=== PATIENT | female | born 1945 | race Caucasian/White ===

== ENCOUNTER 2019-04-12 14:54 | Emergency (ER) | payer OTHER, SELFPAY ==
[2019-04-12 15:00] VITALS: BP 183/121; PULSE 78; RESP 18; TEMP 36.4; O2SAT 97; BMI 41.9
--- NOTE | 2019-04-12 15:31 | ED_ITS ---
Entered by Malina Sam, acting as scribe for Zee Bond MD HPI - Wound/Laceration General: Chief Complaint: Wound/Laceration Stated Complaint: wound check Time Seen by Provider: 04/12/19 15:31 Source: patient Mode of arrival: ambulatory Limitations: no limitations History of Present Illness: HPI narrative: 73 yo Female presents to ED with complaint of wound recheck. Pt was sent to the ED from the wound care clinic. Pt states that she is diabetic and they stopped doing her lymphadema wraps. Pt states that home health was doing the wraps but they were told that medicare wasn't going to pay for the lymphadema wraps anymore so they stopped doing them. Pt states that she has been on Keflex since . Onset (ago): week(s) Extremity Location: Bilateral: lower leg Associated symptoms: Denies chills, fever(s), nausea or vomiting Review of Systems Const: Denies: fever or chills Eyes: Denies: change in vision ENMT: Denies: throat pain or mouth pain Card: Denies: chest pain Resp: Denies: shortness of breath GI: Denies: abdominal pain, nausea, vomiting or diarrhea : Denies: difficulty urinating Musc: Denies: back pain or joint pain Skin/Breast: Reports: redness, skin tenderness, skin swelling and sores; Denies: rash Neuro: Denies: headache or behavioral changes Psych: Denies: depression Endo: Denies: excessive urination Timothy/Lymph: Denies: easy bruising All/Imm: Denies: hives PFSH ED PFSH: Statuses (acute, chronic, etc) shown below reflect problem list status as previously entered and may not be historically accurate Medical History (Updated 04/12/19 @ 17:33 by Zee Bond MD) Cellulitis (Acute) Diabetes (Acute) HTN (hypertension) (Acute) Osteomyelitis (Acute) Peripheral neuropathy (Acute) Renal failure (Acute) Thyroid disease (Acute) UTI (urinary tract infection) (Acute) Social History Smoking and tobacco status: former smoker Physical Exam Const: COMMON NORMALS: no apparent distress, oriented x3 and healthy appearing HENMT: COMMON NORMALS: normocephalic and external nose normal HEAD & SCALP: normocephalic NOSE: external nose normal Eye: COMMON NORMALS: PERRL PUPIL: Yes PERRL Neck/C-Spine: COMMON NORMALS: full ROM and no lymphadenopathy Chest: COMMONS NORMALS: inspection of chest normal Resp: COMMON NORMALS: normal respiratory effort, no use of accessory muscles and clear to auscultation bilaterally AUSCULTATION: clear to auscultation bilaterally Cardio: COMMON NORMALS: regular rate and regular rhythm RATE: regular rate RHYTHM: regular rhythm GI: COMMON NORMALS: normal to inspection, nondistended, normoactive bowel sounds, soft to palpation, non-tender and no masses PALPATION: Yes soft Back/Pelvis: THORACIC SPINE/UPPER BACK: Yes normal to inspection Extremity: COMMON NORMALS: full ROM and normal capillary refill NARRATIVE EXTREMITY EXAM: Bilateral lymphedema moderate to severe. Erythema to both legs. She does have a ulcer to the right heel with no signs of abscess. Neuro: COMMON NORMALS: oriented x3 Psych: COMMON NORMALS: mental status grossly normal and cooperative Skin: COMMON NORMALS: no rashes or lesions noted GENERAL SKIN EXAM: no rashes or lesions noted Course Vital Signs: Vital signs: Vital Signs Temperature 97.8 F 04/12/19 15:41 Pulse Rate 90 04/12/19 19:20 Respiratory Rate 16 04/12/19 19:20 Blood Pressure 148/100 04/12/19 19:20 Pulse Oximetry 96 04/12/19 19:20 MDM - Wound/Laceration MDM Narrative: Medical decision making narrative: Patient presents here with lymphedema bilateral legs with cellulitis. Patient's white count here is normal and ultrasound shows no DVT. X-ray shows no signs of osteomyelitis. I spoke to patient's wound care practitioner and will start on clindamycin. Patient is to follow-up in 2 to 4 days and return to the ER if worsening. Patient understands and agrees to plan. Patient is getting home health reset up at her house. Lab Data: Labs: Lab Results 04/12/19 04/12/19 Range/Units 16:05 16:05 WBC 5.3 (4.0-10.0) 10^3/ uL RBC 3.71 L (4.1-5.3) 10^6/u L Hgb 10.8 L (11.5-15.3) g/dL Hct 35.9 L (37.0-47.0) % MCV 96.8 (81-99) fL MCH 29.1 (28.0-34.0) pg MCHC 30.1 (30.0-36.0) g/dL RDW 12.6 (12.1-15.1) % Plt Count 249 (130-400) 10^3/c mm MPV 10.8 H (7.4-10.4) fL Neut % (Auto) 71.5 % Lymph % (Auto) 17.8 % [place] % (Auto) 8.1 % Eos % (Auto) 1.3 % Baso % (Auto) 0.2 % Neut # (Auto) 3.8 (1.8-7.7) 10^3/u L Lymph # (Auto) 0.9 (0.8-4.8) 10^3/u L [place] # (Auto) 0.4 (0.2-0.9) 10^3/u L Eos # (Auto) 0.1 (0.0-0.8) 10^3/u L Baso # (Auto) 0.0 (0.0-0.1) 10^3/u L Nucleated RBC % (a uto) 0 % Nucleated RBCs # 0.0 /100WBC Sodium 142 (136-145) mmol/L Potassium 4.2 (3.5-5.1) mmol/L Chloride 103 (98-107) mmol/L Carbon Dioxide 29 (22-29) mmol/L Anion Gap 14.2 (5-19) BUN 16 (8-23) mg/dL Creatinine 0.9 (0.5-0.9) mg/dL Glucose 206 H (74-106) mg/dL Calcium 9.2 (8.8-10.2) mg/Dl Total Bilirubin 0.3 (0.15-1.2) mg/dL AST 10 (0-32) U/L ALT 11 (0-33) U/L Alkaline Phosphata se 91 (35-105) IU/L Total Protein 7.2 (6.6-8.7) g/dL Albumin 2.9 L (3.5-5.2) g/dL Globulin 4.3 (1.3-4.6) g/dL Imaging Data^: XR Foot: Radiologist's impression: [facility] [address] [place] [address] XRay Report Signed Patient: Rachid Hagen #: [id number] : 7Acct#:[id number] Age/Sex: 73 / FADM Date: 04/12/19 Loc: ERRoom/Bed: Attending Dr: Ordering Provider/Ordering MD: Zee Bond MD Date of Service: 04/12/19 Procedure(s): XR foot LT min 3V* [id number] Accession Number(s): [id number] Report Number: [id number] PROCEDURE INFORMATION: Exam: XR Left Foot Complete Exam date and time: 04/12/2019 4:49 PM Age: 73 years old Clinical indication: Pain; Foot; Left TECHNIQUE: Imaging protocol: XR Left foot. Views: 3 or more views. COMPARISON: US SoftTissue/Extrem Lmt [id number] 07/23/2017 11:36 AM FINDINGS: Bones/joints: There is amputation of the great toe at the level of the distal shaft of the 1st metatarsal. Moderate osteoarthritis is seen. Otherwise negative for acute bony abnormality Soft tissues: Mild edema is seen in the dorsal aspect of the foot. Diffuse soft tissue edema is seen anterior to the 1st metatarsal XR/XR foot LT min 3V* [id number] IMPRESSION: No acute findings. Amputation of the great toe Soft tissue edema distal to the 1st metatarsal and dorsal foot Dictated By:Primitivo Belle Signed By:Geeta Belle Date/Time:04/12/191726 DD/ 25 Discharge Plan Discharge Patient Disposition: Home, Self-Care Clinical Impression: Lymphedema Cellulitis Qualifiers: Site of cellulitis: extremity Site of cellulitis of extremity: lower extremity Laterality: unspecified laterality Qualified Code(s): L03.119 - Cellulitis of unspecified part of limb Condition: Stable Prescriptions: New clindamycin HCl 300 mg capsule 300 mg PO Q8H 10 Days Qty: 30 RF: 0 Discharge Orders: Discharge Order (Routine); Ordered 04/12/19 Ordered By: Zee Bond Referrals: Srikanth Mars Jr, MD [Primary Care Provider] - WOUND CARE CLINIC, [Staff Physician] - 4-7 days Discharge Diet: Advance as tolerated Discharge Activity: Resume usual activity Patient Instructions: Cellulitis (ED) Discharge Date/Time: 04/12/19 19:25 Coding Level of Care Code ED Polysomnography Tech for Chg Fwd Exam Problem Focused The documentation recorded by the Flaco ray Carmen, accurately reflects the service I personally performed and the decisions made by me, Zee Bond MD Apr 12, 2019 14:54
[2019-04-12 15:41] VITALS: BP 147/77; PULSE 78; RESP 20; TEMP 36.6; O2SAT 97
--- NOTE | 2019-04-12 15:43 | USCV_ITS ---
Rachid Hagen Age: 73 Gender: F : 1945 Exam Date: 04/12/2019 16:09 Ordering Phys: Zee Bond MD Technologist: Julissa Dutta [place] [facility] [place] NON HEALING WOUNDS BILATERAL LEGS. LOWER LEGS SEEPING WITH BLISTERS HISTORY: Non healing wounds bilateral legs PROCEDURES: The venous duplex Doppler examination of both lower extremities was performed in the standard fashion. The following venous structures were evaluated: common femoral vein, profunda vein, proximal portion of the greater saphenous vein, superficial femoral vein, and the popliteal vein. In addition, the posterior tibial and peroneal trunk were evaluated. Serial compression, augmentation maneuvers, and spectral Doppler flow evaluation were performed. FINDINGS: No DVT seen in any vessel examined CONCLUSIONS No evidence of DVT in the above-mentioned identifiable veins. Dr Ivory Edwards MD [facility] (Electronically Signed) Final Date: 13 April 2019 07:48 S
[2019-04-12 16:00] VITALS: BP 146/64; PULSE 78; RESP 16; O2SAT 97
--- NOTE | 2019-04-12 16:23 | XRR_ITS ---
PROCEDURE INFORMATION: Exam: XR Left Foot Complete Exam date and time: 04/12/2019 4:49 PM Age: 73 years old Clinical indication: Pain; Foot; Left TECHNIQUE: Imaging protocol: XR Left foot. Views: 3 or more views. COMPARISON: US SoftTissue/Extrem Lmt [id number] 07/23/2017 11:36 AM FINDINGS: Bones/joints: There is amputation of the great toe at the level of the distal shaft of the 1st metatarsal. Moderate osteoarthritis is seen. Otherwise negative for acute bony abnormality Soft tissues: Mild edema is seen in the dorsal aspect of the foot. Diffuse soft tissue edema is seen anterior to the 1st metatarsal XR/XR foot LT min 3V* [id number] IMPRESSION: No acute findings. Amputation of the great toe Soft tissue edema distal to the 1st metatarsal and dorsal foot
[2019-04-12 16:24] LABS: Basophils % 0.2 %; Eosinophils # 0.1 10^3/uL (0.0-0.8); Eosinophils % 1.3 %; Hematocrit 35.9 % (37.0-47.0); Hemoglobin 10.8 g/dL (11.5-15.3); Lymphocytes # 0.9 10^3/uL (0.8-4.8); Lymphocytes % 17.8 %; Mean Corpuscular HGB Conc 30.1 g/dL (30.0-36.0); Mean Corpuscular Hemoglobin 29.1 pg (28.0-34.0); Mean Corpuscular Volume 96.8 fL (81-99); Mean Platelet Volume 10.8 fL (7.4-10.4); Monocytes # 0.4 10^3/uL (0.2-0.9); Monocytes % 8.1 %; Neutrophils # 3.8 10^3/uL (1.8-7.7); Neutrophils % 71.5 %; Nucleated Red Blood Cells % 0 %; Platelet Count 249 10^3/cmm (130-400); Red Blood Count 3.71 10^6/uL (4.1-5.3); Red Cell Distribution Width 12.6 % (12.1-15.1); White Blood Count 5.3 10^3/uL (4.0-10.0)
[2019-04-12 16:38] LABS: Alanine Aminotransferase 11 U/L (0-33); Albumin Level 2.9 g/dL (3.5-5.2); Alkaline Phosphatase 91 IU/L (35-105); Anion Gap 14.2 (5-19); Aspartate Amino Transferase 10 U/L (0-32); Blood Urea Nitrogen 16 mg/dL (8-23); Calcium 9.2 mg/Dl (8.8-10.2); Carbon Dioxide 29 mmol/L (22-29); Chloride 103 mmol/L (98-107); Globulin 4.3 g/dL (1.3-4.6); Glucose 206 mg/dL (74-106); Potassium 4.2 mmol/L (3.5-5.1); Sodium 142 mmol/L (136-145); Total Bilirubin 0.3 mg/dL (0.15-1.2); Total Protein 7.2 g/dL (6.6-8.7)
[2019-04-12 17:00] VITALS: BP 151/70; PULSE 76; RESP 14; O2SAT 97
[2019-04-12] MEDS: vancomycin 1,000 MG in sodium chloride 0.9% 250 ML 250 MG IV (17:52)
[2019-04-12] MEDS: FUROsemide 10 mg/mL SDV 4mL 40 MG IVP (17:52)
[2019-04-12 18:00] VITALS: BP 171/101; PULSE 79; RESP 16; O2SAT 95
--- NOTE | 2019-04-12 19:06 | PC.NURSE ---
REPORT RECEIVED FROM LEO WELCH AND CARE TRANSFERRED TO LEO WILKINS
[2019-04-12 19:20] VITALS: BP 148/100; PULSE 90; RESP 16; O2SAT 96
--- NOTE | 2019-04-13 10:48 | DCPLANNER ---
digital marketing program manager had message to schedule a follow up appointment for patient with Wound Care. digital marketing program manager called the Wound Care Clinic, spoke with Najma, a follow up appointment is scheduled for Friday, April 19, 2019 at 10:45 with Yolanda. Clinic will call patient with appointment information.
--- NOTE | 2019-04-22 10:24 | DCPLANNER ---
Patient did attend appointment scheduled for 04.19.19 with Wound Care.
== END 2019-04-12 19:25 | disposition home or self-care (01) ==
PROVIDERS: Emergency Provider Emergency Medicine; Family Provider Family Medicine; PCP Family Medicine
DX: L03.119 Cellulitis of unspecified part of limb (principal); I89.0 Lymphedema, not elsewhere classified
CPT/HCPCS: 36415; 73630; 80053; 85025; 87040; 93970; 96365; 96374; 99281; J1940; J3370; J7050

== ENCOUNTER 2019-04-23 14:45 | Outpatient (RCR) | payer OTHER, SELFPAY | END 2019-04-23 23:59 | disposition home or self-care (01) | LOC: WOUND 14:45 | PROVIDERS: Family Provider Family Medicine; PCP Family Medicine; Visit Provider Surgery | DX: E11.621 Type 2 diabetes mellitus with foot ulcer (principal); L97.411 Non-pressure chronic ulcer of right heel and midfoot limited to breakdown of skin; L97.822 Non-pressure chronic ulcer of other part of left lower leg with fat layer exposed; L97.812 Non-pressure chronic ulcer of other part of right lower leg with fat layer exposed; L03.116 Cellulitis of left lower limb; E11.622 Type 2 diabetes mellitus with other skin ulcer | CPT/HCPCS: 11042; 11045; 99205; 99214; 99215; L3260 ==

== ENCOUNTER 2019-05-17 10:30 | Outpatient (RCR) | payer OTHER, SELFPAY | END 2019-05-22 23:59 | disposition home or self-care (01) | LOC: WOUND 10:30 | PROVIDERS: Family Provider Family Medicine; PCP Family Medicine; Visit Provider Nurse Practitioner Family | DX: E11.621 Type 2 diabetes mellitus with foot ulcer (principal); L97.412 Non-pressure chronic ulcer of right heel and midfoot with fat layer exposed; E11.622 Type 2 diabetes mellitus with other skin ulcer; L97.822 Non-pressure chronic ulcer of other part of left lower leg with fat layer exposed; L97.812 Non-pressure chronic ulcer of other part of right lower leg with fat layer exposed | CPT/HCPCS: 11042; 11045; 99214; 99215; A6545 ==

== ENCOUNTER 2019-06-07 13:20 | Outpatient (RCR) | payer OTHER, SELFPAY | END 2019-06-22 23:59 | disposition home or self-care (01) | LOC: WOUND 13:20 | PROVIDERS: Family Provider Family Medicine; PCP Family Medicine; Visit Provider Nurse Practitioner Family | DX: E11.621 Type 2 diabetes mellitus with foot ulcer (principal); L97.412 Non-pressure chronic ulcer of right heel and midfoot with fat layer exposed; E11.622 Type 2 diabetes mellitus with other skin ulcer; L97.822 Non-pressure chronic ulcer of other part of left lower leg with fat layer exposed; L97.812 Non-pressure chronic ulcer of other part of right lower leg with fat layer exposed | CPT/HCPCS: 11042; 99214; 99215 ==

== ENCOUNTER 2019-08-07 14:45 | Inpatient (IN) | payer MEDICARE, MEDICAID, SELFPAY ==
[2019-08-07 14:52] VITALS: BP 152/67; PULSE 74; RESP 17; TEMP 36.7; O2SAT 96; BMI 41.9
--- NOTE | 2019-08-07 15:28 | XRR_ITS ---
PROCEDURE INFORMATION: Exam: XR Chest, 1 View Exam date and time: 08/07/2019 4:37 PM Age: 73 years old Clinical indication: Shortness of breath; Additional info: Dyspnea/cough TECHNIQUE: Imaging protocol: XR of the chest Views: 1 view. COMPARISON: [place] Chest 1 [place] [id number] 09/21/2017 11:59 AM FINDINGS: Lungs: Findings suggest the presence of moderate grade interstitial edema of congestive heart failure. Pleural space: Potential for small volume subpulmonic effusions. Heart/Mediastinum: Cardiomegaly with arterial sclerosis. Bones/joints: Age-appropriate degenerative disease. Other findings: Limited diagnostic quality. Patient's body habitus limits detail assessment. Suboptimal positioning. XR/XR chest 1V portable [id number] IMPRESSION: Findings most consistent with moderate grade interstitial edema.
--- NOTE | 2019-08-07 15:50 | ED_ITS ---
HPI - General Adult General: Chief complaint: General Medical Stated complaint: HYPERGLYCEMIC; WEAKNESS Time Seen by Provider: 08/07/19 14:54 History of Present Illness: HPI narrative: 73-year-old female who states she has been essentially bedridden for the last 3 days she is not been able to care for herself is been 3 days since she had a bowel movement she had a bowel movements afternoon and soiled herself. She is complaining of bilateral leg pain unable to move her legs or support her own weight she had been going to the wound clinic which she is not been there for a while now she denies any fever sweats or chills she is not had any hematochezia melena hematemesis or coffee- ground emesis she not been vomiting but she has been fairly nauseous. She denies any chest pain denies any orthopnea or difficulty breathing. Onset (ago): day(s) (4) Location: left, right and lower extremity Severity: mild Quality: burning and aching Pain Consistency: constant Relieving factors: none Exacerbating factors: none Associated symptoms: Reports decreased appetite, malaise, nausea and short of breath; Deny chest pain, cough, diaphoresis, dyspnea, fevers/chills, rash, palpitations, vomiting or weakness Treatments prior to arrival: none Review of Systems Const: Reports: malaise; Denies: diaphoresis ENMT: Denies: throat pain, ear or mastoid pain, nasal discharge or nasal congestion Card: Denies: chest pain or palpitations Resp: Denies: dyspnea GI: Reports: nausea; Denies: vomiting : Denies: flank pain, difficulty voiding, dysuria, urinary frequency or urinary urgency Skin/Breast: Denies: rash or pruritus PFSH ED PFSH: Medical History COPD (chronic obstructive pulmonary disease) Diabetes Diabetic peripheral neuropathy Dyslipidemia GERD (gastroesophageal reflux disease) History of ESBL E. 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 Son has been trying to assume her care. Physical Exam Const: COMMON NORMALS: no acute distress GENERAL APPEARANCE: cooperative and comfortable ORIENTATION/CONSCIOUSNESS: Yes awake, Yes oriented to person, Yes oriented to place and Yes oriented to time HENMT: COMMON NORMALS: normocephalic, atraumatic, hearing grossly normal bilaterally, external ears normal, EAC's normal, TM's normal bilaterally, Normal nasal mucous membranes and turbinates present, moist oral mucous membranes and oropharynx normal HEAD & SCALP: normocephalic and atraumatic NOSE: Normal nasal mucous membranes and turbinates present EXTERNAL EAR: Yes external ears normal EXTERNAL AUDITORY CANAL: EAC's normal TYMPANIC MEMBRANE: TM's normal bilaterally Eye: COMMON NORMALS: Equal, round and reactive pupils present, EOMs intact bilaterally, conjunctivae normal and no scleral icterus CONJUNCTIVA: Yes conjunctivae normal PUPIL: Yes Equal, round and reactive pupils present Neck/C-Spine: COMMON NORMALS: full ROM, no lymphadenopathy, supple and no JVD Lymph: LYMPHATIC: no lymphadenopathy noted and no lymphedema noted Resp: COMMON NORMALS: normal respiratory effort, No retractions, No use of accessory muscles and clear to auscultation bilaterally AUSCULTATION: clear to auscultation bilaterally Cardio: COMMON NORMALS: no JVD, regular rate, regular rhythm and No murmurs present (Cardio) RATE: regular rate RHYTHM: regular rhythm GI: COMMON NORMALS: Soft to palpation and No hepatosplenomegaly present AUSCULTATION: Yes normoactive bowel sounds PALPATION: Yes Soft to palpation, No Tenderness to palpation present (GI), No Guarding due to palpation present (GI) and Yes No hepatosplenomegaly present Extremity: NARRATIVE EXTREMITY EXAM: Extensive open wounds with mucousy eschars at the base the lateral aspect the left leg is nearly circumferential with full-thickness wounds exposed subcutaneous tissue no exposed bone there is no active drainage. Is also present on the right heel on the right posterior lower leg distally. They are very foul-smelling. Neuro: SENSORIUM/ORIENTATION: Yes oriented to person, Yes oriented to place and Yes oriented to time Skin: COMMON NORMALS: no rashes or lesions noted GENERAL SKIN EXAM: no rashes or lesions noted Course Vital Signs: Vital signs: Vital Signs Temperature 98.5 F 08/10/19 16:54 Pulse Rate 71 08/10/19 16:54 Respiratory Rate 18 08/10/19 16:54 Blood Pressure 147/69 08/10/19 16:54 Pulse Oximetry 90 08/10/19 16:54 MDM - General Adult MDM Narrative: Medical decision making narrative: Patient will be admitted for generalized weakness COPD inability to manage her own cares acute kidney injury and worsening diabetic foot ulcers due to pressure. He will likely need surgical consultation with debridement. Lab Data: Labs: Lab Results 08/07/19 08/07/19 08/07/19 Range/Units 15:39 15:39 15:39 WBC 6.8 (4.0-10.0) 10^3/ uL RBC 3.94 L (4.1-5.3) 10^6/u L Hgb 12.0 (11.5-15.3) g/dL Hct 40.2 (37.0-47.0) % MCV 102.0 H (81-99) fL MCH 30.5 (28.0-34.0) pg MCHC 29.9 L (30.0-36.0) g/dL RDW 13.6 (12.1-15.1) % Plt Count 222 (130-400) 10^3/c mm MPV 11.2 H (7.4-10.4) fL Neut % (Auto) 80.8 % Lymph % (Auto) 8.0 % [place] % (Auto) 8.0 % Eos % (Auto) 0.0 % Baso % (Auto) 0.4 % Neut # (Auto) 5.5 (1.8-7.7) 10^3/u L Lymph # (Auto) 0.5 L (0.8-4.8) 10^3/u L [place] # (Auto) 0.5 (0.2-0.9) 10^3/u L Eos # (Auto) 0.0 (0.0-0.8) 10^3/u L Baso # (Auto) 0.0 (0.0-0.1) 10^3/u L Nucleated RBC % (a uto) 0 % Nucleated RBCs # 0.0 /100WBC Specimen Type Sample Site ABG pH (7.35-7.45) ABG pCO2 (35-45) mmHg ABG pO2 (80.0-100.0) mmH g ABG HCO3 (22-26) mmol/L ABG O2 Saturation ABG Base Excess (-2.0-2.0) mmol/ L Rafa Test A-a O2 Gradient (5-10) mmHg Hematocrit (37-47) % Hgb O2 Saturation (95-100) % Carboxyhemoglobin (0.4-20.1) %THgb Methemoglobin (0.4-1.5) % Total Hemoglobin (12-16) g/dL Ionized Calcium (1.1-1.4) mmol/L O2 Delivery Device Etcher Enameling ID Sodium 135 L (136-145) mmol/L Potassium 3.9 (3.5-5.1) mmol/L Chloride 92 L (98-107) mmol/L Carbon Dioxide 31 H (22-29) mmol/L Anion Gap 15.9 (5-19) BUN 15 (8-23) mg/dL Creatinine 1.1 H (0.5-0.9) mg/dL Glucose 488 H (65-115) mg/dL Calculated Osmolal ity 298 H (285-295) mOsm/k g Lactate 3.4 H (0.5-2.2) mmol/L Calcium 8.2 L (8.5-10.5) mg/dL Total Bilirubin 0.5 (0.15-1.2) mg/dL AST 18 (0-32) U/L ALT 9 (0-33) U/L Alkaline Phosphata se 76 (35-105) IU/L Creatine Kinase 759 H* (26-192) U/L Troponin T Baselin e (0-10) ng/mL Total Protein 6.5 L (6.6-8.7) g/dL Albumin 3.2 L (3.5-5.2) g/dL Globulin 3.3 (1.3-4.6) g/dL Lipase 11 L (13-60) U/L 08/07/19 08/07/19 Range/Units 15:39 15:49 WBC (4.0-10.0) 10^3/ uL RBC (4.1-5.3) 10^6/u L Hgb (11.5-15.3) g/dL Hct (37.0-47.0) % MCV (81-99) fL MCH (28.0-34.0) pg MCHC (30.0-36.0) g/dL RDW (12.1-15.1) % Plt Count (130-400) 10^3/c mm MPV (7.4-10.4) fL Neut % (Auto) % Lymph % (Auto) % [place] % (Auto) % Eos % (Auto) % Baso % (Auto) % Neut # (Auto) (1.8-7.7) 10^3/u L Lymph # (Auto) (0.8-4.8) 10^3/u L [place] # (Auto) (0.2-0.9) 10^3/u L Eos # (Auto) (0.0-0.8) 10^3/u L Baso # (Auto) (0.0-0.1) 10^3/u L Nucleated RBC % (a uto) % Nucleated RBCs # /100WBC Specimen Type Arterial Sample Site Radial, left ABG pH 7.43 (7.35-7.45) ABG pCO2 48.0 H (35-45) mmHg ABG pO2 67.3 L (80.0-100.0) mmH g ABG HCO3 32.0 H (22-26) mmol/L ABG O2 Saturation 94.0 ABG Base Excess 6.6 H (-2.0-2.0) mmol/ L Rafa Test Pos A-a O2 Gradient 22.2 H (5-10) mmHg Hematocrit 37.8 (37-47) % Hgb O2 Saturation 91.7 L (95-100) % Carboxyhemoglobin 1.8 (0.4-20.1) %THgb Methemoglobin 0.7 (0.4-1.5) % Total Hemoglobin 12.3 (12-16) g/dL Ionized Calcium 1.1 (1.1-1.4) mmol/L O2 Delivery Device Nc Etcher Enameling ID jmn Sodium 137.0 (136-145) mmol/L Potassium 3.8 (3.5-5.1) mmol/L Chloride (98-107) mmol/L Carbon Dioxide (22-29) mmol/L Anion Gap (5-19) BUN (8-23) mg/dL Creatinine (0.5-0.9) mg/dL Glucose 478.0 H (65-115) mg/dL Calculated Osmolal ity (285-295) mOsm/k g Lactate (0.5-2.2) mmol/L Calcium (8.5-10.5) mg/dL Total Bilirubin (0.15-1.2) mg/dL AST (0-32) U/L ALT (0-33) U/L Alkaline Phosphata se (35-105) IU/L Creatine Kinase (26-192) U/L Troponin T Baselin e 61 H (0-10) ng/mL Total Protein (6.6-8.7) g/dL Albumin (3.5-5.2) g/dL Globulin (1.3-4.6) g/dL Lipase (13-60) U/L Discharge Plan Discharge Admit Provider: Nell Denis Clinical Impression: 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, Diabetic peripheral neuropathy, Rhabdomyolysis, COPD (chronic obstructive pulmonary disease) Condition: Stable Discharge Orders: Discharge Order (Routine); Ordered 08/10/19 Ordered By: Flaquita Wilkins Discharge Diet: Diabetic Discharge Activity: Increase activity as tolerated Interventions: ED Discharge Assessment Last Done: 08/07/19 20:07 ED Charges Last Done: 08/07/19 20:07 Discharge Date/Time: 08/07/19 20:39 Coding Level of Care Code ED Hyperion Administrator for Chg Fwd Exam Comprehensive
[2019-08-07 15:59] LABS: Basophils % 0.4 %; Hematocrit 40.2 % (37.0-47.0); Lymphocytes # 0.5 10^3/uL (0.8-4.8); Mean Corpuscular HGB Conc 29.9 g/dL (30.0-36.0); Mean Corpuscular Hemoglobin 30.5 pg (28.0-34.0); Mean Platelet Volume 11.2 fL (7.4-10.4); Monocytes # 0.5 10^3/uL (0.2-0.9); Neutrophils # 5.5 10^3/uL (1.8-7.7); Neutrophils % 80.8 %; Nucleated Red Blood Cells % 0 %; Platelet Count 222 10^3/cmm (130-400); Red Blood Count 3.94 10^6/uL (4.1-5.3); Red Cell Distribution Width 13.6 % (12.1-15.1); White Blood Count 6.8 10^3/uL (4.0-10.0)
[2019-08-07 16:00] LABS: ABG PH Result 7.43 (7.35-7.45); Alveolar-Arterial Oxygen Gradi 22.2 mmHg (5-10); Arterial Blood Gas Hematocrit 37.8 % (37-47); Base Excess ABG 6.6 mmol/L (-2.0-2.0); Blood Gas Allen Test Pos; Blood Gas Sample Site Radial, left; Blood Gas Sample Type Arterial; Carboxyhemoglobin 1.8 %THgb (0.4-20.1); HGB O2 Sat 91.7 % (95-100); Ionized Calcium Level - ABG 1.1 mmol/L (1.1-1.4); Methemoglobin 0.7 % (0.4-1.5); Oxygen Device NC; PO2 ABG 67.3 mmHg (80.0-100.0); Potassium Level - ABG 3.8 mmol/L (3.5-5.0); Total Hemoglobin 12.3 g/dL (12-16)
[2019-08-07 16:16] LABS: Alanine Aminotransferase 9 U/L (0-33); Albumin Level 3.2 g/dL (3.5-5.2); Alkaline Phosphatase 76 IU/L (35-105); Anion Gap 15.9 (5-19); Aspartate Amino Transferase 18 U/L (0-32); Blood Urea Nitrogen 15 mg/dL (8-23); Calcium 8.2 mg/dL (8.5-10.5); Carbon Dioxide 31 mmol/L (22-29); Chloride 92 mmol/L (98-107); Creatinine Clr Calc Pharmacy 64.5261; Globulin 3.3 g/dL (1.3-4.6); Glucose 488 mg/dL (65-115); Lipase 11 U/L (13-60); Osmolality Calculated 298 mOsm/kg (285-295); Potassium 3.9 mmol/L (3.5-5.1); Sodium 135 mmol/L (136-145); Total Bilirubin 0.5 mg/dL (0.15-1.2); Total Protein 6.5 g/dL (6.6-8.7)
[2019-08-07 16:17] LABS: Lactate (Lactic Acid level) 3.4 mmol/L (0.5-2.2)
[2019-08-07 16:18] LABS: Troponin(5th) Baseline 61 ng/mL (0-10)
[2019-08-07 16:35] LABS: Creatine Phosphokinase 759 U/L (26-192)
--- NOTE | 2019-08-07 16:35 | PC.NURSE ---
CK 314
--- NOTE | 2019-08-07 16:41 | XRR_ITS ---
PROCEDURE INFORMATION: Exam: XR Right Ankle Exam date and time: 08/07/2019 5:19 PM Age: 73 years old Clinical indication: Pain; Lower leg; Right; Additional info: Open wound TECHNIQUE: Imaging protocol: XR Right ankle. Views: 3 or more views. COMPARISON: No relevant prior studies available. FINDINGS: Bones/joints: No radiographic evidence of active or acute osseous abnormality. Osteopenia. No radiographically visible osteolytic destructive process. Ankle mortise intact. Previous amputation right hallux. Soft tissues: No visible soft tissue emphysema. Vasculature: Arterial sclerosis of diabetes mellitus. Phleboliths. XR/XR ankle RT min 3V* [id number] IMPRESSION: Nonacute.
--- NOTE | 2019-08-07 16:41 | XRR_ITS ---
PROCEDURE INFORMATION: Exam: XR Left Ankle Exam date and time: 08/07/2019 4:43 PM Age: 73 years old Clinical indication: Other: Open wounds; Prior surgery; Surgery date: 6+ months; Surgery type: Lower leg; Additional info: Open wound TECHNIQUE: Imaging protocol: XR Left ankle. Views: 3 or more views. COMPARISON: No relevant prior studies available. FINDINGS: Bones/joints: Old distal left tibia and fibula diaphysis fractures with coarse union. Intramedullary alexx tibia. No visible acute osseous abnormality. Osteopenia. No radiographically visible osteolytic destructive process. Soft tissues: Myositis ossificans. No visible subcutaneous emphysema. Vasculature: Arterial sclerosis of diabetes mellitus. Phleboliths. XR/XR ankle LT min 3V* [id number] IMPRESSION: 1. No grossly visible acute osseous abnormality. 2. Old distal left tibia and fibula fractures.
--- NOTE | 2019-08-07 16:42 | XRR_ITS ---
PROCEDURE INFORMATION: Exam: XR Right Foot Complete Exam date and time: 08/07/2019 5:21 PM Age: 73 years old Clinical indication: Pain; Foot; Right; Additional info: Open wound TECHNIQUE: Imaging protocol: XR Right foot. Views: 3 or more views. COMPARISON: No relevant prior studies available. FINDINGS: Bones/joints: Previous amputation right hallux. Osteopenia/osteoporosis. Mild primary osteoarthritis. Hammertoe deformities. Soft tissues: No visible subcutaneous emphysema. Vasculature: Arterial sclerosis of diabetes mellitus. Other findings: No radiographically visible osteolytic destructive process. XR/XR foot RT min 3V* [id number] IMPRESSION: Nonacute.
--- NOTE | 2019-08-07 16:42 | XRR_ITS ---
PROCEDURE INFORMATION: Exam: XR Left Foot Complete Exam date and time: 08/07/2019 5:21 PM Age: 73 years old Clinical indication: Other: Open wounds; Prior surgery; Surgery date: 6+ months; Surgery type: Lower leg; Additional info: Open wound TECHNIQUE: Imaging protocol: XR Left foot. Views: 3 or more views. COMPARISON: No relevant prior studies available. FINDINGS: Bones/joints: Osteopenia/osteoporosis. Hammertoe deformities. Mild primary osteoarthritis. Hallux valgus. No radiographically visible osteolytic destructive process. Soft tissues: No visible subcutaneous emphysema. Vasculature: Arterial sclerosis of diabetes mellitus. XR/XR foot LT min 3V* [id number] IMPRESSION: No radiographically visible acute osseous abnormality.
--- NOTE | 2019-08-07 17:28 | ECG_ITS ---
Measurements Intervals [place] Rate: 66 P: 98 MO: 163 QRS: -27 QRSD: 112 T: 89 QT: 387 QTc: 406 SINUS RHYTHM POSSIBLE ANTERIOR MYOCARDIAL INFARCTION , OF INDETERMINATE AGE Compared to ECG 09/30/2016 08:25:04 Myocardial infarct finding now present Sinus arrhythmia no longer present Electronically Signed On 08-08-2019 9:48:36 CDT by Manuela Hughes M.D. [email or web address]
--- NOTE | 2019-08-07 17:34 | PC.PHAR ---
VANCOMYCIN LOADING DOSE Loading dose: 1500mg Peak post infusion: 23.1 mcg/mL Time to reach 20 mcg/mL: 2.5 hours Time to reach 15 mcg/mL: 7.4 hours 12.0 (mg/kg) MAINTANENCE DOSE 1000 MG Q 12 H TO START @ 0600 / WITH TROUGH TO BE DRAWN @ 1700 /17 PATIENT AT RISK OF ACUTE KIDNEY INJURY DUE TO POSSIBLE RHABDOMYOLYSIS Pharmacokinetic dosing service Objective: Patient: Floor: Age: 73 yo Serum creatinine: 1.1 mg/dL Height: 68.1 Inches Weight (kg): 125 Assessment: IBW (kg): 64.13 Dosing wt(kg): 88.5 Estimated Creatinine clearance (ml/min): 64.6 CRCL method: Cockcroft and Gault using adjusted body weight Drug selected: Vancomycin Loading dose (mg): Vd (liters): 61.9 (factor used: 0.7 L/kg) Wes (hr-1): 0.058 Half life (hrs): 11.95 CLvanco= 3.590 L/hr Recommended dose: 1000 mg Interval: 12 hrs Infusion time (hrs): 1 Predicted peak (mcg/mL): 31.3 Predicted trough (mcg/mL): 16.54 Adjusted body weight was selected for vancomycin dosing. Renal function is stable [ ] /unstable [ ] Recommendations: Give Vancomycin 1000 mg q 12 hrs with an expected Cpeak of 31.3 mcg/ml and an expected Ctrough of 16.54 mcg/ml Thank you for the consult, will continue to follow.
[2019-08-07] MEDS: sodium chloride 0.9% 1,000 ML 999 ML IV (17:37)
[2019-08-07 17:54] LABS: Troponin 5 2HR 52.79 ng/mL (0-10)
[2019-08-07 18:12] LABS: Troponin 5 2HR Delta -8.21 ABS# (0-10)
--- NOTE | 2019-08-07 19:34 | PM.HP ---
Providers/Chief Complaint Admitting Physician: Nell Denis MD Primary Care Provider: Srikanth Mars Jr, MD Chief Complaint: HYPERGLYCEMIC; WEAKNESS History of Present Illness Rachid Hagen is a 73 year old female who presents to the emergency room with inability to get up and worsening sores on her legs. She lives at home with her and her son. She had been going to wound care but last appointment was in mid May. Her family has been doing wound care since then. Her son has been transitioning to doing more of her activities of daily living as her is not really as capable. Several days ago, patient had a large bowel movement and soiled herself. The son really could not handle this. She had been in the same place for several days. She describes being very weak because her blood sugars were high. She was unable to get the sensors for her glucometer device due to cost. She says her sugars have been running high greater than 500 for several days. She denies chest pain. She has had some sweats and chills. No vomiting but she has had some nausea. Not much of an appetite. No recent cough or known sick exposures. She has had increasing pain in her legs. After much discussion at home, she was brought in for further evaluation. She is starting to come around to the idea that she probably needs more assistance than can be provided at home to care for her wounds. Patient was found to have extensive wounds some with some necrosis of both lower extremities. She is being admitted for further evaluation and initiation of appropriate treatment as indicated. Review of Systems Const: Reports: chills; Denies: fever(s) Eyes: Denies: change in vision ENMT: Reports: dry mouth; Denies: nasal congestion Card: Reports: edema; Denies: chest pain or palpitations Resp: Reports: dyspnea and non-productive cough; Denies: productive cough GI: Reports: diarrhea and constipation; Denies: abdominal pain, nausea or vomiting : Reports: urinary frequency and dribbling Musc: Reports: extremity pain Skin/Breast: Reports: rash, pruritus, erythema, skin pain, sores and non-healing lesions Neuro: Reports: numbness in extremities and weakness in extremities; Denies: headache(s) or dizziness Psych: Denies: anxiety or depression Timothy/Lymph: Reports: easy bleeding; Denies: easy bruising Medications/Allergies Home Medications Medication Instructions Recorded Confirmed Last Taken Type albuterol sulfate 2.5 mg INHALATION TID PRN 08/07/19 08/07/19 Unknown History alendronate 70 mg PO Q7D 08/07/19 08/07/19 Unknown History atorvastatin 20 mg PO DAILY 08/07/19 08/07/19 08/07/19 History carvedilol 3.125 mg PO BID 08/07/19 08/07/19 08/07/19 History esomeprazole magnesium 20 mg PO DAILY 08/07/19 08/07/19 08/07/19 History furosemide 40 mg PO DAILY 08/07/19 08/07/19 08/07/19 History gentamicin See Rx Instructions .ROUTE .COMPLEX 08/07/19 08/07/19 Unknown History glipizide 10 mg PO BID 08/07/19 08/07/19 08/07/19 History insulin aspart U-100 [Novolog See Rx Instructions .ROUTE .COMPLEX 08/07/19 08/07/19 Unknown History Flexpen U-100 Insulin] levothyroxine 25 mcg PO DAILY 08/07/19 08/07/19 Unknown History nystatin [Nystop] 1 applic TOPICAL TID 08/07/19 08/07/19 Unknown History oxybutynin chloride 5 mg PO BID 08/07/19 08/07/19 08/07/19 History oxycodone-acetaminophen 1 tab PO Q8H PRN 08/07/19 08/07/19 08/07/19 History potassium chloride 20 meq PO BID 08/07/19 08/07/19 08/07/19 History pregabalin 150 mg PO TID 08/07/19 08/07/19 08/07/19 History sitagliptin [Januvia] 100 mg PO DAILY 08/07/19 08/07/19 Unknown History tramadol 50 mg PO TID PRN 08/07/19 08/07/19 08/07/19 History trazodone 150 mg PO BEDTIME 08/07/19 08/07/19 Unknown History Allergies Allergy/AdvReac Type Severity Reaction Status Date / Time No Known Allergies Allergy Verified 04/12/19 15:00 PFSH Acute PFSH: Medical History COPD (chronic obstructive pulmonary disease) Diabetes Diabetic peripheral neuropathy Dyslipidemia GERD (gastroesophageal reflux disease) History of ESBL E. 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 Son has been trying to assume her care. Vitals/I&O/Wt Last Vital Signs Temp 98.1 F 08/07/19 14:52 Pulse 74 08/07/19 14:52 Resp 17 08/07/19 14:52 BP 152/67 08/07/19 14:52 Pulse Ox 96 08/07/19 14:52 Weight last 48 hrs Weight 125.191 kg Physical Exam Const: COMMON NORMALS: patient oriented x3 and alert GENERAL APPEARANCE: cooperative and ill appearing NUTRITIONAL APPEARANCE: obese morbidly obese HENMT: COMMON NORMALS: normocephalic MOUTH: other (Dry mouth) Eye: COMMON NORMALS: EOMs intact bilaterally Neck/C-Spine: OTHER: Large but supple Resp: COMMON NORMALS: clear to auscultation bilaterally EFFORT & INSPECTION: Yes tachypneic and Yes pursed lip breathing Cardio: RATE: regular rate RHYTHM: regular rhythm GI: COMMON NORMALS: Soft to palpation and non-tender INSPECTION: Yes central obesity AUSCULTATION: Yes normoactive bowel sounds : BLADDER/KIDNEY EXAM: Yes catheter in place Catheter type (Female): urethral Extremity: GENERAL: Yes edema Neuro: COMMON NORMALS: moves all extremities SPEECH: speech normal Skin: NARRATIVE SKIN EXAM: Patient with extensive stasis changes to the lower extremities bilaterally. She has multiple wounds to both lower extremities. There is necrosis of both heels. The left leg has extensive breakdown posteriorly as well as some on the anterior surface. Loss of superficial layers of skin is noted in all of the wounds. Heels with eschar formation. Right leg also with posterior wounds. Both legs are swollen with some serous drainage. Very malodorous. Urinary Catheter Management^: Lockhart: Cath Placed During This Visit: yes Urethral Indwelling: Yes Reason for Continuing Indwelling Catheter: Assist healing open wound Urinary Catheter Date of Insertion: 08/07/19 Data : 08/07/19 15:39 08/07/19 15:39 Other Labs: Laboratory Tests 08/07/19 08/07/19 08/07/19 15:39 15:39 15:39 ABG pH ABG pCO2 ABG pO2 Lactate 3.4 H Creatine Kinase 759 H* Troponin T Baseline 61 H Troponin T 120 Minute Delta Troponin T 08/07/19 08/07/19 15:49 17:35 ABG pH 7.43 ABG pCO2 48.0 H ABG pO2 67.3 L Lactate Creatine Kinase Troponin T Baseline Troponin T 120 Minute 52.79 H Delta Troponin T -8.21 L Micro: Microbiology 08/07/19 15:43 Blood Culture - Preliminary Blood SPECIMEN COLLECTED 08/07/19 15:39 Blood Culture - Preliminary Blood SPECIMEN COLLECTED 03/2019 Venous Duplex Lower Extremities: Radiologist's impression: FINDINGS: No DVT seen in any vessel examined A&P Assessment and plan (1) Weakness: Status: Acute (2) 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: Status: Acute (3) Rhabdomyolysis: Status: Acute Qualifiers: Rhabdomyolysis type: non-traumatic Qualified Code(s): M62.82 - Rhabdomyolysis (4) Diabetes: Status: Chronic Qualifiers: Diabetes mellitus complication status: with hyperglycemia Diabetes mellitus intermission coordinator insulin use: with [facility] use Diabetes mellitus type: type 2 Qualified Code(s): E11.65 - Type 2 diabetes mellitus with hyperglycemia; Z79.4 - snf (current) use of insulin (5) Peripheral vascular disease: Status: Chronic (6) Morbid obesity: BMI 42 Status: Chronic (7) Lymphedema: Status: Chronic (8) COPD (chronic obstructive pulmonary disease): Status: Chronic Qualifiers: COPD type: unspecified COPD Qualified Code(s): J44.9 - Chronic obstructive pulmonary disease, unspecified (9) Hypothyroidism: Status: Chronic Qualifiers: Hypothyroidism type: unspecified Qualified Code(s): E03.9 - Hypothyroidism, unspecified Additional A&P Information Inpatient admission Surgical consultation, I discussed with Dr. De La Fuente Arterial ultrasounds of both lower extremities Broad-spectrum antibiotics currently with Vanco and Zosyn Insulin therapy IV fluids Lasix is currently held Strict I's and O's and weights Continue Lockhart catheter to maximize wound healing as well as monitoring of urine output Repeat laboratory studies in the morning including CK and lactate Allow diet this evening but n.p.o. after midnight for possible debridement Add lactobacillus 1 dose of Diflucan along with some nystatin powder Anticipating drop in H&H with hydration Continue home carvedilol, levothyroxine Statin therapy held secondary to elevation in CK level GI prophylaxis with Protonix Scheduled laxatives No pharmacological DVT prophylaxis secondary to extensive oozing from multiple wounds along with need for debridement No mechanical DVT prophylaxis secondary to extensive and serious wounds on both lower extremities Remains nevertheless at high risk for VTE, will institute pharmacological when able I suspect she will need senior care placement Supportive care otherwise Plans discussed with patient and she was given an opportunity to ask questions Full code Attestations Medical Necessity Statement*: Stay will be greater than 2 midnights for management of extensive wounds to both legs along wiht other issues noted above Coding Level of Care Code Acute Tableau Administrator for [facility] Fwd Exam Comprehensive Diagnoses Weakness R53.1 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 L97.912; L97.922 Rhabdomyolysis M62.82 Rhabdomyolysis type: non-traumatic Diabetes E11.65; Z79.4 Diabetes mellitus complication status: with hyperglycemia Diabetes mellitus intermission coordinator insulin use: with [facility] use Diabetes mellitus type: type 2 Peripheral vascular disease I73.9 Morbid obesity E66.01 Lymphedema I89.0 COPD (chronic obstructive pulmonary disease) J44.9 COPD type: unspecified COPD Hypothyroidism E03.9 Hypothyroidism type: unspecified
--- NOTE | 2019-08-07 20:04 | PC.NURSE ---
Patient findings After further assessment of patient, 2 large baseball sized diabetic ulcers with slothing and yellow drainage, on both legs. Small diabetic ulcers found through ngoc area, buttox, and legs. Also large amount of yeast in in ngoc and breast area. Patient also covered in feces, front and back side. States son lives with her and taking care of her.
[2019-08-07 20:07] VITALS: PULSE 98; RESP 18; O2SAT 96
[2019-08-07 20:22] VITALS: BP 157/81; PULSE 69; RESP 16; O2SAT 97
[2019-08-07 20:25] LABS: Add Urine Microscopic? YES; Bilirubin Urine Neg (NEGATIVE); Blood Urine 2+ (Negative); Glucose Urine UA 4+ (Normal); Ketones Urine Negative (Negative); Leukocyte Esterase Urine 2+ (Negative); Nitrate Urine Positive (Negative); Protein Urine Neg (Negative); Urine Appearance Cloudy (CLEAR); Urine Color Yellow (Yellow); Urobilinogen Urine Norm (Negative); pH Urine 5 (5-7)
[2019-08-07 20:58] LABS: RBC Urine TOO NUMEROUS TO CNT /hpf (0-2)
[2019-08-07 20:59] LABS: Bacteria Urine 3+; WBC Urine >100 /hpf (0-5)
[2019-08-07 21:00] LABS: Add Urine Culture? Yes; Amorphous Sediment Urine 1+; Mucus Urine TRACE
--- NOTE | 2019-08-07 21:28 | ECG_ITS ---
Measurements Intervals [place] Rate: 65 P: 78 NC: 171 QRS: -30 QRSD: 118 T: 75 QT: 419 QTc: 438 SINUS RHYTHM POSSIBLE ANTERIOR MYOCARDIAL INFARCTION , OF INDETERMINATE AGE Compared to ECG 09/30/2016 08:25:04 Myocardial infarct finding now present Sinus arrhythmia no longer present Electronically Signed On 08-08-2019 9:49:53 CDT by Manuela Hughes M.D. [email or web address]
[2019-08-07 21:51] LABS: Glucose Point of Care 370 mg/dL (70-110)
[2019-08-07] MEDS: nystatin powder 15 gm Btl 1 APPLIC TOPICAL (22:09)
[2019-08-07 22:15] LABS: Troponin 5 6HR 53.97 ng/mL (0-10)
[2019-08-07 22:26] LABS: Troponin 5 6HR Delta -7.03 ng/L (0-12)
[2019-08-07] MEDS: trazodone 150 mg Tablet 100 MG PO (22:30)
[2019-08-07] MEDS: piperacillin-tazobactam 3.375 GM in sodium chloride 0.9% (plus) 50 ML IV (23:44)
[2019-08-08] VITALS (7 sets, daily range): BP systolic 111–135; BP diastolic 58–84; PULSE 55–66; RESP 16–18; TEMP 36.4–36.8; O2SAT 96–99; BMI 41.7
[2019-08-08] MEDS: sodium chloride 0.9% 1,000 ML 100 ML IV ×2 (05:53→14:49)
[2019-08-08 05:59] LABS: Basophils % 0.4 %; Eosinophils # 0.1 10^3/uL (0.0-0.8); Eosinophils % 1.2 %; Lymphocytes # 0.9 10^3/uL (0.8-4.8); Lymphocytes % 16.9 %; Mean Corpuscular HGB Conc 29.7 g/dL (30.0-36.0); Mean Corpuscular Hemoglobin 30.6 pg (28.0-34.0); Mean Corpuscular Volume 103.1 fL (81-99); Mean Platelet Volume 10.9 fL (7.4-10.4); Monocytes # 0.6 10^3/uL (0.2-0.9); Monocytes % 12.5 %; Neutrophils # 3.5 10^3/uL (1.8-7.7); Neutrophils % 67.8 %; Nucleated Red Blood Cells % 0 %; Platelet Count 191 10^3/cmm (130-400); Red Blood Count 3.59 10^6/uL (4.1-5.3); Red Cell Distribution Width 13.8 % (12.1-15.1); White Blood Count 5.1 10^3/uL (4.0-10.0)
[2019-08-08 06:23] LABS: C Reactive Protein 83.5 mg/L (0.0-4.9); Magnesium 1.7 mg/dL (1.7-2.3); Phosphorus 3.1 mg/dL (2.5-4.5)
[2019-08-08 06:24] LABS: Lactate (Lactic Acid level) 1.5 mmol/L (0.5-2.2)
[2019-08-08 06:42] LABS: Alanine Aminotransferase 7 U/L (0-33); Albumin Level 2.5 g/dL (3.5-5.2); Alkaline Phosphatase 63 IU/L (35-105); Anion Gap 11.6 (5-19); Aspartate Amino Transferase 14 U/L (0-32); Blood Urea Nitrogen 12 mg/dL (8-23); Calcium 7.6 mg/dL (8.5-10.5); Carbon Dioxide 32 mmol/L (22-29); Chloride 96 mmol/L (98-107); Globulin 2.9 g/dL (1.3-4.6); Glucose 256 mg/dL (65-115); Osmolality Calculated 287 mOsm/kg (285-295); Potassium 3.6 mmol/L (3.5-5.1); Sodium 136 mmol/L (136-145); Total Bilirubin 0.4 mg/dL (0.15-1.2); Total Protein 5.4 g/dL (6.6-8.7)
[2019-08-08 06:59] LABS: Erythrocyte Sedimentation Rate 61 mm/hr (0-15)
[2019-08-08 07:06] LABS: Creatine Phosphokinase 493 U/L (26-192)
[2019-08-08 07:12] LABS: Glucose Point of Care 229 mg/dL (70-110)
[2019-08-08] MEDS: piperacillin-tazobactam 3.375 GM in sodium chloride 0.9% (plus) 50 ML IV ×3 (07:33→22:42)
[2019-08-08 11:29] LABS: Glucose Point of Care 183 mg/dL (70-110)
--- NOTE | 2019-08-08 12:49 | PM.CONSULT ---
Providers/Reason For Consult Consulting Physican/Specialty*: Dr. Denis Reason for Consult*: Right heel ulcer Attending Physician: Nell Denis MD Primary Care Provider: Srikanth Mars Jr, MD History of Present Illness History of Present Illness Rachid Hagen is a 73 year old female who presented to the ER yesterday with pain redness and swelling in bilateral lower extremities with right worse than the left. Patient has been seen at the wound care by nurse practitioner though due to COVID-19 she has not had in person visit in over a month. Wounds are being cared for by her son. She states that her right heel is painful but denies any pain otherwise. Review of Systems General: Reports: 10 or more systems reviewed and unremarkable except in HPI and below Meds/Allergies Home Medications and Allergies Home Medications Medication Instructions Recorded Confirmed Last Taken Type albuterol sulfate 2.5 mg INHALATION TID PRN 08/07/19 08/07/19 Unknown History alendronate 70 mg PO Q7D 08/07/19 08/07/19 Unknown History atorvastatin 20 mg PO DAILY 08/07/19 08/07/19 08/07/19 History carvedilol 3.125 mg PO BID 08/07/19 08/07/19 08/07/19 History esomeprazole magnesium 20 mg PO DAILY 08/07/19 08/07/19 08/07/19 History furosemide 40 mg PO DAILY 08/07/19 08/07/19 08/07/19 History gentamicin See Rx Instructions .ROUTE .COMPLEX 08/07/19 08/07/19 Unknown History glipizide 10 mg PO BID 08/07/19 08/07/19 08/07/19 History insulin aspart U-100 [Novolog See Rx Instructions .ROUTE .COMPLEX 08/07/19 08/07/19 Unknown History Flexpen U-100 Insulin] levothyroxine 25 mcg PO DAILY 08/07/19 08/07/19 Unknown History nystatin [Nystop] 1 applic TOPICAL TID 08/07/19 08/07/19 Unknown History oxybutynin chloride 5 mg PO BID 08/07/19 08/07/19 08/07/19 History oxycodone-acetaminophen 1 tab PO Q8H PRN 08/07/19 08/07/19 08/07/19 History potassium chloride 20 meq PO BID 08/07/19 08/07/19 08/07/19 History pregabalin 150 mg PO TID 08/07/19 08/07/19 08/07/19 History sitagliptin [Januvia] 100 mg PO DAILY 08/07/19 08/07/19 Unknown History tramadol 50 mg PO TID PRN 08/07/19 08/07/19 08/07/19 History trazodone 150 mg PO BEDTIME 08/07/19 08/07/19 Unknown History Allergies Allergy/AdvReac Type Severity Reaction Status Date / Time No Known Allergies Allergy Verified 04/12/19 15:00 Current Medications Current Medications Generic Name Dose Route Start Last Admin Trade Name Freq PRN Reason Stop Dose Admin Carvedilol 3.125 mg 08/08/19 09:00 08/08/19 11:59 Coreg PO Not Given BID JOHANA Fluconazole 200 mg 08/08/19 09:00 08/08/19 11:59 Diflucan Tab PO Not Given DAILY JOHANA Sodium Chloride 1,000 mls @ 100 mls/hr 08/07/19 20:12 08/08/19 05:53 Sodium Chloride 0.9% IV 100 mls/hr .Q10H JOHANA Administration Insulin Aspart 0 unit 08/07/19 21:00 08/07/19 22:34 Novolog SUBCUT 7 unit BEDTIME JOHANA Administration Protocol Insulin Aspart 0 unit 08/08/19 08:00 08/08/19 12:01 Novolog SUBCUT Not Given TIDWM [facility] Protocol Insulin Detemir 10 unit 08/07/19 21:00 08/07/19 22:35 Levemir SUBCUT 10 unit BEDTIME JOHANA Administration Lactobacillus Acidophilus 1 tab 08/08/19 09:00 08/08/19 11:59 Floranex PO Not Given BID JOHANA Levothyroxine Sodium 25 mcg 08/08/19 09:00 08/08/19 11:59 Synthroid PO Not Given DAILY JOHANA Nystatin 1 applic 08/07/19 21:00 08/08/19 12:00 Nystatin Powder TOPICAL Not Given TID [facility] Pantoprazole Sodium 40 mg 08/08/19 09:00 08/08/19 12:00 Protonix PO Not Given DAILY [facility] Senna/Docusate Sodium 1 tab 08/08/19 09:00 08/08/19 12:00 Senna-S PO Not Given BID JOHANA PFSH Acute PFSH: Medical History COPD (chronic obstructive pulmonary disease) Diabetes Diabetic peripheral neuropathy Dyslipidemia GERD (gastroesophageal reflux disease) History of ESBL E. 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 Son has been trying to assume her care. Vitals/I&O/Wt Last Vital Signs Temp 97.5 F L 08/08/19 11:20 Pulse 55 L 08/08/19 11:20 Resp 18 08/08/19 11:20 BP 127/78 08/08/19 11:20 Pulse Ox 96 08/08/19 11:20 08/07/19 08/08/19 08/08/19 22:59 06:59 14:59 Intake Total 1000 / 1050 50 / 1050 Output Total 550 / 550 Balance 1000 / 500 -500 / 500 Weight last 48 hrs Weight 274 lb 8 oz Weight 276 lb Physical Exam Narrative: EXAM NARRATIVE: HEENT: Normocephalic Eye: Sclera /conjunctiva normal Respiratory and chest: Bilateral clear breath sounds on auscultation Cardiovascular: Normal S1 and S2 heart sounds Abdomen: Soft to palpation, well-healed midline laparotomy scar with large pannus and incarcerated umbilical hernia Neurological: Oriented to place person and time Skin: Intact, left leg: Large stage III ulcers, good granulation tissue, minimal surrounding cellulitis and necrotic tissue noted. Right leg: Large stage III ulcers with good granulation tissue, minimal erythema improved compared to yesterday. Right heel ulcer: Necrotic tissue, tender to palpation Urinary Catheter Management^: Lockhart: Cath Placed During This Visit: yes Urethral Indwelling: Yes Reason for Continuing Indwelling Catheter: Other Urinary Catheter Date of Insertion: 08/07/19 Data Micro: Micro: Microbiology 08/07/19 15:43 Blood Culture - Pr eliminary Blood SPECIMEN ALYSE MANUEL 08/07/19 15:39 Blood Culture - Pr eliminary Blood SPECIMEN [facility] MANUEL A&P Assessment and plan (1) 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: 73-year-old female with multiple comorbidities who now has right heel ulcer with necrotic tissue which requires excisional debridement. This could have been done at the bedside but it is tender and therefore we will schedule for her to have it done under MAC the operating room tomorrow. The rest of the wound can be managed with Hydrofera Blue dressings. Status: Acute Coding Level of Care Code Acute Customer Care Voice Consultant for [facility] Diagnoses 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 L97.912; L97.922
--- NOTE | 2019-08-08 13:46 | PM.PN ---
Subjective Subjective: Interval history: Patient not hurting as much today. CK level was down. Still with pain in her right foot. No new complaints. Vitals/I&O/Wt Last Vital Signs Temp 97.5 F L 08/08/19 11:20 Pulse 55 L 08/08/19 11:20 Resp 18 08/08/19 11:20 BP 127/78 08/08/19 11:20 Pulse Ox 96 08/08/19 11:20 08/07/19 08/08/19 08/08/19 22:59 06:59 14:59 Intake Total 1000 / 1000 50 / 1050 Output Total 550 / 550 Balance 1000 / 1000 -500 / 500 Weight last 48 hrs Weight 124.511 kg Weight 125.191 kg Physical Exam Const: COMMON NORMALS: patient oriented x3 and alert GENERAL APPEARANCE: cooperative HENMT: COMMON NORMALS: moist oral mucous membranes Eye: COMMON NORMALS: EOMs intact bilaterally Neck/C-Spine: OTHER: Large but supple Resp: COMMON NORMALS: clear to auscultation bilaterally AUSCULTATION: clear to auscultation bilaterally Cardio: COMMON NORMALS: regular rate and regular rhythm RATE: regular rate RHYTHM: regular rhythm GI: COMMON NORMALS: non-tender INSPECTION: Yes central obesity AUSCULTATION: Yes normoactive bowel sounds : BLADDER/KIDNEY EXAM: Yes catheter in place Catheter type (Female): urethral Extremity: GENERAL: Yes edema Neuro: COMMON NORMALS: patient oriented x3 and moves all extremities SENSORIUM/ORIENTATION: Yes alert SPEECH: speech normal Skin: NARRATIVE SKIN EXAM: Wounds have been cleaned up since yesterday a little bit. Still with left heel still with an eschar formation and area of purulence under the skin layer but it does not look like it has extended beyond what it was yesterday. Patient does have erythema and some excoriation in the groin but again it has been cleaned up and is not as red as I thought it was. Urinary Catheter Management^: Lockhart: Cath Placed During This Visit: yes Urethral Indwelling: Yes Reason for Continuing Indwelling Catheter: Other Urinary Catheter Date of Insertion: 08/07/19 Data : 08/08/19 05:50 08/08/19 05:50 Micro: Microbiology 08/07/19 15:43 Blood Culture - Preliminary Blood SPECIMEN COLLECTED 08/07/19 15:39 Blood Culture - Preliminary Blood SPECIMEN COLLECTED A&P Assessment and plan (1) Weakness: Likely multifactorial exacerbated by rhabdomyolysis and wounds combined with chronic issues Status: Acute (2) 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: Wounds are chronic although I am not completely sure of the severity chronically. Right heel is worse. Status: Acute (3) Rhabdomyolysis: Improved Status: Acute Qualifiers: Rhabdomyolysis type: non-traumatic Qualified Code(s): M62.82 - Rhabdomyolysis (4) Diabetes: Status: Chronic Qualifiers: Diabetes mellitus type: type 2 Diabetes mellitus intermediate frame tender insulin use: with mcfp use Diabetes mellitus complication status: with hyperglycemia Qualified Code(s): E11.65 - Type 2 diabetes mellitus with hyperglycemia; Z79.4 - retirement (current) use of insulin (5) Peripheral vascular disease: Status: Chronic (6) Morbid obesity: BMI 42 Status: Chronic (7) Lymphedema: Status: Chronic (8) COPD (chronic obstructive pulmonary disease): Not currently exacerbated Status: Chronic Qualifiers: COPD type: unspecified COPD Qualified Code(s): J44.9 - Chronic obstructive pulmonary disease, unspecified (9) Hypothyroidism: Status: Chronic Qualifiers: Hypothyroidism type: unspecified Qualified Code(s): E03.9 - Hypothyroidism, unspecified Additional A&P Information Macrocytic anemia Current sed rate [address] De La Fuente has seen Mrs. Hagen and plans to take her to surgery in the morning for debridement Continue Vanco and Zosyn Arterial extent the lower extremities have been completed, follow-up report Insulin therapy Continue IV fluids currently for rhabdomyolysis Suspect will need to resume Lasix in the next day or 2 Strict I's and O's and weights Continue Lockhart catheter to maximize wound healing as well as monitoring of urine output Received 1 dose of Diflucan, nystatin powder for groin Continue home carvedilol, levothyroxine Statin therapy held secondary to elevation in CK level GI prophylaxis with Protonix Scheduled laxatives Home alendronate and oral diabetic medications held On home oxycodone and as needed morphine, resume Lyrica On home trazodone No pharmacological DVT prophylaxis secondary to extensive oozing from multiple wounds along with need for debridement No mechanical DVT prophylaxis secondary to extensive and serious wounds on both lower extremities Remains nevertheless at high risk for VTE, will institute pharmacological when able Patient is agreeable to [place] [facility] for ongoing wound care ET and OT evaluations Supportive care otherwise Plans discussed with patient and she was given an opportunity to ask questions Full code Attestations Medical Necessity Statement*: Ongoing inpatient stay for IV antibiotics and wound debridement and other management as indicated above Coding Level of Care Code Acute [employer] Administrator for Chg Fwd Diagnoses Weakness R53.1 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 L97.912; L97.922 Rhabdomyolysis M62.82 Rhabdomyolysis type: non-traumatic Diabetes E11.65; Z79.4 Diabetes mellitus type: type 2 Diabetes mellitus mcfp insulin use: with mcfp use Diabetes mellitus complication status: with hyperglycemia Peripheral vascular disease I73.9 Morbid obesity E66.01 Lymphedema I89.0 COPD (chronic obstructive pulmonary disease) J44.9 COPD type: unspecified COPD Hypothyroidism E03.9 Hypothyroidism type: unspecified
[2019-08-08] MEDS: nystatin powder 15 gm Btl 1 APPLIC TOPICAL ×2 (14:51→20:41)
--- NOTE | 2019-08-08 15:52 | PC.NURSE ---
orders for surgery has been faxed to the house painting instructor and family has been notified.
--- NOTE | 2019-08-08 15:55 | PC.NURSE ---
Obgyn Hospitalist Physician tried to notify family regarding surgery unable to leave a message due to no voicemail set up.
--- NOTE | 2019-08-08 16:19 | PC.NURSE ---
Pt family returned call son was informed of pt surgery tomorrow morning.
[2019-08-08 16:34] LABS: Vancomycin Trough 10.4 ug/mL (10-15)
[2019-08-08 17:07] LABS: Glucose Point of Care 140 mg/dL (70-110)
[2019-08-08] MEDS: carvedilol 3.125 mg Tablet PO (17:28)
[2019-08-08] MEDS: lactobacillus 1 Tablet 1 TAB PO (17:28)
[2019-08-08] MEDS: vancomycin 1,000 MG in sodium chloride 0.9% 250 ML 250 MG IV (17:28)
[2019-08-08] MEDS: sennosides-docusate Tablet 1 TAB PO (17:28)
--- NOTE | 2019-08-08 20:04 | USR_ITS ---
PROCEDURE INFORMATION: Exam: US Duplex Lower Extremity Arteries Or Arterial Bypass Grafts Exam date and time: 08/08/2019 6:09 AM Age: 73 years old Clinical indication: Condition or disease; Other: Extensive wounds on the lower extremities TECHNIQUE: Imaging protocol: Real-time ultrasound scan of the arteries of the bilateral lower extremities with 2-D woods scale, color Doppler flow and spectral waveform analysis. Images documented and saved. COMPARISON: CR (LOW EXM, ) 08/07/2019 5:06 PM FINDINGS: Right external iliac artery: 125.8 cm/sec, triphasic. Right common femoral artery: 158.3 cm/sec, triphasic. Right superficial femoral artery: Proximal SFA 88.1 cm/sec, triphasic. Mid SFA 136.7 cm/sec, triphasic. Distal SFA 115.1 cm/sec, triphasic. Right popliteal artery: Popliteal 98.2 cm/sec, biphasic. Right calf/foot arteries: Mid-distal CORRECTION OFFICER HEAD 90.9 cm/sec, biphasic. Dorsalis pedis 89.3 cm/sec, triphasic. Left external iliac artery: 140.7 cm/sec, triphasic. Left common femoral artery: 141.4 cm/sec, biphasic. Left superficial femoral artery: Proximal SFA 233.6 cm/sec, monophasic. Mid SFA 207.9 cm/sec, monophasic. Distal SFA 102.5 cm/sec, monophasic. Left popliteal artery: 71.4 cm/sec, monophasic/biphasic. Left calf/foot arteries: Distal CORRECTION OFFICER HEAD 76.9 cm/sec, monophasic. Dorsalis pedis 19.1 cm/sec, monophasic. US/CV arterial duplex [facility] [id number] IMPRESSION: Nonspecific proximal left superficial femoral artery mild systolic velocity acceleration with monophasic waveforms distally. Correlation with ankle brachial indices recommended, when possible (the technologist reports these could not be obtained at this time due to current patient condition).
[2019-08-08] MEDS: trazodone 100 mg Tablet PO (20:40)
[2019-08-08 22:36] LABS: Glucose Point of Care 236 mg/dL (70-110)
[2019-08-09] VITALS (14 sets, daily range): BP systolic 95–157; BP diastolic 50–79; PULSE 54–74; RESP 12–21; TEMP 36.5–37.1; O2SAT 90–98
[2019-08-09] MEDS: sodium chloride 0.9% 1,000 ML 100 ML IV ×3 (01:16→20:21)
[2019-08-09] MEDS: vancomycin 1,000 MG in sodium chloride 0.9% 250 ML 250 MG IV ×2 (04:59→18:08)
--- NOTE | 2019-08-09 05:55 | PC.NURSE ---
Pt urine output only 300ml per leal - fluids at 100ml/hr and average PO intake - lung sound clear/diminished in lower lobes, no signs of fluid overload and confirmed lung sounds with CHASITY Begum. Phys notified and 250ml NS bolus ordered.
[2019-08-09] MEDS: sodium chloride 0.9% 250 ML IV (06:00)
[2019-08-09 06:48] LABS: Glucose Point of Care 183 mg/dL (70-110)
--- NOTE | 2019-08-09 08:15 | PC.OT ---
OT note: Pt off floor, from chart review has plans for surgery today. Will hold at this time.
--- NOTE | 2019-08-09 08:36 | P.ANESASSM_ITS ---
Pre-Anesthetic Assessment Pre-Anesthetic Assessment: Height/Weight: Height 1.73 m Weight 156.263 kg Temp Pulse Resp BP Pulse Ox 98.1 F 64 16 129/50 94 08/09/19 08:29 08/09/19 08:29 08/09/19 08:29 08/09/19 08:29 08/09/19 08:29 Preop Diagnosis: Right heel ulcer Proposed Procedure: Operation Date: 08/09/19 15:05 Proposed Procedures p Debridement of right heel ulcer(Right) - Luis Armando De La Fuente MD Was Beta Shahid taken within 24 hours: Yes Last Intake: 22:00 Social: Social History: Tobacco (quit) Exam: Pre-Anes Outpt Exam: alert (drowsy), oriented x 3, clear to auscultation bilaterally and regular rate & rhythm Airway: Submandibular: WNL Cervical ROM: WNL MP: 2 Additional comments: upper dentures History/ROS: No significant history except as noted Pulmonary: Pulmonary: COPD, MCDONALD and SOB CV/HEM: CV/HEM: Anemia, Arrythmia, CHF, HTN and MT (old MT on EKG) : : Chronic renal Insufficiency Hepatic: Hepatic: None reported GI: GI: GERD Metabolic: Metabolic: DM, Hyperlipidemia and Morbid obesity Musc/skel: Musc/skel: OA/DJD and Weakness (bedridden for the last few days) Neuropsych: Neuropsych: Neuropathy Anesthetic Plan: ASA status: 4 Anesthesia: Anesthesia Evaluation and MAC Risk of > 500 ml blood loss (7ml/kg in children): No Meds/Allergies Current Medications: Current Medications Generic Name Dose Route Start Last Admin Trade Name Freq PRN Reason Stop Dose Admin Carvedilol 3.125 mg 08/08/19 09:00 08/08/19 17:28 Coreg PO 3.125 mg BID JOHANA Administration Fluconazole 200 mg 08/08/19 09:00 08/08/19 11:59 Diflucan Tab PO Not Given DAILY JOHANA Sodium Chloride 1,000 mls @ 100 m ls/hr 08/07/19 20:12 08/09/19 01:16 Sodium Chloride 0.9% IV 100 mls/hr .Q10H JOHANA Administration Vancomycin HCl 1,0 00 mg/ 250 mls @ 250 mls /hr 08/08/19 17:00 08/09/19 04:59 Sodium Chloride IV 250 mls/hr Q12H JOHANA Administration Protocol As Directed Piperacillin Sod/T azobactam 50 mls @ 12.5 mls /hr 08/08/19 15:30 08/08/19 22:42 Sod 3.375 gm/ So dium Chloride IV 12.5 mls/hr Q8H JOHANA Administration Protocol Insulin Aspart 0 unit 08/07/19 21:00 08/08/19 22:42 Novolog SUBCUT 4 unit BEDTIME JOHANA Administration Protocol Insulin Aspart 0 unit 08/08/19 08:00 08/08/19 17:27 Novolog SUBCUT Not Given TIDWM JOHANA Protocol Insulin Detemir 10 unit 08/07/19 21:00 08/08/19 20:41 Levemir SUBCUT 10 unit BEDTIME JOHANA Administration Lactobacillus Acid ophilus 1 tab 08/08/19 09:00 08/08/19 17:28 Floranex PO 1 tab BID JOHANA Administration Levothyroxine Sodi um 25 mcg 08/08/19 09:00 08/08/19 11:59 Synthroid PO Not Given DAILY JOHANA Nystatin 1 applic 08/07/19 21:00 08/08/19 20:41 Nystatin Powder TOPICAL 1 gram TID JOHANA Administration Pantoprazole Sodiu m 40 mg 08/08/19 09:00 08/08/19 12:00 Protonix PO Not Given DAILY JOHANA Senna/Docusate Sod ium 1 tab 08/08/19 09:00 08/08/19 17:28 Senna-S PO 1 tab BID JOHANA Administration Trazodone HCl 100 mg 08/08/19 21:00 08/08/19 20:40 Desyrel PO 100 mg BEDTIME JOHANA Administration PFSH Anesthesia PFSH: Medical History COPD (chronic obstructive pulmonary disease) Diabetes Diabetic peripheral neuropathy Dyslipidemia GERD (gastroesophageal reflux disease) History of ESBL E. 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 Son has been trying to assume her care. Data Anesthesia CBC & Chem 7: 08/08/19 05:50 08/08/19 05:50 Other Labs: Laboratory Results - last 48 hr 08/07/19 08/07/19 08/07/19 15:39 15:39 15:39 WBC 6.8 RBC 3.94 L Hgb 12.0 Hct 40.2 MCV 102.0 H MCH 30.5 MCHC 29.9 L RDW 13.6 Plt Count 222 MPV 11.2 H Neut % (Auto) 80.8 Lymph % (Auto) 8.0 [place] % (Auto) 8.0 Eos % (Auto) 0.0 Baso % (Auto) 0.4 Neut # (Auto) 5.5 Lymph # (Auto) 0.5 L [place] # (Auto) 0.5 Eos # (Auto) 0.0 Baso # (Auto) 0.0 Nucleated RBC % (auto) 0 Nucleated RBCs # 0.0 ESR Specimen Type Sample Site ABG pH ABG pCO2 ABG pO2 ABG HCO3 ABG O2 Saturation ABG Base Excess Rafa Test A-a O2 Gradient Hematocrit Hgb O2 Saturation Carboxyhemoglobin Methemoglobin Total Hemoglobin Ionized Calcium O2 Delivery Device Delivery And Installation Subcontractor ID Sodium 135 L Potassium 3.9 Chloride 92 L Carbon Dioxide 31 H Anion Gap 15.9 BUN 15 Creatinine 1.1 H Glucose 488 H POC Glucose Calculated Osmolality 298 H Lactate 3.4 H Calcium 8.2 L Phosphorus Magnesium Total Bilirubin 0.5 AST 18 ALT 9 Alkaline Phosphatase 76 Creatine Kinase 759 H* Troponin I 6 Hour Troponin I Hi Sens Del Troponin T Baseline Troponin T 120 Minute Delta Troponin T C-Reactive Protein Total Protein 6.5 L Albumin 3.2 L Globulin 3.3 Lipase 11 L Urine Color Urine Appearance Urine pH Ur Specific [place] Urine Protein Urine Glucose (UA) Urine Ketones Urine Blood Urine Nitrate Urine Bilirubin Urine Urobilinogen Ur Leukocyte Esterase Urine RBC Urine WBC Ur Squamous Epith Cells Amorphous Sediment Urine Bacteria Urine Mucus Vancomycin Trough 08/07/19 08/07/19 08/07/19 15:39 15:49 17:35 WBC RBC Hgb Hct MCV MCH MCHC RDW Plt Count MPV Neut % (Auto) Lymph % (Auto) [place] % (Auto) Eos % (Auto) Baso % (Auto) Neut # (Auto) Lymph # (Auto) [place] # (Auto) Eos # (Auto) Baso # (Auto) Nucleated RBC % (auto) Nucleated RBCs # ESR Specimen Type Arterial Sample Site Radial, left ABG pH 7.43 ABG pCO2 48.0 H ABG pO2 67.3 L ABG HCO3 32.0 H ABG O2 Saturation 94.0 ABG Base Excess 6.6 H Rafa Test Pos A-a O2 Gradient 22.2 H Hematocrit 37.8 Hgb O2 Saturation 91.7 L Carboxyhemoglobin 1.8 Methemoglobin 0.7 Total Hemoglobin 12.3 Ionized Calcium 1.1 O2 Delivery Device Nc Delivery And Installation Subcontractor ID jmn Sodium 137.0 Potassium 3.8 Chloride Carbon Dioxide Anion Gap BUN Creatinine Glucose 478.0 H POC Glucose Calculated Osmolality Lactate Calcium Phosphorus Magnesium Total Bilirubin AST ALT Alkaline Phosphatase Creatine Kinase Troponin I 6 Hour Troponin I Hi Sens Del Troponin T Baseline 61 H Troponin T 120 Minute 52.79 H Delta Troponin T -8.21 L C-Reactive Protein Total Protein Albumin Globulin Lipase Urine Color Urine Appearance Urine pH Ur Specific [place] Urine Protein Urine Glucose (UA) Urine Ketones Urine Blood Urine Nitrate Urine Bilirubin Urine Urobilinogen Ur Leukocyte Esterase Urine RBC Urine WBC Ur Squamous Epith Cells Amorphous Sediment Urine Bacteria Urine Mucus Vancomycin Trough 08/07/19 08/07/19 08/07/19 19:58 21:41 21:41 WBC RBC Hgb Hct MCV MCH MCHC RDW Plt Count MPV Neut % (Auto) Lymph % (Auto) [place] % (Auto) Eos % (Auto) Baso % (Auto) Neut # (Auto) Lymph # (Auto) [place] # (Auto) Eos # (Auto) Baso # (Auto) Nucleated RBC % (auto) Nucleated RBCs # ESR Specimen Type Sample Site ABG pH ABG pCO2 ABG pO2 ABG HCO3 ABG O2 Saturation ABG Base Excess Rafa Test A-a O2 Gradient Hematocrit Hgb O2 Saturation Carboxyhemoglobin Methemoglobin Total Hemoglobin Ionized Calcium O2 Delivery Device Delivery And Installation Subcontractor ID Sodium Potassium Chloride Carbon Dioxide Anion Gap BUN Creatinine Glucose POC Glucose 370 Calculated Osmolality Lactate Calcium Phosphorus Magnesium Total Bilirubin AST ALT Alkaline Phosphatase Creatine Kinase Troponin I 6 Hour 53.97 H Troponin I Hi Sens Del -7.03 L Troponin T Baseline Troponin T 120 Minute Delta Troponin T C-Reactive Protein Total Protein Albumin Globulin Lipase Urine Color Yellow Urine Appearance Cloudy Urine pH 5 Ur Specific [place] 1.020 Urine Protein Neg Urine Glucose (UA) 4+ H Urine Ketones Negative Urine Blood 2+ H Urine Nitrate Positive H Urine Bilirubin Neg Urine Urobilinogen Norm Ur Leukocyte Esterase 2+ H Urine RBC Too numerous to cnt H Urine WBC >100 H Ur Squamous Epith Cells 5-10 H Amorphous Sediment 1+ Urine Bacteria 3+ H Urine Mucus Trace Vancomycin Trough 08/08/19 08/08/19 08/08/19 05:50 05:50 05:50 WBC RBC Hgb Hct MCV MCH MCHC RDW Plt Count MPV Neut % (Auto) Lymph % (Auto) [place] % (Auto) Eos % (Auto) Baso % (Auto) Neut # (Auto) Lymph # (Auto) [place] # (Auto) Eos # (Auto) Baso # (Auto) Nucleated RBC % (auto) Nucleated RBCs # ESR 61 H Specimen Type Sample Site ABG pH ABG pCO2 ABG pO2 ABG HCO3 ABG O2 Saturation ABG Base Excess Rafa Test A-a O2 Gradient Hematocrit Hgb O2 Saturation Carboxyhemoglobin Methemoglobin Total Hemoglobin Ionized Calcium O2 Delivery Device Delivery And Installation Subcontractor ID Sodium Potassium Chloride Carbon Dioxide Anion Gap BUN Creatinine Glucose POC Glucose Calculated Osmolality Lactate 1.5 Calcium Phosphorus 3.1 Magnesium 1.7 Total Bilirubin AST ALT Alkaline Phosphatase Creatine Kinase Troponin I 6 Hour Troponin I Hi Sens Del Troponin T Baseline Troponin T 120 Minute Delta Troponin T C-Reactive Protein 83.5 H Total Protein Albumin Globulin Lipase Urine Color Urine Appearance Urine pH Ur Specific [place] Urine Protein Urine Glucose (UA) Urine Ketones Urine Blood Urine Nitrate Urine Bilirubin Urine Urobilinogen Ur Leukocyte Esterase Urine RBC Urine WBC Ur Squamous Epith Cells Amorphous Sediment Urine Bacteria Urine Mucus Vancomycin Trough 08/08/19 08/08/19 08/08/19 05:50 05:50 05:50 WBC 5.1 RBC 3.59 L Hgb 11.0 L Hct 37.0 MCV 103.1 H MCH 30.6 MCHC 29.7 L RDW 13.8 Plt Count 191 MPV 10.9 H Neut % (Auto) 67.8 Lymph % (Auto) 16.9 [place] % (Auto) 12.5 Eos % (Auto) 1.2 Baso % (Auto) 0.4 Neut # (Auto) 3.5 Lymph # (Auto) 0.9 [place] # (Auto) 0.6 Eos # (Auto) 0.1 Baso # (Auto) 0.0 Nucleated RBC % (auto) 0 Nucleated RBCs # 0.0 ESR Specimen Type Sample Site ABG pH ABG pCO2 ABG pO2 ABG HCO3 ABG O2 Saturation ABG Base Excess Rafa Test A-a O2 Gradient Hematocrit Hgb O2 Saturation Carboxyhemoglobin Methemoglobin Total Hemoglobin Ionized Calcium O2 Delivery Device Delivery And Installation Subcontractor ID Sodium 136 Potassium 3.6 Chloride 96 L Carbon Dioxide 32 H Anion Gap 11.6 BUN 12 Creatinine 1.1 H Glucose 256 H POC Glucose Calculated Osmolality 287 Lactate Calcium 7.6 L Phosphorus Magnesium Total Bilirubin 0.4 AST 14 ALT 7 Alkaline Phosphatase 63 Creatine Kinase 493 H* Troponin I 6 Hour Troponin I Hi Sens Del Troponin T Baseline Troponin T 120 Minute Delta Troponin T C-Reactive Protein Total Protein 5.4 L Albumin 2.5 L Globulin 2.9 Lipase Urine Color Urine Appearance Urine pH Ur Specific [place] Urine Protein Urine Glucose (UA) Urine Ketones Urine Blood Urine Nitrate Urine Bilirubin Urine Urobilinogen Ur Leukocyte Esterase Urine RBC Urine WBC Ur Squamous Epith Cells Amorphous Sediment Urine Bacteria Urine Mucus Vancomycin Trough 08/08/19 08/08/19 08/08/19 07:09 11:17 16:08 WBC RBC Hgb Hct MCV MCH MCHC RDW Plt Count MPV Neut % (Auto) Lymph % (Auto) [place] % (Auto) Eos % (Auto) Baso % (Auto) Neut # (Auto) Lymph # (Auto) [place] # (Auto) Eos # (Auto) Baso # (Auto) Nucleated RBC % (auto) Nucleated RBCs # ESR Specimen Type Sample Site ABG pH ABG pCO2 ABG pO2 ABG HCO3 ABG O2 Saturation ABG Base Excess Rafa Test A-a O2 Gradient Hematocrit Hgb O2 Saturation Carboxyhemoglobin Methemoglobin Total Hemoglobin Ionized Calcium O2 Delivery Device Delivery And Installation Subcontractor ID Sodium Potassium Chloride Carbon Dioxide Anion Gap BUN Creatinine Glucose POC Glucose 229 183 Calculated Osmolality Lactate Calcium Phosphorus Magnesium Total Bilirubin AST ALT Alkaline Phosphatase Creatine Kinase Troponin I 6 Hour Troponin I Hi Sens Del Troponin T Baseline Troponin T 120 Minute Delta Troponin T C-Reactive Protein Total Protein Albumin Globulin Lipase Urine Color Urine Appearance Urine pH Ur Specific [place] Urine Protein Urine Glucose (UA) Urine Ketones Urine Blood Urine Nitrate Urine Bilirubin Urine Urobilinogen Ur Leukocyte Esterase Urine RBC Urine WBC Ur Squamous Epith Cells Amorphous Sediment Urine Bacteria Urine Mucus Vancomycin Trough 10.4 08/08/19 08/08/19 08/09/19 16:46 22:10 06:45 WBC RBC Hgb Hct MCV MCH MCHC RDW Plt Count MPV Neut % (Auto) Lymph % (Auto) [place] % (Auto) Eos % (Auto) Baso % (Auto) Neut # (Auto) Lymph # (Auto) [place] # (Auto) Eos # (Auto) Baso # (Auto) Nucleated RBC % (auto) Nucleated RBCs # ESR Specimen Type Sample Site ABG pH ABG pCO2 ABG pO2 ABG HCO3 ABG O2 Saturation ABG Base Excess Rafa Test A-a O2 Gradient Hematocrit Hgb O2 Saturation Carboxyhemoglobin Methemoglobin Total Hemoglobin Ionized Calcium O2 Delivery Device Delivery And Installation Subcontractor ID Sodium Potassium Chloride Carbon Dioxide Anion Gap BUN Creatinine Glucose POC Glucose 140 236 183 Calculated Osmolality Lactate Calcium Phosphorus Magnesium Total Bilirubin AST ALT Alkaline Phosphatase Creatine Kinase Troponin I 6 Hour Troponin I Hi Sens Del Troponin T Baseline Troponin T 120 Minute Delta Troponin T C-Reactive Protein Total Protein Albumin Globulin Lipase Urine Color Urine Appearance Urine pH Ur Specific [place] Urine Protein Urine Glucose (UA) Urine Ketones Urine Blood Urine Nitrate Urine Bilirubin Urine Urobilinogen Ur Leukocyte Esterase Urine RBC Urine WBC Ur Squamous Epith Cells Amorphous Sediment Urine Bacteria Urine Mucus Vancomycin Trough Micro: Microbiology 08/07/19 15:43 Blood Culture - Preliminary Blood Gram positive cocci 08/07/19 15:39 Blood Culture - Preliminary Blood NEGATIVE TO DATE Cardiac Studies: No Data to Display
[2019-08-09] MEDS: sodium chloride 0.9% 1,000 ML 30 ML IV (09:00)
[2019-08-09] MEDS: lidocaine 1% INJ 20 mL INJECTION (09:35)
--- NOTE | 2019-08-09 09:39 | PM.OP ---
Operative Report Date of procedure: August 09, 2019 Pre-op Diagnosis: Right heel ulcer, right leg wound Post-op Diagnosis: Right heel ulcer measuring 5 x 4 x 0.7 cm Right leg wound measuring 4 x 2 x 0.2 cm Procedure Done: Excisional debridement using 15 blade measuring 5 x 4 x 0.7 cm right heel Excisional debridement using 15 blade measuring 4 x 2 x 0.2 cm right leg Pathology: Necrotic skin and subcutaneous tissue Surgeon: Luis Armando De La Fuente Anesthesia: MAC Estimated blood loss (mL): 20 Condition: stable Disposition: PACU Procedure: The patient was taken to the operating room and placed under MAC. She is already on therapeutic IV antibiotics. Using 15 blade excisional debridement of necrotic skin and subcutaneous tissue was performed until there was punctate bleeding noted resulting in a wound measuring 5 x 4 x 0.7 cm. Wound was irrigated saline, hemostasis ensured with electrocautery and Surgicel was placed and covered with 4 x 4 gauze. Using 15 blade excisional debridement of right leg, wound was performed resulting in a wound measuring 4 x 2 x 0.2 cm. Hemostasis ensured with Surgicel and 4 x 4 gauze. The right foot and leg was wrapped with Kerlix .
[2019-08-09] MEDS: piperacillin-tazobactam 3.375 GM in sodium chloride 0.9% (plus) 50 ML IV ×2 (10:31→20:21)
[2019-08-09 11:55] LABS: Glucose Point of Care 184 mg/dL (70-110)
[2019-08-09] MEDS: nystatin powder 15 gm Btl 1 APPLIC TOPICAL ×2 (15:13→20:22)
[2019-08-09] MEDS: pregabalin 150 mg Capsule PO ×2 (15:13→20:22)
--- NOTE | 2019-08-09 16:54 | PM.PN ---
Subjective Subjective: Interval history: Chart reviewed, labs noted, status post excisional debridement of right heel wound earlier today by Dr. De La Fuente. Had 1650 mL urine output overnight. Noted 1 out of 4 bottles of blood culture positive for gram-positive cocci in clusters. Hemodynamically stable, afebrile. Patient seen and examined, resting quietly in bed, no complaints currently. Medications: Reviewed: Yes Medication Review Details: Active Medications Generic Name Dose Route Start Last Admin Trade Name Freq PRN Reason Stop Dose Admin Acetaminophen 650 mg 08/07/19 20:12 Tylenol PO Q6H PRN Mild/Mod Pain Or Temp >/= 101 Carvedilol 3.125 mg 08/08/19 09:00 08/08/19 17:28 Coreg PO 3.125 mg BID JOHANA Administration Dextrose 25 ml 08/07/19 20:12 D50w IVP ONCE PRN hypoglycemia prot ocol Protocol Dextrose 50 ml 08/07/19 20:12 D50w IVP PRN PRN hypoglycemia prot ocol Protocol Fluconazole 200 mg 08/08/19 09:00 08/08/19 11:59 Diflucan Tab PO Not Given DAILY JOHANA Glucagon 1 mg 08/07/19 20:12 Glucagen IM ONCE PRN Adult Acute Hypog lycemia Prot. Protocol Dextrose 500 mls @ 100 mls /hr 08/07/19 20:12 D5w IV ONCE PRN Adult Acute Hypog lycemia Prot Protocol Sodium Chloride 1,000 mls @ 100 m ls/hr 08/07/19 20:12 08/09/19 10:49 Sodium Chloride 0.9% IV Infused .Q10H JOHANA Infusion Vancomycin HCl 1,0 00 mg/ 250 mls @ 250 mls /hr 08/08/19 17:00 08/09/19 10:45 Sodium Chloride IV Infused Q12H JOHANA Infusion Protocol As Directed Piperacillin Sod/T azobactam 50 mls @ 12.5 mls /hr 08/08/19 15:30 08/09/19 15:15 Sod 3.375 gm/ So dium Chloride IV Infused Q8H JOHANA Infusion Protocol Insulin Aspart 0 unit 08/07/19 21:00 08/08/19 22:42 Novolog SUBCUT 4 unit BEDTIME JOHANA Administration Protocol Insulin Aspart 0 unit 08/08/19 08:00 08/09/19 12:30 Novolog SUBCUT 6 unit TIDWM JOHANA Administration Protocol Insulin Detemir 10 unit 08/07/19 21:00 08/08/19 20:41 Levemir SUBCUT 10 unit BEDTIME JOHANA Administration Lactobacillus Acid ophilus 1 tab 08/08/19 09:00 08/08/19 17:28 Floranex PO 1 tab BID JOHANA Administration Levothyroxine Sodi um 25 mcg 08/08/19 09:00 08/08/19 11:59 Synthroid PO Not Given DAILY JOHANA Morphine Sulfate 2 mg 08/07/19 20:12 Morphine IVP Q4H PRN SEVERE PAIN Nystatin 1 applic 08/07/19 21:00 08/09/19 15:13 Nystatin Powder TOPICAL 1 applic TID JOHANA Administration Ondansetron HCl 4 mg 08/07/19 20:12 Zofran IVP Q6H PRN NAUSEA AND VOMITI NG Oxycodone/Acetamin ophen 1 tab 08/07/19 20:12 Percocet 5-325 M g PO Q4H PRN SEVERE PAIN Pantoprazole Sodiu m 40 mg 08/08/19 09:00 08/08/19 12:00 Protonix PO Not Given DAILY JOHANA Pregabalin 150 mg 08/09/19 09:00 08/09/19 15:13 Lyrica PO 150 mg TID JOHANA Administration Senna/Docusate Sod ium 1 tab 08/08/19 09:00 08/08/19 17:28 Senna-S PO 1 tab BID JOHANA Administration Trazodone HCl 100 mg 08/08/19 21:00 08/08/19 20:40 Desyrel PO 100 mg BEDTIME JOHANA Administration No Known Allergies Allergy (Verified 04/12/19 15:00) Vitals/I&O/Wt Last Vital Signs Temp 98.1 F 08/09/19 15:43 Pulse 60 08/09/19 15:43 Resp 15 08/09/19 15:43 BP 110/67 08/09/19 15:43 Pulse Ox 95 08/09/19 15:43 08/09/19 08/09/19 08/09/19 06:59 14:59 22:59 Intake Total 1050 / 2603.333 1500 / 1500 50 / 1550 Output Total 1100 / 1100 270 / 270 Balance -50 / 8661.661 0880 / 1230 50 / 1280 Weight last 48 hrs Weight 156.263 kg Weight 124.511 kg Physical Exam Const: COMMON NORMALS: no acute distress and patient oriented x3 GENERAL APPEARANCE: cooperative and comfortable NUTRITIONAL APPEARANCE: obese morbidly obese ORIENTATION/CONSCIOUSNESS: Yes awake HENMT: COMMON NORMALS: normocephalic, atraumatic, hearing grossly normal bilaterally and moist oral mucous membranes HEAD & SCALP: normocephalic and atraumatic Eye: COMMON NORMALS: Equal, round and reactive pupils present, EOMs intact bilaterally and conjunctivae normal CONJUNCTIVA: Yes conjunctivae normal PUPIL: Yes Equal, round and reactive pupils present Neck/C-Spine: COMMON NORMALS: full ROM GENERAL: Yes normal visual inspection and Yes trachea midline OTHER: -short, thick neck Resp: COMMON NORMALS: normal respiratory effort, No retractions, No use of accessory muscles and clear to auscultation bilaterally EFFORT & INSPECTION: Yes able to speak in complete sentences, Yes symmetric chest movement and No tachypneic AUSCULTATION: clear to auscultation bilaterally Cardio: COMMON NORMALS: regular rate, regular rhythm, S1 normal heart sound present, S2 normal heart sound present and No murmurs present (Cardio) RATE: regular rate RHYTHM: regular rhythm HEART SOUNDS: S1 normal heart sound present and S2 normal heart sound present GI: COMMON NORMALS: Normal to inspection, nondistended, normoactive bowel sounds present, Soft to palpation and non-tender INSPECTION: Yes central obesity PALPATION: Yes Soft to palpation : BLADDER/KIDNEY EXAM: Yes catheter in place Catheter type (Female): urethral Extremity: COMMON NORMALS: normal to inspection, full ROM and no clubbing, cyanosis or edema; negative for no pedal edema OTHER: -RLE in bulky dressing -scattered abrasions on bilateral LEs -noted discrete area of purulence on L heel with some active drainage Neuro: COMMON NORMALS: patient oriented x3, moves all extremities, no focal motor deficits and no sensory deficits noted Psych: COMMON NORMALS: mental status grossly normal, Normal thought process present, cooperative, normal affect and speech normal SPEECH: Yes normal speech THOUGHT PROCESS: Normal thought process present Skin: COMMON NORMALS: no jaundice, no petechiae and no mottling OTHER: -LE wounds as noted above -some inguinal excoriation noted Urinary Catheter Management^: Lockhart: Cath Placed During This Visit: yes Urethral Indwelling: Yes Reason for Continuing Indwelling Catheter: Other Urinary Catheter Date of Insertion: 08/07/19 Data : 08/08/19 05:50 08/08/19 05:50 Micro: Microbiology 08/09/19 09:22 Gram Stain - Final Foot - #1 08/07/19 19:58 Urine Culture - Preliminary Urine Catheterized Gram Negative Rods 08/07/19 15:43 Blood Culture - Preliminary Blood Gram positive cocci 08/07/19 15:39 Blood Culture - Preliminary Blood NEGATIVE TO DATE A&P Assessment and plan (1) UTI (urinary tract infection): -UA strongly indicative of infection -Urine culture growing GNRs, pending ID & sensitivity -on IV Vanc/Zosyn Status: Acute Qualifiers: Hematuria presence: with hematuria Urinary tract infection type: acute cystitis Qualified Code(s): N30.01 - Acute cystitis with hematuria (2) 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: -Status post excisional debridement of right heel ulcer by Dr. De La Fuente; Gram stain growing rare gram-positive cocci in clusters, wound culture pending -Appreciate consultation by Dr. De La Fuente -Continue dual antibiotic coverage with Zosyn and vancomycin -blood cx: 03/27 bottles positive for GPC in clusters, repeat set ordered -no leukocytosis, afebrile -wound care as needed -noted elevated ESR, CRP -will need continued f/u at [facility] Status: Acute (3) Rhabdomyolysis: -CPK trending down -on IVF Status: Acute Qualifiers: Rhabdomyolysis type: non-traumatic Qualified Code(s): M62.82 - Rhabdomyolysis (4) Weakness: -likely secondary to rhabdomyolysis -fall precautions -PT/OT evaluations appreciated Status: Acute (5) HTN (hypertension): -normotensive, continue to monitor vital signs -continue oral antihypertensives Status: Acute Qualifiers: Hypertension type: essential hypertension Qualified Code(s): I10 - Essential (primary) hypertension (6) Morbid obesity: -BMI-52 kg/m2 Status: Chronic (7) Hypothyroidism: -continue levothyroxine Status: Chronic Qualifiers: Hypothyroidism type: unspecified Qualified Code(s): E03.9 - Hypothyroidism, unspecified (8) Peripheral vascular disease: -has known hx of PVD Status: Chronic (9) GERD (gastroesophageal reflux disease): -on PPI Status: Chronic Qualifiers: Esophagitis presence: esophagitis presence not specified Qualified Code(s): K21.9 - Gastro-esophageal reflux disease without esophagitis (10) COPD (chronic obstructive pulmonary disease): -no acute exacerbation currently -not oxygen dependent at baseline Status: Chronic Qualifiers: COPD type: unspecified COPD Qualified Code(s): J44.9 - Chronic obstructive pulmonary disease, unspecified Additional A&P Information -IDDM type II; Accucheks, ISS, scheduled insulin, hypoglycemia precautions, consistent carb diet as tolerated -DVT ppx held due to noted oozing from wound sites though given body habitus and decreased mobility, is at high risk for VTE -Dispo: SNF; pending authorization for [facility] -Code status: FULL code Attestations Medical Necessity Statement*: Patient requires hospitalization for continued IV antibiotic treatment for lower extremity ulcers, UTI, pending culture results as well as appropriate disposition. Time Spent in Patient Care: Greater than 35 minutes (>than 50% of time spent in counselling and/or direct pt care on unit). Coding Level of Care Code Acute Delivery Supervisor for Chg Fwd Exam Comprehensive Diagnoses UTI (urinary tract infection) N30.01 Hematuria presence: with hematuria Urinary tract infection type: acute cystitis 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 L97.912; L97.922 Rhabdomyolysis M62.82 Rhabdomyolysis type: non-traumatic Weakness R53.1 HTN (hypertension) I10 Hypertension type: essential hypertension Morbid obesity E66.01 Hypothyroidism E03.9 Hypothyroidism type: unspecified Peripheral vascular disease I73.9 GERD (gastroesophageal reflux disease) K21.9 Esophagitis presence: esophagitis presence not specified COPD (chronic obstructive pulmonary disease) J44.9 COPD type: unspecified COPD
[2019-08-09 17:15] LABS: Glucose Point of Care 130 mg/dL (70-110)
[2019-08-09] MEDS: sennosides-docusate Tablet 1 TAB PO (18:08)
[2019-08-09] MEDS: carvedilol 3.125 mg Tablet PO (18:08)
[2019-08-09] MEDS: lactobacillus 1 Tablet 1 TAB PO (18:08)
[2019-08-09] MEDS: trazodone 100 mg Tablet PO (20:22)
[2019-08-09 21:11] LABS: Glucose Point of Care 148 mg/dL (70-110)
[2019-08-10] VITALS (9 sets, daily range): BP systolic 105–147; BP diastolic 62–74; PULSE 64–73; RESP 16–18; TEMP 36.6–37.3; O2SAT 90–95
[2019-08-10] MEDS: oxyCODONE-APAP 5-325 mg Tablet 1 TAB PO (01:13)
[2019-08-10] MEDS: vancomycin 1,000 MG in sodium chloride 0.9% 250 ML 250 MG IV (04:38)
[2019-08-10] MEDS: piperacillin-tazobactam 3.375 GM in sodium chloride 0.9% (plus) 50 ML IV (06:10)
[2019-08-10 06:30] LABS: Glucose Point of Care 114 mg/dL (70-110)
[2019-08-10 06:45] LABS: Eosinophils # 0.1 10^3/uL (0.0-0.8); Eosinophils % 2.2 %; Hematocrit 40.1 % (37.0-47.0); Hemoglobin 11.6 g/dL (11.5-15.3); Lymphocytes % 24.2 %; Mean Corpuscular HGB Conc 28.9 g/dL (30.0-36.0); Mean Corpuscular Hemoglobin 30.8 pg (28.0-34.0); Mean Corpuscular Volume 106.4 fL (81-99); Mean Platelet Volume 11.7 fL (7.4-10.4); Monocytes # 0.4 10^3/uL (0.2-0.9); Monocytes % 9.9 %; Neutrophils # 2.5 10^3/uL (1.8-7.7); Neutrophils % 60.8 %; Nucleated Red Blood Cells % 0 %; Platelet Count 216 10^3/cmm (130-400); Red Blood Count 3.77 10^6/uL (4.1-5.3); White Blood Count 4.1 10^3/uL (4.0-10.0)
--- NOTE | 2019-08-10 09:02 | P.PN_ITS ---
Subjective Subjective: Interval history: VSS, afebrile, had 675 mL urine output overnight. Wound cx pending. CPK normalized, noted slight increase in Cr, will d/c IVF. Urine cx have grown ESBL Klebsiella pneumoniae so will d/c vanc/zosyn and switch to primaxin, need to place on contact isolation precautions and request PICC line placement. Patient seen and examined, seems tired though spent some time sitting up this morning per nursing staff. Continues to have notable drainage from LLE wounds. Medications: Reviewed: Yes Medication Review Details: Active Medications Generic Name Dose Route Start Last Admin Trade Name Freq PRN Reason Stop Dose Admin Acetaminophen 650 mg 08/07/19 20:12 Tylenol PO Q6H PRN Mild/Mod Pain Or Temp >/= 101 Carvedilol 3.125 mg 08/08/19 09:00 08/09/19 18:08 Coreg PO 3.125 mg BID JOHANA Administration Dextrose 25 ml 08/07/19 20:12 D50w IVP ONCE PRN hypoglycemia prot ocol Protocol Dextrose 50 ml 08/07/19 20:12 D50w IVP PRN PRN hypoglycemia prot ocol Protocol Fluconazole 200 mg 08/08/19 09:00 08/08/19 11:59 Diflucan Tab PO Not Given DAILY JOHANA Glucagon 1 mg 08/07/19 20:12 Glucagen IM ONCE PRN Adult Acute Hypog lycemia Prot. Protocol Dextrose 500 mls @ 100 mls /hr 08/07/19 20:12 D5w IV ONCE PRN Adult Acute Hypog lycemia Prot Protocol Sodium Chloride 1,000 mls @ 100 m ls/hr 08/07/19 20:12 08/09/19 20:21 Sodium Chloride 0.9% IV 100 mls/hr .Q10H JOHANA Administration Vancomycin HCl 1,0 00 mg/ 250 mls @ 250 mls /hr 08/08/19 17:00 08/10/19 04:38 Sodium Chloride IV 250 mls/hr Q12H JOHANA Administration Protocol As Directed Piperacillin Sod/T azobactam 50 mls @ 12.5 mls /hr 08/08/19 15:30 08/10/19 06:10 Sod 3.375 gm/ So dium Chloride IV 12.5 mls/hr Q8H JOHANA Administration Protocol Insulin Aspart 0 unit 08/07/19 21:00 08/10/19 01:10 Novolog SUBCUT Not Given BEDTIME [facility] Protocol Insulin Aspart 0 unit 08/08/19 08:00 08/10/19 07:35 Novolog SUBCUT Not Given TIDWM [facility] Protocol Insulin Detemir 10 unit 08/07/19 21:00 08/09/19 20:24 Levemir SUBCUT 10 unit BEDTIME JOHANA Administration Lactobacillus Acid ophilus 1 tab 08/08/19 09:00 08/09/19 18:08 Floranex PO 1 tab BID JOHANA Administration Levothyroxine Sodi um 25 mcg 08/08/19 09:00 08/08/19 11:59 Synthroid PO Not Given DAILY JOHANA Morphine Sulfate 2 mg 08/07/19 20:12 Morphine IVP Q4H PRN SEVERE PAIN Nystatin 1 applic 08/07/19 21:00 08/09/19 20:22 Nystatin Powder TOPICAL 1 applic TID JOHANA Administration Ondansetron HCl 4 mg 08/07/19 20:12 Zofran IVP Q6H PRN NAUSEA AND VOMITI NG Oxycodone/Acetamin ophen 1 tab 08/07/19 20:12 08/10/19 01:13 Percocet 5-325 M g PO 1 tab Q4H PRN Administration SEVERE PAIN Pantoprazole Sodiu m 40 mg 08/08/19 09:00 08/08/19 12:00 Protonix PO Not Given DAILY JOHANA Pregabalin 150 mg 08/09/19 09:00 08/09/19 20:22 Lyrica PO 150 mg TID JOHANA Administration Senna/Docusate Sod ium 1 tab 08/08/19 09:00 08/09/19 18:08 Senna-S PO 1 tab BID JOHANA Administration Trazodone HCl 100 mg 08/08/19 21:00 08/09/19 20:22 Desyrel PO 100 mg BEDTIME JOHANA Administration No Known Allergies Allergy (Verified 04/12/19 15:00) Vitals/I&O/Wt Last Vital Signs Temp 97.9 F 08/10/19 07:20 Pulse 64 08/10/19 07:20 Resp 17 08/10/19 08:53 BP 130/71 08/10/19 07:20 Pulse Ox 95 08/10/19 07:20 08/09/19 08/10/19 08/10/19 22:59 06:59 14:59 Intake Total 1080 / 2580 50 / 2630 Output Total 225 / 495 450 / 945 Balance 855 / 2085 -400 / 1685 Weight last 48 hrs Weight 158.712 kg Weight 156.263 kg Physical Exam Const: COMMON NORMALS: no acute distress and patient oriented x3 GENERAL APPEARANCE: cooperative and comfortable NUTRITIONAL APPEARANCE: obese morbidly obese ORIENTATION/CONSCIOUSNESS: Yes awake HENMT: COMMON NORMALS: normocephalic, atraumatic, hearing grossly normal bilaterally and moist oral mucous membranes HEAD & SCALP: normocephalic and atraumatic Eye: COMMON NORMALS: Equal, round and reactive pupils present, EOMs intact bilaterally and conjunctivae normal CONJUNCTIVA: Yes conjunctivae normal PUPIL: Yes Equal, round and reactive pupils present Neck/C-Spine: COMMON NORMALS: full ROM GENERAL: Yes normal visual inspection and Yes trachea midline OTHER: -short, thick neck Resp: COMMON NORMALS: normal respiratory effort, No retractions, No use of accessory muscles and clear to auscultation bilaterally EFFORT & INSPECTION: Yes able to speak in complete sentences, Yes symmetric chest movement and No tachypneic AUSCULTATION: clear to auscultation bilaterally Cardio: COMMON NORMALS: regular rate, regular rhythm, S1 normal heart sound present, S2 normal heart sound present and No murmurs present (Cardio) RATE: regular rate RHYTHM: regular rhythm HEART SOUNDS: S1 normal heart sound present and S2 normal heart sound present GI: COMMON NORMALS: Normal to inspection, nondistended, normoactive bowel sounds present, Soft to palpation and non-tender INSPECTION: Yes central ob esity PALPATION: Yes Soft to palpation : BLADDER/KIDNEY EXAM: Yes catheter in place Catheter type (Female): urethral Extremity: COMMON NORMALS: normal to inspection, full ROM and no clubbing, cyanosis or edema; negative for no pedal edema OTHER: -RLE in bulky dressing -scattered abrasions on bilateral LEs -noted discrete area of purulence on L heel with some active drainage Neuro: COMMON NORMALS: patient oriented x3, moves all extremities, no focal motor deficits and no sensory deficits noted Psych: COMMON NORMALS: mental status grossly normal, Normal thought process present, cooperative, normal affect and speech normal SPEECH: Yes normal speech THOUGHT PROCESS: Normal thought process present Skin: COMMON NORMALS: no jaundice, no petechiae and no mottling OTHER: -LE wounds as noted above; several open wounds on LLE with active seroanguinous drainage, no odor noted -some inguinal excoriation noted Urinary Catheter Management^: Lockhart: Cath Placed During This Visit: yes Urethral Indwelling: Yes Reason for Continuing Indwelling Catheter: Other (open and extensive wounds) Urinary Catheter Date of Insertion: 08/07/19 Data : 08/10/19 06:31 08/10/19 08:48 Micro: Microbiology 08/09/19 18:22 Blood Culture - Preliminary Blood SPECIMEN COLLECTED 08/09/19 18:00 Blood Culture - Preliminary Blood SPECIMEN COLLECTED 08/09/19 09:22 Gram Stain - Final Foot - #1 08/07/19 19:58 Urine Culture - Preliminary Urine Catheterized Gram Negative Rods A&P Assessment and plan (1) UTI (urinary tract infection): -UA strongly indicative of infection -Urine culture growing ESBL Klebsiella pneumoniae; sensitivity noted; 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 De La Fuente; POD # 1; Gram stain growing rare gram-positive cocci in clusters, wound culture pending -Appreciate consultation by Dr. De La Fuente -Continue dual antibiotic coverage with Zosyn and vancomycin; will d/c this regimen as she is now on Primaxin. -blood cx: 1/ bottles positive for GPC in clusters, repeat set ordered. Has had MRSA in the past -no leukocytosis, afebrile -wound care as needed -noted elevated ESR, CRP -will need continued f/u at [facility]; was seeing Monse Rodriguez once weekly () Status: Acute (3) Rhabdomyolysis: -CPK normalized -d/c IVF Status: Resolved Qualifiers: Rhabdomyolysis type: non-traumatic Qualified Code(s): M62.82 - Rhabdomyolysis (4) Weakness: -likely secondary to rhabdomyolysis -fall precautions -PT/OT evaluations appreciated Status: Acute (5) HTN (hypertension): -normotensive, continue to monitor vital signs -continue oral antihypertensives Status: Acute Qualifiers: Hypertension type: essential hypertension Qualified Code(s): I10 - Essential (primary) hypertension (6) Morbid obesity: -BMI-53 kg/m2 Status: Chronic (7) Hypothyroidism: -continue levothyroxine Status: Chronic Qualifiers: Hypothyroidism type: unspecified Qualified Code(s): E03.9 - Hypothyroidism, unspecified (8) Peripheral vascular disease: -has known hx of PVD Status: Chronic (9) GERD (gastroesophageal reflux disease): -on PPI Status: Chronic Qualifiers: Esophagitis presence: esophagitis presence not specified Qualified Code(s): K21.9 - Gastro-esophageal reflux disease without esophagitis (10) COPD (chronic obstructive pulmonary disease): -no acute exacerbation currently -not oxygen dependent at baseline Status: Chronic Qualifiers: COPD type: unspecified COPD Qualified Code(s): J44.9 - Chronic obstructive pulmonary disease, unspecified Additional A&P Information -IDDM type II; Accucheks, ISS, scheduled insulin, hypoglycemia precautions, consistent carb diet as tolerated -ANGELIC on CKD stage 2-3; baseline Cr < 1; likely secondary to dehydration and could also be medication induced as she has been on Vanc/Zosyn; will d/c Zosyn, Vanc -DVT ppx held due to noted oozing from wound sites though given body habitus and decreased mobility, is at high risk for VTE -Dispo: [facility] -Code status: FULL code Attestations Medical Necessity Statement*: Discharge later today if able to place PICC line and arrange IV antibiotics. Time Spent in Patient Care: 16 - 35 minutes (>than 50% of time spent in counselling and/or direct pt care on unit) . Coding Level of Care Code Acute Mathematical Technician for g Fwd Exam Comprehensive Diagnoses UTI (urinary tract infection) N30.01 Hematuria presence: with hematuria Urinary tract infection type: acute cystitis 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 L97.912; L97.922 Rhabdomyolysis M62.82 Rhabdomyolysis type: non-traumatic Weakness R53.1 HTN (hypertension) I10 Hypertension type: essential hypertension Morbid obesity E66.01 Hypothyroidism E03.9 Hypothyroidism type: unspecified Peripheral vascular disease I73.9 GERD (gastroesophageal reflux disease) K21.9 Esophagitis presence: esophagitis presence not specified COPD (chronic obstructive pulmonary disease) J44.9 COPD type: unspecified COPD
[2019-08-10] MEDS: lactobacillus 1 Tablet 1 TAB PO (09:12)
[2019-08-10] MEDS: fluconazole 100 mg Tablet 200 MG PO (09:12)
[2019-08-10] MEDS: pregabalin 150 mg Capsule PO ×2 (09:12→14:40)
[2019-08-10] MEDS: pantoprazole DR 40 mg Tablet PO (09:12)
[2019-08-10] MEDS: carvedilol 3.125 mg Tablet PO (09:12)
[2019-08-10] MEDS: levothyroxine 25 mcg Tablet PO (09:12)
[2019-08-10] MEDS: sennosides-docusate Tablet 1 TAB PO (09:12)
[2019-08-10 09:17] LABS: Anion Gap 10.6 (5-19); Blood Urea Nitrogen 8 mg/dL (8-23); Calcium 8.1 mg/dL (8.5-10.5); Carbon Dioxide 31 mmol/L (22-29); Chloride 107 mmol/L (98-107); Creatine Phosphokinase 135 U/L (26-192); Glucose 136 mg/dL (65-115); Osmolality Calculated 298 mOsm/kg (285-295); Potassium 3.6 mmol/L (3.5-5.1); Sodium 145 mmol/L (136-145)
--- NOTE | 2019-08-10 09:27 | PM.DCS ---
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 De La Fuente; POD # 1; Gram stain growing rare gram-positive cocci in clusters, wound culture pending -Appreciate consultation by Dr. De La Fuente -Continue dual antibiotic coverage with Zosyn and vancomycin; will d/c this regimen as she is now on Primaxin. -blood cx: 1/ bottles positive for GPC in clusters, repeat set ordered. Has had MRSA in the past -no leukocytosis, afebrile -wound care as needed -noted elevated ESR, CRP -will need continued f/u at [facility]; was seeing Monse Rodriguez once weekly () (3) Rhabdomyolysis: Status: Resolved Problem details: -CPK normalized -d/c IVF Qualifiers: Rhabdomyolysis type: non-traumatic Qualified Code(s): M62.82 - Rhabdomyolysis (4) Weakness: Status: Acute Problem details: -likely secondary to rhabdomyolysis -fall precautions -PT/OT evaluations appreciated (5) HTN (hypertension): Status: Acute Problem details: -normotensive, continue to monitor vital signs -continue oral antihypertensives Qualifiers: Hypertension type: essential hypertension Qualified Code(s): I10 - Essential (primary) hypertension (6) Morbid obesity: Status: Chronic Problem details: -BMI-53 kg/m2 (7) Hypothyroidism: Status: Chronic Problem details: -continue levothyroxine Qualifiers: Hypothyroidism type: unspecified Qualified Code(s): E03.9 - Hypothyroidism, unspecified (8) Peripheral vascular disease: Status: Chronic Problem details: -has known hx of PVD (9) GERD (gastroesophageal reflux disease): Status: Chronic Problem details: -on PPI Qualifiers: Esophagitis presence: esophagitis presence not specified Qualified Code(s): K21.9 - Gastro-esophageal reflux disease without esophagitis (10) COPD (chronic obstructive pulmonary disease): Status: Chronic Problem details: -no acute exacerbation currently -not oxygen dependent at baseline Qualifiers: COPD type: unspecified COPD Qualified Code(s): J44.9 - Chronic obstructive pulmonary disease, unspecified Other Information Additional DC diagnoses/information: -IDDM type II; Accucheks, ISS, scheduled insulin, hypoglycemia precautions, consistent carb diet as tolerated -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 Surgery was consulted due to noted decubitus ulcers including infected right heel ulcer which Dr. De La Fuente debrided in the OR. Gram stain has grown few gram-positive cocci in clusters, wound culture is pending. Patient was also found to have UTI with urine culture growing ESBL Klebsiella pneumoniae. From review of medical record she has a history of VRE and MRSA and she has been receiving dual antibiotic treatment with vancomycin and Zosyn during her hospital stay. This antibiotic regimen has been discontinued in favor of Imipenem based on sensitivity profile. Due to need for continued IV antibiotic therapy, she has had PICC line placed. She will need to continue to follow-up with Laura Rodriguez at the wound care clinic and will need CBC, BMP checked once weekly while on antibiotic therapy. She had a Lockhart catheter placed on admission to prevent wound contamination which will remain in place on discharge for the same reason. She has been receiving antifungal treatment both systemic and topical due to extensive intertrigo. She will need to continue to be repositioned frequently and skin kept clean and dry at all times. She was noted to have mild rhabdomyolysis which has responded to IV fluid hydration with subsequent normalization of CPK. This likely contributed to her complaints of generalized weakness. Due to overall deconditioning and extensive wound care required as well as lack of availability of appropriate care at home at this time, she will be discharged to SNF; she has been accepted at [facility]. She can continue to use supplemental oxygen as needed to maintain her oxygen saturation at or above 92% or for patient comfort. Discharge Summary: -Patient to follow-up with her primary care physician within 1 week -Patient to continue to follow-up with Laura Rodriguez at the wound care clinic once weekly () Physical Exam Const: COMMON NORMALS: no acute distress and patient oriented x3 GENERAL APPEARANCE: cooperative and comfortable NUTRITIONAL APPEARANCE: obese morbidly obese ORIENTATION/CONSCIOUSNESS: Yes awake HENMT: COMMON NORMALS: normocephalic, atraumatic, hearing grossly normal bilaterally and moist oral mucous membranes HEAD & SCALP: normocephalic and atraumatic Eye: COMMON NORMALS: Equal, round and reactive pupils present, EOMs intact bilaterally and conjunctivae normal CONJUNCTIVA: Yes conjunctivae normal PUPIL: Yes Equal, round and reactive pupils present Neck/C-Spine: COMMON NORMALS: full ROM GENERAL: Yes normal visual inspection and Yes trachea midline OTHER: -short, thick neck Resp: COMMON NORMALS: normal respiratory effort, No retractions, No use of accessory muscles and clear to auscultation bilaterally EFFORT & INSPECTION: Yes able to speak in complete sentences, Yes symmetric chest movement and No tachypneic AUSCULTATION: clear to auscultation bilaterally Cardio: COMMON NORMALS: regular rate, regular rhythm, S1 normal heart sound present, S2 normal heart sound present and No murmurs present (Cardio) RATE: regular rate RHYTHM: regular rhythm HEART SOUNDS: S1 normal heart sound present and S2 normal heart sound present GI: COMMON NORMALS: Normal to inspection, nondistended, normoactive bowel sounds present, Soft to palpation and non-tender INSPECTION: Yes central obesity PALPATION: Yes Soft to palpation : BLADDER/KIDNEY EXAM: Yes catheter in place Catheter type (Female): urethral Extremity: COMMON NORMALS: normal to inspection, full ROM and no clubbing, cyanosis or edema; negative for no pedal edema OTHER: -RLE in bulky dressing -scattered abrasions on bilateral LEs -noted discrete area of purulence on L heel with some active drainage Neuro: COMMON NORMALS: patient oriented x3, moves all extremities, no focal motor deficits and no sensory deficits noted Psych: COMMON NORMALS: mental status grossly normal, Normal thought process present, cooperative, normal affect and speech normal SPEECH: Yes normal speech THOUGHT PROCESS: Normal thought process present Skin: COMMON NORMALS: no jaundice, no petechiae and no mottling OTHER: -LE wounds as noted above; noted several open wounds on LLE with active serosanguinous drainage (not malodorous) -some inguinal excoriation noted Urinary Catheter Management^: Lockhart: Cath Placed During This Visit: yes Urethral Indwelling: Yes Reason for Continuing Indwelling Catheter: Other Urinary Catheter Date of Insertion: 08/07/19 Discharge Data Data Completed and Pending: Completed Studies During Hospitalization Category Date Time Status XR ankle LT min 3 V* [id number] Stat Exams 08/07/19 16:41 Completed XR ankle RT min 3 V* [id number] Stat Exams 08/07/19 16:41 Completed XR chest 1V alejandro ble [id number] Stat Exams 08/07/19 15:28 Completed XR foot LT min 3V * [id number] Stat Exams 08/07/19 16:42 Completed XR foot RT min 3V * [id number] Stat Exams 08/07/19 16:42 [place] [id number] Rout ine Ultrasound 08/08/19 20:04 Completed Pending at discharge Category Date Time Status Blood Culture Sta t Lab 08/07/19 15:43 Results Blood Culture Sta t Lab 08/09/19 18:22 Results Tissue Culture an d Gram Stain Stat Lab 08/09/19 09:22 Results Urine Culture Sta t Lab 08/07/19 19:58 Results Labs from last 24 hours 08/10/19 08/10/19 08/10/19 08:48 06:31 06:26 WBC 4.1 RBC 3.77 L Hgb 11.6 Hct 40.1 MCV 106.4 H MCH 30.8 MCHC 28.9 L RDW 14.0 Plt Count 216 MPV 11.7 H Neut % (Auto) 60.8 Lymph % (Auto) 24.2 [place] % (Auto) 9.9 Eos % (Auto) 2.2 Baso % (Auto) 1.0 Neut # (Auto) 2.5 Lymph # (Auto) 1.0 [place] # (Auto) 0.4 Eos # (Auto) 0.1 Baso # (Auto) 0.0 Nucleated RBC % (a uto) 0 Nucleated RBCs # 0.0 Sodium 145 Potassium 3.6 Chloride 107 Carbon Dioxide 31 H Anion Gap 10.6 BUN 8 Creatinine 1.3 H Glucose 136 H POC Glucose 114 Calculated Osmolal ity 298 H Calcium 8.1 L Creatine Kinase 135 08/09/19 08/09/19 08/09/19 21:01 16:53 11:32 WBC RBC Hgb Hct MCV MCH MCHC RDW Plt Count MPV Neut % (Auto) Lymph % (Auto) [place] % (Auto) Eos % (Auto) Baso % (Auto) Neut # (Auto) Lymph # (Auto) [place] # (Auto) Eos # (Auto) Baso # (Auto) Nucleated RBC % (a uto) Nucleated RBCs # Sodium Potassium Chloride Carbon Dioxide Anion Gap BUN Creatinine Glucose POC Glucose 148 130 184 Calculated Osmolal ity Calcium Creatine Kinase Vitals: Last Vital Signs Temp 97.9 F 08/10/19 07:20 Pulse 64 08/10/19 09:06 Resp 17 08/10/19 08:53 BP 130/71 08/10/19 07:20 Pulse Ox 92 08/10/19 09:06 Discharge Plan Discharge Patient Disposition: Xfer SNF Condition: Stable Prescriptions: New fluconazole 100 mg Tablet 200 mg PO DAILY Qty: 10 RF: 0 sennosides-docusate sodium 8.6-50 mg Tablet 1 tab PO BID 30 Days Qty: 60 RF: 0 Floranex 1 million cell Tablet 1 tab PO BID 30 Days Qty: 60 RF: 0 albuterol sulfate 2.5 mg /3 mL (0.083 %) solution for nebulization 2.5 mg INHALATION Q6H PRN (Reason: shortness of breath or wheezing) Qty: 90 RF: 0 Primaxin IV 500 mg recon soln 1 ml IVP Q6H 14 Days Qty: 56 RF: 0 Continued furosemide 40 mg tablet 40 mg PO DAILY Qty: 30 RF: 0 carvedilol 6.25 mg tablet 3.125 mg PO BID 30 Days Qty: 30 RF: 0 glipizide 10 mg tablet 10 mg PO BID 30 Days Qty: 60 RF: 0 alendronate 70 mg tablet 70 mg PO Q7D Qty: 5 RF: 0 tramadol 50 mg tablet 50 mg PO TID PRN (Reason: Pain) Qty: 30 RF: 0 levothyroxine 25 mcg tablet 25 mcg PO DAILY 30 Days Qty: 30 RF: 0 oxycodone-acetaminophen 5-325 mg tablet 1 tab PO Q8H PRN (Reason: Pain) Qty: 30 RF: 0 potassium chloride 20 mEq tablet,ER particles/crystals 20 meq PO BID 30 Days Qty: 60 RF: 0 trazodone 150 mg tablet 150 mg PO BEDTIME 30 Days Qty: 30 RF: 0 Nystop 100,000 unit/gram powder 1 applic topical TID Qty: 15 RF: 0 oxybutynin chloride 5 mg tablet 5 mg PO BID 30 Days Qty: 60 RF: 0 esomeprazole magnesium 20 mg capsule,delayed release(DR/EC) 20 mg PO DAILY 30 Days Qty: 30 RF: 0 pregabalin 150 mg capsule 150 mg PO TID 30 Days Qty: 90 RF: 0 Januvia 100 mg Tablet 100 mg PO DAILY 30 Days Qty: 30 RF: 0 Changed gentamicin 0.1 % ointment 1 applic topical TID Qty: 15 RF: 0 Discontinued atorvastatin 20 mg tablet 20 mg PO DAILY RF: 0 albuterol sulfate 2.5 mg /3 mL (0.083 %) solution for nebulization 2.5 mg inhalation TID PRN (Reason: Shortness Of Breath) RF: 0 insulin aspart U-100 [Novolog Flexpen U-100 Insulin] 100 unit/mL (3 mL) Insulin Pen See Rx Instructions .ROUTE .COMPLEX RF: 0 Discharge Orders: Discharge Order (Routine); Ordered 08/10/19 Ordered By: Flaquita Wilkins Referrals: [facility] [Outside] Srikanth Mars Jr, MD [Primary Care Provider] - 4-7 days (Post hospital discharge follow up. ) Yolanda Rodriguez [Emergency Department] - 08/12/19 12:00 pm (Patient had excisional debridement of R heel ulcer. Is on antibiotic treatment with linezolid. ) Discharge Diet: Diabetic Discharge Activity: Increase activity as tolerated Patient Instructions: Hypertension, Urinary Tract Infection in Women (DC), Debridement (DC) Activity Restrictions/Additional Instructions: -Patient needs continued fall precautions -Please keep skin folds clean and dry, apply nystatin powder to inguinal areas -Please reposition patient every 2 hrs -Please clean open wounds on bilateral lower extremities, particularly on left leg twice daily, pat dry and apply Hydrofera blue to open areas then dress with Kerlix. Dressings can be changed as needed based on drainage -Please check CBC and BMP once per week while patient is on antibiotic treatment -Patient has Lockhart catheter in place to keep wound areas clean; this can be discontinued once she has completed her antibiotic treatment Discharge Attestations Time Spent in Discharge Care*: greater than 30 min Specific Discharge Activities: Specific discharge activities: educating patient, discussing with mental health case manager/social workers/dc planners, documenting/other paperwork and evaluating patient/reviewing data Status at Discharge: Cognitive status at discharge: cognitively intact, Behavioral status at discharge: cooperative, Functional status at discharge: other assisted ambulation Overall status at discharge: patient is progressing back to baseline Quality Metrics Clinical Quality Measures During this hospital stay, did patient experience: None Coding Level of Care Code 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 [facility] Fwd Exam Comprehensive Diagnoses UTI (urinary tract infection) N30.01 Hematuria presence: with hematuria Urinary tract infection type: acute cystitis 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 L97.912; L97.922 Rhabdomyolysis M62.82 Rhabdomyolysis type: non-traumatic Weakness R53.1 HTN (hypertension) I10 Hypertension type: essential hypertension Morbid obesity E66.01 Hypothyroidism E03.9 Hypothyroidism type: unspecified Peripheral vascular disease I73.9 GERD (gastroesophageal reflux disease) K21.9 Esophagitis presence: esophagitis presence not specified COPD (chronic obstructive pulmonary disease) J44.9 COPD type: unspecified COPD
--- NOTE | 2019-08-10 11:49 | DCPLANNER ---
Pg 2 of IM reviewed with pt., no questions, copy provided.
[2019-08-10 12:06] LABS: Glucose Point of Care 142 mg/dL (70-110)
[2019-08-10] MEDS: heparin 5,000 unit/mL INJ 1 mL 5000 UNIT SUBCUT (12:13)
[2019-08-10] MEDS: nystatin powder 15 gm Btl 1 APPLIC TOPICAL ×2 (12:13→14:40)
--- NOTE | 2019-08-10 13:28 | XR_ITS ---
WS: [id number] CHEST XRAY TECHNIQUE: Portable chest. CLINICAL INFORMATION: picc line placement COMPARISON: None. FINDINGS: Left PICC line with tip in the mid SVC. No pneumothorax. Cardiomegaly. XR/XR chest 1V portable [id number] IMPRESSION: Left PICC line tip in the mid SVC. No pneumothorax.
== END 2019-08-10 16:56 | disposition skilled nursing facility (03) | DRG 623 ==
LOC: ER 17:06 → MEDSURG 18:09
PROVIDERS: Family Medicine; Surgery; Admitting Provider Hospitalist; PCP Family Medicine; Visit Provider Family Medicine
PROC: 0JBQ0ZZ Excision of Right Foot Subcutaneous Tissue and Fascia, Open Approach (ICD-10-PCS; principal; 2019-08-09 13:00)
DX: E11.621 Type 2 diabetes mellitus with foot ulcer (principal); L97.922 Non-pressure chronic ulcer of unspecified part of left lower leg with fat layer exposed; L97.912 Non-pressure chronic ulcer of unspecified part of right lower leg with fat layer exposed; Z68.43 Body mass index [BMI] 50.0-59.9, adult; M62.82 Rhabdomyolysis; N30.01 Acute cystitis with hematuria; L97.412 Non-pressure chronic ulcer of right heel and midfoot with fat layer exposed; N17.9 Acute kidney failure, unspecified; J44.9 Chronic obstructive pulmonary disease, unspecified; E11.65 Type 2 diabetes mellitus with hyperglycemia; E11.42 Type 2 diabetes mellitus with diabetic polyneuropathy; E11.51 Type 2 diabetes mellitus with diabetic peripheral angiopathy without gangrene; E11.22 Type 2 diabetes mellitus with diabetic chronic kidney disease; I12.9 Hypertensive chronic kidney disease with stage 1 through stage 4 chronic kidney disease, or unspecified chronic kidney disease; N18.2 Chronic kidney disease, stage 2 (mild); E78.5 Hyperlipidemia, unspecified; K21.9 Gastro-esophageal reflux disease without esophagitis; E03.9 Hypothyroidism, unspecified; E66.01 Morbid (severe) obesity due to excess calories; M81.0 Age-related osteoporosis without current pathological fracture; Z89.411 Acquired absence of right great toe; Z89.421 Acquired absence of other right toe(s); Z87.891 Personal history of nicotine dependence; I89.0 Lymphedema, not elsewhere classified; D64.9 Anemia, unspecified; B96.1 Klebsiella pneumoniae [K. pneumoniae] as the cause of diseases classified elsewhere; E86.0 Dehydration
CPT/HCPCS: 12345; 36415; 36416; 36569; 36600; 51702; 71045; 73610; 73630; 80048; 80051; 80053; 80202; 81001; 82550; 82810; 82962; 83605; 83690; 83735; 83986; 84100; 84484; 85025; 85651; 86140; 87040; 87070; 87077; 87086; 87176; 87186; 87205; 93005; 93925; 96372; 97110; 97161; 97166; 97530; 99284; J0743; J1644; J1815; J2001; J2270; J2543; J2704; J3370; J3490; J7030; J7050

== ENCOUNTER 2019-09-06 13:07 | Outpatient (CLI) | payer MEDICARE, MEDICAID, SELFPAY | END 2019-09-06 13:08 | disposition home or self-care (01) | LOC: WOUND 13:11 | PROVIDERS: PCP Family Medicine; Visit Provider Nurse Practitioner Family | DX: I87.2 Venous insufficiency (chronic) (peripheral) (principal); L97.812 Non-pressure chronic ulcer of other part of right lower leg with fat layer exposed; L97.822 Non-pressure chronic ulcer of other part of left lower leg with fat layer exposed; E11.621 Type 2 diabetes mellitus with foot ulcer; L97.412 Non-pressure chronic ulcer of right heel and midfoot with fat layer exposed; L97.429 Non-pressure chronic ulcer of left heel and midfoot with unspecified severity | CPT/HCPCS: 99215; G0463 ==

== ENCOUNTER 2019-09-20 15:23 | Outpatient (CLI) | payer MEDICARE, MEDICAID, SELFPAY | END 2019-09-20 15:24 | disposition home or self-care (01) | LOC: WOUND 15:24 | PROVIDERS: PCP Family Medicine; Visit Provider Nurse Practitioner Family | DX: E11.621 Type 2 diabetes mellitus with foot ulcer (principal); L97.412 Non-pressure chronic ulcer of right heel and midfoot with fat layer exposed; L97.422 Non-pressure chronic ulcer of left heel and midfoot with fat layer exposed; I87.2 Venous insufficiency (chronic) (peripheral); L97.822 Non-pressure chronic ulcer of other part of left lower leg with fat layer exposed | CPT/HCPCS: 11042; 11045 ==

== ENCOUNTER 2019-09-27 09:43 | Observation (INO) | payer MEDICARE, MEDICAID, SELFPAY ==
[2019-09-27 09:44] VITALS: BMI 41.9
[2019-09-27 09:48] VITALS: BP 144/68; PULSE 67; RESP 18; TEMP 36.9; O2SAT 91
--- NOTE | 2019-09-27 09:49 | ED_ITS ---
HPI - GI Bleed General: Chief complaint: GI Bleed Stated complaint: POSS GI BLEED Time Seen by Provider: 09/27/19 09:48 History of Present Illness: HPI Narrative: 73-year-old female brought to the emergency room with complaints of GI bleed. Her caregiver gave her home today she lives at home and has a skilled nursing professional that comes in to help her bathe. They found blood in her depends and blood in her bed clothing evidently there is a fair amount. It soaked into the depend she denies any hematemesis she denies any black tarry stools she is not previously had this before she has not had a hysterectomy she has had a little bit of dysuria with this as well. She denies fever sweats or chills denies shortness of breath or respiratory symptoms. MD complaint: gross hematochezia Onset (ago): hour(s) Severity: moderate Relieving factors: none Exacerbating factors: none Associated symptoms: Reports no associated symptoms; Denies abdominal pain, chills, fever(s), malaise, nausea, rash or vomiting Treatments Prior to Arrival: none Review of Systems Const: Denies: fever(s), chills, body aches, change in appetite, fatigue or malaise ENMT: Denies: throat pain, ear or mastoid pain, nasal discharge or nasal congestion Card: Denies: chest pain, edema, dyspnea on exertion or orthopnea Resp: Denies: dyspnea, productive cough or non-productive cough GI: Denies: abdominal pain, nausea, vomiting, hematemesis, coffee ground emesis, diarrhea, constipation, bloating, hematochezia or melena : Denies: flank pain, difficulty voiding, dysuria, urinary frequency or urinary urgency Skin/Breast: Denies: rash or pruritus [facility] ED PFSH: Medical History COPD (chronic obstructive pulmonary disease) -no acute exacerbation currently -not oxygen dependent at baseline Diabetes Diabetic peripheral neuropathy Dyslipidemia GERD (gastroesophageal reflux disease) -on PPI History of ESBL E. 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 Son has been trying to assume her care. Physical Exam Const: COMMON NORMALS: no acute distress GENERAL APPEARANCE: cooperative and comfortable ORIENTATION/CONSCIOUSNESS: Yes awake, Yes oriented to person, Yes oriented to place and Yes oriented to time HENMT: COMMON NORMALS: normocephalic, atraumatic, hearing grossly normal bilaterally, external ears normal, EAC's normal, TM's normal bilaterally and Normal nasal mucous membranes and turbinates present HEAD & SCALP: normocephalic and atraumatic NOSE: Normal nasal mucous membranes and turbinates present EXTERNAL EAR: Yes external ears normal EXTERNAL AUDITORY CANAL: EAC's normal TYMPANIC MEMBRANE: TM's normal bilaterally Eye: COMMON NORMALS: Equal, round and reactive pupils present, EOMs intact bilaterally, conjunctivae normal and no scleral icterus CONJUNCTIVA: Yes conjunctivae normal PUPIL: Yes Equal, round and reactive pupils present Neck/C-Spine: COMMON NORMALS: full ROM, no lymphadenopathy, supple and no JVD Lymph: LYMPHATIC: no lymphadenopathy noted and no lymphedema noted Resp: COMMON NORMALS: normal respiratory effort, No retractions, No use of accessory muscles and clear to auscultation bilaterally AUSCULTATION: clear to auscultation bilaterally Cardio: COMMON NORMALS: no JVD, regular rate, regular rhythm and No murmurs present (Cardio) RATE: regular rate RHYTHM: regular rhythm GI: COMMON NORMALS: Soft to palpation and No hepatosplenomegaly present AUSCULTATION: Yes normoactive bowel sounds PALPATION: Yes Soft to palpation, No Tenderness to palpation present (GI), No Guarding due to palpation present (GI) and Yes No hepatosplenomegaly present : OTHER: Semination of the rectal and developed vulvar area there is no vaginal bleeding there is no obvious clot gross bleeding from the rectum no hemorrhoids or multiple excoriated areas along the buttocks and the medial folds of the thighs partial-thickness ulcerations appear to be friction and pressure ulcers. Extremity: COMMON NORMALS: normal to inspection, capillary refill normal, no clubbing, cyanosis or edema, no calf tenderness and no pedal edema Neuro: SENSORIUM/ORIENTATION: Yes oriented to person, Yes oriented to place and Yes oriented to time Skin: COMMON NORMALS: no rashes or lesions noted GENERAL SKIN EXAM: no rashes or lesions noted Course Vital Signs: Vital signs: Vital Signs Temperature 98.5 F 09/27/19 09:48 Pulse Rate 62 09/27/19 13:05 Respiratory Rate 16 09/27/19 13:05 Blood Pressure 160/101 09/27/19 13:05 Pulse Oximetry 100 09/27/19 13:05 MDM - GI Bleed MDM Narrative: Medical decision making narrative: Hemoglobin is dropped significantly from earlier this year is down to 9 3 we will go ahead and admit for observation to monitor for signs of further signs of bleeding or further anemia that may require transfusion. Lab Data: Attestation: I reviewed the patient's lab results. Labs: Lab Results 09/27/19 09/27/19 09/27/19 Range/Units 09:55 09:55 10:35 WBC 5.4 (4.0-10.0) 10^3/ uL RBC 3.08 L (4.1-5.3) 10^6/u L Hgb 9.3 L (11.5-15.3) g/dL Hct 31.0 L (37.0-47.0) % MCV 100.6 H (81-99) fL MCH 30.2 (28.0-34.0) pg MCHC 30.0 (30.0-36.0) g/dL RDW 14.6 (12.1-15.1) % Plt Count 228 (130-400) 10^3/c mm MPV 10.8 H (7.4-10.4) fL Neut % (Auto) 63.8 % Lymph % (Auto) 24.5 % [place] % (Auto) 7.0 % Eos % (Auto) 1.8 % Baso % (Auto) 0.7 % Neut # (Auto) 3.5 (1.8-7.7) 10^3/u L Lymph # (Auto) 1.3 (0.8-4.8) 10^3/u L [place] # (Auto) 0.4 (0.2-0.9) 10^3/u L Eos # (Auto) 0.1 (0.0-0.8) 10^3/u L Baso # (Auto) 0.0 (0.0-0.1) 10^3/u L Nucleated RBC % (a uto) 0 % Nucleated RBCs # 0.0 /100WBC Sodium 140 (136-145) mmol/L Potassium 4.0 (3.5-5.1) mmol/L Chloride 103 (98-107) mmol/L Carbon Dioxide 27 (22-29) mmol/L Anion Gap 14.0 (5-19) BUN 8 (8-23) mg/dL Creatinine 0.9 (0.5-0.9) mg/dL Glucose 198 H (65-115) mg/dL Calculated Osmolal ity 291 (285-295) mOsm/k g Lactate 1.4 (0.5-2.2) mmol/L Calcium 8.6 (8.5-10.5) mg/dL Total Bilirubin 0.2 (0.15-1.2) mg/dL AST 10 (0-32) U/L ALT 6 (0-33) U/L Alkaline Phosphata se 63 (35-105) IU/L Total Protein 6.7 (6.6-8.7) g/dL Albumin 2.7 L (3.5-5.2) g/dL Globulin 4.0 (1.3-4.6) g/dL Lipase 36 (13-60) U/L Urine Color (Yellow) Urine Appearance (CLEAR) Urine pH (5-7) Ur Specific Gravit y (1.005-1.030) Urine Protein (Negative) Urine Glucose (UA) (Normal) Urine Ketones (Negative) Urine Blood (Negative) Urine Nitrate (Negative) Urine Bilirubin (NEGATIVE) Urine Urobilinogen (Negative) mg/dL Ur Leukocyte Massiel ase (Negative) Urine RBC (0-2) /hpf Urine WBC (0-5) /hpf Ur Squamous Epith Cells (0-5) Amorphous Sediment Urine Bacteria (NONE) 09/27/19 Range/Units 11:18 WBC (4.0-10.0) 10^3/ uL RBC (4.1-5.3) 10^6/u L Hgb (11.5-15.3) g/dL Hct (37.0-47.0) % MCV (81-99) fL MCH (28.0-34.0) pg MCHC (30.0-36.0) g/dL RDW (12.1-15.1) % Plt Count (130-400) 10^3/c mm MPV (7.4-10.4) fL Neut % (Auto) % Lymph % (Auto) % [place] % (Auto) % Eos % (Auto) % Baso % (Auto) % Neut # (Auto) (1.8-7.7) 10^3/u L Lymph # (Auto) (0.8-4.8) 10^3/u L [place] # (Auto) (0.2-0.9) 10^3/u L Eos # (Auto) (0.0-0.8) 10^3/u L Baso # (Auto) (0.0-0.1) 10^3/u L Nucleated RBC % (a uto) % Nucleated RBCs # /100WBC Sodium (136-145) mmol/L Potassium (3.5-5.1) mmol/L Chloride (98-107) mmol/L Carbon Dioxide (22-29) mmol/L Anion Gap (5-19) BUN (8-23) mg/dL Creatinine (0.5-0.9) mg/dL Glucose (65-115) mg/dL Calculated Osmolal ity (285-295) mOsm/k g Lactate (0.5-2.2) mmol/L Calcium (8.5-10.5) mg/dL Total Bilirubin (0.15-1.2) mg/dL AST (0-32) U/L ALT (0-33) U/L Alkaline Phosphata se (35-105) IU/L Total Protein (6.6-8.7) g/dL Albumin (3.5-5.2) g/dL Globulin (1.3-4.6) g/dL Lipase (13-60) U/L Urine Color Straw (Yellow) Urine Appearance Sl hazy (CLEAR) Urine pH 9 H (5-7) Ur Specific Gravit y 1.015 (1.005-1.030) Urine Protein Neg (Negative) Urine Glucose (UA) Norm (Normal) Urine Ketones Negative (Negative) Urine Blood Neg (Negative) Urine Nitrate Positive H (Negative) Urine Bilirubin Neg (NEGATIVE) Urine Urobilinogen Norm (Negative) mg/dL Ur Leukocyte Massiel ase 2+ H (Negative) Urine RBC None (0-2) /hpf Urine WBC 15-25 H (0-5) /hpf Ur Squamous Epith Cells 5-10 H (0-5) Amorphous Sediment Not Reportable Urine Bacteria 4+ H (NONE) Imaging Data^: CT Abd/Pel: My impression: CT/CT abdomen pelvis w con* [id number] IMPRESSION: 1. No acute abdominal or pelvic abnormality identified. 2. Descending and sigmoid diverticulosis without evidence for acute diverticulitis. 3. Large abdominal wall ventral hernia containing transverse colon but no obstruction. 4. Lockhart catheter in urinary bladder. 5. Suspect cholecystectomy. 6. Marked bladder wall thickening up to 1.6 cm May be due to cystitis or chronic outlet obstruction. Neoplasm thought less likely but not completely excluded. Dictated By:Jammie Diez DO Discharge Plan Discharge Patient Disposition: Admitted As Inpatient Clinical Impression: Acute lower gastrointestinal bleeding, Anemia Condition: Stable Prescriptions: No Action furosemide 40 mg tablet 40 mg PO DAILY Qty: 30 RF: 0 carvedilol 6.25 mg tablet 3.125 mg PO BID 30 Days Qty: 30 RF: 0 glipizide 10 mg tablet 10 mg PO BID 30 Days Qty: 60 RF: 0 alendronate 70 mg tablet 70 mg PO Q7D Qty: 5 RF: 0 tramadol 50 mg tablet 50 mg PO TID PRN (Reason: Pain) Qty: 30 RF: 0 levothyroxine 25 mcg tablet 25 mcg PO DAILY 30 Days Qty: 30 RF: 0 oxycodone-acetaminophen 5-325 mg tablet 1 tab PO Q8H PRN (Reason: Pain) Qty: 30 RF: 0 potassium chloride 20 mEq tablet,ER particles/crystals 20 meq PO BID 30 Days Qty: 60 RF: 0 trazodone 150 mg tablet 150 mg PO BEDTIME 30 Days Qty: 30 RF: 0 oxybutynin chloride 5 mg tablet 5 mg PO BID 30 Days Qty: 60 RF: 0 gentamicin 0.1 % ointment 1 applic topical TID Qty: 15 RF: 0 esomeprazole magnesium 20 mg capsule,delayed release(DR/EC) 20 mg PO DAILY 30 Days Qty: 30 RF: 0 pregabalin 150 mg capsule 150 mg PO TID 30 Days Qty: 90 RF: 0 Januvia 100 mg Tablet 100 mg PO DAILY 30 Days Qty: 30 RF: 0 albuterol sulfate 2.5 mg /3 mL (0.083 %) solution for nebulization 2.5 mg INHALATION Q6H PRN (Reason: shortness of breath or wheezing) Qty: 90 RF: 0 Referrals: Srikanth Mars Jr, MD [Primary Care Provider] - Coding Level of Care Code ED Production Finisher for Shamar Rivero
--- NOTE | 2019-09-27 10:02 | XR_ITS ---
WS: [id number] PORTABLE CHEST HISTORY: dyspnea/cough COMPARISON: 08/10/2019 Hyperinflated lungs. LEFT lung granulomas. No pneumonia. Mild haziness over both lungs is new. No ple ural effusion or pneumothorax. Cardiac size: Mildly enlarged cardiac silhouette. Mediastinum/Aorta: Mild atherosclerosis aorta. Osteopenia. XR/XR chest 1V portable [id number] IMPRESSION: 1. Mild interstitial edema. 2. Chronic emphysema and prior granulomatous disease.
--- NOTE | 2019-09-27 10:02 | CT_ITS ---
WS: [id number] CT ABDOMEN AND PELVIS WITH CONTRAST HISTORY: abd pain, possible GI bleed. TECHNIQUE: Imaging performed of the abdomen and pelvis with IV contrast. Single phase imaging of the abdomen. Coronal and sagittal reformats are submitted. All CT scans at [facility] use at least one of these dose optimization techniques: automated exposure control; mA and/or kV adjustment per patient size (includes targeted exams where dose is matched to clinical indication); or iterativ e reconstruction. IV CONTRAST: Omnipaque 300; 95 mL IV. Oral contrast: No DLP: 1816.77 mGy.cm COMPARISON: 12/25/2008 Lower thorax: Long-term stability 4 mm nodule at the LEFT lung base. Mild dependent changes at the LE FT lung base otherwise. Cardiac chamber size is slightly enlarged. No pericardial effusion. No hiatal hernia. Liver/biliary system: Normal size with no intrahepatic dilatation. Gallbladder: Gallbladder is not identified. Probably postsurgical. No history of cholecystectomy prov ided. Pancreas: Normal. Spleen: Scattered granulomata. Normal size spleen. Adrenal glands: Normal. Right kidney: Mild atrophy and cortical thinning. No mass. Left kidney: Mild atrophy and cortical thinning. No mass or obstruction. Aorta: Mild atherosclerosis. No aneurysm. Lymphadenopathy: None. Free fluid: None. GI tract: No GI tract obstruction. There is a ventral abdominal wall hernia containing colon with no obstruction. Numerous diverticula in the descending and sigmoid colon. No acute inflammation. Abdominal wall: Large abdominal wall hernia contains colon with no obstruction or pneumatosis. There is a large orifice. Pelvis: Lockhart catheter in a nondistended urinary bladder. There is diffuse wall thickening measuring up to 1.6 cm. Densely calcified mass in the RIGHT adnexa is probably calcified fibroid measuring 2.5 cm which is stable. Slightly enlarged but benign-appearing RIGHT inguinal lymph nodes. Bones: No destructive bone lesions. Prior ORIF LEFT hip and proximal femur. CT/CT abdomen pelvis w con* [id number] IMPRESSION: 1. No acute abdominal or pelvic abnormality identified. 2. Descending and sigmoid diverticulosis without evidence for acute diverticul itis. 3. Large abdominal wall ventral hernia containing transverse colon but no obst ruction. 4. Lockhart catheter in urinary bladder. 5. Suspect cholecystectomy. 6. Marked bladder wall thickening up to 1.6 cm May be due to cystitis or chron ic outlet obstruction. Neoplasm thought less likely but not completely excluded .
--- NOTE | 2019-09-27 10:02 | ECG_ITS ---
[facility] Test Date: 2019-09-27 Pat Name: Rachid Hagen Department: Room: Gender: Female Terminal Superintendent: : 1945 Requested By: Brendan Mcgovern Order Number: [id number] Jeremie MD: Ivory Edwards M.D. Measurements Intervals [place] Rate: 63 P: 87 WA: 169 QRS: -20 QRSD: 112 T: 63 QT: 371 QTc: 382 Interpretive Statements SINUS RHYTHM MODERATE INTRAVENTRICULAR CONDUCTION DELAY [110+ ms QRS DURATION] NONSPECIFIC T-WAVE ABNORMALITY Compared to ECG 08/07/2019 18:20:46 Intraventricular conduction delay now present T-wave abnormality now present Myocardial infarct finding no longer present Electronically Signed On 09-27-2019 21:41:55 CDT by Ivory Edwards M.D. [id number]
[2019-09-27 10:25] LABS: Basophils % 0.7 %; Eosinophils # 0.1 10^3/uL (0.0-0.8); Eosinophils % 1.8 %; Hemoglobin 9.3 g/dL (11.5-15.3); Lymphocytes # 1.3 10^3/uL (0.8-4.8); Lymphocytes % 24.5 %; Mean Corpuscular Hemoglobin 30.2 pg (28.0-34.0); Mean Corpuscular Volume 100.6 fL (81-99); Mean Platelet Volume 10.8 fL (7.4-10.4); Monocytes # 0.4 10^3/uL (0.2-0.9); Neutrophils # 3.5 10^3/uL (1.8-7.7); Neutrophils % 63.8 %; Nucleated Red Blood Cells % 0 %; Platelet Count 228 10^3/cmm (130-400); Red Blood Count 3.08 10^6/uL (4.1-5.3); Red Cell Distribution Width 14.6 % (12.1-15.1); White Blood Count 5.4 10^3/uL (4.0-10.0)
[2019-09-27] MEDS: ondansetron 2 mg/ML SDV 2 mL 4 MG IVP (10:49)
[2019-09-27 11:17] LABS: Lactate (Lactic Acid level) 1.4 mmol/L (0.5-2.2)
[2019-09-27 11:18] LABS: Alanine Aminotransferase 6 U/L (0-33); Albumin Level 2.7 g/dL (3.5-5.2); Alkaline Phosphatase 63 IU/L (35-105); Aspartate Amino Transferase 10 U/L (0-32); Blood Urea Nitrogen 8 mg/dL (8-23); Calcium 8.6 mg/dL (8.5-10.5); Carbon Dioxide 27 mmol/L (22-29); Chloride 103 mmol/L (98-107); Glucose 198 mg/dL (65-115); Lipase 36 U/L (13-60); Osmolality Calculated 291 mOsm/kg (285-295); Sodium 140 mmol/L (136-145); Total Bilirubin 0.2 mg/dL (0.15-1.2); Total Protein 6.7 g/dL (6.6-8.7)
[2019-09-27] MEDS: iohexol 300 mg/mL 100 mL Btl IV (12:14)
[2019-09-27 12:57] LABS: Protein Urine Neg (Negative); Specific Gravity, Urine 1.015 (1.005-1.030); Urine Appearance SL Hazy (CLEAR); Urine Color Straw (Yellow); pH Urine 9 (5-7)
[2019-09-27 12:58] LABS: Add Urine Culture? Yes; Add Urine Microscopic? YES; Bacteria Urine 4+; Bilirubin Urine Neg (NEGATIVE); Blood Urine Neg (Negative); Glucose Urine UA Norm (Normal); Ketones Urine Negative (Negative); Leukocyte Esterase Urine 2+ (Negative); Nitrate Urine Positive (Negative); Urobilinogen Urine Norm (Negative); WBC Urine 15-25 /hpf (0-5)
[2019-09-27 13:05] VITALS: BP 160/101; PULSE 62; RESP 16; O2SAT 100
--- NOTE | 2019-09-27 15:13 | PM.HP ---
Providers/Chief Complaint Primary Care Provider: Srikanth Mars Jr, MD Chief Complaint: POSS GI BLEED History of Present Illness Rachid Hagen is a 73 year old female with a past medical history of COPD, type 2 diabetes mellitus, diabetic peripheral neuropathy, dyslipidemia, GERD, recent history of ESBL E. coli UTI treated with impediment PICC line, hypertension, hypothyroidism, lymphedema, morbid obesity, osteoporosis, peripheral vascular disease, CKD stage II-III, history of ulcers decubitus and right heel, status post debridement by Dr. De La Fuente, and extensive intertrigo who presents to [facility] due to complaints of blood. Patient states that she was recently discharged from [facility], had a urinary tract infection requiring IV antibiotics, had a decubitus ulcer that is been debrided. 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 Patient states that yesterday her nurse caregiver, noticed some bleeding, staining her pads, she was unsure if it was coming from the vagina or rectum or possibly from her decubitus ulcers, but did state the decubitus ulcers looked well. Patient states that then this morning they noticed more blood soaking her pads, again the source of bleeding was unknown. When they [employer] lift turned her this morning, they noticed extensive bleeding with clots again source was unknown. Patient states that she has had a colonoscopy, one within the last 5 years, no significant findings. No personal family history of colon cancer. She did have a history of postmenopausal vaginal bleeding for which she required a hysteroscopy in 2007. No reported bloody or black stools. She is not sure if she has a history of diverticulosis. In the ER, her hemoglobin was found to be 9.3, I was told by the ER physician during Lockhart placement that there was no vaginal bleeding that was noticed., Concerns for lower GI bleed, hospitalist team was called for admission. Review of Systems Const: Denies: fever(s), chills, fatigue or malaise Eyes: Denies: change in vision or blurry vision ENMT: Denies: nasal congestion Resp: Denies: dyspnea, productive cough, non-productive cough or wheezing GI: Denies: abdominal pain, nausea, vomiting, hematemesis, diarrhea, constipation, hematochezia or melena : Denies: flank pain, dysuria or urinary frequency Musc: Denies: neck pain or back pain Skin/Breast: Denies: rash Neuro: Denies: headache(s), dizziness or vertigo Psych: Denies: anxiety or depression Endo: Denies: polyuria or polydipsia Medications/Allergies Home Medications Medication Instructions Recorded Confirmed Last Taken Type Januvia 100 mg PO DAILY 30 Days #30 tab 08/10/19 09/27/19 09/26/19 Rx albuterol sulfate 2.5 mg INHALATION Q6H PRN #90 ml 08/10/19 09/27/19 09/26/19 Rx alendronate 70 mg PO Q7D #5 tab 08/10/19 09/27/19 09/20/19 Rx carvedilol 3.125 mg PO BID 30 Days #30 tab 08/10/19 09/27/19 09/26/19 Rx esomeprazole magnesium 20 mg PO DAILY 30 Days #30 cap 08/10/19 09/27/19 09/26/19 Rx furosemide 40 mg PO DAILY #30 tab 08/10/19 09/27/19 09/26/19 Rx gentamicin 1 applic TOPICAL TID #15 gm 08/10/19 09/27/19 Unknown Rx glipizide 10 mg PO BID 30 Days #60 tab 08/10/19 09/27/19 09/26/19 Rx levothyroxine 25 mcg PO DAILY 30 Days #30 tab 08/10/19 09/27/19 09/26/19 Rx oxybutynin chloride 5 mg PO BID 30 Days #60 tab 08/10/19 09/27/19 09/26/19 Rx oxycodone-acetaminophen 1 tab PO Q8H PRN #30 tab 08/10/19 09/27/19 Unknown Rx potassium chloride 20 meq PO BID 30 Days #60 tab 08/10/19 09/27/19 09/26/19 Rx pregabalin 150 mg PO TID 30 Days #90 cap 08/10/19 09/27/19 09/26/19 Rx tramadol 50 mg PO TID PRN #30 tab 08/10/19 09/27/19 Unknown Rx trazodone 150 mg PO BEDTIME 30 Days #30 tab 08/10/19 09/27/19 09/26/19 Rx Allergies Allergy/AdvReac Type Severity Reaction Status Date / Time TAPE Allergy ADR-Itching Uncoded 09/27/19 09:54 PFSH Acute PFSH: Medical History COPD (chronic obstructive pulmonary disease) -no acute exacerbation currently -not oxygen dependent at baseline Diabetes Diabetic peripheral neuropathy Dyslipidemia GERD (gastroesophageal reflux disease) -on PPI History of ESBL E. 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 Son has been trying to assume her care. Vitals/I&O/Wt Last Vital Signs Temp 98.5 F 09/27/19 09:48 Pulse 62 09/27/19 13:05 Resp 16 09/27/19 13:05 BP 160/101 09/27/19 13:05 Pulse Ox 100 09/27/19 13:05 Weight last 48 hrs Weight 125.191 kg Data : 09/27/19 09:55 09/27/19 09:55 A&P Assessment and plan (1) Bleeding: -Source of bleeding is not clear at this time -Lower GI bleed versus vaginal bleeding -CT scan of the abdomen did show large abdominal wall ventral hernia, containing transverse colon without obstruction -Hgb down to 9.3, baseline 11-12 -Colonoscopy performed within the last 10 years was within normal limits PLAN: -Monitor hemoglobin -Monitor for vaginal rectal bleeding -Hemoccult stool, iron studies, B12, folate -We will consider a transvaginal ultrasound Status: Acute (2) UTI (urinary tract infection): -UA positive for nitrate, negative for blood, positive leukocyte esterase, positive for WBCs, positive for bacteria -Urine cultures in the past have grown Klebsiella ESBL -We will start on Primaxin -Has been complaining of generalized weakness, has a Lockhart catheter in place, might be a cardiac colonizer Status: Acute Qualifiers: Urinary tract infection type: acute cystitis Hematuria presence: with hematuria Qualified Code(s): N30.01 - Acute cystitis with hematuria (3) Anemia: Status: Acute (4) COPD (chronic obstructive pulmonary disease): Status: Acute (5) S/P excisional debridement: Status: Acute (6) 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: Status: Chronic (7) Diabetic peripheral neuropathy: Status: Chronic (8) Overactive bladder: Status: Chronic (9) Dyslipidemia: Status: Chronic (10) Bladder wall thickening: -Will need an outpatient follow-up with urology for cystoscopy Status: Acute Attestations Medical Necessity Statement*: Patient requires inpatient admission, greater than 2 minutes, for bleeding Coding Level of Care Code Acute Bindery Chief for [facility] Fwd Diagnoses Bleeding R58 UTI (urinary tract infection) N30.01 Urinary tract infection type: acute cystitis Hematuria presence: with hematuria Anemia D64.9 COPD (chronic obstructive pulmonary disease) J44.9 S/P excisional debridement Z98.890 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 L97.912; L97.922 Diabetic peripheral neuropathy E11.42 Overactive bladder N32.81 Dyslipidemia E78.5 Bladder wall thickening N32.89
[2019-09-27] MEDS: cefTRIAXone 1,000 MG in sodium chloride 0.9% (plus) 50 ML 100 MG IV (15:55)
--- NOTE | 2019-09-27 16:05 | PC.NURSE ---
1500 mL drained from urine bag
--- NOTE | 2019-09-27 17:45 | XRR_ITS ---
PROCEDURE INFORMATION: Exam: XR Chest, 1 View Exam date and time: 09/27/2019 8:18 PM Age: 73 years old Clinical indication: Device placement; Ng tube; Additional info: Po ng placement TECHNIQUE: Imaging protocol: XR of the chest Views: 1 view. COMPARISON: CR XR chest 1V portable [id number] 09/27/2019 10:17 AM FINDINGS: Tubes, catheters and devices: Electronic device projects over the left upper quadrant. Lungs: Low lung volumes. Progressive pulmonary vascular congestion or edema. Parenchymal opacities of the lower lungs greater on the left which could reflect superimposed pneumonic infiltrate. Calcified granulomata suspected left lung. Pleural space: No pneumothorax. Heart/Mediastinum: Cardiomegaly. Vasculature: Calcified thoracic aorta. Bones/joints: Osteopenia with degenerative change of the spine. Lucency at the distal left clavicle possibly technical or positional. Other findings: Developing left effusion. XR/XR chest 1V portable [id number] IMPRESSION: 1. Pulmonary venous congestion/interstitial edema persist and may be slightly accentuated. 2. Developing left effusion. 3. Developing opacities of lower lungs greater on the left which could indicate superimposed atelectasis or developing infiltrates. Correlate for symptoms of pneumonia. 4. Lucent area distal left clavicle probably technical or projectional.
[2019-09-27 18:00] VITALS: BP 148/75; PULSE 70; RESP 15; O2SAT 97
[2019-09-27 18:47] VITALS: BP 155/76; PULSE 65; RESP 18; TEMP 36.9; O2SAT 82
--- NOTE | 2019-09-27 18:48 | PC.NURSE ---
Charge Nurse was notified of low O2 stat's.
[2019-09-27 19:00] LABS: Estmated Average Glucose 217; Hemoglobin A1C 9.2 % (4.0-6.0)
[2019-09-27 19:42] VITALS: BP 168/90; PULSE 65; TEMP 36.5; O2SAT 99
[2019-09-27] MEDS: pantoprazole 40 mg SDV IVP (19:44)
[2019-09-27] MEDS: oxybutynin 5 mg Tablet PO (19:51)
[2019-09-27] MEDS: carvedilol 3.125 mg Tablet PO (19:52)
[2019-09-27] MEDS: D5-NS 0.45% + KCL 20 mEq 20 MEQ/1,000 ML BAG 100 MEQ IV (19:52)
[2019-09-27 20:14] LABS: Hematocrit 33.1 % (37.0-47.0); Hemoglobin 9.9 g/dL (11.5-15.3)
[2019-09-27 21:00] LABS: INR 1.06 (0.8-1.2)
[2019-09-27 22:16] LABS: Ferritin 92 ng/mL (15-150); Folate Level 9.2 ng/mL (4.8-37.3); Vitamin B12 388 pg/mL (232-1245)
[2019-09-27] MEDS: pregabalin 150 mg Capsule PO (22:23)
[2019-09-27] MEDS: trazodone 150 mg Tablet PO (22:23)
[2019-09-28] VITALS (8 sets, daily range): BP systolic 135–165; BP diastolic 69–104; PULSE 56–91; RESP 14–18; TEMP 36.7–36.9; O2SAT 91–100
[2019-09-28 00:48] LABS: Hematocrit 31.1 % (37.0-47.0); Hemoglobin 9.2 g/dL (11.5-15.3)
[2019-09-28 04:27] LABS: Basophils # 0.1 10^3/uL (0.0-0.1); Eosinophils # 0.1 10^3/uL (0.0-0.8); Eosinophils % 2.5 %; Hematocrit 31.5 % (37.0-47.0); Hemoglobin 9.1 g/dL (11.5-15.3); Lymphocytes # 0.9 10^3/uL (0.8-4.8); Lymphocytes % 17.6 %; Mean Corpuscular HGB Conc 28.9 g/dL (30.0-36.0); Mean Corpuscular Hemoglobin 29.3 pg (28.0-34.0); Mean Corpuscular Volume 101.3 fL (81-99); Mean Platelet Volume 10.7 fL (7.4-10.4); Monocytes # 0.5 10^3/uL (0.2-0.9); Monocytes % 8.7 %; Neutrophils # 3.5 10^3/uL (1.8-7.7); Neutrophils % 68.1 %; Nucleated Red Blood Cells % 0 %; Platelet Count 195 10^3/cmm (130-400); Red Blood Count 3.11 10^6/uL (4.1-5.3); Red Cell Distribution Width 14.3 % (12.1-15.1); White Blood Count 5.2 10^3/uL (4.0-10.0)
--- NOTE | 2019-09-28 04:38 | PC.NURSE ---
When turning pt she had some bleeding from what appeared to be coming from the vagina. The amount of blood was about 1x1 foot spread out- did not saturate the charles. The anus had no trace of blood.
[2019-09-28 05:10] LABS: Magnesium 1.6 mg/dL (1.7-2.3); Phosphorus 3.2 mg/dL (2.5-4.5)
[2019-09-28 05:14] LABS: Alanine Aminotransferase 6 U/L (0-33); Albumin Level 2.6 g/dL (3.5-5.2); Alkaline Phosphatase 61 IU/L (35-105); Anion Gap 9.8 (5-19); Aspartate Amino Transferase 10 U/L (0-32); Blood Urea Nitrogen 6 mg/dL (8-23); Calcium 8.1 mg/dL (8.5-10.5); Carbon Dioxide 29 mmol/L (22-29); Chloride 104 mmol/L (98-107); Globulin 3.6 g/dL (1.3-4.6); Glucose 203 mg/dL (65-115); Osmolality Calculated 290 mOsm/kg (285-295); Potassium 3.8 mmol/L (3.5-5.1); Sodium 139 mmol/L (136-145); Total Bilirubin 0.2 mg/dL (0.15-1.2); Total Protein 6.2 g/dL (6.6-8.7)
[2019-09-28 07:00] LABS: Hematocrit 33.7 % (37.0-47.0)
[2019-09-28] MEDS: D5-NS 0.45% + KCL 20 mEq 20 MEQ/1,000 ML BAG 100 MEQ IV ×2 (11:09→22:29)
[2019-09-28] MEDS: levothyroxine 25 mcg Tablet 50 MCG PO (11:13)
[2019-09-28] MEDS: oxybutynin 5 mg Tablet PO ×2 (11:13→16:21)
[2019-09-28] MEDS: pregabalin 150 mg Capsule PO ×3 (11:14→22:28)
[2019-09-28] MEDS: FUROsemide 40 mg Tablet PO (11:14)
[2019-09-28] MEDS: carvedilol 3.125 mg Tablet PO ×2 (11:14→16:21)
--- NOTE | 2019-09-28 12:14 | PC.CHAP ---
Pastoral Care Encounter/Spiritual Assessment Type of Contact [] Declined stereo compiler visit [] Patient/Family/Request visit [] Outpatient visit [] Follow-up visit [] Physician referral [] Code/Alert [] Routine visit [] Staff referral [] Actively dying [] Patient sleeping [] Family support [] [] Out of room [] Palliative care [] [] Receiving care in room [] Pre-surgical visit [] Trauma [] Long length of stay [] ICU visit [x] Other: Fellow Up Relational/Emotional Strength [] Patient feels connected with others/family/visitors/staff [] Distress [] Loneliness/isolation [] Abandonment Spirituality of Patient [] Person of Shirlene [] Attends Presybeterian of their Shirlene [] Believes in Prayer [] Reads Bible or Christianity materials [] There are Spiritual issues to be addressed Chicken Hanger Interventions [] Prayer [] Active listening [] Non-anxious presence [] Spiritual/emotional support [] Crisis/trauma care [] Spiritual counseling [] Bereavement support [] Provided bereavement packet [] Provided Bible/devotional materials [] Provided toy/stuffed animal, coloring book to patient or family member [] Provided Communion [] Anointing/[place] [] Salvation [] Completed spiritual assessment [] Other: Impact on Illness or Injury [] Angry [] Fearful [] Anxious [] Often cries [] Exhaustion [] Unable to work [] Unable to attend episcopal [] Unable to walk/stand [] Unable to read [] Unable to drive [] Unable to eat/drink [] Unable to sleep [] Unable to be with family [] Patient intubated [] Other: Summary Fellow Up Time spent with patient mins
[2019-09-28] MEDS: pantoprazole 40 mg SDV IVP ×2 (12:33→16:52)
[2019-09-28 13:26] LABS: Hematocrit 33.7 % (37.0-47.0); Hemoglobin 9.8 g/dL (11.5-15.3)
--- NOTE | 2019-09-28 13:35 | P.PN_ITS ---
Subjective Subjective: Interval history: Overnight patient had 2 bowel movements, none were noted to be bloody, Hemoccult still pending, nurses thought she might of had some vaginal bleeding, patient states that she is doing okay this morning has no significant complaints, no abdominal pain, no fevers, no chills, no chest pain Vitals/I&O/Wt Last Vital Signs Temp 98.1 F 09/28/19 11:24 Pulse 56 L 09/28/19 11:24 Resp 18 09/28/19 11:24 BP 139/73 09/28/19 11:24 Pulse Ox 96 09/28/19 11:24 09/27/19 09/28/19 09/28/19 22:59 06:59 14:59 Intake Total 100 / 100 910 / 1010 790 / 790 Balance 100 / 100 910 / 1010 790 / 790 Weight last 48 hrs Weight 125.191 kg Physical Exam Const: COMMON NORMALS: no acute distress and patient oriented x3 HENMT: COMMON NORMALS: normocephalic HEAD & SCALP: normocephalic Neck/C-Spine: COMMON NORMALS: no JVD Resp: COMMON NORMALS: normal respiratory effort, No retractions, No use of accessory muscles and clear to auscultation bilaterally AUSCULTATION: clear to auscultation bilaterally Cardio: COMMON NORMALS: no JVD, regular rate, regular rhythm, S1 normal heart sound present and S2 normal heart sound present RATE: regular rate RHYTHM: regular rhythm HEART SOUNDS: S1 normal heart sound present and S2 normal heart sound present GI: COMMON NORMALS: Normal to inspection, nondistended, normoactive bowel sounds present, Soft to palpation, non-tender, No hepatosplenomegaly present, no masses and no bruits PALPATION: Yes Soft to palpation and Yes No hepatosplenomegaly present Extremity: COMMON NORMALS: capillary refill normal, no clubbing, cyanosis or edema, no calf tenderness and no pedal edema Neuro: COMMON NORMALS: patient oriented x3 Psych: COMMON NORMALS: mental status grossly normal Data : 09/28/19 12:52 09/28/19 03:04 A&P Assessment and plan (1) Bleeding: -Source of bleeding is not clear at this time -Seems more like vaginal bleeding given report from nurses this morning -CT scan of the abdomen did show large abdominal wall ventral hernia, containing transverse colon without obstruction -Hgb down to 9.8, baseline 11-12 -Colonoscopy performed within the last 10 years was within normal limits PLAN: -Monitor hemoglobin -Monitor for vaginal rectal bleeding -Will obtain a transvaginal ultrasound -B12 within normal limits, folate within normal limits, iron studies within normal limits - transvaginal ultrasound Status: Acute (2) UTI (urinary tract infection): -UA positive for nitrate, negative for blood, positive leukocyte esterase, positive for WBCs, positive for bacteria -Urine cultures in the past have grown Klebsiella ESBL -We will start on Primaxin -Has been complaining of generalized weakness, has a Lockhart catheter in place, might be a ca chronic colonizer Status: Acute Qualifiers: Urinary tract infection type: acute cystitis Hematuria presence: with hematuria Qualified Code(s): N30.01 - Acute cystitis with hematuria (3) Anemia: Status: Acute (4) COPD (chronic obstructive pulmonary disease): Status: Acute (5) S/P excisional debridement: Status: Acute (6) 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: -Follow-up wound care Status: Chronic (7) Diabetic peripheral neuropathy: Status: Chronic (8) Overactive bladder: Status: Chronic (9) Dyslipidemia: Status: Chronic (10) Bladder wall thickening: -Will need an outpatient follow-up with urology for cystoscopy Status: Acute (11) Hypothyroid: -TSH 114 -Increase levothyroxine to 50, with repeat TSH in 6 weeks, with up titration likely Status: Acute Attestations Medical Necessity Statement*: Patient requires continued hospitalization due to bleeding, UTI Coding Level of Care Code Acute Printing Press Operator Apprentice for Chg Fwd Diagnoses Bleeding R58 UTI (urinary tract infection) N30.01 Urinary tract infection type: acute cystitis Hematuria presence: with hematuria Anemia D64.9 COPD (chronic obstructive pulmonary disease) J44.9 S/P excisional debridement Z98.890 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
[2019-09-28 18:45] LABS: Hematocrit 33.5 % (37.0-47.0); Hemoglobin 9.9 g/dL (11.5-15.3)
--- NOTE | 2019-09-28 20:37 | PC.NURSE ---
Per Latricia Hammond administer 250mls Jevity per peg tube and flushed 300mls at noon.
[2019-09-28 21:17] LABS: Glucose Point of Care 255 mg/dL (70-110)
[2019-09-28] MEDS: trazodone 150 mg Tablet PO (22:28)
[2019-09-29] VITALS: BP 131/68; PULSE 52; RESP 18; TEMP 36.6; O2SAT 95
[2019-09-29 00:46] LABS: Hematocrit 30.4 % (37.0-47.0); Hemoglobin 8.8 g/dL (11.5-15.3)
[2019-09-29 04:00] VITALS: BP 131/66; PULSE 51; RESP 17; TEMP 37.1; O2SAT 97
[2019-09-29 05:29] LABS: Basophils % 0.5 %; Eosinophils # 0.1 10^3/uL (0.0-0.8); Eosinophils % 2.2 %; Hematocrit 31.2 % (37.0-47.0); Hemoglobin 9.2 g/dL (11.5-15.3); Lymphocytes # 0.9 10^3/uL (0.8-4.8); Lymphocytes % 16.3 %; Mean Corpuscular HGB Conc 29.5 g/dL (30.0-36.0); Mean Corpuscular Hemoglobin 30.4 pg (28.0-34.0); Mean Platelet Volume 10.5 fL (7.4-10.4); Monocytes # 0.6 10^3/uL (0.2-0.9); Monocytes % 10.1 %; Neutrophils # 3.8 10^3/uL (1.8-7.7); Neutrophils % 69.3 %; Nucleated Red Blood Cells % 0 %; Platelet Count 187 10^3/cmm (130-400); Red Blood Count 3.03 10^6/uL (4.1-5.3); Red Cell Distribution Width 14.5 % (12.1-15.1); White Blood Count 5.5 10^3/uL (4.0-10.0)
[2019-09-29 05:54] LABS: Alanine Aminotransferase 6 U/L (0-33); Albumin Level 2.4 g/dL (3.5-5.2); Alkaline Phosphatase 58 IU/L (35-105); Anion Gap 11.7 (5-19); Aspartate Amino Transferase 8 U/L (0-32); Blood Urea Nitrogen 7 mg/dL (8-23); Calcium 8.1 mg/dL (8.5-10.5); Carbon Dioxide 30 mmol/L (22-29); Chloride 103 mmol/L (98-107); Globulin 3.7 g/dL (1.3-4.6); Glucose 233 mg/dL (65-115); Osmolality Calculated 295 mOsm/kg (285-295); Potassium 3.7 mmol/L (3.5-5.1); Sodium 141 mmol/L (136-145); Total Bilirubin 0.2 mg/dL (0.15-1.2); Total Protein 6.1 g/dL (6.6-8.7)
[2019-09-29 06:05] LABS: Magnesium 1.5 mg/dL (1.7-2.3); Phosphorus 3.4 mg/dL (2.5-4.5)
[2019-09-29 06:39] LABS: Glucose Point of Care 206 mg/dL (70-110)
[2019-09-29 06:52] LABS: Hemoglobin 9.5 g/dL (11.5-15.3)
--- NOTE | 2019-09-29 07:00 | USR_ITS ---
PROCEDURE INFORMATION: Exam: US Nonobstetric Pelvis; Complete Exam date and time: 09/28/2019 5:22 PM Age: 73 years old Clinical indication: Other: Vaginal bleeding TECHNIQUE: Imaging protocol: Transabdominal pelvic nonobstetric ultrasound. Complete exam. Real time ultrasound with image documentation. COMPARISON: CT abdomen pelvis w con* [id number] 09/27/2019 12:04 PM FINDINGS: The uterus measures 10.5 cm in length. There is no intrauterine fluid. The endometrium appears thickened and inhomogeneous, measuring up to 24 mm in thickness. The appearance is nonspecific. Possibilities would include endometrial hyperplasia and endometrial neoplasm/carcinoma. Other etiologies not excluded. Appropriate gynecological workup/follow-up recommended. There is no free pelvic fluid. Neither ovary is definitely visualized at this time, possibly obscured by bowel gas. Adnexal regions appear essentially unremarkable on the provided images. The urinary bladder was not completely evaluated/imaged at this time. US/US pelvic complete* [id number] IMPRESSION: 1. Apparent endometrial thickening, see above discussion. 2. Ovaries not visualized. 3. Other details discussed above.
[2019-09-29 07:53] VITALS: BP 154/70; PULSE 59; RESP 18; TEMP 36.4; O2SAT 94
--- NOTE | 2019-09-29 09:57 | PC.CHAP ---
Pastoral Care Encounter/Spiritual Assessment Type of Contact [] Declined director data architecture visit [] Patient/Family/Request visit [] Outpatient visit [] Follow-up visit [] Physician referral [] Code/Alert [x] Routine visit [] Staff referral [] Actively dying [] Patient sleeping [] Family support [] [] Out of room [] Palliative care [] [] Receiving care in room [] Pre-surgical visit [] Trauma [] Long length of stay [] ICU visit [x] Other: isolation Relational/Emotional Strength [] Patient feels connected with others/family/visitors/staff [] Distress [] Loneliness/isolation [] Abandonment Spirituality of Patient [] Person of Shirlene [] Attends Islam of their Shirlene [] Believes in Prayer [] Reads Bible or Sikhism materials [] There are Spiritual issues to be addressed Hose Finisher Interventions [] Prayer [] Active listening [] Non-anxious presence [] Spiritual/emotional support [] Crisis/trauma care [] Spiritual counseling [] Bereavement support [] Provided bereavement packet [] Provided Bible/devotional materials [] Provided toy/stuffed animal, coloring book to patient or family member [] Provided Communion [] Anointing/[place] [] Salvation [x] Completed spiritual assessment [] Other: Impact on Illness or Injury [] Angry [] Fearful [] Anxious [] Often cries [] Exhaustion [] Unable to work [] Unable to attend mosque [] Unable to walk/stand [] Unable to read [] Unable to drive [] Unable to eat/drink [] Unable to sleep [] Unable to be with family [] Patient intubated [] Other: Summary Time spent with patient
[2019-09-29 10:04] VITALS: PULSE 68; RESP 18; O2SAT 91
[2019-09-29] MEDS: FUROsemide 40 mg Tablet PO (10:46)
[2019-09-29] MEDS: carvedilol 3.125 mg Tablet PO (10:46)
[2019-09-29] MEDS: pregabalin 150 mg Capsule PO ×2 (10:47→12:50)
[2019-09-29] MEDS: levothyroxine 25 mcg Tablet 50 MCG PO (10:47)
[2019-09-29] MEDS: oxybutynin 5 mg Tablet PO (10:47)
[2019-09-29 10:51] LABS: Glucose Point of Care 220 mg/dL (70-110)
[2019-09-29] MEDS: pantoprazole 40 mg SDV IVP (11:15)
[2019-09-29 11:59] VITALS: BP 164/70; PULSE 63; RESP 16; TEMP 36.2; O2SAT 96
[2019-09-29 13:19] LABS: Hematocrit 32.8 % (37.0-47.0); Hemoglobin 9.7 g/dL (11.5-15.3)
[2019-09-29 14:40] VITALS: BP 164/70; PULSE 63; RESP 16; TEMP 36.2; O2SAT 96
--- NOTE | 2019-09-29 15:02 | PM.DCS ---
Discharge Providers Date of Admission: 09/27/19 13:02 Date of Discharge: September 29, 2019 Attending Provider at Admission: Wilton Khanna MD Attending Provider at Discharge: Wilton Khanna MD Primary Care Provider: Srikanth Mars Jr, MD Diagnoses at Discharge Discharge Diagnosis (1) Bleeding: Status: Acute (2) UTI (urinary tract infection): Status: Acute Problem details: -UA strongly indicative of infection -Urine culture growing ESBL Klebsiella pneumoniae; sensitivity noted; has grown VRE in previous urine cultures -on IV Vanc/Zosyn; will switch to Imipenem, place on contact isolation precautions and request PICC line placement -has Lockhart catheter in place; will maintain this in light of complicated organism and to prevent contamination of decibitus ulcers Qualifiers: Hematuria presence: with hematuria Urinary tract infection type: acute cystitis Qualified Code(s): N30.01 - Acute cystitis with hematuria (3) Anemia: Status: Acute (4) COPD (chronic obstructive pulmonary disease): Status: Acute (5) S/P excisional debridement: Status: Acute Problem details: Bilateral lower extremity wounds (6) 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 De La Fuente; POD # 1; Gram stain growing rare gram-positive cocci in clusters, wound culture pending -Appreciate consultation by Dr. De La Fuente -Continue dual antibiotic coverage with Zosyn and vancomycin; will d/c this regimen as she is now on Primaxin. -blood cx: 1/4 bottles positive for GPC in clusters, repeat set ordered. Has had MRSA in the past -no leukocytosis, afebrile -wound care as needed -noted elevated ESR, CRP -will need continued f/u at [facility]; was seeing Monse Rodriguez once weekly () (7) Diabetic peripheral neuropathy: Status: Chronic (8) Overactive bladder: Status: Chronic (9) Dyslipidemia: Status: Chronic (10) Bladder wall thickening: Status: Acute (11) Hypothyroid: Status: Acute Reason for Visit Reason for Visit: POSS GI BLEED Hospital Course Discharge Summary: Rachid Hagen is a 73 year old female with a past medical history of COPD, type 2 diabetes mellitus, diabetic peripheral neuropathy, dyslipidemia, GERD, recent history of ESBL E. coli UTI treated with impediment PICC line, hypertension, hypothyroidism, lymphedema, morbid obesity, osteoporosis, peripheral vascular disease, CKD stage II-III, history of ulcers decubitus and right heel, status post debridement by Dr. De La Fuente, and extensive intertrigo who presents to [facility] due to complaints of bleeding. Initially it was not immediately clear where patient's bleeding was coming from rectum versus vaginal, hemoglobin was 9.8, but after a couple of accounts from nurses who changed her pads and undergarments it seemed like she had more vaginal bleeding. Patient had a transvaginal ultrasound which showed endometrial thickening, measuring up to 24 mmHg. Patient did report a colonoscopy the last [address] was normal[address] CT scan of the abdomen did show a large abdominal wall ventral hernia containing transverse colon without obstruction. Thus likely patient's bleeding was vaginal, no personal or family history of endometrial cancer. Patient was discharged with a close follow-up with OB as outpatient for consideration for endometrial biopsy. During hospitalization patient was also found to have a recurrent UTI, she was recently discharged from the hospital for Klebsiella ESBL UTI for which she had a PICC line placed and received Primaxin. She was kept on broad-spectrum imipenem during this hospitalization, her preliminary culture showed Proteus, but I highly suspect that she likely has an ESBL organism also growing in her urine. I have discharged the patient on Levaquin for [address] scan did show bladder wall thickening, I suspect it is probably for home her chronic Lockhart and chronic UTIs, I will have patient follow with Dr. Corey for consideration for cystoscopy. Patient was also found to be profoundly hypothyroid during this hospitalization, TSH was 114, she uses levothyroxine 25 mcg once daily, I increased the dose to 50 mcg once daily, with a recheck of the TSH in 6 weeks and up titration of levothyroxine slowly. Physical Exam Const: COMMON NORMALS: no acute distress and patient oriented x3 HENMT: COMMON NORMALS: normocephalic HEAD & SCALP: normocephalic Neck/C-Spine: COMMON NORMALS: no JVD Resp: COMMON NORMALS: normal respiratory effort, No retractions, No use of accessory muscles and clear to auscultation bilaterally AUSCULTATION: clear to auscultation bilaterally Cardio: COMMON NORMALS: no JVD, regular rate, regular rhythm, S1 normal heart sound present and S2 normal heart sound present RATE: regular rate RHYTHM: regular rhythm HEART SOUNDS: S1 normal heart sound present and S2 normal heart sound present GI: COMMON NORMALS: Normal to inspection, nondistended, normoactive bowel sounds present, Soft to palpation, non-tender, No hepatosplenomegaly present, no masses and no bruits PALPATION: Yes Soft to palpation and Yes No hepatosplenomegaly present Extremity: COMMON NORMALS: capillary refill normal, no clubbing, cyanosis or edema, no calf tenderness and no pedal edema Neuro: COMMON NORMALS: patient oriented x3 Psych: COMMON NORMALS: mental status grossly normal Discharge Data Data Completed and Pending: Completed Studies During Hospitalization Category Date Time Status CT abdomen pelvis w con* [id number] Stat Cat Scan 09/27/19 10:02 Completed XR chest 1V alejandro ble [id number] Routine Exams 09/27/19 17:45 Completed XR chest 1V alejandro ble [id number] Stat Exams 09/27/19 10:02 Completed US pelvic complet e* [id number] Routine Ultrasound 09/29/19 07:00 Completed Pending at discharge Category Date Time Status Clostridioides Di fficile PCR Routin e Lab 09/27/19 17:13 Ordered Complete Blood Co unt w/Auto AM LABS Lab 09/30/19 04:00 Ordered Complete Blood Co unt w/Auto AM LABS Lab 10/01/19 04:00 Ordered Comprehensive Met abolic Panel AM LA BS Lab 09/30/19 04:00 Ordered Comprehensive Met abolic Panel AM JACKIE BS Lab 10/01/19 04:00 Ordered Enteric Bacterial Panel by PCR Rout ine Lab 09/27/19 17:13 Ordered Enteric Parasite Panel by PCR Elani ne Lab 09/27/19 17:13 Ordered Immunochemical Fe anuj OCB Routine Lab 09/27/19 17:13 Ordered Lactoferrin Routi ne Lab 09/27/19 17:13 Ordered Magnesium AM LABS Lab 09/30/19 04:00 Ordered Phosphorus AM LAB S Lab 09/30/19 04:00 Ordered Urine Culture Sta t Lab 09/27/19 11:18 Results Urine Culture Sta t Lab 09/28/19 19:55 Received Labs from last 24 hours 09/29/19 09/29/19 09/29/19 12:55 10:45 06:35 WBC RBC Hgb 9.7 L 9.5 L Hct 32.8 L 33.0 L MCV MCH MCHC RDW Plt Count MPV Neut % (Auto) Lymph % (Auto) [place] % (Auto) Eos % (Auto) Baso % (Auto) Neut # (Auto) Lymph # (Auto) [place] # (Auto) Eos # (Auto) Baso # (Auto) Nucleated RBC % (a uto) Nucleated RBCs # Sodium Potassium Chloride Carbon Dioxide Anion Gap BUN Creatinine Glucose POC Glucose 220 Calculated Osmolal ity Calcium Phosphorus Magnesium Total Bilirubin AST ALT Alkaline Phosphata se Total Protein Albumin Globulin 09/29/19 09/29/19 09/29/19 06:24 04:25 04:25 WBC 5.5 RBC 3.03 L Hgb 9.2 L Hct 31.2 L MCV 103.0 H MCH 30.4 MCHC 29.5 L RDW 14.5 Plt Count 187 MPV 10.5 H Neut % (Auto) 69.3 Lymph % (Auto) 16.3 [place] % (Auto) 10.1 Eos % (Auto) 2.2 Baso % (Auto) 0.5 Neut # (Auto) 3.8 Lymph # (Auto) 0.9 [place] # (Auto) 0.6 Eos # (Auto) 0.1 Baso # (Auto) 0.0 Nucleated RBC % (a uto) 0 Nucleated RBCs # 0.0 Sodium 141 Potassium 3.7 Chloride 103 Carbon Dioxide 30 H Anion Gap 11.7 BUN 7 L Creatinine 1.0 H Glucose 233 H POC Glucose 206 Calculated Osmolal ity 295 Calcium 8.1 L Phosphorus Magnesium Total Bilirubin 0.2 AST 8 ALT 6 Alkaline Phosphata se 58 Total Protein 6.1 L Albumin 2.4 L Globulin 3.7 09/29/19 09/29/19 09/28/19 04:25 00:30 21:00 WBC RBC Hgb 8.8 L Hct 30.4 L MCV MCH MCHC RDW Plt Count MPV Neut % (Auto) Lymph % (Auto) [place] % (Auto) Eos % (Auto) Baso % (Auto) Neut # (Auto) Lymph # (Auto) [place] # (Auto) Eos # (Auto) Baso # (Auto) Nucleated RBC % (a uto) Nucleated RBCs # Sodium Potassium Chloride Carbon Dioxide Anion Gap BUN Creatinine Glucose POC Glucose 255 Calculated Osmolal ity Calcium Phosphorus 3.4 Magnesium 1.5 L Total Bilirubin AST ALT Alkaline Phosphata se Total Protein Albumin Globulin 09/28/19 09/28/19 06:50 06:15 WBC RBC Hgb 10.0 L 9.9 L Hct 33.7 L 33.5 L MCV MCH MCHC RDW Plt Count MPV Neut % (Auto) Lymph % (Auto) [place] % (Auto) Eos % (Auto) Baso % (Auto) Neut # (Auto) Lymph # (Auto) [place] # (Auto) Eos # (Auto) Baso # (Auto) Nucleated RBC % (a uto) Nucleated RBCs # Sodium Potassium Chloride Carbon Dioxide Anion Gap BUN Creatinine Glucose POC Glucose Calculated Osmolal ity Calcium Phosphorus Magnesium Total Bilirubin AST ALT Alkaline Phosphata se Total Protein Albumin Globulin Vitals: Last Vital Signs Temp 97.2 F L 09/29/19 14:40 Pulse 63 09/29/19 14:40 Resp 16 09/29/19 14:40 BP 164/70 09/29/19 14:40 Pulse Ox 96 09/29/19 14:40 Discharge Plan Discharge Patient Disposition: Xfer SNF Condition: Stable Prescriptions: New Levaquin 750 mg tablet 750 mg PO DAILY 7 Days Qty: 7 RF: 0 levothyroxine 25 mcg Tablet 50 mcg PO DAILY 30 Days RF: 0 Continued furosemide 40 mg tablet 40 mg PO DAILY Qty: 30 RF: 0 carvedilol 6.25 mg tablet 3.125 mg PO BID 30 Days Qty: 30 RF: 0 glipizide 10 mg tablet 10 mg PO BID 30 Days Qty: 60 RF: 0 alendronate 70 mg tablet 70 mg PO Q7D Qty: 5 RF: 0 tramadol 50 mg tablet 50 mg PO TID PRN (Reason: Pain) Qty: 30 RF: 0 oxycodone-acetaminophen 5-325 mg tablet 1 tab PO Q8H PRN (Reason: Pain) Qty: 30 RF: 0 potassium chloride 20 mEq tablet,ER particles/crystals 20 meq PO BID 30 Days Qty: 60 RF: 0 trazodone 150 mg tablet 150 mg PO BEDTIME 30 Days Qty: 30 RF: 0 oxybutynin chloride 5 mg tablet 5 mg PO BID 30 Days Qty: 60 RF: 0 gentamicin 0.1 % ointment 1 applic topical TID Qty: 15 RF: 0 esomeprazole magnesium 20 mg capsule,delayed release(DR/EC) 20 mg PO DAILY 30 Days Qty: 30 RF: 0 pregabalin 150 mg capsule 150 mg PO TID 30 Days Qty: 90 RF: 0 Januvia 100 mg Tablet 100 mg PO DAILY 30 Days Qty: 30 RF: 0 albuterol sulfate 2.5 mg /3 mL (0.083 %) solution for nebulization 2.5 mg INHALATION Q6H PRN (Reason: shortness of breath or wheezing) Qty: 90 RF: 0 Discontinued levothyroxine 25 mcg tablet 25 mcg PO DAILY 30 Days Qty: 30 RF: 0 Discharge Orders: Discharge Order (Routine); Ordered 09/29/19 Ordered By: Wilton Khanna Other Ambulatory Orders: Complete Blood Count w/Auto (Routine) Timeframe: 3 Days Location: Determined by Patient Ordered By: Wilton Khanna Thyroid Stimulating Hormone (Routine) Timeframe: 2 Months Facility: [facility] - Location: Lab - Main Lab Ordered By: Wilton Khanna [place] [facility] [place] [Outside] Adarsh Panda MD [Physician] - 1-3 days Ja Corey MD [Physician] - 6 Weeks Srikanth Mars Jr, MD [Primary Care Provider] - [facility], [Staff Physician] - 1-3 days Discharge Diet: Cardiac Discharge Activity: Resume usual activity Activity Restrictions/Additional Instructions: -If you have vaginal bleeding please call primary care -Please monitor hemoglobin as outpatient -Please take antibiotics as prescribed for UTI -Please call for culture sensitivities for urine culture Discharge Attestations Time Spent in Discharge Care*: less than 30 min Status at Discharge: Cognitive status at discharge: cognitively intact, Behavioral status at discharge: cooperative, Quality Metrics Clinical Quality Measures During this hospital stay, did patient experience: None Coding Level of Care Code Acute Bookkeeper for g Fwd Exam Comprehensive Diagnoses Bleeding R58 UTI (urinary tract infection) N30.01 Hematuria presence: with hematuria Urinary tract infection type: acute cystitis Anemia D64.9 COPD (chronic obstructive pulmonary disease) J44.9 S/P excisional debridement Z98.890 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
--- NOTE | 2019-09-29 15:40 | PC.RESP ---
Pulmonary Rehab information sent to patient.
[2019-09-29 17:04] LABS: Glucose Point of Care 179 mg/dL (70-110)
== END 2019-09-29 17:35 | disposition home health service (06) ==
LOC: ER 14:32 → MEDSURG 15:30
PROVIDERS: Family Medicine; Admitting Provider Family Medicine; PCP Family Medicine; Visit Provider Family Medicine
DX: N93.9 Abnormal uterine and vaginal bleeding, unspecified (principal); N30.01 Acute cystitis with hematuria; D64.9 Anemia, unspecified; J44.9 Chronic obstructive pulmonary disease, unspecified; Z98.890 Other specified postprocedural states; L97.912 Non-pressure chronic ulcer of unspecified part of right lower leg with fat layer exposed; L97.922 Non-pressure chronic ulcer of unspecified part of left lower leg with fat layer exposed; E11.42 Type 2 diabetes mellitus with diabetic polyneuropathy; E11.622 Type 2 diabetes mellitus with other skin ulcer; N32.81 Overactive bladder; E78.5 Hyperlipidemia, unspecified; N32.89 Other specified disorders of bladder; I10 Essential (primary) hypertension; E03.9 Hypothyroidism, unspecified; Z79.84 Long term (current) use of oral hypoglycemic drugs; E66.01 Morbid (severe) obesity due to excess calories; Z68.41 Body mass index [BMI] 40.0-44.9, adult; M81.0 Age-related osteoporosis without current pathological fracture; Z87.891 Personal history of nicotine dependence
CPT/HCPCS: 12345; 36415; 36416; 71045; 74177; 76856; 80053; 81001; 81003; 82607; 82728; 82746; 82962; 83036; 83605; 83690; 83735; 84100; 84443; 85014; 85018; 85025; 85045; 85610; 87077; 87086; 87186; 93005; 94664; 96361; 96365; 96366; 96374; 96375; 97110; 97161; 97166; 97530; 97535; 99283; 99285; C9113; G0378; J0696; J0743; J1815; J2405; J7050; Q9967

== ENCOUNTER 2019-10-06 13:30 | Outpatient (CLI) | payer MEDICARE, MEDICAID, SELFPAY | END 2019-10-06 13:31 | disposition home or self-care (01) | LOC: WOUND 13:33 | PROVIDERS: PCP Family Medicine; Visit Provider Thoracic Surgery (Cardiothoracic Vascular Surgery) | DX: E11.621 Type 2 diabetes mellitus with foot ulcer (principal); L97.412 Non-pressure chronic ulcer of right heel and midfoot with fat layer exposed; E11.622 Type 2 diabetes mellitus with other skin ulcer; L97.822 Non-pressure chronic ulcer of other part of left lower leg with fat layer exposed; L97.422 Non-pressure chronic ulcer of left heel and midfoot with fat layer exposed; L89.152 Pressure ulcer of sacral region, stage 2; L89.312 Pressure ulcer of right buttock, stage 2 | CPT/HCPCS: 11042; 11043; 11045; 11046; L4387 ==

== ENCOUNTER 2019-10-13 14:40 | Outpatient (CLI) | payer MEDICARE, MEDICAID, SELFPAY | END 2019-10-13 14:41 | disposition home or self-care (01) | LOC: WOUND 14:41 | PROVIDERS: PCP Family Medicine; Visit Provider Emergency Medicine | DX: E11.621 Type 2 diabetes mellitus with foot ulcer (principal); L97.416 Non-pressure chronic ulcer of right heel and midfoot with bone involvement without evidence of necrosis; L97.422 Non-pressure chronic ulcer of left heel and midfoot with fat layer exposed; I87.2 Venous insufficiency (chronic) (peripheral); L97.822 Non-pressure chronic ulcer of other part of left lower leg with fat layer exposed; E11.622 Type 2 diabetes mellitus with other skin ulcer; L97.812 Non-pressure chronic ulcer of other part of right lower leg with fat layer exposed; L89.312 Pressure ulcer of right buttock, stage 2; L89.152 Pressure ulcer of sacral region, stage 2 | CPT/HCPCS: 11042; 11043; 11045; 11046 ==

== ENCOUNTER 2019-10-21 12:47 | Outpatient (CLI) | payer MEDICARE, MEDICAID, SELFPAY ==
--- NOTE | 2019-10-21 12:54 | USCV_ITS ---
Rachid Haegn Age: 73 Gender: F : 1945 Exam Date: 10/21/2019 13:04 Ordering Phys: Elba Bolton DO Technologist: Cleve Lopez Exam Location: [facility] [place] Indication: HISTORY: Patient has history of ulcers. PROCEDURES: FINDINGS: There is no evidence of bilateral deep vein thrombosis. No evidence of superficial thrombosis in the bilateral saphenous system. No evidence of reflux was noted in the bilateral deep venous system. No venous reflux noted in the bilateral greater saphenous vein. No venous reflux noted in the bilateral small saphenous vein. The distal and the below-knee greater saphenous vein segments on the left side were not visualized CONCLUSIONS No evidence of DVT in the above-mentioned identifiable veins. No segmental venous reflux were noted. The the distal and below-knee greater saphenous vein segments on the left side were not visualized. The mid small saphenous vein segments bilaterally also were not visualized Dr Ivory Edwards MD [facility] (Electronically Signed) Final Date: 22 October 2019 00:52 S
== END 2019-10-21 12:48 | disposition home or self-care (01) ==
LOC: US 12:48
PROVIDERS: PCP Family Medicine; Visit Provider Emergency Medicine
DX: M79.671 Pain in right foot (principal); L53.9 Erythematous condition, unspecified; L97.519 Non-pressure chronic ulcer of other part of right foot with unspecified severity
CPT/HCPCS: 93970

== ENCOUNTER 2019-10-22 08:23 | Outpatient (CLI) | payer MEDICARE, MEDICAID, SELFPAY ==
--- NOTE | 2019-10-22 08:29 | USCV_ITS ---
Rachid Hagen Age: 73 Gender: F : 1945 Exam Date: 10/22/2019 08:19 Ordering Phys: Elba Bolton DO Technologist: Cleve Lopez [place] [facility] [place]: FOOT ULCER RIGHT LEFT Brachial 101.00 mmHg Brachial 112.00 mmHg Pressure (mmHg) Waveform Pressure (mmHg) Waveform 145.00 Pre-Exercise Toe Pressure 133.00 1.20 Pre-Exercise Toe/Brachial Index 1.10 FINDINGS Normal toe brachial indicis bilaterally CONCLUSIONS No significant arterial obstruction, based on the above findings Dr Ivory Edwards MD [facility] (Electronically Signed) Final Date: 23 October 2019 09:28 S
--- NOTE | 2019-10-22 08:45 | XRR_ITS ---
PROCEDURE INFORMATION: Exam: XR Right Foot Complete Exam date and time: 10/22/2019 9:12 AM Age: 73 years old Clinical indication: Condition or disease; Other: Pain redness nonhealing ulcer; Prior surgery TECHNIQUE: Imaging protocol: XR Right foot. Views: 3 or more views. 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 Extensive soft tissue swelling. Rule out infection. Soft tissues: Extensive soft tissue swelling posteriorly about the calcaneus. Question cortical defect of the calcaneus posteriorly best visualized on the oblique view. Postoperative changes versus osteomyelitis. Correlate. XR/XR foot RT min 3V* [id number] IMPRESSION: 1. 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 Extensive soft tissue swelling. Rule out infection. 2. Extensive soft tissue swelling posteriorly about the calcaneus. Question cortical defect of the calcaneus posteriorly best visualized on the oblique view. Postoperative changes versus osteomyelitis. Correlate. Consider MRI if indicated.
--- NOTE | 2019-10-22 08:45 | XRR_ITS ---
PROCEDURE INFORMATION: Exam: XR Left Foot Complete Exam date and time: 10/22/2019 8:46 AM Age: 73 years old Clinical indication: Condition or disease; Other: Pain redness nonhealing ulcer TECHNIQUE: Imaging protocol: XR Left foot. Views: 3 or more views. COMPARISON: CR XR foot LT min 3V* [id number] 08/07/2019 5:01 PM FINDINGS: Bones/joints: Hindfoot -midfoot and midfoot-forefoot articulations normal. Metatarsals and phalanges without an acute process. Subtalar and tibiotalar joint normal. degenerative changes at the first metatarsal phalangeal joint. Tiny fracture fragment proximal aspect proximal phalanx 1st ray laterally. 3 mm. Soft tissues: Mild soft tissue swelling posteriorly about the calcaneus. Please correlate. XR/XR foot LT min 3V* [id number] IMPRESSION: Mild soft tissue swelling posteriorly about the calcaneus. Please correlate. See above. No discrete evidence of osteomyelitis.
== END 2019-10-22 08:24 | disposition home or self-care (01) ==
LOC: US 08:23
PROVIDERS: PCP Family Medicine; Visit Provider Emergency Medicine
DX: M79.672 Pain in left foot (principal); M79.671 Pain in right foot; L53.9 Erythematous condition, unspecified; L97.529 Non-pressure chronic ulcer of other part of left foot with unspecified severity; L97.519 Non-pressure chronic ulcer of other part of right foot with unspecified severity
CPT/HCPCS: 73630; 93923

== ENCOUNTER 2019-11-02 14:44 | Outpatient (CLI) | payer MEDICARE, MEDICAID, SELFPAY | END 2019-11-02 14:45 | disposition home or self-care (01) | LOC: WOUND 14:46 | PROVIDERS: PCP Family Medicine; Visit Provider Thoracic Surgery (Cardiothoracic Vascular Surgery) | DX: I89.0 Lymphedema, not elsewhere classified (principal); L97.419 Non-pressure chronic ulcer of right heel and midfoot with unspecified severity | CPT/HCPCS: 99212 ==

== ENCOUNTER 2019-11-10 06:22 | Day surgery (SDC) | payer MEDICARE, MEDICAID, SELFPAY ==
[2019-11-08 11:50] VITALS: BMI 41.9
--- NOTE | 2019-11-08 12:03 | ECG_ITS ---
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 Measurements Intervals [place] Rate: 68 P: NE: -1 QRS: -18 QRSD: 111 T: 64 QT: 407 QTc: 433 Interpretive Statements ATRIAL FLUTTER/TACHYCARDIA LOW QRS VOLTAGE IN PRECORDIAL LEADS [QRS DEFLECTION < 1.0 mV IN CHEST LEADS] POSSIBLE ANTERIOR MYOCARDIAL INFARCTION [30 ms Q WAVE IN V3/V4, OR R < 0.2 mV IN V4], OF INDETERMINATE AGE Compared to ECG 09/27/2019 11:31:04 Low QRS voltage now present Myocardial infarct finding now present Sinus rhythm no longer present Intraventricular conduction delay no longer present T-wave abnormality no longer present Electronically Signed On 11-08-2019 18:58:38 CDT by Celina Villegas M.D. [id number]
--- NOTE | 2019-11-08 12:35 | ANES.PREANE2 ---
Pre-Anesthetic Assessment Pre-Anesthetic Assessment: Height/Weight: Height 1.73 m Weight 125.191 kg Preop Diagnosis: Right heel ulcer, right leg wound Proposed Procedure: Operation Date: 11/10/19 11:10 Proposed Procedures p Hysteroscopy with Paracervical block 19436 05119 06402 N95.0(Not Applicable) - Adarsh Panda MD s Dilation And Curettage (D&C)(Not Applicable) - Adarsh Panda MD Was Beta Shahid taken within 24 hours: Yes Social: Social History: No alcohol and No tobacco Exam: Pre-Anes Outpt Exam: alert, oriented x 3 and clear to auscultation bilaterally Airway: Submandibular: WNL Cervical ROM: WNL MP: 2 Dentition: False Pulmonary: Pulmonary: COPD Comments: Occasional Home O2 CV/HEM: CV/HEM: Anemia : : UTI Hepatic: Hepatic: None reported GI: GI: None reported Metabolic: Metabolic: DM and Morbid obesity Musc/skel: Musc/skel: Weakness Neuropsych: Neuropsych: None reported Anesthetic Plan: ASA status: 3 Anesthesia: General Risk of > 500 ml blood loss (7ml/kg in children): No PFSH Anesthesia PFSH: Medical History COPD (chronic obstructive pulmonary disease) -no acute exacerbation currently -not oxygen dependent at baseline Diabetes Diabetic peripheral neuropathy Dyslipidemia GERD (gastroesophageal reflux disease) -on PPI History of ESBL E. 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 Son has been trying to assume her care. Data Anesthesia Cardiac Studies: No Data to Display
[2019-11-10 06:50] VITALS: BP 117/64; PULSE 73; RESP 18; TEMP 36.8; O2SAT 91
[2019-11-10 07:24] LABS: Bilirubin Urine Neg (NEGATIVE); Blood Urine 2+ (Negative); Glucose Urine UA Norm (Normal); Ketones Urine 1+ (Negative); Nitrate Urine Negative (Negative); Protein Urine Neg (Negative); Urine Appearance Cloudy (CLEAR); Urine Color Yellow (Yellow); pH Urine 8 (5-7)
[2019-11-10 07:25] LABS: Add Urine Microscopic? YES; Bacteria Urine 4+; Leukocyte Esterase Urine 2+ (Negative); RBC Urine 0-4 /hpf (0-2); Squamous Epithelial Cell Urine 0-4 (0-5); Urobilinogen Urine Norm (Negative)
[2019-11-10 07:26] LABS: Add Urine Culture? Yes
[2019-11-10 07:38] LABS: Glucose Point of Care 96 mg/dL (70-110)
[2019-11-10] MEDS: enoxaparin 40 mg/0.4 mL Syringe SUBCUT (07:38)
[2019-11-10] MEDS: sodium chloride 0.9% 1,000 ML 30 ML IV (07:39)
--- NOTE | 2019-11-10 07:41 | P.ANESUD_ITS ---
Pre-Anesthetic Update Pre-Anesthetic Assessment: Date of Surgery/Procedure: 11/10/19 Preop Mona gnosis: Postmenopausal bleeding Proposed Procedure: Operation Date: 11/10/19 08:45 Proposed Procedures p Hysteroscopy with Paracervical block 41538 31320 49221 N95.0(Not Applicable) - Adarsh Panda MD s Dilation And Curettage (D&C)(Not Applicable) - Adarsh Panda MD Any changes to Pre-Anesthetic Assessment?: No Last Intake: Intake Last Liquid Date 11/09/19 Last Liquid Time 18:00 Last Solid Date 11/09/19 Last Solid Time 18:00 Labs Last 48hrs: Laboratory Results - last 48 hr 11/10/19 11/10/19 07:17 07:31 POC Glucose 96 Urine Color Yellow Urine Appearance Cloudy Urine pH 8 H Ur Specific Gravit y 1.010 Urine Protein Neg Urine Glucose (UA) Norm Urine Ketones 1+ H Urine Blood 2+ H Urine Nitrate Negative Urine Bilirubin Neg Prot Sulfosalicyli c Acd Urine Urobilinogen Norm Ur Leukocyte Massiel ase 2+ H Urine RBC 0-4 H Urine WBC 5-10 H Ur Squamous Epith Cells 0-4 H Amorphous Sediment Not Reportable Urine Bacteria 4+ H Vitals: Temperature 98.2 F 11/10/19 06:50 Temperature Source Temporal Artery S can 11/10/19 06:50 Pulse Rate 73 11/10/19 06:50 Respiratory Rate 18 11/10/19 06:50 Blood Pressure 117/64 11/10/19 06:50 Blood Pressure Delmis n 81 11/10/19 06:50 Pulse Oximetry 91 11/10/19 06:50 Oxygen Delivery Me thod 11/10/19 07:27 Cardiac Studies: No Data to Display
[2019-11-10] MEDS: scopolamine 1.5 Patch 1 PATCH TRANSDERMA (07:43)
[2019-11-10 07:44] LABS: Basophils % 0.7 %; Eosinophils # 0.2 10^3/uL (0.0-0.8); Eosinophils % 2.8 %; Hematocrit 31.9 % (37.0-47.0); Hemoglobin 9.3 g/dL (11.5-15.3); Lymphocytes # 1.5 10^3/uL (0.8-4.8); Lymphocytes % 24.1 %; Mean Corpuscular HGB Conc 29.2 g/dL (30.0-36.0); Mean Corpuscular Hemoglobin 30.3 pg (28.0-34.0); Mean Corpuscular Volume 103.9 fL (81-99); Mean Platelet Volume 10.8 fL (7.4-10.4); Monocytes # 0.5 10^3/uL (0.2-0.9); Monocytes % 8.3 %; Neutrophils # 3.88 10^3/uL (1.8-7.7); Neutrophils % 63.3 %; Nucleated Red Blood Cells % 0 %; Platelet Count 197 10^3/cmm (130-400); Red Blood Count 3.07 10^6/uL (4.1-5.3); Red Cell Distribution Width 15.9 % (12.1-15.1); White Blood Count 6.1 10^3/uL (4.0-10.0)
[2019-11-10 08:01] LABS: Alanine Aminotransferase 8 U/L (0-33); Albumin Level 3.1 g/dL (3.5-5.2); Alkaline Phosphatase 64 IU/L (35-105); Aspartate Amino Transferase 12 U/L (0-32); Blood Urea Nitrogen 22 mg/dL (8-23); Calcium 8.7 mg/dL (8.5-10.5); Carbon Dioxide 33 mmol/L (22-29); Chloride 102 mmol/L (98-107); Glucose 94 mg/dL (65-115); Osmolality Calculated 290 mOsm/kg (285-295); Sodium 142 mmol/L (136-145); Total Bilirubin 0.2 mg/dL (0.15-1.2); Total Protein 7.1 g/dL (6.6-8.7)
--- NOTE | 2019-11-10 08:51 | W.PM.OPSUD ---
Surgery/Procedure H&P Update DATE OF PROCEDURE: November 10, 2019 DATE H&P PERFORMED: 11/08/19 H&P UPDATE INFORMATION: I have reviewed H&P completed within last 30 days, I have examined patient prior to procedure and No changes to prior documentation PREOP DIAGNOSIS: Postmenopausal bleeding PLANNED PROCEDURE: Operation Date: 11/10/19 08:45 Proposed Procedures p Hysteroscopy with Paracervical block 99218 [id number] 75190 N95.0(Not Applicable) - Adarsh Panda MD s Dilation And Curettage (D&C)(Not Applicable) - Adarsh Panda MD
--- NOTE | 2019-11-10 10:38 | PM.OP ---
Operative Report Date of procedure: November 10, 2019 Pre-op Diagnosis: Postmenopausal bleeding Post-op diagnosis: same Pathology: Endocervical. Endometrial. Surgeon: Adarsh Panda Anesthesia: MAC Estimated blood loss (mL): 10 Disposition: PACU Brief History: 73 y/o female Procedure: After informed consent, the risks included but were not limited to bleeding, infection, injury to internal organs. The patient was counseled on a possible laparotomy and on the potential need for hysterectomy. The patient expressed understanding of the risks involved, all questions were answered, and the patient consented to the procedure. The patient was taken to the operating room where general anesthesia was administered. She was placed in the dorsal lithotomy position and prepped and draped in sterile fashion. A time out procedure was performed. The patient was examined under anesthesia and found to have a normal uterus with normal adnexa. A sterile speculum was placed in the vagina, and the anterior lip of cervix was grasped with the single toothed tenaculum. The uterus was then gently sounded to 5 cm, and the cervix was dilated with cervical dilators. A 2.7-cm hysteroscope advanced gently to the uterine fundus while visualizing the monitor. Survey of the uterine cavity showed: fundus normal polypoid endometrium; left ostium, and lateral wall with polypoid endometrium; right ostium, and lateral wall with polypoid endometrium; anterior and posterior busby are with polypoid endometrium; endocervical canal is normal. The curette was advanced gently to the uterine fundus rotated to clear the uterus. The curettage was then performed until a gritty texture was noted. Hysteroscopy was reinserted. There was minimal bleeding noted and the tenaculum removed with goad hemostasis noted. Instrument count correct 3 times. The patient tolerated the procedure well. The patient was taken to the recovery area in stable conditions.
[2019-11-10 10:53] VITALS: BP 131/66; PULSE 68; RESP 18; TEMP 36.3; O2SAT 91
[2019-11-10 11:05] VITALS: BP 143/79; PULSE 66; RESP 18; TEMP 36.3; O2SAT 90
--- NOTE | 2019-11-10 11:53 | PM.PACU ---
PACU note PACU note: VSS, good pain control. Post-Anesthesia Exam: awake Disposition: discharged
== END 2019-11-10 11:45 | disposition home or self-care (01) ==
PROVIDERS: PCP Family Medicine; Visit Provider Obstetrics & Gynecology
PROC: 0UJD8ZZ Inspection of Uterus and Cervix, Via Natural or Artificial Opening Endoscopic (ICD-10-PCS; CPT 58555; principal; 2019-11-10 08:45)
PROC: (CPT 58120; 2019-11-10 08:45)
DX: N95.0 Postmenopausal bleeding (principal); N84.1 Polyp of cervix uteri; N84.0 Polyp of corpus uteri; E11.42 Type 2 diabetes mellitus with diabetic polyneuropathy; E11.51 Type 2 diabetes mellitus with diabetic peripheral angiopathy without gangrene; I10 Essential (primary) hypertension; E66.01 Morbid (severe) obesity due to excess calories; J44.9 Chronic obstructive pulmonary disease, unspecified; K21.9 Gastro-esophageal reflux disease without esophagitis; E03.9 Hypothyroidism, unspecified; M81.0 Age-related osteoporosis without current pathological fracture; Z68.43 Body mass index [BMI] 50.0-59.9, adult; Z87.891 Personal history of nicotine dependence
CPT/HCPCS: 58558; 12345; 36415; 36416; 80053; 81001; 82962; 85025; 86850; 86900; 87077; 87086; 87186; 88305; 93005; 96372; J0690; J1650; J2704; J7030

== ENCOUNTER 2019-11-28 09:05 | Inpatient (IN) | payer MEDICARE, MEDICAID, SELFPAY ==
[2019-11-28] VITALS (33 sets, daily range): BP systolic 110–153; BP diastolic 56–95; PULSE 65–99; RESP 0–24; TEMP 36.5–37.7; O2SAT 87–96
--- NOTE | 2019-11-28 09:14 | XRR_ITS ---
PROCEDURE INFORMATION: Exam: XR Chest, 1 View Exam date and time: 11/28/2019 9:17 AM Age: 73 years old Clinical indication: Cough and shortness of breath; Additional info: Dyspnea TECHNIQUE: Imaging protocol: XR of the chest Views: Frontal portable upright view of the chest. COMPARISON: CR XR chest 1V portable [id number] 09/27/2019 8:06 PM FINDINGS: Tubes, catheters and devices: EKG leads are present overlying the chest. Lungs: The pulmonary vasculature is normal. Increased right basilar pulmonary partial atelectasis. Pleural space: Stable small left pleural effusion. No pneumothorax. Mid Heart/Mediastinum: Stable mild cardiomegaly. Mediastinum: Stable. Bones/joints: Stable. Other findings: Increased left basilar consolidative densities. XR/XR chest 1V portable [id number] IMPRESSION: 1. Increased left basilar consolidative densities. Pneumonitis is difficult to exclude. Clinical correlation is recommended. 2. Stable small left pleural effusion. 3. Increased right basilar pulmonary partial atelectasis.
--- NOTE | 2019-11-28 09:16 | ECG_ITS ---
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 Measurements Intervals [place] Rate: 93 P: 40 [place]: 167 QRS: -21 QRSD: 112 T: 76 QT: 337 QTc: 420 Interpretive Statements SINUS RHYTHM BORDERLINE LEFT AXIS DEVIATION [QRS AXIS < -20] LOW QRS VOLTAGE IN PRECORDIAL LEADS [QRS DEFLECTION < 1.0 mV IN CHEST LEADS] LEFT VENTRICULAR HYPERTROPHY AND ST-T CHANGE Compared to ECG 11/08/2019 12:19:00 Left ventricular hypertrophy now present ST (T wave) deviation now present Atrial flutter no longer present Myocardial infarct finding no longer present Electronically Signed On 11-29-2019 7:54:16 CDT by Manuela Hughes M.D. [id number]
--- NOTE | 2019-11-28 09:31 | W.ED.SOB ---
HPI - SOB/Dyspnea General: Chief Complaint: Shortness of Breath/Dyspnea Stated Complaint: SOB Time Seen by Provider: 11/28/19 09:06 Source: patient and EMS Mode of arrival: EMS Limitations: altered mental status History of Present Illness: HPI Narrative: Mrs. Hagen is a 73-year-old female who comes in by EMS with report of shortness of breath. The patient is mildly lethargic and states that she does not know why she is here. She has cough and audible wheezing but denies any chest pain or shortness of breath. The patient states that someone in her family must of called EMS but she is uncertain why. Patient is deemed a poor historian. Review of Systems General: Reports: ROS unobtainable due to mental status PFSH ED PFSH: Medical History COPD (chronic obstructive pulmonary disease) -no acute exacerbation currently -not oxygen dependent at baseline Diabetes Diabetic peripheral neuropathy Dyslipidemia GERD (gastroesophageal reflux disease) -on PPI History of ESBL E. 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 History of hip surgery History of hysterectomy History of right breast biopsy History of surgery on extremity Left femur S/P excisional debridement Bilateral lower extremity wounds Family History Son Hypertension Denies family history of Diabetes Clotting disorder Hyperlipidemia Anesthesia complication Bleeding disorder Stroke Social History Smoking and tobacco status: former smoker Alcohol intake: never Physical Exam Const: COMMON NORMALS: no acute distress, no limitations, healthy appearing and well nourished GENERAL APPEARANCE: cooperative, well kempt and well developed HENMT: COMMON NORMALS: normocephalic, atraumatic, external ears normal, EAC's normal and Normal external nose present HEAD & SCALP: normal to inspection, normocephalic and atraumatic FACE & SINUS: normal facial exam and face symmetric NOSE: Normal external nose present and Normal nares present EXTERNAL EAR: Yes external ears normal EXTERNAL AUDITORY CANAL: EAC's normal MOUTH: Normal oral and palatal mucosa present, lip normal and tongue normal Eye: COMMON NORMALS: Equal, round and reactive pupils present and conjunctivae normal GENERAL EYE: appearance normal, both eyes and all related structures ALIGNMENT: Yes alignment normal PERIORBITAL: periorbital findings normal EYELID: eyelids normal CONJUNCTIVA: Yes conjunctivae normal SCLERA: sclerae normal PUPIL: Yes Equal, round and reactive pupils present Neck/C-Spine: COMMON NORMALS: full ROM, no lymphadenopathy, supple, no meningeal signs and no JVD GENERAL: Yes normal visual inspection and Yes trachea midline Chest: COMMONS NORMALS: normal inspection of the chest and normal palpation of entire chest wall Resp: COMMON NORMALS: normal respiratory effort, No retractions and No use of accessory muscles EFFORT & INSPECTION: Yes symmetric chest movement AUSCULTATION: no crackles, no rales, rhonchi, wheezes and diminished lung sounds Cardio: COMMON NORMALS: no JVD, regular rate, regular rhythm, S1 normal heart sound present and S2 normal heart sound present RATE: regular rate RHYTHM: regular rhythm HEART SOUNDS: S1 normal heart sound present, S2 normal heart sound present, no click, no gallops, no murmurs, no rubs and abnormal split S2 GI: COMMON NORMALS: Soft to palpation and No hepatosplenomegaly present PALPATION: Yes Soft to palpation, No Tenderness to palpation present (GI), No Guarding due to palpation present (GI), No Rigid due to palpation, Yes No hepatosplenomegaly present, No Hernia present, No Palpable mass present and No Pulsatile mass present OTHER: Normal rectal tone. Dark brown stool. Guaiac positive. : COMMON NORMALS: Yes no CVA tenderness BLADDER/KIDNEY EXAM: Yes no CVA tenderness EXTERNAL FEMALE EXAM: No Hernia present SPECULUM EXAM - VAGINA: Yes other (Mild vaginal bleeding present) Back/Pelvis: COMMON NORMALS: no CVA tenderness, thoracic and lumbar spine normal to inspection, no thoracic nor lumbar tenderness and thoraco-lumbar ROM normal Extremity: COMMON NORMALS: normal to inspection, full ROM, capillary refill normal, no joint enlargement, no clubbing, cyanosis or edema and no calf tenderness Neuro: COMMON NORMALS: CN's II-XII intact bilaterally, moves all extremities, no focal motor deficits and no sensory deficits noted MENINGEAL SIGNS: Yes no meningeal signs SPEECH: speech normal Psych: COMMON NORMALS: mental status grossly normal, Normal thought process present, cooperative, normal affect, speech normal and activity/motor behavior normal APPEARANCE: Yes well kempt SPEECH: Yes normal speech THOUGHT PROCESS: Normal thought process present Skin: COMMON NORMALS: no rashes or lesions noted, turgor normal, no jaundice, no petechiae and no mottling GENERAL SKIN EXAM: no rashes or lesions noted and turgor normal Course Vital Signs: Vital signs: Vital Signs Temperature 100 F H 11/28/19 09:06 Pulse Rate 81 11/28/19 12:39 Respiratory Rate 19 H 11/28/19 12:39 Blood Pressure 128/95 11/28/19 12:39 Pulse Oximetry 87 L 11/28/19 12:39 MDM - SOB/Dyspnea MDM Narrative: Medical decision making narrative: Ms. Hagen is a nice 73-year-old female who comes in with altered mental status, cough, wheezing and rhonchorous respirations. She appears to have a mild COPD exacerbation from also concerned about oversedation with opiates. Her pH is borderline and she is not declined and she is slightly improved during her time here in the ER. Her CT scan shows no evidence of severe intrapulmonary pathology that is acute. CT abdomen pelvis which was done for her vaginal bleeding does not reveal any pelvic pathology. Ms. Hagen gives further history that this is been a work-up ongoing by Dr. Panda. Please see Dr. Mayorga's last note from the office for details. Patient this time is stable but I believe she will be in to be observed to follow her clinically. The case was reviewed with Dr. Wilkins, she agrees to see the patient in the ER and agrees with obtaining a second ABG to assess the patient's status with CO2. Lab Data: Labs: Lab Results 11/28/19 11/28/19 11/28/19 Range/Units 09:34 09:53 09:53 WBC 7.6 (4.0-10.0) 10^3/ uL RBC 2.94 L (4.1-5.3) 10^6/u L Hgb 8.5 L (11.5-15.3) g/dL Hct 30.0 L (37.0-47.0) % MCV 102.0 H (81-99) fL MCH 28.9 (28.0-34.0) pg MCHC 28.3 L (30.0-36.0) g/dL RDW 15.5 H (12.1-15.1) % Plt Count 188 (130-400) 10^3/c mm MPV 11.0 H (7.4-10.4) fL Neut % (Auto) 70.2 % Lymph % (Auto) 17.4 % [place] % (Auto) 9.1 % Eos % (Auto) 2.0 % Baso % (Auto) 0.4 % Neut # (Auto) 5.30 (1.8-7.7) 10^3/u L Lymph # (Auto) 1.3 (0.8-4.8) 10^3/u L [place] # (Auto) 0.7 (0.2-0.9) 10^3/u L Eos # (Auto) 0.2 (0.0-0.8) 10^3/u L Baso # (Auto) 0.0 (0.0-0.1) 10^3/u L Nucleated RBC % (a uto) 0 % Nucleated RBCs # 0.0 /100WBC PT 14.20 (12.1-14.9) SECO NDS INR 1.06 (0.8-1.2) Specimen Type Arterial Sample Site Brachial, right ABG pH 7.41 (7.35-7.45) ABG pCO2 51.4 H (35-45) mmHg ABG pO2 77.4 L (80.0-100.0) mmH g ABG HCO3 32.2 H (22-26) mmol/L ABG Base Excess 6.6 H (-2.0-2.0) mmol/ L Rafa Test Pos Hematocrit 26.0 L (37-47) % O2 Delivery Device Nc O2 Liters/Min 6.0 % College Teacher ID Monro Sodium Potassium Chloride Carbon Dioxide Anion Gap BUN Creatinine GFR Calculation Glucose Calculated Osmolal ity Lactic Acid (0.5-2.2) mmol/L Calcium Magnesium (1.7-2.3) mg/dL Total Bilirubin AST ALT Alkaline Phosphata se Ammonia (11-51) umol/L Troponin T Baselin e (0-10) ng/L Troponin T 120 Min [place] (0-10) ng/L Delta Troponin T (0-10) ABS# NT-Pro-B Natriuret Pep (0-125) pg/mL Total Protein Albumin Globulin Lipase (13-60) U/L TSH (0.27-4.20) uIU/ mL Urine Color (Yellow) Urine Appearance (CLEAR) Urine pH (5-7) Ur Specific Gravit y (1.005-1.030) Urine Protein (Negative) Urine Glucose (UA) (Normal) Urine Ketones (Negative) Urine Blood (Negative) Urine Nitrate (Negative) Urine Bilirubin (NEGATIVE) Prot Sulfosalicyli c Acd (Negative) Urine Urobilinogen (Negative) mg/dL Ur Leukocyte Massiel ase (Negative) Urine RBC (0-2) /hpf Urine WBC (0-5) /hpf Ur Squamous Epith Cells (0-5) Amorphous Sediment Urine Bacteria (NONE) Influenza Type A A g (Negative) Influenza Type B A g (Negative) SARS-CoV-2 Ag (Rap id) (Negative) Blood Type Rho(D) Type Antibody Screen 11/28/19 11/28/19 11/28/19 Range/Units 09:53 09:53 09:53 WBC (4.0-10.0) 10^3/ uL RBC (4.1-5.3) 10^6/u L Hgb (11.5-15.3) g/dL Hct (37.0-47.0) % MCV (81-99) fL MCH (28.0-34.0) pg MCHC (30.0-36.0) g/dL RDW (12.1-15.1) % Plt Count (130-400) 10^3/c mm MPV (7.4-10.4) fL Neut % (Auto) % Lymph % (Auto) % [place] % (Auto) % Eos % (Auto) % Baso % (Auto) % Neut # (Auto) (1.8-7.7) 10^3/u L Lymph # (Auto) (0.8-4.8) 10^3/u L [place] # (Auto) (0.2-0.9) 10^3/u L Eos # (Auto) (0.0-0.8) 10^3/u L Baso # (Auto) (0.0-0.1) 10^3/u L Nucleated RBC % (a uto) % Nucleated RBCs # /100WBC PT (12.1-14.9) SECO NDS INR (0.8-1.2) Specimen Type Sample Site ABG pH (7.35-7.45) ABG pCO2 (35-45) mmHg ABG pO2 (80.0-100.0) mmH g ABG HCO3 (22-26) mmol/L ABG Base Excess (-2.0-2.0) mmol/ L Rafa Test Hematocrit (37-47) % O2 Delivery Device O2 Liters/Min % College Teacher ID Sodium Cancelled Potassium Cancelled Chloride Cancelled Carbon Dioxide Cancelled Anion Gap Cancelled BUN Cancelled Creatinine Cancelled GFR Calculation Cancelled Glucose Cancelled Calculated Osmolal ity Cancelled Lactic Acid 0.9 (0.5-2.2) mmol/L Calcium Cancelled Magnesium 1.9 (1.7-2.3) mg/dL Total Bilirubin Cancelled AST Cancelled ALT Cancelled Alkaline Phosphata se Cancelled Ammonia (11-51) umol/L Troponin T Baselin e 77 H (0-10) ng/L Troponin T 120 Min [place] (0-10) ng/L Delta Troponin T (0-10) ABS# NT-Pro-B Natriuret Pep 230 H (0-125) pg/mL Total Protein Cancelled Albumin Cancelled Globulin Cancelled Lipase 28 (13-60) U/L TSH 90.08 H (0.27-4.20) uIU/ mL Urine Color (Yellow) Urine Appearance (CLEAR) Urine pH (5-7) Ur Specific Gravit y (1.005-1.030) Urine Protein (Negative) Urine Glucose (UA) (Normal) Urine Ketones (Negative) Urine Blood (Negative) Urine Nitrate (Negative) Urine Bilirubin (NEGATIVE) Prot Sulfosalicyli c Acd (Negative) Urine Urobilinogen (Negative) mg/dL Ur Leukocyte Massiel ase (Negative) Urine RBC (0-2) /hpf Urine WBC (0-5) /hpf Ur Squamous Epith Cells (0-5) Amorphous Sediment Urine Bacteria (NONE) Influenza Type A A g (Negative) Influenza Type B A g (Negative) SARS-CoV-2 Ag (Rap id) (Negative) Blood Type Rho(D) Type Antibody Screen 11/28/19 11/28/19 11/28/19 Range/Units 09:53 09:53 09:53 WBC (4.0-10.0) 10^3/ uL RBC (4.1-5.3) 10^6/u L Hgb (11.5-15.3) g/dL Hct (37.0-47.0) % MCV (81-99) fL MCH (28.0-34.0) pg MCHC (30.0-36.0) g/dL RDW (12.1-15.1) % Plt Count (130-400) 10^3/c mm MPV (7.4-10.4) fL Neut % (Auto) % Lymph % (Auto) % [place] % (Auto) % Eos % (Auto) % Baso % (Auto) % Neut # (Auto) (1.8-7.7) 10^3/u L Lymph # (Auto) (0.8-4.8) 10^3/u L [place] # (Auto) (0.2-0.9) 10^3/u L Eos # (Auto) (0.0-0.8) 10^3/u L Baso # (Auto) (0.0-0.1) 10^3/u L Nucleated RBC % (a uto) % Nucleated RBCs # /100WBC PT (12.1-14.9) SECO NDS INR (0.8-1.2) Specimen Type Sample Site ABG pH (7.35-7.45) ABG pCO2 (35-45) mmHg ABG pO2 (80.0-100.0) mmH g ABG HCO3 (22-26) mmol/L ABG Base Excess (-2.0-2.0) mmol/ L Rafa Test Hematocrit (37-47) % O2 Delivery Device O2 Liters/Min % College Teacher ID Sodium 140 Potassium 4.4 Chloride 98 Carbon Dioxide 32 H Anion Gap 14.4 BUN 27 H Creatinine 1.3 H GFR Calculation Not Reportable Glucose 133 H Calculated Osmolal ity 289 Lactic Acid (0.5-2.2) mmol/L Calcium 8.0 L Magnesium (1.7-2.3) mg/dL Total Bilirubin 0.5 AST 12 ALT 11 Alkaline Phosphata se 90 Ammonia (11-51) umol/L Troponin T Baselin e (0-10) ng/L Troponin T 120 Min [place] (0-10) ng/L Delta Troponin T (0-10) ABS# NT-Pro-B Natriuret Pep (0-125) pg/mL Total Protein 7.6 Albumin 3.2 L Globulin 4.4 Lipase (13-60) U/L TSH (0.27-4.20) uIU/ mL Urine Color Lelo (Yellow) Urine Appearance Cloudy (CLEAR) Urine pH 9 H (5-7) Ur Specific Gravit y 1.010 (1.005-1.030) Urine Protein 1+ H (Negative) Urine Glucose (UA) Norm (Normal) Urine Ketones 1+ H (Negative) Urine Blood Neg (Negative) Urine Nitrate Negative (Negative) Urine Bilirubin Neg (NEGATIVE) Prot Sulfosalicyli c Acd Negative (Negative) Urine Urobilinogen Norm (Negative) mg/dL Ur Leukocyte Massiel ase 2+ H (Negative) Urine RBC None (0-2) /hpf Urine WBC 5-10 H (0-5) /hpf Ur Squamous Epith Cells 0-4 H (0-5) Amorphous Sediment 1+ Urine Bacteria 3+ H (NONE) Influenza Type A A g Negative (Negative) Influenza Type B A g Negative (Negative) SARS-CoV-2 Ag (Rap id) (Negative) Blood Type Rho(D) Type Antibody Screen 11/28/19 11/28/19 11/28/19 Range/Units 10:00 10:30 12:08 WBC (4.0-10.0) 10^3/ uL RBC (4.1-5.3) 10^6/u L Hgb (11.5-15.3) g/dL Hct (37.0-47.0) % MCV (81-99) fL MCH (28.0-34.0) pg MCHC (30.0-36.0) g/dL RDW (12.1-15.1) % Plt Count (130-400) 10^3/c mm MPV (7.4-10.4) fL Neut % (Auto) % Lymph % (Auto) % [place] % (Auto) % Eos % (Auto) % Baso % (Auto) % Neut # (Auto) (1.8-7.7) 10^3/u L Lymph # (Auto) (0.8-4.8) 10^3/u L [place] # (Auto) (0.2-0.9) 10^3/u L Eos # (Auto) (0.0-0.8) 10^3/u L Baso # (Auto) (0.0-0.1) 10^3/u L Nucleated RBC % (a uto) % Nucleated RBCs # /100WBC PT (12.1-14.9) SECO NDS INR (0.8-1.2) Specimen Type Sample Site ABG pH (7.35-7.45) ABG pCO2 (35-45) mmHg ABG pO2 (80.0-100.0) mmH g ABG HCO3 (22-26) mmol/L ABG Base Excess (-2.0-2.0) mmol/ L Rafa Test Hematocrit (37-47) % O2 Delivery Device O2 Liters/Min % College Teacher ID Sodium Potassium Chloride Carbon Dioxide Anion Gap BUN Creatinine GFR Calculation Glucose Calculated Osmolal ity Lactic Acid (0.5-2.2) mmol/L Calcium Magnesium (1.7-2.3) mg/dL Total Bilirubin AST ALT Alkaline Phosphata se Ammonia 19 (11-51) umol/L Troponin T Baselin e (0-10) ng/L Troponin T 120 Min [place] 77.34 H (0-10) ng/L Delta Troponin T 0.34 (0-10) ABS# NT-Pro-B Natriuret Pep (0-125) pg/mL Total Protein Albumin Globulin Lipase (13-60) U/L TSH (0.27-4.20) uIU/ mL Urine Color (Yellow) Urine Appearance (CLEAR) Urine pH (5-7) Ur Specific Gravit y (1.005-1.030) Urine Protein (Negative) Urine Glucose (UA) (Normal) Urine Ketones (Negative) Urine Blood (Negative) Urine Nitrate (Negative) Urine Bilirubin (NEGATIVE) Prot Sulfosalicyli c Acd (Negative) Urine Urobilinogen (Negative) mg/dL Ur Leukocyte Massiel ase (Negative) Urine RBC (0-2) /hpf Urine WBC (0-5) /hpf Ur Squamous Epith Cells (0-5) Amorphous Sediment Urine Bacteria (NONE) Influenza Type A A g (Negative) Influenza Type B A g (Negative) SARS-CoV-2 Ag (Rap id) Negative (Negative) Blood Type Rho(D) Type Antibody Screen 11/28/19 11/28/19 Range/Units 12:08 13:08 WBC (4.0-10.0) 10^3/ uL RBC (4.1-5.3) 10^6/u L Hgb (11.5-15.3) g/dL Hct (37.0-47.0) % MCV (81-99) fL MCH (28.0-34.0) pg MCHC (30.0-36.0) g/dL RDW (12.1-15.1) % Plt Count (130-400) 10^3/c mm MPV (7.4-10.4) fL Neut % (Auto) % Lymph % (Auto) % [place] % (Auto) % Eos % (Auto) % Baso % (Auto) % Neut # (Auto) (1.8-7.7) 10^3/u L Lymph # (Auto) (0.8-4.8) 10^3/u L [place] # (Auto) (0.2-0.9) 10^3/u L Eos # (Auto) (0.0-0.8) 10^3/u L Baso # (Auto) (0.0-0.1) 10^3/u L Nucleated RBC % (a uto) % Nucleated RBCs # /100WBC PT (12.1-14.9) SECO NDS INR (0.8-1.2) Specimen Type Arterial Sample Site Brachial, right ABG pH 7.35 (7.35-7.45) ABG pCO2 59.2 H (35-45) mmHg ABG pO2 69.6 L (80.0-100.0) mmH g ABG HCO3 32.6 H (22-26) mmol/L ABG Base Excess 6.0 H (-2.0-2.0) mmol/ L Rafa Test Pos Hematocrit 26.0 L (37-47) % O2 Delivery Device Nc O2 Liters/Min 4.0 % College Teacher ID Monro Sodium Potassium Chloride Carbon Dioxide Anion Gap BUN Creatinine GFR Calculation Glucose Calculated Osmolal ity Lactic Acid (0.5-2.2) mmol/L Calcium Magnesium (1.7-2.3) mg/dL Total Bilirubin AST ALT Alkaline Phosphata se Ammonia (11-51) umol/L Troponin T Baselin e (0-10) ng/L Troponin T 120 Min [place] (0-10) ng/L Delta Troponin T (0-10) ABS# NT-Pro-B Natriuret Pep (0-125) pg/mL Total Protein Albumin Globulin Lipase (13-60) U/L TSH (0.27-4.20) uIU/ mL Urine Color (Yellow) Urine Appearance (CLEAR) Urine pH (5-7) Ur Specific Gravit y (1.005-1.030) Urine Protein (Negative) Urine Glucose (UA) (Normal) Urine Ketones (Negative) Urine Blood (Negative) Urine Nitrate (Negative) Urine Bilirubin (NEGATIVE) Prot Sulfosalicyli c Acd (Negative) Urine Urobilinogen (Negative) mg/dL Ur Leukocyte Massiel ase (Negative) Urine RBC (0-2) /hpf Urine WBC (0-5) /hpf Ur Squamous Epith Cells (0-5) Amorphous Sediment Urine Bacteria (NONE) Influenza Type A A g (Negative) Influenza Type B A g (Negative) SARS-CoV-2 Ag (Rap id) (Negative) Blood Type A Positive Rho(D) Type Positive Antibody Screen Negative Imaging Data^: CXR: Attestation: I personally reviewed and interpreted this imaging study as follows: My impression: Poor inspiration. No obvious acute cardiopulmonary findings. CT Head: Radiologist's impression: [address] [address] [address] Scan Report Signed Patient: Rachid Hagen Unit #: [id number] : 1945 Age/Sex: 73 / F ADM Date: 11/28/19 Loc: ER Room/Bed: Attending Dr: Ordering Provider/Ordering MD: Shiela Young DO Date of Service: 11/28/19 Procedure(s): CT head wo con* [id number] Accession Number(s): [id number] Report Number: [id number] PROCEDURE INFORMATION: Exam: CT Head Without Contrast Exam date and time: 11/28/2019 10:55 AM Age: 73 years old Clinical indication: Altered mental status/memory loss; Confusion or disorientation; Additional info: altered mental status TECHNIQUE: Imaging protocol: Computed tomography of the head without contrast. Radiation optimization: All CT scans at this facility use at least one of these dose optimization techniques: automated exposure control; mA and/or kV adjustment per patient size (includes targeted exams where dose is matched to clinical indication); or iterative reconstruction. COMPARISON: No relevant prior studies available. RADIATION DOSE METRICS: Total DLP (mGy-cm): 1418.78 FINDINGS: Brain: Focal chronic encephalomalacia inferior right temporal lobe (series 602, image 25). Mild hypoattenuating foci are noted in the anterior lateral ventricular periventricular white matter bilaterally. No intracranial hemorrhage. No mass or acute cortical infarction identified. Ventricles: Prominence of the ventricular system and subarachnoid spaces is consistent with the patient's age of 73 years. Bones/joints: Unremarkable. No acute fracture. Sinuses: Dependent fluid right posterior sphenoid sinus, minimal mucosal thickening. Mastoid air cells: Visualized mastoid air cells are well aerated. Vasculature: Atherosclerotic calcifications are present involving the carotid artery siphons bilaterally. Soft tissues: Unremarkable. CT/CT head wo con* [id number] IMPRESSION: 1. Focal chronic encephalomalacia inferior right temporal lobe. 2. Age appropriate supratentorial and infratentorial atrophy. 3. Mild chronic white matter microvascular ischemic disease. 4. No acute intracranial abnormality identified. 5. Incidental paranasal sinus disease as above. Radiation Dose CTDIVOL = (mGy): DLP = 1418.78 (mGy-cm) Dictated By: Manoj More MD Signed By: Manoj More MD Signed Date/Time: 11/28/19 1206 DD/ 1205 EKG Data^: EKG 1: Attestation: I personally reviewed and interpreted this EKG as follows: EKG Interpretation Date: 11/28/19 EKG interpretation time: 09:17 Interpretation: Normal sinus rhythm at 93 beats a minute, no blocks, left axis deviation, normal intervals, LVH. EKG 2: Attestation: I personally reviewed and interpreted this EKG as follows: EKG Interpretation Date: 11/28/19 EKG interpretation time: 11:00 Interpretation: Normal sinus rhythm 82 beats minute, first-degree AV block, LVH, normal intervals, left axis deviation, similar to previous. First-degree AV block is new. Discharge Plan Discharge Patient Disposition: Admitted As Inpatient Clinical Impression: Acute alteration in mental status, Acute exacerbation of chronic obstructive pulmonary disease, Abnormal vaginal bleeding Condition: Stable Coding Level of Care Code ED Pile Driver Operator for Chg Fwd Exam Comprehensive
[2019-11-28 09:48] LABS: ABG PCO2 51.4 mmHg (35-45); ABG PH Result 7.41 (7.35-7.45); Base Excess ABG 6.6 mmol/L (-2.0-2.0); Blood Gas Allen Test Pos; Blood Gas Operator Identificat MONRO; Blood Gas Sample Site Brachial, right; Blood Gas Sample Type Arterial; HCO3 ABG 32.2 mmol/L (22-26); Oxygen Device NC; PO2 ABG 77.4 mmHg (80.0-100.0)
[2019-11-28 10:13] LABS: Basophils % 0.4 %; Eosinophils # 0.2 10^3/uL (0.0-0.8); Hemoglobin 8.5 g/dL (11.5-15.3); Lymphocytes # 1.3 10^3/uL (0.8-4.8); Lymphocytes % 17.4 %; Mean Corpuscular HGB Conc 28.3 g/dL (30.0-36.0); Mean Corpuscular Hemoglobin 28.9 pg (28.0-34.0); Monocytes # 0.7 10^3/uL (0.2-0.9); Monocytes % 9.1 %; Neutrophils % 70.2 %; Nucleated Red Blood Cells % 0 %; Platelet Count 188 10^3/cmm (130-400); Red Blood Count 2.94 10^6/uL (4.1-5.3); Red Cell Distribution Width 15.5 % (12.1-15.1); White Blood Count 7.6 10^3/uL (4.0-10.0)
[2019-11-28 10:17] LABS: Urine Appearance Cloudy (CLEAR); Urine Color Amber (Yellow)
[2019-11-28 10:18] LABS: Bacteria Urine 3+; Bilirubin Urine Neg (NEGATIVE); Blood Urine Neg (Negative); Glucose Urine UA Norm (Normal); Ketones Urine 1+ (Negative); Leukocyte Esterase Urine 2+ (Negative); Nitrate Urine Negative (Negative); Protein Urine 1+ (Negative); Squamous Epithelial Cell Urine 0-4 (0-5); Urobilinogen Urine Norm (Negative); pH Urine 9 (5-7)
[2019-11-28 10:19] LABS: Add Urine Culture? Yes; Amorphous Sediment Urine 1+; Sulfosalicylic Acid Urine Negative (Negative)
[2019-11-28 10:28] LABS: Troponin(5th) Baseline 77 ng/L (0-10)
[2019-11-28 10:31] LABS: INR 1.06 (0.8-1.2)
[2019-11-28 10:34] LABS: SARS Covid-2 Antigen Negative (Negative)
--- NOTE | 2019-11-28 10:54 | CTR_ITS ---
PROCEDURE INFORMATION: Exam: CT Head Without Contrast Exam date and time: 11/28/2019 10:55 AM Age: 73 years old Clinical indication: Altered mental status/memory loss; Confusion or disorientation; Additional info: altered mental status TECHNIQUE: Imaging protocol: Computed tomography of the head without contrast. Radiation optimization: All CT scans at this facility use at least one of these dose optimization techniques: automated exposure control; mA and/or kV adjustment per patient size (includes targeted exams where dose is matched to clinical indication); or iterative reconstruction. COMPARISON: No relevant prior studies available. RADIATION DOSE METRICS: Total DLP (mGy-cm): 1418.78 FINDINGS: Brain: Focal chronic encephalomalacia inferior right temporal lobe (series 602, image 25). Mild hypoattenuating foci are noted in the anterior lateral ventricular periventricular white matter bilaterally. No intracranial hemorrhage. No mass or acute cortical infarction identified. Ventricles: Prominence of the ventricular system and subarachnoid spaces is consistent with the patient's age of 73 years. Bones/joints: Unremarkable. No acute fracture. Sinuses: Dependent fluid right posterior sphenoid sinus, minimal mucosal thickening. Mastoid air cells: Visualized mastoid air cells are well aerated. Vasculature: Atherosclerotic calcifications are present involving the carotid artery siphons bilaterally. Soft tissues: Unremarkable. CT/CT head wo con* [id number] IMPRESSION: 1. Focal chronic encephalomalacia inferior right temporal lobe. 2. Age appropriate supratentorial and infratentorial atrophy. 3. Mild chronic white matter microvascular ischemic disease. 4. No acute intracranial abnormality identified. 5. Incidental paranasal sinus disease as above. Radiation Dose CTDIVOL = (mGy): DLP = 1418.78 (mGy-cm)
--- NOTE | 2019-11-28 10:55 | CTR_ITS ---
PROCEDURE INFORMATION: Exam: CT Angiography Chest With Contrast Exam date and time: 11/28/2019 11:28 AM Age: 73 years old Clinical indication: Other: Dyspnea; Prior surgery; Surgery date: 6+ months; Surgery type: Hystorectomy TECHNIQUE: Imaging protocol: Computed tomographic angiography of the chest with intravenous contrast. 3D rendering (Not supervised by radiologist): MIP reconstructed images were created by the technologist. Radiation optimization: All CT scans at this facility use at least one of these dose optimization techniques: automated exposure control; mA and/or kV adjustment per patient size (includes targeted exams where dose is matched to clinical indication); or iterative reconstruction. Contrast material: VISIPAQUE 320; Contrast volume: 95 ml; Contrast route: INTRAVENOUS (IV); COMPARISON: CT chest w con* [id number] 09/29/2016 2:00 PM RADIATION DOSE METRICS: Total DLP (mGy-cm): 2513.02 FINDINGS: Pulmonary arteries: The bolus is suboptimal for imaging of peripheral pulmonary emboli. Aorta: Mild aortic arch and branch atherosclerotic calcification without ectasia. Lungs: Left upper lobe and lingular calcified pulmonary granulomas. Posterior bilateral lower lobe, right middle lobe pulmonary partial atelectasis. Lingular pulmonary subsegmental atelectasis. Pleural space: No pneumothorax. No pleural effusion. Heart: Mitral annular calcification is present. Minimal pericardial effusion. Left main, LAD and RCA calcified coronary atherosclerosis. Mediastinal space: Left hilar granulomatous parveen calcifications are present. Lymph nodes: No enlarged lymph nodes. Bones/joints: Thoracic spine vertebral body marginal osteophytes are noted at multiple levels. Healed lateral right 7th rib fracture. Nonunion chronic right lateral 11th rib fracture. Diffuse osteopenia. Soft tissues: Right breast surgical clips. IMPRESSION: 1. No pulmonary embolism identified, as visualized. Please see above limitations. 2. Posterior bilateral lower lobe, right middle lobe pulmonary partial atelectasis. 3. Minimal pericardial effusion. 4. Coronary atherosclerosis. 5. Please see the abdomen/pelvis CT report of the same date for additional findings. PROCEDURE INFORMATION: Exam: CT Abdomen And Pelvis With Contrast Exam date and time: 11/28/2019 11:28 AM Age: 73 years old Clinical indication: Other: Dyspnea; Prior surgery; Surgery date: 6+ months; Surgery type: Hystorectomy TECHNIQUE: Imaging protocol: Computed tomography of the abdomen and pelvis with intravenous contrast. Radiation optimization: All CT scans at this facility use at least one of these dose optimization techniques: automated exposure control; mA and/or kV adjustment per patient size (includes targeted exams where dose is matched to clinical indication); or iterative reconstruction. Contrast material: VISIPAQUE 320; Contrast volume: 95 ml; Contrast route: INTRAVENOUS (IV); COMPARISON: CT chest w con* [id number] 09/29/2016 2:00 PM RADIATION DOSE METRICS: Total DLP (mGy-cm): 2513.02 FINDINGS: Liver: Mild intrahepatic biliary ductal dilatation. The liver measures 27.1 cm in the midclavicular plane. Gallbladder and bile ducts: The gallbladder is surgically absent. The extrahepatic bile ducts appear age-appropriate. No ductal calculus identified. Pancreas: Severe pancreatic atrophy. Spleen: The spleen demonstrates a few small granulomatous calcifications. The spleen is mildly enlarged measuring 15.5 cm transversely. Adrenals: Normal. No mass. Kidneys and ureters: Normal. No hydronephrosis. Stomach and bowel: Left upper quadrant enteric anastomosis. A 17.2 cm paraumbilical hernia containing abdominal fat and transverse colon without obstruction/strangulation/gangrene. Sigmoid colonic diverticula are present without evidence of diverticulitis. Appendix: The vermiform appendix is not identified on this examination. There is, however, no pericecal abnormality to suggest appendicitis. Intraperitoneal space: Unremarkable. No free air. No significant fluid collection. Vasculature: Calcified phleboliths are present in the lower pelvis bilaterally. Lymph nodes: No enlarged lymph nodes. Bladder: The urinary bladder is drained by a Lockhart catheter. The urinary bladder is decompressed and difficult to assess. Reproductive: Subserosal calcified right uterine corporal 2.9 cm leiomyoma. Bones/joints: Left sliding screw hip prosthesis with partially imaged interlocking intramedullary alexx. Diffuse osteopenia. Soft tissues: Unremarkable. CT/CT angio chest w abd pel w con IMPRESSION: 1. Prior cholecystectomy. 2. Mild intrahepatic biliary ductal dilatation, new. MRCP may be helpful if indicated. 3. Left upper quadrant enteric anastomosis. 4. Paraumbilical hernia. 5. Calcified uterine leiomyoma. 6. Mild hepatomegaly. 7. Diverticulosis. 8. Mild splenomegaly. 9. Please see the CT chest report of the same date for additional findings. Radiation Dose CTDIVOL = (mGy): DLP = 2513.02~2513.02 (mGy-cm)
[2019-11-28] MEDS: ipratropium-albuterol 3 mL Neb 9 ML INHALATION (11:00)
[2019-11-28 11:04] LABS: Ammonia 19 umol/L (11-51)
[2019-11-28 11:12] LABS: Lactic Sepsis W/Reflex 0.9 mmol/L (0.5-2.2)
--- NOTE | 2019-11-28 11:16 | ECG_ITS ---
[facility] Test Date: 2019-11-28 Pat Name: Rachid Hagen Department: Room: Gender: Female Him Manager: : 1945 Requested By: Shiela Garcia Order Number: [id number] Jeremie MD: Manuela Hughes M.D. Measurements Intervals [place] Rate: 82 P: 47 MA: 232 QRS: -17 QRSD: 112 T: 65 QT: 367 QTc: 431 Interpretive Statements SINUS RHYTHM WITH FIRST DEGREE AV BLOCK LOW QRS VOLTAGE IN PRECORDIAL LEADS [QRS DEFLECTION < 1.0 mV IN CHEST LEADS] MODERATE INTRAVENTRICULAR CONDUCTION DELAY [110+ ms QRS DURATION] Compared to ECG 11/28/2019 09:17:06 First degree AV block now present Intraventricular conduction delay now present Left ventricular hypertrophy no longer present ST (T wave) deviation no longer present Electronically Signed On 11-29-2019 8:24:46 CDT by Manuela Hughes M.D. [email or web address].[email or web address]/[id number]
[2019-11-28 11:19] LABS: NT Pro B Type Natriuretic Pept 230 pg/mL (0-125)
[2019-11-28 11:20] LABS: Influenza A by IFA Negative (Negative); Influenza B by IFA Negative (Negative)
[2019-11-28 11:25] LABS: Lipase 28 U/L (13-60); Magnesium 1.9 mg/dL (1.7-2.3)
[2019-11-28 11:33] LABS: Thyroid Stimulating Hormone 90.08 uIU/mL (0.27-4.20)
[2019-11-28 11:47] LABS: Anion Gap 14.4 (5-19); Blood Urea Nitrogen 27 mg/dL (8-23); Carbon Dioxide 32 mmol/L (22-29); Chloride 98 mmol/L (98-107); Potassium 4.4 mmol/L (3.5-5.1); Sodium 140 mmol/L (136-145)
[2019-11-28 11:48] LABS: Alanine Aminotransferase 11 U/L (0-33); Albumin Level 3.2 g/dL (3.5-5.2); Aspartate Amino Transferase 12 U/L (0-32); Globulin 4.4 g/dL (1.3-4.6); Glucose 133 mg/dL (65-115); Osmolality Calculated 289 mOsm/kg (285-295); Total Bilirubin 0.5 mg/dL (0.15-1.2); Total Protein 7.6 g/dL (6.6-8.7)
[2019-11-28 11:49] LABS: Alkaline Phosphatase 90 IU/L (35-105)
[2019-11-28] MEDS: iodixanol 320 mg/mL 100mL Btl IV (12:02)
[2019-11-28 12:48] LABS: Troponin 5 2HR 77.34 ng/L (0-10); Troponin 5 2HR Delta 0.34 ABS# (0-10)
[2019-11-28 13:20] LABS: ABG PCO2 59.2 mmHg (35-45); ABG PH Result 7.35 (7.35-7.45); Blood Gas Allen Test Pos; Blood Gas Operator Identificat MONRO; Blood Gas Sample Site Brachial, right; Blood Gas Sample Type Arterial; HCO3 ABG 32.6 mmol/L (22-26); Oxygen Device NC; PO2 ABG 69.6 mmHg (80.0-100.0)
--- NOTE | 2019-11-28 15:15 | P.HP_ITS ---
Providers/Chief Complaint Admitting Physician: Flaquita Wilkins MD Primary Care Provider: Srikanth Mars Jr, MD Chief Complaint: SOB History of Present Illness Rachid Hagen is a 73 year old female with PMHx noted below presents with complaints of worsening shortness of breath, altered mental status, intermittent fever and low oxygen levels. She is quite somnolent during my evaluation in the ER, arousable for brief periods of time but then promptly falls back asleep. She is intermittently hypoxic with saturation dropping into the 80s on 4 L nasal cannula. Requested transition to BiPAP. She is quite disheveled and appears to have poor hygiene. Reports that she had a hysteroscopy with a D&C on 11/09 and has continued to have some degree of vaginal bleeding since procedure. She has a chronic indwelling Lockhart catheter that was changed earlier today in the ER, noted dirty looking urine. She has known sacral decubitus ulcers as well as bilateral lower extremity ulcers located on her heels which per patient and her son require wound care primarily involving wet-to-dry dressings and lymphedema wraps. ABG here shows persistent hypoxia and hypercapnia, she has a normal wh ite count, hemoglobin of 8.5, normal electrolytes, BUN of 27, creatinine of 1.3, rapid COVID-19 test is negative, urinalysis is indicative of infection, CT head is negative for any acute findings, BNP is 230, CT chest is negative for PE but shows atelectasis, mild intrahepatic biliary duct dilatation. She has received IV steroids, nebulizer treatments. Due to high risk for decompensation, noted hypercapnia and hypoxia, need for BiPAP support she will be admitted to ICU for close monitoring. Review of Systems Const: Reports: change in appetite (decreased appetite) and fatigue; Denies: fever(s) or chills Eyes: Denies: change in vision ENMT: Reports: dry mouth Card: Denies: chest pain, swelling of feet/ankles or lightheadedness Resp: Reports: productive cough (green sputum); Denies: dyspnea GI: Denies: abdominal pain, nausea, vomiting, hematemesis or hematochezia : Reports: urinary frequency; Denies: difficulty voiding or dysuria Musc: Denies: back pain Skin/Breast: Denies: rash Neuro: Reports: weakness in extremities; Denies: numbness in extremities Psych: Denies: anxiety Medications/Allergies Home Medications Medication Instructions Recorded Confirmed Last Taken Type Januvia 100 mg PO DAILY 30 Days #30 tab 08/10/19 11/28/19 11/09/19 Rx albuterol sulfate 2.5 mg INHALATION Q6H PRN #90 ml 08/10/19 11/28/19 11/09/19 Rx alendronate 70 mg PO Q7D #5 tab 08/10/19 11/28/19 11/22/19 Rx carvedilol 3.125 mg PO BID 30 Days #30 tab 08/10/19 11/28/19 11/09/19 Rx furosemide 40 mg PO DAILY #30 tab 08/10/19 11/28/19 11/09/19 Rx glipizide 10 mg PO BID 30 Days #60 tab 08/10/19 11/28/19 11/09/19 Rx oxybutynin chloride 5 mg PO BID 30 Days #60 tab 08/10/19 11/28/19 11/09/19 Rx oxycodone-acetaminophen 1 tab PO Q8H PRN #30 tab 08/10/19 11/28/19 11/09/19 Rx potassium chloride 20 meq PO BID 30 Days #60 tab 08/10/19 11/28/19 11/10/19 Rx pregabalin 150 mg PO TID 30 Days #90 cap 08/10/19 11/28/19 11/09/19 Rx tramadol 50 mg PO TID PRN #30 tab 08/10/19 11/28/19 11/09/19 Rx trazodone 150 mg tablet 150 mg PO BEDTIME tab 11/08/19 11/28/19 11/08/19 Hi story ascorbic acid (vitamin C) 1,000 mg 1 gm PO BID #60 tab 11/09/19 11/28/19 11/10/19 Rx tablet methenamine hippurate 1 gram tablet 1 gm PO BID #60 tab 11/09/19 11/28/19 11/10/19 Rx esomeprazole magnesium [Nexium] 20 mg PO DAILY 11/10/19 11/28/19 11/10/19 History atorvastatin 20 mg PO DAILY 11/28/19 11/28/19 Unknown History levothyroxine 25 mcg PO DAILY 11/28/19 11/28/19 Unknown History Allergies Allergy/AdvReac Type Severity Reaction Status Date / Time TAPE Allergy ADR-Itching Uncoded 11/08/19 11:45 PFSH Acute PFSH: Medical History COPD (chronic obstructive pulmonary disease) Diabetes Diabetic peripheral neuropathy Dyslipidemia GERD (gastroesophageal reflux disease) -on PPI History of ESBL E. coli infection History of infection with vancomycin resistant Enterococcus (VRE) History of osteomyelitis HTN (hypertension) Hypothyroidism Lymphedema Morbid obesity Osteomyelitis Osteoporosis Overactive bladder Peripheral vascular disease -has known hx of PVD Status post hysteroscopy with D&C on 11/10/[address] Panda at [facility] Surgical History H/O thyroidectomy History of abdominal surgery Had a benign stomach tumor removed History of ankle surgery Left for fracture repair History of eye surgery Left History of foot surgery Right foot status post amputation of great and second toe History of hip surgery History of hysterectomy History of right breast biopsy History of surgery on extremity Left femur S/P excisional debridement Bilateral lower extremity wounds Family History Son Hypertension Denies family history of Diabetes Clotting disorder Hyperlipidemia Anesthesia complication Bleeding disorder Stroke Social History (Updated 11/28/19 @ 15:19 by Flaquita Wilkins MD) Smoking and tobacco status: former smoker Alcohol intake: never Lives independently: Yes Current occupational status: retired Vitals/I&O/Wt Last Vital Signs Temp 100 F H 11/28/19 09:06 Pulse 79 11/28/19 15:14 Resp 17 11/28/19 15:00 BP 138/74 11/28/19 15:00 Pulse Ox 94 11/28/19 15:14 11/28/19 11/28/19 11/28/19 06:59 14:59 22:59 Intake Total 200 / 200 Balance 200 / 200 Physical Exam Const: COMMON NORMALS: no acute distress GENERAL APPEARANCE: cooperative, comfortable, disheveled (poor hygiene) and lethargic (Awakens for brief periods of time) NUTRITIONAL APPEARANCE: obese morbidly obese ORIENTATION/CONSCIOUSNESS: Yes awake HENMT: COMMON NORMALS: normocephalic, atraumatic, hearing grossly normal bilaterally and moist oral mucous membranes HEAD & SCALP: normocephalic and atraumatic Eye: COMMON NORMALS: Equal, round and reactive pupils present, EOMs intact khurram aterally and conjunctivae normal CONJUNCTIVA: Yes conjunctivae normal PUPIL: Yes Equal, round and reactive pupils present Neck/C-Spine: COMMON NORMALS: full ROM GENERAL: Yes normal visual inspe ction and Yes trachea midline OTHER: Short, thick Resp: COMMON NORMALS: No retractions and No use of accessory muscles EFFORT & INSPECTION: Yes able to speak in complete sentences, Yes symmetric chest movement and Yes tachypneic OTHER: -Hypoxic, on 4 to 5 L nasal cannula, diminished breath sounds bilaterally though symmetrical air entry -Auscultation limited by body habitus Cardio: COMMON NORMALS: regular rate, regular rhythm, S1 normal heart sound present, S2 normal heart sound present and No murmurs present (Cardio) RATE: regular rate RHYTHM: regular rhythm HEART SOUNDS: S1 normal heart sound present and S2 normal heart sound present OTHER: -Auscultation limited by body habitus GI: COMMON NORMALS: Normal to inspection, nondistended, normoactive bowel sounds present, Soft to palpation and non-tender INSPECTION: Yes Abdominal wall edema Laterality: bilateral, Yes central obesity and Yes other (Diastasis recti) PALPATION: Yes Soft to palpation and Yes Hernia present umbilical : BLADDER/KIDNEY EXAM: Yes catheter in place Catheter type (Female): urethral SPECULUM EXAM - VAGINA: Yes vaginal bleeding Amount: scant Extremity: COMMON NORMALS: no clubbing, cyanosis or edema and no pedal edema NARRATIVE EXTREMITY EXAM: -Lymphedema wraps bilaterally (LE) Neuro: COMMON NORMALS: moves all extremities, no focal motor deficits and no sensory deficits noted SENSORIUM/ORIENTATION: Yes lethargic Psych: COMMON NORMALS: mental status grossly normal, Normal thought process present, cooperative, normal affect and speech normal SPEECH: Yes normal speech THOUGHT PROCESS: Normal thought process present Skin: COMMON NORMALS: no jaundice, no petechiae and no mottling NARRATIVE SKIN EXAM: -bilateral heels: noted large, well-circumscribed heel ulcer on R, foul-smelling drainage, good granulation tissue over most of the wound bed. L heel-smaller ulcer, no drainage -dry, flaky skin throughout -s/p great and second toe amputation (R) -noted erythema on bilateral gluteal area, stage 2 ulcer on gluteal cleft, sheer and moisture related breakdown on buttocks GENERAL SKIN EXAM: no rashes or lesions noted NAILS: dystrophic Urinary Catheter Management^: Lockhart: Cath Placed During This Visit: yes Reason for Continuing Indwelling Catheter: Acute Urinary Retention or Obstruction Urinary Catheter Date of Insertion: 11/28/19 Urinary Catheter Time of Insertion: 11:35 Data : 11/28/19 16:00 11/28/19 09:53 Micro: Microbiology 11/28/19 10:20 Blood Culture - Preliminary Blood SPECIMEN COLLECTED 11/28/19 09:53 Blood Culture - Preliminary Blood SPECIMEN COLLECTED A&P Assessment and plan (1) Respiratory failure with hypoxia and hypercapnia: -Quite somnolent during my evaluation in the ER, arousable but awake only for brief periods of time -Noted to be intermittently hypoxic even with her baseline oxygen requirement of 4 L, started on BiPAP -Noted hypercapnia and hypoxia on ABG -Close monitoring of respiratory status -Noted imaging including chest x-ray, CT chest which indicate atelectasis bilaterally -Likely secondary to acute COPD exacerbation -Received IV steroids in ER, continue this due to degree of hypoxia and diminished air entry -Duo nebs as needed, supplemental oxygen once able to wean off BiPAP Start on empiric azithromycin Status: Acute Qualifiers: Chronicity: acute on chronic Qualified Code(s): J96.21 - Acute and clinical product specialist sandra respiratory failure with hypoxia; J96.22 - Acute and chronic respiratory failure with hypercapnia (2) Acute alteration in mental status: -Likely secondary to hypercapnia and hypoxia -Fall precautions, aspiration precautions, reorient as needed Status: Acute (3) Acute exacerbation of chronic obstructive pulmonary disease: -As noted above Status: Acute (4) Abnormal vaginal bleeding: -s/p hysteroscopy with D&C on 11/10/[address] Panda, pathology shows benign findings but patient states that she has continued to have some vaginal bleeding following procedure and is noted to have some scant blood during my examination. -Noted anemia; computer systems auditor H&H closely, may need transfusion of blood products if continued drop and or symptomatic -If continued vaginal bleeding will require reassessment by gynecology Status: Chronic (5) UTI (urinary tract infection): -UA indicative of infection, positive for leukocyte esterase, pyuria, bacteria -Has history of ESBL Klebsiella -Received dose of Primaxin in ER, will continue this -f/u urine and blood cx -has known hx of recurrent UTIs -has been following up with Dr. Corey Status: Acute Qualifiers: Hematuria presence: with hematuria Urinary tract infection type: acute cystitis Qualified Code(s): N30.01 - Acute cystitis with hematuria (6) Hypothyroid: -TSH remains elevated though lower than it was previously (114->90) -Resume levothyroxine, increased dose to 50 mcg Status: Chronic Qualifiers: Hypothyroidism type: unspecified Qualified Code(s): E03.9 - Hypothyroi dism, unspecified (7) Chronic indwelling Lockhart catheter: -Changed in the ER today Status: Chronic (8) 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: -Surgery consult by Dr. Sudhakar arredondo -continue off loading, wound care -frequent repositioning, air mattress ordered due to additional sacal decubitus ulcers -daily lymphedema wraps Status: Chronic (9) Osteoporosis: -on Alendronate Status: Chronic Qualifiers: Osteoporosis type: unspecified Presence of current pathological fracture: without current pathological fracture Qualified Code(s): M81.0 - Age- related osteoporosis without current pathological fracture (10) Dyslipidemia: -resume statin Status: Chronic Additional A&P Information -Morbid obesity -GERD; resume PPI -HTN; monitor vital signs, resume antihypertensives -PVD hx -ANGELIC on CKD stage 2-3, baseline Cr <1, monitor renal function, renally dose meds, avoid nephrotoxins -NIDDM type II; A1c-9.2 (09/2019), Accucheks, hypoglycemia precautions, anticipate hyperglycemia with steroids, ISS; hold oral hypoglycemic agents -CLD for now, advance if respiratory status improves -GI ppx with PPI -DVT ppx with heparin, no SCDs due to wounds -Dispo: home with HH -Code status: FULL code, discussed at bedside -ICU admission due to high risk for decompensation Attestations Medical Necessity Statement*: Rachid Hagen's hospital stay will require greater than 2 midnights for management of acute on chronic hypoxic and hypercapnic respiratory failure, requiring BiPAP support, treatment of acute COPD exacerbation and UTI. Time Spent in Patient Care: Greater than 35 minutes (>than 50% of time spent in counselling and/or direct pt care on unit) . Coding Level of Care Code Acute Proof Operator for Chg Fwd Exam Comprehensive Diagnoses Respiratory failure with hypoxia and hypercapnia J96.21; J96.22 Chronicity: acute on chronic Acute alteration in mental status R41.82 Acute exacerbation of chronic obstructive pulmonary disease J44.1 Abnormal vaginal bleeding N93.9 UTI (urinary tract infection) N30.01 Hematuria presence: with hematuria Urinary tract infection type: acute cystitis Hypothyroid E03.9 Hypothyroidism type: unspecified Chronic indwelling Lockhart catheter Z97.8 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 L97.912; L97.922 Osteoporosis M81.0 Osteoporosis type: unspecified Presence of current pathological fracture: without current pathological fracture Dyslipidemia E78.5
--- NOTE | 2019-11-28 15:16 | ECG_ITS ---
[facility] Test Date: 2019-11-28 Pat Name: Rachid Hagen Department: Room: ICU09 Gender: Female Voice Systems Engineer: : 1945 Requested By: Shiela Garcia Order Number: [id number] Jeremie MD: Manuela Hughes M.D. Measurements Intervals [place] Rate: 78 P: 55 PA: 171 QRS: -20 QRSD: 110 T: 50 QT: 383 QTc: 439 Interpretive Statements SINUS RHYTHM WITH OCCASIONAL SUPRAVENTRICULAR PREMATURE COMPLEXES LOW QRS VOLTAGE IN PRECORDIAL LEADS Compared to ECG 11/28/2019 11:00:00 First degree AV block no longer present Intraventricular conduction delay no longer present Electronically Signed On 11-29-2019 8:21:33 CDT by Manuela Hughes M.D. [id number]
[2019-11-28 16:16] LABS: Hemoglobin 8.3 g/dL (11.5-15.3)
[2019-11-28 16:29] LABS: Troponin 5 6HR 67.49 ng/L (0-10)
--- NOTE | 2019-11-28 16:58 | PC.NURSE ---
chuck. from e.ramesh lymphedema tx. at home. dressings removed, will leave open for now for dr. guzman. lower extremities, glutel fold and posterior upper legs.
[2019-11-28] MEDS: azithromycin 500 MG in sodium chloride 0.9% 250 ML 250 MG IV (17:07)
[2019-11-28] MEDS: heparin 5,000 unit/mL INJ 1 mL 5000 UNIT SUBCUT (17:07)
[2019-11-28] MEDS: oxybutynin 5 mg Tablet PO (17:08)
[2019-11-28] MEDS: potassium chloride ER 10 mEq Tablet 20 MEQ PO (17:08)
[2019-11-28] MEDS: carvedilol 3.125 mg Tablet PO (17:08)
[2019-11-28 17:57] LABS: Glucose Point of Care 309 mg/dL (70-110)
--- NOTE | 2019-11-28 18:06 | P.CONIM_ITS ---
Providers/Reason For Consult Consulting Physican/Specialty*: Dr. Wilkins Reason for Consult*: Bilateral lower extremity wounds Attending Physician: Flaquita Wilkins MD Primary Care Provider: Srikanth Mars Jr, MD History of Present Illness History of Present Illness Rachid Hagen is a 73 year old female Review of Systems General: Reports: 10 or more systems reviewed and unremarkable except in HPI and below Meds/Allergies Home Medications and Allergies Home Medications Medication Instructions Recorded Confirmed Last Taken Type Januvia 100 mg PO DAILY 30 Days #30 tab 08/10/19 11/28/19 11/09/19 Rx albuterol sulfate 2.5 mg INHALATION Q6H PRN #90 ml 08/10/19 11/28/19 11/09/19 Rx alendronate 70 mg PO Q7D #5 tab 08/10/19 11/28/19 11/22/19 Rx carvedilol 3.125 mg PO BID 30 Days #30 tab 08/10/19 11/28/19 11/09/19 Rx furosemide 40 mg PO DAILY #30 tab 08/10/19 11/28/19 11/09/19 Rx glipizide 10 mg PO BID 30 Days #60 tab 08/10/19 11/28/19 11/09/19 Rx oxybutynin chloride 5 mg PO BID 30 Days #60 tab 08/10/19 11/28/19 11/09/19 Rx oxycodone-acetaminophen 1 tab PO Q8H PRN #30 tab 08/10/19 11/28/19 11/09/19 Rx potassium chloride 20 meq PO BID 30 Days #60 tab 08/10/19 11/28/19 11/10/19 Rx pregabalin 150 mg PO TID 30 Days #90 cap 08/10/19 11/28/19 11/09/19 Rx tramadol 50 mg PO TID PRN #30 tab 08/10/19 11/28/19 11/09/19 Rx trazodone 150 mg tablet 150 mg PO BEDTIME tab 11/08/19 11/28/19 11/08/19 History ascorbic acid (vitamin C) 1,000 mg 1 gm PO BID #60 tab 11/09/19 11/28/19 11/10/19 Rx tablet methenamine hippurate 1 gram tablet 1 gm PO BID #60 tab 0811/28/19 11/10/19 Rx esomeprazole magnesium [Nexium] 20 mg PO DAILY 11/10/19 11/28/19 11/10/19 History atorvastatin 20 mg PO DAILY 11/28/19 11/28/19 Unknown History cefdinir 300 mg PO BID 7 Days #14 cap 12/01/19 Unknown Rx fluticasone propion-salmeterol 1 inh INHALATION BID #60 each 12/01/19 Unknown Rx [Advair Diskus] levothyroxine 50 mcg PO DAILY #30 tab 12/01/19 Unknown Rx Allergies Allergy/AdvReac Type Severity Reaction Status Date / Time TAPE Allergy ADR-Itching Uncoded 11/08/19 11:45 Current Medications Current Medications Generic Name Dose Route Start Last Admin Trade Name Freq PRN Reason Stop Dose Admin Carvedilol 3.125 mg 11/28/19 18:00 11/28/19 17:08 Coreg PO 3.125 mg BID JOHANA Administration Heparin Sodium (Beef Lung) 5,000 unit 11/28/19 17:00 11/28/19 17:07 Heparin SUBCUT 5,000 unit Q12H JOHANA Administration Azithromycin 500 mg/ Sodium 250 mls @ 250 mls/hr 11/28/19 17:00 11/28/19 17:07 Chloride IV 250 mls/hr Q24H JOHANA Administration Protocol Methylprednisolone Sodium Succinate 60 mg 11/28/19 16:01 11/28/19 17:06 Solu-Medrol IVP 60 mg Q6H JOHANA Administration Oxybutynin Chloride 5 mg 11/28/19 18:00 11/28/19 17:08 Ditropan PO 5 mg BID JOHANA Administration Potassium Chloride 20 meq 11/28/19 18:00 11/28/19 17:08 Klor-Con 10 PO 20 meq BID JOHANA Administration PFSH Acute PFSH: Medical History COPD (chronic obstructive pulmonary disease) Diabetes Diabetic peripheral neuropathy Dyslipidemia GERD (gastroesophageal reflux disease) -on PPI History of ESBL E. coli infection History of infection with vancomycin resistant Enterococcus (VRE) History of osteomyelitis HTN (hypertension) Hypothyroidism Lymphedema Morbid obesity Osteomyelitis Osteoporosis Overactive bladder Peripheral vascular disease -has known hx of PVD Status post hysteroscopy with D&C on 11/10/[address] 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 History of hip surgery History of hysterectomy History of right breast biopsy History of surgery on extremity Left femur S/P excisional debridement Bilateral lower extremity wounds Family History Son Hypertension Denies family history of Diabetes Clotting disorder Hyperlipidemia Anesthesia complication Bleeding disorder Stroke Social History Smoking and tobacco status: former smoker Alcohol intake: never Lives independently: Yes Current occupational status: retired Vitals/I&O/Wt Last Vital Signs Temp 97.7 F 11/28/19 18:01 Pulse 85 11/28/19 17:45 Resp 17 11/28/19 17:45 BP 122/76 11/28/19 17:45 Pulse Ox 93 11/28/19 17:45 11/28/19 11/28/19 11/28/19 06:59 14:59 22:59 Intake Total 200 / 800 600 / 800 Output Total 175 / 175 Balance 200 / 625 425 / 625 Physical Exam Narrative: EXAM NARRATIVE: HEENT: Normocephalic Eye: Sclera /conjunctiva normal Abdomen: Soft to palpation Neurological: Oriented to place person and time Skin: Intact, bilateral lower extremity pedal edema, on the posterior aspect of the left heel: Wound is minimal necrotic tissue, right le x 9 cm wound, mi nimal necrotic tissue, no significant surrounding erythema Sacrum: Stage I decubitus ulcer measuring 4 x 5 cm Urinary Catheter Management^: Lockhart: Cath Placed During This Visit: yes Reason for Continuing Indwelling Catheter: Chronic Indwelling Urinary Catheter on Admission Urinary Catheter Date of Insertion: 11/28/19 Urinary Catheter Time of Insertion: 11:35 Data Micro: Micro: Microbiology 11/28/19 10:20 Blood Culture - Pr eliminary Blood SPECIMEN [facility] MANUEL 11/28/19 09:53 Blood Culture - Pr eliminary Blood SPECIMEN [facility] MANUEL A&P Assessment and plan (1) 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: 71-year-old female with multiple comorbidities with lymphedema and venous stasis ulcers on bilateral lower extremities as well as a decubitus ulcer on the sacrum Sacral decubitus ulcer:: Apply DuoDERM Right foot: Continue wet-to-dry once daily Left heel: Santyl cream and dry dressings Lymphedema wraps to be applied daily Patient has been getting wound care at home, continue that on discharge and follow-up with wound care as needed Status: Chronic Coding Level of Care Code Acute Fixture Relamper for Shamar Rivero Diagnoses 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 L97.912; L97.922
[2019-11-28] MEDS: oxyCODONE-APAP 5-325 mg Tablet 1 TAB PO (19:07)
[2019-11-28] MEDS: ipratropium-albuterol 3 mL Neb INHALATION (20:02)
--- NOTE | 2019-11-28 21:00 | PC.NURSE ---
Patient's bedside blood glucose is 431. Dr. Wilkins at bedside. Gave 16 units of insulin per sliding scale. No new orders at this time.
[2019-11-28 21:09] LABS: Glucose Point of Care 431 mg/dL (70-110)
[2019-11-28] MEDS: atorvastatin 40 mg Tablet 20 MG PO (21:13)
[2019-11-28] MEDS: pregabalin 150 mg Capsule PO (21:13)
[2019-11-28] MEDS: collagenase oint 30 gm 1 APPLIC TOPICAL (21:16)
[2019-11-29] VITALS (28 sets, daily range): BP systolic 106–140; BP diastolic 53–80; PULSE 58–74; RESP 2–23; TEMP 36.6–36.9; O2SAT 92–100
[2019-11-29] MEDS: ipratropium-albuterol 3 mL Neb INHALATION (03:49)
[2019-11-29 04:54] LABS: Basophils % 0.1 %; Hematocrit 31.3 % (37.0-47.0); Hemoglobin 9.2 g/dL (11.5-15.3); Lymphocytes # 0.8 10^3/uL (0.8-4.8); Lymphocytes % 11.9 %; Mean Corpuscular HGB Conc 29.4 g/dL (30.0-36.0); Mean Corpuscular Hemoglobin 29.3 pg (28.0-34.0); Mean Corpuscular Volume 99.7 fL (81-99); Mean Platelet Volume 11.4 fL (7.4-10.4); Monocytes # 0.2 10^3/uL (0.2-0.9); Monocytes % 2.7 %; Neutrophils # 5.85 10^3/uL (1.8-7.7); Neutrophils % 84.2 %; Nucleated Red Blood Cells % 0 %; Platelet Count 172 10^3/cmm (130-400); Red Blood Count 3.14 10^6/uL (4.1-5.3); Red Cell Distribution Width 14.8 % (12.1-15.1)
[2019-11-29] MEDS: heparin 5,000 unit/mL INJ 1 mL 5000 UNIT SUBCUT ×2 (05:00→18:20)
[2019-11-29 05:19] LABS: Magnesium 2.1 mg/dL (1.7-2.3)
[2019-11-29 05:20] LABS: Alanine Aminotransferase 11 U/L (0-33); Albumin Level 2.9 g/dL (3.5-5.2); Alkaline Phosphatase 110 IU/L (35-105); Anion Gap 13.8 (5-19); Aspartate Amino Transferase 13 U/L (0-32); Blood Urea Nitrogen 30 mg/dL (8-23); Calcium 8.3 mg/dL (8.5-10.5); Carbon Dioxide 30 mmol/L (22-29); Chloride 97 mmol/L (98-107); Globulin 4.4 g/dL (1.3-4.6); Glucose 318 mg/dL (65-115); Osmolality Calculated 291 mOsm/kg (285-295); Potassium 4.8 mmol/L (3.5-5.1); Sodium 136 mmol/L (136-145); Total Bilirubin 0.3 mg/dL (0.15-1.2); Total Protein 7.3 g/dL (6.6-8.7)
[2019-11-29] MEDS: potassium chloride ER 10 mEq Tablet 20 MEQ PO ×2 (08:29→18:21)
[2019-11-29] MEDS: pantoprazole DR 40 mg Tablet PO (08:29)
[2019-11-29] MEDS: FUROsemide 40 mg Tablet PO (08:29)
[2019-11-29] MEDS: carvedilol 3.125 mg Tablet PO ×2 (08:29→18:21)
[2019-11-29] MEDS: pregabalin 150 mg Capsule PO ×3 (08:29→21:53)
[2019-11-29] MEDS: levothyroxine 50 mcg Tablet PO (08:30)
[2019-11-29] MEDS: oxybutynin 5 mg Tablet PO ×2 (08:30→18:21)
[2019-11-29] MEDS: collagenase oint 30 gm 1 APPLIC TOPICAL (08:32)
--- NOTE | 2019-11-29 09:58 | USCV_ITS ---
Rachid Hagen Age: 73 Gender: F : 1945 Exam Date: 11/29/2019 11:25 Ordering Phys: eK Delarosa MD Technologist: Cleve Lopez Exam Location: [facility] [place] Indication: SOB BP: 132 / 80 HR: 69 Rhythm: Sinus Technical Quality: Fair MEASUREMENTS (Male / Female) Normal Values 2D ECHO LV Diastolic Diameter PLAX 4.9 cm 4.2 - 5.9 / 3.9 - 5.3 cm LV Systolic Diameter PLAX 3.6 cm IVS Diastolic Thickness 1.2 cm 0.6 - 1.0 / 0.6 - 0.9 cm IVS Systolic Thickness 1.3 cm LVPW Diastolic Thickness 1.1 cm 0.6 - 1.0 / 0.6 - 0.9 cm LVPW Systolic Thickness 1.5 cm LVOT Diameter 2.0 cm LV Ejection Fraction 2D Teich 50.6 % LV Ejection Fraction MOD 2C 53.0 % LV Ejection Fraction 2C AL 52.0 % LA Diameter 4.8 cm LA Width 4.5 cm LA Height 5.5 cm RA Width 4.0 cm RA Height 4.8 cm Aorta at Sinotubular Diameter 1.0 cm M-MODE LV Diastolic Diameter MM 4.8 cm 4.2 - 5.9 / 3.9 - 5.3 cm LV Systolic Diameter MM 2.9 cm LV Ejection Fraction MM Teich 70.8 % IVS Diastolic Thickness MM 1.1 cm 0.6 - 1.0 / 0.6 - 0.9 cm IVS Systolic Thickness MM 2.1 cm LVPW Diastolic Thickness MM 1.2 cm 0.6 - 1.0 / 0.6 - 0.9 cm LVPW Systolic Thickness MM 1.9 cm RV Diastolic Diameter MM 1.9 cm Aortic Annulus Diameter 2.9 cm LA Ao Ratio MM 1.6 MV E Point Septal Separation 1.0 cm DOPPLER AV Peak Velocity 106.0 cm/s LVOT Peak Velocity 81.0 cm/s AV Area Cont Eq vti 2.4 cm squared AV Area Cont Eq pk 2.4 cm squared MV Area PHT 5.0 cm squared Mitral E to A Ratio 1.2 MV E' Velocity 6.0 cm/s Mitral E to MV E' Ratio 11.8 Mitral E to LV E' Lateral Ratio 14.0 Mitral E to LV E' Septal Ratio 10.3 TR Peak Velocity 256.0 cm/s TR Peak Gradient 26.3 mmHg TV Peak E Velocity 87.0 cm/s Right Atrial Pressure 3.0 mmHg Pulmonary Artery Systolic Pressu 29.2 mmHg FINDINGS Left Ventricle Normal left ventricular size, systolic function and wall thickness, with no regional wall motion abnormalities. Left ventricular ejection fraction is estimated at 61 %. Grade II diastolic dysfunction, moderately elevated filling pressures. Right Ventricle Normal right ventricular size and systolic function. Right ventricular systolic pressure 29.2 mmHg. Right Atrium Normal right atrial size. Left Atrium Mildly increased left atrial size. Mitral Valve Mild mitral annular calcification. Mildly thickened mitral valve. No mitral valve stenosis. Trace mitral valve regurgitation. Aortic Valve Aortic valve not well visualized. No aortic valve stenosis. No aortic valve regurgitation. Tricuspid Valve Tricuspid valve not well visualized. Trace tricuspid valve regurgitation. Pulmonic Valve Structurally normal pulmonic valve. No significant pulmonary valve regurgitation. Pericardium No pericardial effusion. Aorta Normal size aortic root and proximal ascending aorta. CONCLUSIONS 1. Normal left ventricular size, systolic function and wall thickness, with no regional wall motion abnormalities. Left ventricular ejection fraction is estimated at 61 %. Grade II diastolic dysfunction, moderately elevated filling pressures. 2. Normal right ventricular size and systolic function. 3. Normal pulmonary artery pressure. 4. No pericardial effusion. Manuela Hughes MD (Electronically Signed) Final Date: 29 November 2019 12:51 S
[2019-11-29 17:31] LABS: Glucose Point of Care 327 mg/dL (70-110)
[2019-11-29 17:35] LABS: Glucose Point of Care 310 mg/dL (70-110)
[2019-11-29 17:35] LABS: Glucose Point of Care 289 mg/dL (70-110)
--- NOTE | 2019-11-29 18:01 | P.PN_ITS ---
Subjective Subjective: Interval history: no acute event overnight.Patient is hemodynamically stable and has needed BIPAP Support for most part of the day.H/H is stable , no vaginal bleeding reported.Currently tolerating feed. Our current plan is to transfer the patient to floor. Vitals/I&O/Wt Last Vital Signs Temp 98.4 F 11/29/19 15:00 Pulse 68 11/29/19 16:00 Resp 11 L 11/29/19 16:00 BP 132/80 11/29/19 16:00 Pulse Ox 94 11/29/19 16:00 11/29/19 11/29/19 11/29/19 06:59 14:59 22:59 Intake Total 800 / 800 Output Total 350 / 525 Balance -350 / 525 800 / 800 Weight last 48 hrs Weight 153.938 kg Physical Exam Const: COMMON NORMALS: patient oriented x3 HENMT: COMMON NORMALS: normocephalic, atraumatic, hearing grossly normal bilaterally and external ears normal HEAD & SCALP: normocephalic and atraumatic EXTERNAL EAR: Yes external ears normal Eye: COMMON NORMALS: no scleral icterus GENERAL EYE: appearance normal, both eyes and all related structures Chest: COMMONS NORMALS: normal inspection of the chest and normal palpation of entire chest wall CHEST: Yes Symmetrical chest wall rise Resp: COMMON NORMALS: normal respiratory effort, No retractions, No use of accessory muscles and clear to auscultation bilaterally EFFORT & INSPECTION: Yes symmetric chest movement AUSCULTATION: clear to auscultation bilaterally Cardio: COMMON NORMALS: regular rate, regular rhythm, S1 normal heart sound pr esent, S2 normal heart sound present, No gallops present (Cardio), No murmurs present (Cardio), No rub (Cardio) and Peripheral pulses 2+ throughout RATE: regular rate RHYTHM: regular rhythm HEART SOUNDS: S1 normal heart sound present and S2 normal heart sound present PERIPHERAL PULSES: Peripheral pulses 2+ throughout GI: COMMON NORMALS: Normal to inspection, nondistended, normoactive bowel sounds present, Soft to palpation, non-tender, No hepatosplenomegaly present and no masses AUSCULTATION: Yes normoactive bowel sounds PALPATION: Yes Soft to palpation and Yes No hepatosplenomegaly present RECTAL EXAM: deferred : COMMON NORMALS: Yes no CVA tenderness BLADDER/KIDNEY EXAM: Yes no CVA tenderness Back/Pelvis: COMMON NORMALS: no CVA tenderness Extremity: COMMON NORMALS: no clubbing, cyanosis or edema and no pedal edema Neuro: COMMON NORMALS: patient oriented x3 Urinary Catheter Management^: Lockhart: Cath Placed During This Visit: yes Reason for Continuing Indwelling Catheter: Chronic Indwelling Urinary Catheter on Admission Urinary Catheter Date of Insertion: 11/28/19 Urinary Catheter Time of Insertion: 11:35 Data : 11/29/19 04:33 11/29/19 04:33 Micro: Microbiology 11/28/19 10:20 Blood Culture - Preliminary Blood Gram positive cocci 11/28/19 09:53 Blood Culture - Preliminary Blood NEGATIVE TO DATE 11/28/19 09:53 Urine Culture - Preliminary Urine,Clean Catch Gram Negative Rods A&P Assessment and plan (1) Acute exacerbation of chronic obstructive pulmonary disease: -Close monitoring of respiratory status -Noted imaging including chest x-ray, CT chest which indicate atelectasis bilaterally -Likely secondary to acute COPD exacerbation -Received IV steroids in ER, continue this due to degree of hypoxia and diminished air entry -Duo nebs as needed, supplemental oxygen once able to wean off BiPAP Start on empiric azithromycin Status: Acute (2) Acute alteration in mental status: -Likely secondary to hypercapnia and hypoxia.Currently AO*3 Status: Acute (3) Hypothyroid: TSH remains elevated though lower than it was previously (114->90) -Resume levothyroxine, increased dose to 50 mcg Status: Chronic Qualifiers: Hypothyroidism type: unspecified Qualified Code(s): E03.9 - Hypothyroidism, unspecified (4) Postmenopausal bleeding: -s/p hysteroscopy with D&C on 11/10/[address] Panda, pathology shows benign findings but patient states that she has continued to have some vaginal bleeding following procedure and is noted to have some scant blood during my examination. -Noted anemia; clinical appeals auditor H&H closely, may need transfusion of blood products if continued drop and or symptomatic -If continued vaginal bleeding will require reassessment by gynecology. Status: Acute (5) Chronic indwelling Lockhart catheter: -Changed in the ER today Status: Chronic (6) Abnormal vaginal bleeding: -s/p hysteroscopy with D&C on 11/10/[address] Panda, pathology shows benign findings but patient states that she has continued to have some vaginal bleeding following procedure and is noted to have some scant blood during my examination. -Noted anemia; clinical appeals auditor H&H closely, may need transfusion of blood products if continued drop and or symptomatic -If continued vaginal bleeding will require reassessment by gynecology. Status: Chronic (7) UTI (urinary tract infection): UA indicative of infection, positive for leukocyte esterase, pyuria, ba cteria -Has history of ESBL Klebsiella -Received dose of Primaxin in ER, will continue this -f/u urine and blood cx -has known hx of recurrent UTIs -has been following up with Dr. Corey Status: Acute Qualifiers: Urinary tract infection type: acute cystitis Hematuria presence: with hematuria Qualified Code(s): N30.01 - Acute cystitis with hematuria Additional A&P Information -Morbid obesity -GERD; resume PPI -HTN; monitor vital signs, resume antihypertensives -PVD hx -ANGELIC on CKD stage 2-3, baseline Cr <1, monitor renal function, renally dose meds, avoid nephrotoxins -NIDDM type II; A1c-9.2 (09/2019), Accucheks, hypoglycemia precautions, anticipate hyperglycemia with steroids, ISS; hold oral hypoglycemic agents -CLD for now, advance if respiratory status improves -GI ppx with PPI -DVT ppx with heparin, no SCDs due to wounds Attestations Medical Necessity Statement*: copd exacerbation management Coding Level of Care Code Acute Early Childhood for Chg Fwd Diagnoses Acute exacerbation of chronic obstructive pulmonary disease J44.1 Acute alteration in mental status R41.82 Hypothyroid E03.9 Hypothyroidism type: unspecified Postmenopausal bleeding N95.0 Chronic indwelling Lockhart catheter Z97.8 Abnormal vaginal bleeding N93.9 UTI (urinary tract infection) N30.01 Urinary tract infection type: acute cystitis Hematuria presence: with hematuria
--- NOTE | 2019-11-29 18:06 | P.PN_ITS ---
Vitals/I&O/Wt Last Vital Signs Temp 98.4 F 11/29/19 15:00 Pulse 68 11/29/19 16:00 Resp 11 L 11/29/19 16:00 BP 132/80 11/29/19 16:00 Pulse Ox 94 11/29/19 16:00 11/29/19 11/29/19 11/29/19 06:59 14:59 22:59 Intake Total 800 / 800 Output Total 350 / 525 Balance -350 / 525 800 / 800 Weight last 48 hrs Weight 153.938 kg Physical Exam Urinary Catheter Management^: Lockhart: Cath Placed During This Visit: yes Reason for Continuing Indwelling Catheter: Chronic Indwelling Urinary Catheter on Admission Urinary Catheter Date of Insertion: 11/28/19 Urinary Catheter Time of Insertion: 11:35 Data : 11/29/19 04:33 11/29/19 04:33 Micro: Microbiology 11/28/19 10:20 Blood Culture - Preliminary Blood Gram positive cocci 11/28/19 09:53 Blood Culture - Preliminary Blood NEGATIVE TO DATE 11/28/19 09:53 Urine Culture - Preliminary Urine,Clean Catch Gram Negative Rods Coding Level of Care Code Acute Application Infrastructure Engineer for Shamar Rivero
[2019-11-29] MEDS: azithromycin 500 MG in sodium chloride 0.9% 250 ML 250 MG IV (18:24)
--- NOTE | 2019-11-29 19:24 | PC.NURSE ---
Shift summary: pt alert and oriented. Spent the day watching TV. NO c/o of pain. She has been on 4lpm/NC, same amount of oxygen as at home. VSS. Blood sugars have been high, > 300mg/dl, sliding scaled followed, she received greater tahn 10 units each time. Pt incontinent of BM once. Urine output 500ml. Dressing changes done this am on bilat heels as ordered. Dressing change and zinc oxide applied , done on bottom, as ordered. Transfer orders to [facility] received at end of shift. Report given to LEO Bautista.
--- NOTE | 2019-11-29 20:15 | PC.NURSE ---
Report given to LEO Mcmillan. Patient transported to room 258 via ICU bed. Patient safely transported to [facility] [place] bed. Nursing at bedside.
[2019-11-29 21:18] LABS: Glucose Point of Care 416 mg/dL (70-110)
[2019-11-29] MEDS: atorvastatin 40 mg Tablet 20 MG PO (21:52)
[2019-11-30] VITALS (9 sets, daily range): BP systolic 120–140; BP diastolic 69–79; PULSE 57–72; RESP 16–18; TEMP 34.4–36.9; O2SAT 93–96
[2019-11-30 00:41] LABS: Glucose Point of Care 353 mg/dL (70-110)
[2019-11-30] MEDS: heparin 5,000 unit/mL INJ 1 mL 5000 UNIT SUBCUT ×2 (04:33→17:02)
[2019-11-30 06:36] LABS: Glucose Point of Care 314 mg/dL (70-110)
[2019-11-30] MEDS: pregabalin 150 mg Capsule PO ×3 (08:00→21:27)
[2019-11-30] MEDS: levothyroxine 50 mcg Tablet PO (08:00)
[2019-11-30] MEDS: potassium chloride ER 10 mEq Tablet 20 MEQ PO ×2 (08:00→17:02)
[2019-11-30] MEDS: oxybutynin 5 mg Tablet PO ×2 (08:01→17:02)
[2019-11-30] MEDS: carvedilol 3.125 mg Tablet PO ×2 (08:01→17:02)
[2019-11-30] MEDS: pantoprazole DR 40 mg Tablet PO (08:01)
[2019-11-30] MEDS: FUROsemide 40 mg Tablet PO (08:01)
[2019-11-30] MEDS: collagenase oint 30 gm 1 APPLIC TOPICAL (09:24)
--- NOTE | 2019-11-30 10:03 | PC.NURSE ---
DRESSING CHANGE THIS NURSE CLEANED PATIENT'S BUTTOCK AND APPLIED NEW HYDRAFERA BLUE WITH OPSITE. THE LEFT HEEL WAS CLEANED AND A NEW OPTIOFOAM WITH SANTYL WAS APPLIED AND WRAPPED WITH KERLIX. THE RIGHT HEEL DRESSING WAS REMOVED AND NEW PACKING WAS PLACED, WET TO DRY DRESSING, WRAPPED WITH KERLIX.
--- NOTE | 2019-11-30 11:06 | P.PN_ITS ---
Subjective Subjective: Interval history: no acute event overnight.Patient is hemodynamically stable and has not needed BIPAP Support for most part of the day.H/H is stable , no vaginal bleeding reported.Currently tolerating feed.Has good urine output on 40 mg po lasix.solumedrol has been stopped.Blood culture 1 OF 2 BOTTLES positive for Coagulase negative staph likely CONTAMINANT.Urine culture GNR.She in on track to be discharged home possibly tomorrow. Vitals/I&O/Wt Last Vital Signs Temp 94 F L 11/30/19 07:43 Pulse 60 11/30/19 08:44 Resp 16 11/30/19 08:44 BP 134/75 11/30/19 07:43 Pulse Ox 94 11/30/19 08:44 11/29/19 11/30/19 11/30/19 22:59 06:59 14:59 Intake Total 650 / 1450 Output Total 500 / 500 400 / 900 Balance 150 / 950 -400 / 550 Weight last 48 hrs Weight 157.85 kg Weight 153.938 kg Physical Exam Const: COMMON NORMALS: patient oriented x3 HENMT: COMMON NORMALS: normocephalic, atraumatic, hearing grossly normal bilaterally and external ears normal HEAD & SCALP: normocephalic and atraumatic EXTERNAL EAR: Yes external ears normal Eye: COMMON NORMALS: no scleral icterus GENERAL EYE: appearance normal, both eyes and all related structures Chest: COMMONS NORMALS: normal inspection of the chest and normal palpation of entire chest wall CHEST: Yes Symmetrical chest wall rise Resp: COMMON NORMALS: normal respiratory effort, No retractions, No use of accessory muscles and clear to auscultation bilaterally EFFORT & INSPECTION: Yes symmetric chest movement AUSCULTATION: clear to auscultation bilaterally Cardio: COMMON NORMALS: regular rate, regular rhythm, S1 normal heart sound present, S2 normal heart sound present, No gallops present (Cardio), No murmurs present (Cardio), No rub (Cardio) and Peripheral pulses 2+ throughout RATE: regular rate RHYTHM: regular rhythm HEART SOUNDS: S1 normal heart sound present and S2 normal heart sound present PERIPHERAL PULSES: Peripheral pulses 2+ throughout GI: COMMON NORMALS: Normal to inspection, nondistended, normoactive bowel sounds present, Soft to palpation, non-tender, No hepatosplenomegaly present and no masses AUSCULTATION: Yes normoactive bowel sounds PALPATION: Yes Soft to palpation and Yes No hepatosplenomegaly present RECTAL EXAM: deferred : COMMON NORMALS: Yes no CVA tenderness BLADDER/KIDNEY EXAM: Yes no CVA tenderness Back/Pelvis: COMMON NORMALS: no CVA tenderness Extremity: COMMON NORMALS: no clubbing, cyanosis or edema and no pedal edema Neuro: COMMON NORMALS: patient oriented x3 Urinary Catheter Management^: Lockhart: Cath Placed During This Visit: yes Reason for Continuing Indwelling Catheter: Chronic Indwelling Urinary Catheter on Admission Urinary Catheter Date of Insertion: 11/28/19 Urinary Catheter Time of Insertion: 11:35 Data : 11/30/19 13:05 11/30/19 13:05 Micro: Microbiology 11/28/19 09:53 Urine Culture - Preliminary Urine,Clean Catch Gram Negative Rods 11/28/19 10:20 Blood Culture - Preliminary Blood Gram positive cocci 11/28/19 09:53 Blood Culture - Preliminary Blood NEGATIVE TO DATE A&P Assessment and plan (1) Acute exacerbation of chronic obstructive pulmonary disease: -Close monitoring of respiratory status -Noted imaging including chest x-ray, CT chest which indicate atelectasis bilaterally -Likely secondary to acute COPD exacerbation -Received IV steroids in ER, continue this due to degree of hypoxia and diminished air entry -Duo nebs as needed, supplemental oxygen once able to wean off BiPAP Start on empiric azithromycin Status: Acute (2) Acute alteration in mental status: -Likely secondary to hypercapnia and hypoxia.Currently AO*3 Status: Acute (3) Hypothyroid: TSH remains elevated though lower than it was previously (114->90) -Resume levothyroxine, increased dose to 50 mcg Status: Chronic Qualifiers: Hypothyroidism type: unspecified Qualified Code(s): E03.9 - Hypothyroidism, unspecified (4) Postmenopausal bleeding: -s/p hysteroscopy with D&C on 11/10/[address] Panda, pathology shows benign findings but patient states that she has continued to have some vaginal bleeding following procedure and is noted to have some scant blood during my examination. -Noted anemia; compliance auditor H&H closely, may need transfusion of blood products if continued drop and or symptomatic -If continued vaginal bleeding will require reassessment by gynecology. Status: Acute (5) Chronic indwelling Lockhart catheter: -Changed in the ER today Status: Chronic (6) Abnormal vaginal bleeding: -s/p hysteroscopy with D&C on 11/10/[address] Panda, pathology shows benign findings but patient states that she has continued to have some vaginal bleeding following procedure and is noted to have some scant blood during my examination. -Noted anemia; compliance auditor H&H closely, may need transfusion of blood products if continued drop and or symptomatic -If continued vaginal bleeding will require reassessment by gynecology. Status: Chronic (7) UTI (urinary tract infection): UA indicative of infection, positive for leukocyte esterase, pyuria, bacteria -Has history of ESBL Klebsiella -Received dose of Primaxin in ER, will continue this -f/u urine and blood cx -has known hx of recurrent UTIs -has been following up with Dr. 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, baseline Cr <1, monitor renal function, renally dose meds, avoid nephrotoxins -NIDDM type II; A1c-9.2 (09/2019), Accucheks, hypoglycemia precautions, anticipate hyperglycemia with steroids, ISS; hold oral hypoglycemic agents -CLD for now, advance if respiratory status improves -GI ppx with PPI -DVT ppx with heparin, no SCDs due to wounds Attestations Medical Necessity Statement*: She need hospital stay for CHF/COPD Exacerbation management Coding Level of Care Code Acute Housing Director for [facility] Fwd Exam Comprehensive Diagnoses Acute exacerbation of chronic obstructive pulmonary disease J44.1 Acute alteration in mental status R41.82 Hypothyroid E03.9 Hypothyroidism type: unspecified Postmenopausal bleeding N95.0 Chronic indwelling Lockhart catheter Z97.8 Abnormal vaginal bleeding N93.9 UTI (urinary tract infection) N30.01 Hematuria presence: with hematuria Urinary tract infection type: acute cystitis
[2019-11-30 11:53] LABS: Glucose Point of Care 322 mg/dL (70-110)
[2019-11-30 13:36] LABS: Basophils % 0.1 %; Hematocrit 31.1 % (37.0-47.0); Hemoglobin 9.1 g/dL (11.5-15.3); Lymphocytes # 0.7 10^3/uL (0.8-4.8); Lymphocytes % 9.2 %; Mean Corpuscular HGB Conc 29.3 g/dL (30.0-36.0); Mean Corpuscular Hemoglobin 29.1 pg (28.0-34.0); Mean Corpuscular Volume 99.4 fL (81-99); Mean Platelet Volume 11.6 fL (7.4-10.4); Monocytes # 0.2 10^3/uL (0.2-0.9); Monocytes % 3.3 %; Neutrophils % 85.6 %; Nucleated Red Blood Cells % 0 %; Platelet Count 216 10^3/cmm (130-400); Red Blood Count 3.13 10^6/uL (4.1-5.3); Red Cell Distribution Width 14.5 % (12.1-15.1); White Blood Count 7.3 10^3/uL (4.0-10.0)
[2019-11-30 13:55] LABS: Blood Urea Nitrogen 36 mg/dL (8-23); Calcium 7.5 mg/dL (8.5-10.5); Carbon Dioxide 29 mmol/L (22-29); Chloride 98 mmol/L (98-107); Glucose 345 mg/dL (65-115); Osmolality Calculated 295 mOsm/kg (285-295); Sodium 137 mmol/L (136-145)
[2019-11-30 14:06] LABS: Bilirubin Urine Neg (NEGATIVE); Blood Urine Neg (Negative); Glucose Urine UA Norm (Normal); Ketones Urine Negative (Negative); Leukocyte Esterase Urine Negative (Negative); Nitrate Urine Negative (Negative); Protein Urine Neg (Negative); Urine Appearance Clear (CLEAR); Urine Color Yellow (Yellow); Urobilinogen Urine Neg (Negative); pH Urine 6 (5-7)
[2019-11-30 14:21] LABS: Bacteria Urine 1+; Squamous Epithelial Cell Urine 0-4 (0-5); WBC Urine 0-4 /hpf (0-5)
[2019-11-30 14:22] LABS: Add Urine Culture? Yes; Amorphous Sediment Urine 1+; Hyaline Casts Urine 0-4; Mucus Urine 1+
[2019-11-30 16:43] LABS: Glucose Point of Care 306 mg/dL (70-110)
[2019-11-30] MEDS: azithromycin 500 MG in sodium chloride 0.9% 250 ML 250 MG IV (17:00)
[2019-11-30] MEDS: ipratropium-albuterol 3 mL Neb INHALATION (20:27)
[2019-11-30] MEDS: atorvastatin 40 mg Tablet 20 MG PO (21:27)
[2019-11-30 21:28] LABS: Glucose Point of Care 302 mg/dL (70-110)
[2019-12-01] VITALS (10 sets, daily range): BP systolic 100–135; BP diastolic 58–85; PULSE 48–64; RESP 16–18; TEMP 36.4–37.1; O2SAT 88–97
[2019-12-01] MEDS: heparin 5,000 unit/mL INJ 1 mL 5000 UNIT SUBCUT ×2 (04:11→17:08)
[2019-12-01 06:13] LABS: Glucose Point of Care 192 mg/dL (70-110)
--- NOTE | 2019-12-01 09:23 | PC.SOCIAL ---
IMM Update Pg. 2 of IMM Updated and reviewed with patient. Copy provided at this time.
[2019-12-01] MEDS: FUROsemide 40 mg Tablet PO (10:03)
[2019-12-01] MEDS: pregabalin 150 mg Capsule PO ×3 (10:03→23:15)
[2019-12-01] MEDS: potassium chloride ER 10 mEq Tablet 20 MEQ PO ×2 (10:04→18:04)
[2019-12-01] MEDS: carvedilol 3.125 mg Tablet PO ×2 (10:04→18:04)
[2019-12-01] MEDS: pantoprazole DR 40 mg Tablet PO (10:04)
[2019-12-01] MEDS: oxybutynin 5 mg Tablet PO ×2 (10:04→18:05)
[2019-12-01] MEDS: levothyroxine 50 mcg Tablet PO (10:04)
[2019-12-01] MEDS: collagenase oint 30 gm 1 APPLIC TOPICAL (10:06)
[2019-12-01 11:38] LABS: Glucose Point of Care 188 mg/dL (70-110)
--- NOTE | 2019-12-01 14:10 | PM.DCS ---
Discharge Providers Date of Admission: 11/28/19 15:02 Date of Discharge: December 01, 2019 Attending Provider at Admission: Flaquita Wilkins MD Attending Provider at Discharge: Mustapha Ames MD Primary Care Provider: Srikanth Mars Jr, MD Diagnoses at Discharge Discharge Diagnosis (1) Acute exacerbation of chronic obstructive pulmonary disease: Status: Acute (2) Acute alteration in mental status: Status: Acute (3) Hypothyroid: Status: Chronic Qualifiers: Hypothyroidism type: unspecified Qualified Code(s): E03.9 - Hypothyroidism, unspecified (4) Postmenopausal bleeding: Status: Acute (5) Chronic indwelling Lokchart catheter: Status: Chronic (6) Abnormal vaginal bleeding: Status: Chronic (7) UTI (urinary tract infection): Status: Acute Problem details: History of recurrent UTIs. Found to have ESBL Klebsiella July 2019. Initiated Methenamine Hippurate plus vitamin C for UTI suppression October 2019. Qualifiers: Hematuria presence: with hematuria Urinary tract infection type: acute cystitis Qualified Code(s): N30.01 - Acute cystitis with hematuria Reason for Visit Reason for Visit: SOB Hospital Course Hospital Course: Rachid presented to the hospital on November 27. At that time she was having some intermittent fevers, shortness of breath, and required BiPAP. She has an indwelling catheter and there was concern for UTI. She was placed on IV antibiotics consisting of Primaxin. She received breathing treatments for COPD exacerbation as well as some Zithromax. CT chest did not indicate pneumonia. Throughout her current hospital course she made gradual improvement. She remained afebrile while in the hospital. When I saw her on November 30 it appeared she was ready for discharge. She was on 3 L of oxygen per nasal cannula, and a home oxygen evaluation was ordered. She typically uses 2 L at home. We will continue 1 more day of Zithromax. She will be sent home on a course of cefdinir for urine culture on November 27 showing low count of Proteus mirabilis. She will resume her home health. Physical Exam Narrative: EXAM NARRATIVE: General exam no apparent distress Cardiovascular regular in rhythm Lungs clear but with diminished breath sounds bilaterally Abdomen is soft, obese. Positive bowel sounds Extremities no cyanosis clubbing or edema Urinary Catheter Management^: Lockhart: Cath Placed During This Visit: yes Reason for Continuing Indwelling Catheter: Chronic Indwelling Urinary Catheter on Admission Urinary Catheter Date of Insertion: 11/28/19 Urinary Catheter Time of Insertion: 11:35 Discharge Data Data Completed and Pending: Completed Studies During Hospitalization Category Date Time Status CT angio chest w abd pel w con Stat Cat Scan 11/28/19 10:[address] head wo con* 7 0450 Stat Cat Scan 11/28/19 10:54 Completed XR chest 1V alejandro ble [id number] Stat Exams 11/28/19 09:14 Completed CV echo complete* [id number] Routine Ultrasound 11/29/19 09:58 Completed Pending at discharge Category Date Time Status Blood Culture Sta t Lab 11/28/19 10:20 Results Urine Culture Sta t Lab 11/30/19 13:40 Results Labs from last 24 hours 12/01/19 12/01/19 11/30/19 11:19 06:04 21:04 POC Glucose 188 192 302 Urine Color Urine Appearance Urine pH Ur Specific Gravit y Urine Protein Urine Glucose (UA) Urine Ketones Urine Blood Urine Nitrate Urine Bilirubin Urine Urobilinogen Ur Leukocyte Massiel ase Urine RBC Urine WBC Ur Squamous Epith Cells Amorphous Sediment Urine Bacteria Hyaline Casts Urine Mucus 11/30/19 11/30/19 16:40 13:40 POC Glucose 306 Urine Color Yellow Urine Appearance Clear Urine pH 6 Ur Specific Gravit y 1.010 Urine Protein Neg Urine Glucose (UA) Norm Urine Ketones Negative Urine Blood Neg Urine Nitrate Negative Urine Bilirubin Neg Urine Urobilinogen Neg Ur Leukocyte Massiel ase Negative Urine RBC None Urine WBC 0-4 H Ur Squamous Epith Cells 0-4 H Amorphous Sediment 1+ Urine Bacteria 1+ H Hyaline Casts 0-4 H Urine Mucus 1+ Vitals: Last Vital Signs Temp 97.6 F 12/01/19 11:20 Pulse 58 L 12/01/19 11:20 Resp 16 12/01/19 12:00 BP 135/85 12/01/19 11:20 Pulse Ox 96 12/01/19 11:20 Discharge Plan Discharge Patient Disposition: Home Health Service Condition: Stable Prescriptions: New azithromycin [Zithromax] 500 mg tablet 500 mg PO DAILY 1 Days Qty: 1 RF: 0 levothyroxine 50 mcg Tablet 50 mcg PO DAILY Qty: 30 RF: 0 fluticasone propion-salmeterol [Advair Diskus] 250-50 mcg/dose blister with device 1 inh INHALATION BID Qty: 60 RF: 0 cefdinir 300 mg capsule 300 mg PO BID 7 Days Qty: 14 RF: 0 Continued ascorbic acid (vitamin C) 1,000 mg tablet 1 gm PO BID Qty: 60 RF: 6 methenamine hippurate 1 gram tablet 1 gm PO BID Qty: 60 RF: 6 Hold Instructions: another antibiotic given trazodone 150 mg tablet 150 mg PO BEDTIME RF: 0 esomeprazole magnesium [Nexium] 20 mg capsule,delayed release(DR/EC) 20 mg PO DAILY RF: 0 furosemide 40 mg tablet 40 mg PO DAILY Qty: 30 RF: 0 carvedilol 6.25 mg tablet 3.125 mg PO BID 30 Days Qty: 30 RF: 0 glipizide 10 mg tablet 10 mg PO BID 30 Days Qty: 60 RF: 0 alendronate 70 mg tablet 70 mg PO Q7D Qty: 5 RF: 0 tramadol 50 mg tablet 50 mg PO TID PRN (Reason: Pain) Qty: 30 RF: 0 oxycodone-acetaminophen 5-325 mg tablet 1 tab PO Q8H PRN (Reason: Pain) Qty: 30 RF: 0 potassium chloride 20 mEq tablet,ER particles/crystals 20 meq PO BID 30 Days Qty: 60 RF: 0 oxybutynin chloride 5 mg tablet 5 mg PO BID 30 Days Qty: 60 RF: 0 pregabalin 150 mg capsule 150 mg PO TID 30 Days Qty: 90 RF: 0 Januvia 100 mg Tablet 100 mg PO DAILY 30 Days Qty: 30 RF: 0 albuterol sulfate 2.5 mg /3 mL (0.083 %) solution for nebulization 2.5 mg INHALATION Q6H PRN (Reason: shortness of breath or wheezing) Qty: 90 RF: 0 atorvastatin 20 mg Tablet 20 mg PO DAILY RF: 0 Discontinued levothyroxine 25 mcg Tablet 25 mcg PO DAILY RF: 0 Discharge Orders: Discharge Order (Routine); Ordered 12/01/19 Ordered By: Mustapha Ames Referrals: [facility] [place]Outside] [facility] [place] Home Care ([facility]) [Outside] Luis Armando De La Fuente MD [Physician] - 1 week (Follow up in wound clinic) Srikanth Mars Jr, MD [Primary Care Provider] - 12/10/19 9:30 am Discharge Diet: Cardiac and Diabetic Discharge Activity: Increase activity as tolerated Activity Restrictions/Additional Instructions: Follow-up with primary care provider 3 to 5 days TSH 6 weeks CBC BMP on follow-up Wound care instructions per Dr. De La Fuente, with follow-up with wound care per their instruction. Keep appts with property claim rep and urology. Discharge Attestations Time Spent in Discharge Care*: greater than 30 min Status at Discharge: Cognitive status at discharge: cognitively intact, Behavioral status at discharge: cooperative, Quality Metrics Clinical Quality Measures During this hospital stay, did patient experience: None Coding Level of Care Code Acute Epic Manager for [facility] Fwd Diagnoses Acute exacerbation of chronic obstructive pulmonary disease J44.1 Acute alteration in mental status R41.82 Hypothyroid E03.9 Hypothyroidism type: unspecified Postmenopausal bleeding N95.0 Chronic indwelling Lockhart catheter Z97.8 Abnormal vaginal bleeding N93.9 UTI (urinary tract infection) N30.01 Hematuria presence: with hematuria Urinary tract infection type: acute cystitis
--- NOTE | 2019-12-01 15:30 | PC.NURSE ---
Yanna Stephens patient's daughter called and asked to speak to her mother's doctor who is Dr. Ames today. Sahara gave his telegraphic typewriter mechanic verbal permission to talk to her daughter and Dr. Ames was notified that daughter wanted to speak to him. Patient's daughter states that patient is already on home oxygen at home on 2 liters.
[2019-12-01 16:34] LABS: Glucose Point of Care 211 mg/dL (70-110)
[2019-12-01] MEDS: azithromycin 500 MG in sodium chloride 0.9% 250 ML 250 MG IV (17:10)
[2019-12-01] MEDS: oxyCODONE-APAP 5-325 mg Tablet 1 TAB PO (18:07)
[2019-12-01 21:47] LABS: Glucose Point of Care 241 mg/dL (70-110)
[2019-12-01] MEDS: trazodone 150 mg Tablet PO (23:16)
[2019-12-01] MEDS: atorvastatin 40 mg Tablet 20 MG PO (23:21)
[2019-12-02] VITALS: BP 111/65; PULSE 55; RESP 18; TEMP 36.6; O2SAT 94
[2019-12-02 04:00] VITALS: BP 119/65; PULSE 60; RESP 17; TEMP 37.2; O2SAT 94
[2019-12-02] MEDS: heparin 5,000 unit/mL INJ 1 mL 5000 UNIT SUBCUT (05:23)
[2019-12-02 06:33] LABS: Glucose Point of Care 135 mg/dL (70-110)
[2019-12-02 07:30] VITALS: BP 122/77; PULSE 60; RESP 16; TEMP 36.6; O2SAT 94
[2019-12-02 08:30] VITALS: PULSE 66; RESP 16; O2SAT 93
--- NOTE | 2019-12-02 08:57 | P.PN_ITS ---
Subjective Subjective: Interval history: Patient reports no problems overnight. From her understanding, and mine she was not discharged as she did not have transportation. This note should serve as an addendum to her discharge summary. Medications: Reviewed: Yes Vitals/I&O/Wt Last Vital Signs Temp 97.8 F 12/02/19 07:30 Pulse 66 12/02/19 08:30 Resp 16 12/02/19 08:30 BP 122/77 12/02/19 07:30 Pulse Ox 93 12/02/19 08:30 12/01/19 12/02/19 12/02/19 22:59 06:59 14:59 Intake Total 730 / 1330 Output Total 1900 / 1900 750 / 2650 Balance -1170 / -570 -750 / -1320 Weight last 48 hrs Weight 151.642 kg Weight 156.217 kg Physical Exam Narrative: EXAM NARRATIVE: General exam no apparent distress Cardiovascular regular in rhythm Lungs clear but with diminished breath sounds bilaterally Abdomen is soft, obese. Positive bowel sounds Extremities no cyanosis clubbing. 1+ edema unchanged from yesterday as noted. Dressings are present bilateral lower extremities. Urinary Catheter Management^: Lockhart: Cath Placed During This Visit: yes Reason for Continuing Indwelling Catheter: Chronic Indwelling Urinary Catheter on Admission Urinary Catheter Date of Insertion: 11/28/19 Urinary Catheter Time of Insertion: 11:35 Data : 11/30/19 13:05 11/30/19 13:05 Micro: Microbiology 11/30/19 13:40 Urine Culture - Preliminary Urine,Clean Catch Gram Negative Rods Gram Negative Rods#2 11/28/19 09:53 Urine Culture - Final Urine,Clean Catch Proteus mirabilis A&P Assessment and plan (1) Acute exacerbation of chronic obstructive pulmonary disease: Greatly improved. Ready for discharge today. Will finish up course of cefdinir at home. Status: Acute (2) Acute alteration in mental status: Resolved. Likely secondary to hypoxia. Status: Acute (3) Hypothyroid: Discharge on higher dose of levothyroxine secondary to TSH Status: Chronic Qualifiers: Hypothyroidism type: unspecified Qualified Code(s): E03.9 - Hypothyroidism, unspecified (4) Postmenopausal bleeding: Has follow-up with gynecology Status: Acute (5) Chronic indwelling Lockhart catheter: Change this to hospital stay Status: Chronic (6) Abnormal vaginal bleeding: See notations above Status: Chronic (7) UTI (urinary tract infection): Recent urine culture demonstrated Proteus. Discharged on cefdinir. Status: Acute Qualifiers: Urinary tract infection type: acute cystitis Hematuria presence: with hematuria Qualified Code(s): N30.01 - Acute cystitis with hematuria Additional A&P Information Sitting GERD Hypertension Type 2 diabetes Attestations Medical Necessity Statement*: Not applicable, discharged today. Coding Level of Care Code Acute Guest Services Officer for [facility] Fwd Diagnoses Acute exacerbation of chronic obstructive pulmonary disease J44.1 Acute alteration in mental status R41.82 Hypothyroid E03.9 Hypothyroidism type: unspecified Postmenopausal bleeding N95.0 Chronic indwelling Lockhart catheter Z97.8 Abnormal vaginal bleeding N93.9 UTI (urinary tract infection) N30.01 Urinary tract infection type: acute cystitis Hematuria presence: with hematuria
--- NOTE | 2019-12-02 10:45 | PC.NURSE ---
Reviewed patient's discharge with patient at this time. Patient verbalized understanding of follow up appointments and follow up medication. Patient has her belongings with including her own [place] lift pad and cell phone with roving changer and glasses and dentures. Patient is A&Ox3. Respirations even and non-labored on 2 liter oxygen. Patient Lockhart catheter is still in place and was changed on 11/28/19 in the emergency room. Dressings to her bottom and bilateral heals changed today before she left. Siddharth Sheppard and Peter sent home with patient as well. Patient transported home by [facility] and medicaid transport.
[2019-12-02 11:02] VITALS: BP 122/77; PULSE 66; RESP 16; TEMP 36.4; O2SAT 93
--- NOTE | 2019-12-02 13:09 | PC.RESP ---
Pulmonary rehab information sent to patient.
== END 2019-12-02 10:50 | disposition home health service (06) | DRG 190 ==
LOC: ER 13:18 → ICU 15:16 → MEDSURG 11-29 20:15
PROVIDERS: Emergency Medicine; Internal Medicine; Admitting Provider Family Medicine; PCP Family Medicine; Visit Provider Internal Medicine
DX: J44.1 Chronic obstructive pulmonary disease with (acute) exacerbation (principal); J96.22 Acute and chronic respiratory failure with hypercapnia; L89.613 Pressure ulcer of right heel, stage 3; J96.21 Acute and chronic respiratory failure with hypoxia; N30.01 Acute cystitis with hematuria; T83.518A Infection and inflammatory reaction due to other urinary catheter, initial encounter; L97.912 Non-pressure chronic ulcer of unspecified part of right lower leg with fat layer exposed; L97.922 Non-pressure chronic ulcer of unspecified part of left lower leg with fat layer exposed; Z68.43 Body mass index [BMI] 50.0-59.9, adult; N17.9 Acute kidney failure, unspecified; E03.9 Hypothyroidism, unspecified; M81.0 Age-related osteoporosis without current pathological fracture; E78.5 Hyperlipidemia, unspecified; L89.152 Pressure ulcer of sacral region, stage 2; L89.622 Pressure ulcer of left heel, stage 2; N95.0 Postmenopausal bleeding; Z96.0 Presence of urogenital implants; E11.42 Type 2 diabetes mellitus with diabetic polyneuropathy; K21.9 Gastro-esophageal reflux disease without esophagitis; E11.51 Type 2 diabetes mellitus with diabetic peripheral angiopathy without gangrene; E66.01 Morbid (severe) obesity due to excess calories; Z87.891 Personal history of nicotine dependence; E78.2 Mixed hyperlipidemia; N18.3 Chronic kidney disease, stage 3 (moderate); E11.22 Type 2 diabetes mellitus with diabetic chronic kidney disease; I12.9 Hypertensive chronic kidney disease with stage 1 through stage 4 chronic kidney disease, or unspecified chronic kidney disease
CPT/HCPCS: 12345; 36415; 36416; 36600; 51702; 70450; 71045; 71275; 74177; 80048; 80053; 81001; 82140; 82803; 82962; 83605; 83690; 83735; 83880; 84443; 84484; 85014; 85018; 85025; 85610; 86850; 86900; 87040; 87077; 87086; 87186; 87205; 87426; 87804; 93005; 93306; 94640; 94660; 96372; 96375; 99284; J0131; J0456; J0743; J1644; J1815; J2930; J7050; Q9967

== ENCOUNTER 2020-04-18 09:53 | Inpatient (IN) | payer MEDICARE, MEDICAID, SELFPAY ==
[2020-04-18] VITALS (21 sets, daily range): BP systolic 118–155; BP diastolic 61–81; PULSE 65–86; RESP 14–22; TEMP 37.1–37.2; O2SAT 80–98; BMI 41.9
--- NOTE | 2020-04-18 10:31 | XR_ITS ---
WS: [id number] Exam: XR chest 1V portable [id number] Date/Time of Exam: 04/18/2020 10:31 AM Reason For Exam: dyspnea/cough Comparison 11/28/2019. There is consolidating infiltrate in the left retrocardiac region. There is also mild airspace infilt rate in the right lower lung zone. Heart size is normal for technique. The lungs are fully inflated. No pleural effusions. The mediastinum and bony thorax are unremarkable. XR/XR chest 1V portable [id number] IMPRESSION: 1. Consolidating infiltrate in the left lower lobe. There is also infiltrate in the right lower lung zones. These findings suggest pneumonia.
[2020-04-18 10:33] LABS: Glucose Point of Care 148 mg/dL (70-110)
--- NOTE | 2020-04-18 10:34 | ED_ITS ---
HPI - SOB/Dyspnea General: Chief Complaint: Upper Respiratory Infection Stated Complaint: DIFF BREATHING X 4 DAYS Time Seen by Provider: 04/18/20 09:53 History of Present Illness: HPI Narrative: 74-year-old female who presents emergency room with complaint of shortness of breath and productive cough progressively worsening over the last 4 days. Some loose stools initially no vomiting. She denies chest pain. Has had increasing shortness of breath and productive cough. Denies abdominal pain. She is usually on oxygen has been increasing oxygen needs the last few days. MD elicited complaint: shortness of breath and cough Pertinent past history: COPD and congestive heart failure Onset (ago): day(s) (4) Severity: moderate Exacerbating factors: exertion and coughing Associated symptoms: Reports chest congestion and cough; Deny abdominal pain, chest pain, diaphoresis, dizziness, extremity pain, fever(s), hemoptysis, lightheadedness, myalgias, nausea, orthopnea, palpitations, paresthesias, polydipsia, polyuria, rash, sense of impending doom, syncope or vomiting Treatment prior to arrival: oxygen Review of Systems Const: Denies: fever(s) or diaphoresis ENMT: Denies: throat pain, ear or mastoid pain, nasal discharge or nasal congestion Card: Denies: chest pain, palpitations, lightheadedness, syncope or orthopnea Resp: Reports: chest congestion; Denies: hemoptysis GI: Denies: abdominal pain, nausea or vomiting : Denies: flank pain, difficulty voiding, dysuria, urinary frequency or urinary urgency Musc: Denies: extremity pain Skin/Breast: Denies: rash or pruritus Neuro: Denies: dizziness Endo: Denies: polyuria or polydipsia PFSH ED PFSH: Medical History COPD (chronic obstructive pulmonary disease) Diabetes Diabetic peripheral neuropathy Dyslipidemia GERD (gastroesophageal reflux disease) -on PPI History of ESBL E. coli infection History of infection with vancomycin resistant Enterococcus (VRE) History of osteomyelitis HTN (hypertension) Hypothyroidism Lymphedema Morbid obesity Osteomyelitis Osteoporosis Overactive bladder Peripheral vascular disease -has known hx of PVD Status post hysteroscopy with D&C on 11/10/[address] 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 History of hip surgery History of hysterectomy History of right breast biopsy History of surgery on extremity Left femur S/P excisional debridement Bilateral lower extremity wounds Family History Son Hypertension Denies family history of Diabetes Clotting disorder Hyperlipidemia Anesthesia complication Bleeding disorder Stroke Social History Smoking and tobacco status: former smoker Alcohol intake: never Lives independently: Yes Current occupational status: retired Physical Exam Const: COMMON NORMALS: no acute distress GENERAL APPEARANCE: cooperative and comfortable ORIENTATION/CONSCIOUSNESS: Yes awake, Yes oriented to person, Yes oriented to place and Yes oriented to time HENMT: COMMON NORMALS: normocephalic, atraumatic and hearing grossly normal bilaterally HEAD & SCALP: normocephalic and atraumatic Neck/C-Spine: COMMON NORMALS: no JVD Resp: EFFORT & INSPECTION: Yes abnormal respiratory pattern, Yes tachypneic, Yes respiratory distress and Yes pursed lip breathing AUSCULTATION: rhonchi and wheezes Cardio: COMMON NORMALS: no JVD, regular rate, regular rhythm and No murmurs present (Cardio) RATE: regular rate RHYTHM: regular rhythm GI: COMMON NORMALS: Soft to palpation and No hepatosplenomegaly present AUSCULTATION: Yes normoactive bowel sounds PALPATION: Yes Soft to palpation, No Tenderness to palpation present (GI), No Guarding due to palpation present (GI) and Yes No hepatosplenomegaly present Extremity: COMMON NORMALS: normal to inspection, capillary refill normal, no clubbing, cyanosis or edema, no calf tenderness and no pedal edema Neuro: SENSORIUM/ORIENTATION: Yes oriented to person, Yes oriented to place and Yes oriented to time Skin: COMMON NORMALS: no rashes or lesions noted GENERAL SKIN EXAM: no rashes or lesions noted Course Vital Signs: Vital signs: Vital Signs Temperature 98.3 F 04/19/20 04:00 Pulse Rate 67 04/19/20 09:00 Respiratory Rate 15 04/19/20 09:00 Blood Pressure 142/75 04/19/20 09:00 Pulse Oximetry 95 04/19/20 09:00 MDM - SOB/Dyspnea MDM Narrative: Medical decision making narrative: Patient respiratory distress on BiPAP is somewhat improved. We will go ahead and admit her, she is positive for Covid as well. She also has a cystitis and a decubitus ulcer on the sacrum. Discussed with Dr. Ames orders are written. Lab Data: Labs: Lab Results 04/18/20 04/18/20 04/18/20 Range/Units 10:26 10:26 10:26 WBC 9.1 (4.0-10.0) 10^3/ uL RBC 3.28 L (4.1-5.3) 10^6/u L Hgb 9.1 L (11.5-15.3) g/dL Hct 31.5 L (37.0-47.0) % MCV 96.0 (81-99) fL MCH 27.7 L (28.0-34.0) pg MCHC 28.9 L (30.0-36.0) g/dL RDW 16.2 H (12.1-15.1) % Plt Count 252 (130-400) 10^3/c mm MPV 10.1 (7.4-10.4) fL Neut % (Auto) 79.3 % Lymph % (Auto) 10.6 % Bladen % (Auto) 7.5 % Eos % (Auto) 1.0 % Baso % (Auto) 0.2 % Neut # (Auto) 7.18 (1.8-7.7) 10^3/u L Lymph # (Auto) 1.0 (0.8-4.8) 10^3/u L Bladen # (Auto) 0.7 (0.2-0.9) 10^3/u L Eos # (Auto) 0.1 (0.0-0.8) 10^3/u L Baso # (Auto) 0.0 (0.0-0.1) 10^3/u L Nucleated RBC % (a uto) 0 % Nucleated RBCs # 0.0 /100WBC Specimen Type Sample Site ABG pH (7.35-7.45) ABG pCO2 (35-45) mmHg ABG pO2 (80.0-100.0) mmH g ABG HCO3 (22-26) mmol/L ABG O2 Saturation ABG Base Excess (-2.0-2.0) mmol/ L Rafa Test A-a O2 Gradient (5-10) mmHg Hematocrit (37-47) % Hgb O2 Saturation (95-100) % Carboxyhemoglobin (0.4-20.1) %THgb Methemoglobin (0.4-1.5) % Total Hemoglobin (12-16) g/dL Ionized Calcium (1.1-1.4) mmol/L O2 Delivery Device O2 Liters/Min % FiO2 % Leather Cartridge Belt Maker ID Sodium 137 (136-145) mmol/L Potassium 4.1 (3.5-5.1) mmol/L Chloride 96 L (98-107) mmol/L Carbon Dioxide 34 H (22-29) mmol/L Anion Gap 11.1 (5-19) BUN 27 H (8-23) mg/dL Creatinine 0.9 (0.5-0.9) mg/dL GFR Calculation Not Reportable Glucose 145 H (65-115) mg/dL POC Glucose (70-110) mg/dL Calculated Osmolal ity 292 (285-295) mOsm/k g Lactic Acid 0.6 (0.5-2.2) mmol/L Calcium 8.8 (8.5-10.5) mg/dL Magnesium 1.8 (1.7-2.3) mg/dL Total Bilirubin 0.3 (0.15-1.2) mg/dL AST 9 (0-32) U/L ALT 9 (0-33) U/L Alkaline Phosphata se 92 (35-105) IU/L Creatine Kinase 31 (26-192) U/L Total Protein 7.2 (6.6-8.7) g/dL Albumin 2.9 L (3.5-5.2) g/dL Globulin 4.3 (1.3-4.6) g/dL Procalcitonin (0-0.5) ng/mL Urine Color (Yellow) Urine Appearance (CLEAR) Urine pH (5-7) Ur Specific Gravit y (1.005-1.030) Urine Protein (Negative) Urine Glucose (UA) (Normal) Urine Ketones (Negative) Urine Blood (Negative) Urine Nitrate (Negative) Urine Bilirubin (Negative) Prot Sulfosalicyli c Acd (Negative) Urine Urobilinogen (Negative) mg/dL Ur Leukocyte Massiel ase (Negative) Urine RBC (0-2) /hpf Urine WBC (0-5) /hpf Ur Squamous Epith Cells (0-5) /hpf Amorphous Sediment Urine Bacteria (NONE) /hpf SARS-CoV-2 Ag (Rap id) (Negative) 04/18/20 04/18/20 04/18/20 Range/Units 10:26 10:31 10:31 WBC (4.0-10.0) 10^3/ uL RBC (4.1-5.3) 10^6/u L Hgb (11.5-15.3) g/dL Hct (37.0-47.0) % MCV (81-99) fL MCH (28.0-34.0) pg MCHC (30.0-36.0) g/dL RDW (12.1-15.1) % Plt Count (130-400) 10^3/c mm MPV (7.4-10.4) fL Neut % (Auto) % Lymph % (Auto) % Bladen % (Auto) % Eos % (Auto) % Baso % (Auto) % Neut # (Auto) (1.8-7.7) 10^3/u L Lymph # (Auto) (0.8-4.8) 10^3/u L Bladen # (Auto) (0.2-0.9) 10^3/u L Eos # (Auto) (0.0-0.8) 10^3/u L Baso # (Auto) (0.0-0.1) 10^3/u L Nucleated RBC % (a uto) % Nucleated RBCs # /100WBC Specimen Type Sample Site ABG pH (7.35-7.45) ABG pCO2 (35-45) mmHg ABG pO2 (80.0-100.0) mmH g ABG HCO3 (22-26) mmol/L ABG O2 Saturation ABG Base Excess (-2.0-2.0) mmol/ L Rafa Test A-a O2 Gradient (5-10) mmHg Hematocrit (37-47) % Hgb O2 Saturation (95-100) % Carboxyhemoglobin (0.4-20.1) %THgb Methemoglobin (0.4-1.5) % Total Hemoglobin (12-16) g/dL Ionized Calcium (1.1-1.4) mmol/L O2 Delivery Device O2 Liters/Min % FiO2 % Leather Cartridge Belt Maker ID Sodium (136-145) mmol/L Potassium (3.5-5.1) mmol/L Chloride (98-107) mmol/L Carbon Dioxide (22-29) mmol/L Anion Gap (5-19) BUN (8-23) mg/dL Creatinine (0.5-0.9) mg/dL GFR Calculation Glucose (65-115) mg/dL POC Glucose 148 H (70-110) mg/dL Calculated Osmolal ity (285-295) mOsm/k g Lactic Acid (0.5-2.2) mmol/L Calcium (8.5-10.5) mg/dL Magnesium (1.7-2.3) mg/dL Total Bilirubin (0.15-1.2) mg/dL AST (0-32) U/L ALT (0-33) U/L Alkaline Phosphata se (35-105) IU/L Creatine Kinase (26-192) U/L Total Protein (6.6-8.7) g/dL Albumin (3.5-5.2) g/dL Globulin (1.3-4.6) g/dL Procalcitonin 0.21 (0-0.5) ng/mL Urine Color Yellow (Yellow) Urine Appearance Cloudy (CLEAR) Urine pH 8.5 H (5-7) Ur Specific Gravit y 1.010 (1.005-1.030) Urine Protein 2+ H (Negative) Urine Glucose (UA) Norm (Normal) Urine Ketones Negative (Negative) Urine Blood 3+ H (Negative) Urine Nitrate Negative (Negative) Urine Bilirubin Neg (Negative) Prot Sulfosalicyli c Acd Positive (Negative) Urine Urobilinogen Norm (Negative) mg/dL Ur Leukocyte Massiel ase 2+ H (Negative) Urine RBC 10-15 H (0-2) /hpf Urine WBC 15-25 H (0-5) /hpf Ur Squamous Epith Cells 0-4 H (0-5) /hpf Amorphous Sediment Not Reportable Urine Bacteria 4+ H (NONE) /hpf SARS-CoV-2 Ag (Rap id) (Negative) 01/26/21 01/26/21 Range/Units 10:49 11:01 WBC (4.0-10.0) 10^3/ uL RBC (4.1-5.3) 10^6/u L Hgb (11.5-15.3) g/dL Hct (37.0-47.0) % MCV (81-99) fL MCH (28.0-34.0) pg MCHC (30.0-36.0) g/dL RDW (12.1-15.1) % Plt Count (130-400) 10^3/c mm MPV (7.4-10.4) fL Neut % (Auto) % Lymph % (Auto) % Bladen % (Auto) % Eos % (Auto) % Baso % (Auto) % Neut # (Auto) (1.8-7.7) 10^3/u L Lymph # (Auto) (0.8-4.8) 10^3/u L Bladen # (Auto) (0.2-0.9) 10^3/u L Eos # (Auto) (0.0-0.8) 10^3/u L Baso # (Auto) (0.0-0.1) 10^3/u L Nucleated RBC % (a uto) % Nucleated RBCs # /100WBC Specimen Type Arterial Sample Site Radial, left ABG pH 7.30 L (7.35-7.45) ABG pCO2 74.2 H* (35-45) mmHg ABG pO2 111.0 H (80.0-100.0) mmH g ABG HCO3 36.5 H (22-26) mmol/L ABG O2 Saturation 98.6 ABG Base Excess 8.4 H (-2.0-2.0) mmol/ L Rafa Test Pos A-a O2 Gradient 7.2 (5-10) mmHg Hematocrit 28.0 L (37-47) % Hgb O2 Saturation 96.3 (95-100) % Carboxyhemoglobin 1.6 (0.4-20.1) %THgb Methemoglobin 0.7 (0.4-1.5) % Total Hemoglobin 9.1 L (12-16) g/dL Ionized Calcium 1.2 (1.1-1.4) mmol/L O2 Delivery Device Nc O2 Liters/Min 4.0 % FiO2 36.0 % Leather Cartridge Belt Maker ID Gd Sodium 139.0 (136-145) mmol/L Potassium 4.1 (3.5-5.1) mmol/L Chloride (98-107) mmol/L Carbon Dioxide (22-29) mmol/L Anion Gap (5-19) BUN (8-23) mg/dL Creatinine (0.5-0.9) mg/dL GFR Calculation Glucose 154.0 H (65-115) mg/dL POC Glucose (70-110) mg/dL Calculated Osmolal ity (285-295) mOsm/k g Lactic Acid (0.5-2.2) mmol/L Calcium (8.5-10.5) mg/dL Magnesium (1.7-2.3) mg/dL Total Bilirubin (0.15-1.2) mg/dL AST (0-32) U/L ALT (0-33) U/L Alkaline Phosphata se (35-105) IU/L Creatine Kinase (26-192) U/L Total Protein (6.6-8.7) g/dL Albumin (3.5-5.2) g/dL Globulin (1.3-4.6) g/dL Procalcitonin (0-0.5) ng/mL Urine Color (Yellow) Urine Appearance (CLEAR) Urine pH (5-7) Ur Specific Gravit y (1.005-1.030) Urine Protein (Negative) Urine Glucose (UA) (Normal) Urine Ketones (Negative) Urine Blood (Negative) Urine Nitrate (Negative) Urine Bilirubin (Negative) Prot Sulfosalicyli c Acd (Negative) Urine Urobilinogen (Negative) mg/dL Ur Leukocyte Massiel ase (Negative) Urine RBC (0-2) /hpf Urine WBC (0-5) /hpf Ur Squamous Epith Cells (0-5) /hpf Amorphous Sediment Urine Bacteria (NONE) /hpf SARS-CoV-2 Ag (Rap id) Positive H (Negative) Discharge Plan Discharge Patient Disposition: Admitted As Inpatient Admit Provider: Mustapha Ames Clinical Impression: Pneumonia due to 2019-nCoV, Cystitis, Decubitus ulcer of sacral area, COPD with acute lower respiratory infection, Acute hypercapnic respiratory failure Condition: Stable Coding Level of Care Code ED Dielectric Tester for g Fwd Exam Comprehensive
[2020-04-18] MEDS: ondansetron 2 mg/ML SDV 2 mL 4 MG IVP (10:39)
[2020-04-18 10:42] LABS: Basophils % 0.2 %; Eosinophils # 0.1 10^3/uL (0.0-0.8); Hematocrit 31.5 % (37.0-47.0); Hemoglobin 9.1 g/dL (11.5-15.3); Lymphocytes % 10.6 %; Mean Corpuscular HGB Conc 28.9 g/dL (30.0-36.0); Mean Corpuscular Hemoglobin 27.7 pg (28.0-34.0); Mean Platelet Volume 10.1 fL (7.4-10.4); Monocytes # 0.7 10^3/uL (0.2-0.9); Monocytes % 7.5 %; Neutrophils # 7.18 10^3/uL (1.8-7.7); Neutrophils % 79.3 %; Nucleated Red Blood Cells % 0 %; Platelet Count 252 10^3/cmm (130-400); Red Blood Count 3.28 10^6/uL (4.1-5.3); Red Cell Distribution Width 16.2 % (12.1-15.1); White Blood Count 9.1 10^3/uL (4.0-10.0)
[2020-04-18 10:51] LABS: Alanine Aminotransferase 9 U/L (0-33); Albumin Level 2.9 g/dL (3.5-5.2); Alkaline Phosphatase 92 IU/L (35-105); Anion Gap 11.1 (5-19); Aspartate Amino Transferase 9 U/L (0-32); Blood Urea Nitrogen 27 mg/dL (8-23); Calcium 8.8 mg/dL (8.5-10.5); Carbon Dioxide 34 mmol/L (22-29); Chloride 96 mmol/L (98-107); Creatine Phosphokinase 31 U/L (26-192); Globulin 4.3 g/dL (1.3-4.6); Glucose 145 mg/dL (65-115); Lactic Sepsis W/Reflex 0.6 mmol/L (0.5-2.2); Magnesium 1.8 mg/dL (1.7-2.3); Osmolality Calculated 292 mOsm/kg (285-295); Potassium 4.1 mmol/L (3.5-5.1); Sodium 137 mmol/L (136-145); Total Bilirubin 0.3 mg/dL (0.15-1.2); Total Protein 7.2 g/dL (6.6-8.7)
[2020-04-18 11:14] LABS: Add Urine Microscopic? YES; Bilirubin Urine Neg (Negative); Blood Urine 3+ (Negative); Glucose Urine UA Norm (Normal); Ketones Urine Negative (Negative); Leukocyte Esterase Urine 2+ (Negative); Nitrate Urine Negative (Negative); Protein Urine 2+ (Negative); Urine Appearance Cloudy (CLEAR); Urine Color Yellow (Yellow); Urobilinogen Urine Norm (Negative); pH Urine 8.5 (5-7)
[2020-04-18 11:15] LABS: Alveolar-Arterial Oxygen Gradi 7.2 mmHg (5-10); Base Excess ABG 8.4 mmol/L (-2.0-2.0); Blood Gas Allen Test Pos; Blood Gas Operator Identificat GD; Blood Gas Sample Site Radial, left; Blood Gas Sample Type Arterial; Carboxyhemoglobin 1.6 %THgb (0.4-20.1); HCO3 ABG 36.5 mmol/L (22-26); HGB O2 Sat 96.3 % (95-100); Ionized Calcium Level - ABG 1.2 mmol/L (1.1-1.4); Methemoglobin 0.7 % (0.4-1.5); Oxygen Device NC; Oxygen Saturation ABG 98.6; Potassium Level - ABG 4.1 mmol/L (3.5-5.0); Total Hemoglobin 9.1 g/dL (12-16)
[2020-04-18 11:16] LABS: ABG PCO2 74.2 mmHg (35-45)
[2020-04-18 11:18] LABS: Sulfosalicylic Acid Urine Positive (Negative)
[2020-04-18 11:23] LABS: SARS Covid-2 Antigen Positive (Negative)
[2020-04-18 11:37] LABS: Bacteria Urine 4+ /hpf; Squamous Epithelial Cell Urine 0-4 /hpf (0-5); WBC Urine 15-25 /hpf (0-5)
[2020-04-18 11:38] LABS: Add Urine Culture? Yes
[2020-04-18] MEDS: levofloxacin-dextrose 5 % 750 MG/150 ML PREMIX 100 MG IV (11:42)
[2020-04-18] MEDS: dexamethasone 4 mg/mL INJ 6 MG IVP (11:42)
[2020-04-18] MEDS: remdesivir 200 MG in sodium chloride 0.9% (100 ml) 100 ML 100 MG IV (12:55)
--- NOTE | 2020-04-18 13:48 | PM.HP ---
Providers/Chief Complaint Admitting Physician: Mustapha Ames MD Chief Complaint: DIFF BREATHING X 4 DAYS History of Present Illness Rachid Hagen is a 74 year old female who presents to the hospital with shortness of breath. It is difficult for the patient to give a history as she is currently on BiPAP. I gather she has had fever up to 103 ?F. She has been coughing up some yellowish sputum. She has had no vomiting, or diarrhea. She has not been previously diagnosed with Covid. She reports she is feeling much better on BiPAP. She is cared for by family members at home. She relates her urinary catheter was removed several weeks ago. She is chronically on 2 L of oxygen. Review of Systems General: Reports: 10 or more systems reviewed and unremarkable except in HPI and below Const: Reports: fever(s), chills and body aches Eyes: Denies: change in vision ENMT: Denies: throat pain Card: Denies: chest pain Resp: Reports: dyspnea and productive cough GI: Denies: abdominal pain, nausea or vomiting : Reports: difficulty voiding and urinary incontinence; Denies: flank pain Musc: Denies: neck pain Skin/Breast: Denies: rash Psych: Denies: anxiety Endo: Denies: polyuria Timothy/Lymph: Denies: easy bruising All/Imm: Denies: urticaria Medications/Allergies Home Medications Medication Instructions Recorded Confirmed Last Taken Type Januvia 100 mg PO DAILY 30 Days #30 tab 08/10/19 04/18/20 04/17/20 Rx albuterol sulfate 2.5 mg INHALATION Q6H PRN #90 ml 08/10/19 04/18/20 11/09/19 Rx alendronate 70 mg PO Q7D #5 tab 08/10/19 04/18/20 04/17/20 Rx carvedilol 3.125 mg PO BID 30 Days #30 tab 08/10/19 04/18/20 04/17/20 Rx furosemide 40 mg PO DAILY #30 tab 08/10/19 04/18/20 04/17/20 Rx glipizide 10 mg PO BID 30 Days #60 tab 08/10/19 04/18/20 04/17/20 Rx oxybutynin chloride 5 mg PO BID 30 Days #60 tab 08/10/19 04/18/20 04/17/20 Rx oxycodone-acetaminophen 1 tab PO Q8H PRN #30 tab 08/10/19 04/18/20 04/18/20 Rx potassium chloride 20 meq PO BID 30 Days #60 tab 08/10/19 04/18/20 04/17/20 Rx pregabalin 150 mg PO TID 30 Days #90 cap 08/10/19 04/18/20 04/17/20 Rx tramadol 50 mg PO TID PRN #30 tab 08/10/19 04/18/20 11/09/19 Rx trazodone 150 mg tablet 150 mg PO BEDTIME tab 11/08/19 04/18/20 04/17/20 History atorvastatin 20 mg PO DAILY 11/28/19 04/18/20 04/17/20 History fluticasone propion-salmeterol 1 inh INHALATION BID #60 each 12/01/19 04/18/20 04/17/20 Rx [Advair Diskus] gabapentin 300 mg PO TID 04/18/20 04/18/20 04/17/20 History insulin lispro [Humalog U-100 See Rx Instructions .ROUTE .COMPLEX 04/18/20 04/18/20 Unknown History Insulin] levothyroxine 100 mcg PO DAILY 04/18/20 04/18/20 04/17/20 History Allergies Allergy/AdvReac Type Severity Reaction Status Date / Time TAPE Allergy ADR-Itching Uncoded 04/18/20 10:04 PFSH Acute PFSH: Medical History COPD (chronic obstructive pulmonary disease) Diabetes Diabetic peripheral neuropathy Dyslipidemia GERD (gastroesophageal reflux disease) -on PPI History of ESBL E. coli infection History of infection with vancomycin resistant Enterococcus (VRE) History of osteomyelitis HTN (hypertension) Hypothyroidism Lymphedema Morbid obesity Osteomyelitis Osteoporosis Overactive bladder Peripheral vascular disease -has known hx of PVD Status post hysteroscopy with D&C on 11/10/[address] Panda at 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 History of hip surgery History of hysterectomy History of right breast biopsy History of surgery on extremity Left femur S/P excisional debridement Bilateral lower extremity wounds Family History Son Hypertension Denies family history of Diabetes Clotting disorder Hyperlipidemia Anesthesia complication Bleeding disorder Stroke Social History Smoking and tobacco status: former smoker Alcohol intake: never Lives independently: Yes Current occupational status: retired Vitals/I&O/Wt Last Vital Signs Temp 98.7 F 04/18/20 09:54 Pulse 80 04/18/20 13:00 Resp 17 04/18/20 13:00 BP 153/72 04/18/20 13:00 Pulse Ox 95 04/18/20 13:00 04/17/20 04/18/20 04/18/20 22:59 06:59 14:59 Intake Total 150 / 150 Balance 150 / 150 Weight last 48 hrs Weight 125.191 kg Physical Exam Narrative: EXAM NARRATIVE: General exam is a mildly tachypneic white female on BiPAP who is able to answer few questions HEENT: Atraumatic normocephalic. Pupils equally round. Oropharynx not examined secondary to BiPAP. Neck is supple, no lymphadenopathy or thyromegaly Cardiovascular regular rate and rhythm without murmur, no S3 or S4 Lungs coarse breath sounds bilaterally with diminished breath sounds. A few expiratory wheezes. Abdomen is soft obese nontender with positive bowel sounds. Easily reducible midline hernia present. was deferred Back: I did not examine this secondary to difficulties in exam by myself. According to nursing she has multiple stage II decubiti, without any evidence of infection and maceration from moisture on her buttocks. Extremity. Right lower extremity amputation, above the knee noted. Left with 2+ edema, cap refill less than 2 seconds. Skin some venous stasis changes left lower extremity. Otherwise no rash Neuro no obvious focal deficits Urinary Catheter Management^: Lockhart: Cath Placed During This Visit: yes Urinary Catheter Date of Insertion: 04/18/20 Urinary Catheter Time of Insertion: 10:42 Data : 04/18/20 10:26 04/18/20 10:26 Micro: Microbiology 04/18/20 11:00 Blood Culture - Preliminary Blood SPECIMEN COLLECTED 01/26/21 10:26 Blood Culture - Preliminary Blood SPECIMEN COLLECTED Other data: ABG demonstrates a pH of 7.3, PCO2 74, PO2 of 111 on 4 L. LFTs normal, lactate normal, CK 31, albumin 2.9 Urinalysis demonstrates 10-15 reds and 15-25 whites Rapid Covid testing is positive Chest x-ray by my read demonstrates left lower lobe infiltrate Previous echocardiogram done November 2019 demonstrated EF of 61%, 2/4 diastolic dysfunction A&P Assessment and plan (1) Pneumonia due to 2018-nCoV: Rapid Covid positive Symptoms started 4 days ago Dexamethasone 6 mg every 24 hours Initiate remdesivir Secondary to concern of consolidative pneumonia, superimposed bacterial infection will initiate Primaxin. This is being done secondary to coexistent UTI with history of resistant organisms. Check MRSA PCR Check inflammatory markers tomorrow Sputum culture Status: Acute (2) COPD with acute lower respiratory infection: Nebs as needed Status: Acute (3) UTI (urinary tract infection): Initiate Primaxin Blood culture Status: Acute Qualifiers: Urinary tract infection type: acute cystitis Hematuria presence: with hematuria Qualified Code(s): N30.01 - Acute cystitis with hematuria (4) Decubitus ulcer of sacral area: Keep pressure off the area, clean and dry. Lockhart. Status: Acute (5) Anemia: Monitor closely. Appears stable from previous labs. No evidence of ongoing bleeding. Past history of vaginal bleeding. Status: Acute (6) Acute hypercapnic respiratory failure: On BiPAP currently Wean off as tolerated Note that she retained CO2 so the lowest amount of oxygen possible to maintain saturations 90 to 92% Status: Acute Additional A&P Information Left lower extremity edema. Check venous duplex. Diabetes mellitus. Sliding scale insulin Hypothyroidism. Continue home medication Hypertension, continue home medications Multiple other medical problems as outlined in past medical history. Full code Lovenox for DVT prophylaxis PT eval May need nursing facility placement. Attestations Medical Necessity Statement*: Greater than 2 midnight stay for treatment of pneumonia, bacterial as well as COVID-19 and respiratory failure Time Spent in Patient Care: Greater than 35 minutes Coding Level of Care Code Acute Heavy Forging Machine Operator for g Fwd Diagnoses Pneumonia due to nCoV U07.1; J12.89 COPD with acute lower respiratory infection J44.0 UTI (urinary tract infection) N30.01 Urinary tract infection type: acute cystitis Hematuria presence: with hematuria Decubitus ulcer of sacral area L89.159 Anemia D64.9 Acute hypercapnic respiratory failure J96.02
--- NOTE | 2020-04-18 15:47 | USCV_ITS ---
Rachid Hagen Age: 74 Gender: F : 1945 Exam Date: 04/18/2020 16:14 Ordering Phys: Mustapha Ames MD Technologist: Kristin Bundy Exam Location: [facility] [place]_ Indication: LLE SWELLING +COVID HISTORY: Lower extremity swelling. PROCEDURES: Venous duplex imaging was performed in only the left lower extremity. The following venous structures were evaluated: common femoral vein, profunda vein, proximal portion of the greater saphenous vein, superficial femoral vein, and the popliteal vein. In addition, the posterior tibial veins were evaluated. In addition, the posterior tibial and peroneal trunk were evaluated. Serial compression, augmentation maneuvers, and spectral Doppler flow evaluation were performed. Grayscale and doppler images were obtained. Reflux maneuvers were performed with patient FINDINGS: No evidence of DVT seen in any vessel visualized at this time. CONCLUSIONS No evidence of left lower extremity DVT. Errol Dunaway MD (Electronically Signed) Final Date: 19 April 2020 08:31 S
[2020-04-18 15:56] LABS: Procalcitonin 0.21 ng/mL (0-0.5)
[2020-04-18] MEDS: gabapentin 300 mg Capsule PO (16:38)
[2020-04-18] MEDS: enoxaparin 40 mg/0.4 mL Syringe SUBCUT (16:38)
[2020-04-18] MEDS: pregabalin 150 mg Capsule PO (16:55)
[2020-04-18] MEDS: carvedilol 6.25 mg Tablet 3.125 MG PO (17:23)
[2020-04-18] MEDS: potassium chloride ER 20 mEq Tablet PO (17:24)
[2020-04-18 18:00] LABS: Glucose Point of Care 219 mg/dL (70-110)
[2020-04-18] MEDS: ipratropium-albuterol 3 mL Neb INHALATION (20:08)
[2020-04-19] VITALS (37 sets, daily range): BP systolic 118–164; BP diastolic 63–97; PULSE 61–80; RESP 15–24; TEMP 36.8–37.2; O2SAT 90–97
[2020-04-19] MEDS: ipratropium-albuterol 3 mL Neb INHALATION ×6 (03:09→20:48)
[2020-04-19 04:50] LABS: Hematocrit 28.4 % (37.0-47.0); Hemoglobin 8.2 g/dL (11.5-15.3); Lymphocytes # 0.6 10^3/uL (0.8-4.8); Lymphocytes % 10.4 %; Mean Corpuscular HGB Conc 28.9 g/dL (30.0-36.0); Mean Corpuscular Hemoglobin 27.6 pg (28.0-34.0); Mean Corpuscular Volume 95.6 fL (81-99); Mean Platelet Volume 10.9 fL (7.4-10.4); Monocytes # 0.3 10^3/uL (0.2-0.9); Monocytes % 4.4 %; Neutrophils # 4.72 10^3/uL (1.8-7.7); Neutrophils % 83.6 %; Nucleated Red Blood Cells % 0 %; Platelet Count 228 10^3/cmm (130-400); Red Blood Count 2.97 10^6/uL (4.1-5.3); Red Cell Distribution Width 15.8 % (12.1-15.1); White Blood Count 5.7 10^3/uL (4.0-10.0)
[2020-04-19 05:29] LABS: C Reactive Protein 147.9 mg/L (0.0-4.9)
[2020-04-19 05:30] LABS: Alanine Aminotransferase 9 U/L (0-33); Albumin Level 2.7 g/dL (3.5-5.2); Alkaline Phosphatase 83 IU/L (35-105); Anion Gap 13.1 (5-19); Aspartate Amino Transferase 9 U/L (0-32); Blood Urea Nitrogen 33 mg/dL (8-23); Calcium 8.4 mg/dL (8.5-10.5); Carbon Dioxide 33 mmol/L (22-29); Chloride 99 mmol/L (98-107); Globulin 3.8 g/dL (1.3-4.6); Glucose 174 mg/dL (65-115); Osmolality Calculated 301 mOsm/kg (285-295); Potassium 5.1 mmol/L (3.5-5.1); Sodium 140 mmol/L (136-145); Total Bilirubin 0.2 mg/dL (0.15-1.2); Total Protein 6.5 g/dL (6.6-8.7)
[2020-04-19 05:47] LABS: Ferritin 157 ng/mL (15-150)
[2020-04-19 07:56] LABS: Glucose Point of Care 231 mg/dL (70-110)
[2020-04-19 07:56] LABS: Glucose Point of Care 138 mg/dL (70-110)
--- NOTE | 2020-04-19 07:57 | P.PN_ITS ---
Subjective Subjective: Interval history: Rachid reports she is doing okay. Nurses have no particular concerns. She denies any chest discomfort, shortness of breath on BiPAP. Medications: Reviewed: Yes Vitals/I&O/Wt Last Vital Signs Temp 98.3 F 04/19/20 04:00 Pulse 64 04/19/20 07:55 Resp 16 04/19/20 07:55 BP 136/70 04/19/20 04:00 Pulse Ox 94 04/19/20 07:55 04/18/20 04/19/20 04/19/20 22:59 06:59 14:59 Intake Total 427 / 577 115 / 692 Output Total 550 / 550 150 / 700 Balance - -35 / -8 Weight last 48 hrs Weight 125.191 kg Physical Exam Narrative: EXAM NARRATIVE: General exam no distress noted on BiPAP Neck is supple, no lymphadenopathy or thyromegaly Cardiovascular regular rate and rhythm without murmur, no S3 or S4 Lungs coarse breath sounds bilaterally with diminished breath sounds. A few expiratory wheezes. Abdomen is soft obese nontender with positive bowel sounds. Extremity. Right lower extremity amputation, above the knee noted. Left with 2+ edema, cap refill less than 2 seconds. Urinary Catheter Management^: Lockhart: Cath Placed During This Visit: yes Reason for Continuing Indwelling Catheter: Accurate Measurement of Urinary Output in Critically Ill Patients Urinary Catheter Date of Insertion: 04/18/20 Urinary Catheter Time of Insertion: 10:42 Data : 04/19/20 03:00 04/19/20 03:00 Micro: Microbiology 04/18/20 10:40 Gram Stain - Final Sputum - Expectorated Sputum 04/18/20 11:00 Blood Culture - Preliminary Blood SPECIMEN COLLECTED 04/18/20 10:26 Blood Culture - Preliminary Blood SPECIMEN COLLECTED A&P Assessment and plan (1) Pneumonia due to 2019-nCoV: Rapid Covid positive Symptoms started 4 days prior to admission Continue dexamethasone 6 mg every 24 hours Continue remdesivir Secondary to concern of consolidative pneumonia, superimposed bacterial infection Primaxin was initiated this is being done secondary to coexistent UTI with history of resistant organisms. MRSA PCR pending Sputum culture pending. CRP, dimer elevated as suspected. Procalcitonin level normal Status: Acute (2) COPD with acute lower respiratory infection: Nebs as needed Status: Acute (3) UTI (urinary tract infection): Continue Primaxin Await blood culture Status: Acute Qualifiers: Hematuria presence: with hematuria Urinary tract infection type: acute cystitis Qualified Code(s): N30.01 - Acute cystitis with hematuria (4) Decubitus ulcer of sacral area: Keep pressure off the area, clean and dry. Lockhart. Status: Acute (5) Anemia: Monitor closely. Appears stable from previous labs. No evidence of ongoing bleeding. Past history of vaginal bleeding. Status: Acute (6) Acute hypercapnic respiratory failure: On BiPAP currently Wean off as tolerated Note that she retained CO2 so the lowest amount of oxygen possible to maintain saturations 90 to 92% Status: Acute Additional A&P Information Left lower extremity edema. Venous duplex taken but report pending Diabetes mellitus. Sliding scale insulin Hypothyroidism. Continue home medication Hypertension, continue home medications Multiple other medical problems as outlined in past medical history. Full code Lovenox for DVT prophylaxis PT eval May need nursing facility placement. Attestations Medical Necessity Statement*: Needs continued hospitalization for treatment of COVID-19 pneumonia with remdesivir and dexamethasone. Coding Level of Care Code Acute Meter Calibrator for [facility] Diagnoses Pneumonia due to 2019-nCoV U07.1; J12.89 COPD with acute lower respiratory infection J44.0 UTI (urinary tract infection) N30.01 Hematuria presence: with hematuria Urinary tract infection type: acute cystitis Decubitus ulcer of sacral area L89.159 Anemia D64.9 Acute hypercapnic respiratory failure J96.02
[2020-04-19] MEDS: atorvastatin 40 mg Tablet 20 MG PO (08:30)
[2020-04-19] MEDS: levothyroxine 100 mcg Tablet PO (08:30)
[2020-04-19] MEDS: gabapentin 300 mg Capsule PO ×3 (08:30→20:44)
[2020-04-19] MEDS: pantoprazole DR 40 mg Tablet PO (08:30)
[2020-04-19] MEDS: carvedilol 6.25 mg Tablet 3.125 MG PO ×2 (08:30→17:42)
[2020-04-19] MEDS: dexamethasone 4 mg/mL INJ 6 MG IVP (08:31)
[2020-04-19] MEDS: sitagliptin 100 mg Tablet PO (08:31)
[2020-04-19] MEDS: potassium chloride ER 20 mEq Tablet PO ×2 (08:31→17:41)
[2020-04-19] MEDS: FUROsemide 40 mg Tablet PO (08:31)
[2020-04-19] MEDS: pregabalin 150 mg Capsule PO ×3 (08:31→20:44)
[2020-04-19 11:28] LABS: Glucose Point of Care 156 mg/dL (70-110)
[2020-04-19] MEDS: enoxaparin 40 mg/0.4 mL Syringe SUBCUT (15:31)
--- NOTE | 2020-04-19 15:58 | PC.RESP ---
Pulmonary Rehab information sent to patient.
[2020-04-19 17:08] LABS: Glucose Point of Care 242 mg/dL (70-110)
[2020-04-19] MEDS: remdesivir 100 MG in sodium chloride 0.9% (100 ml) 100 ML IV (17:42)
[2020-04-19] MEDS: trazodone 150 mg Tablet PO (20:44)
[2020-04-19 21:42] LABS: Glucose Point of Care 268 mg/dL (70-110)
[2020-04-20] VITALS (34 sets, daily range): BP systolic 114–168; BP diastolic 66–88; PULSE 52–94; RESP 13–21; TEMP 36.9–37; O2SAT 90–96
[2020-04-20] MEDS: ipratropium-albuterol 3 mL Neb INHALATION ×6 (00:23→21:11)
[2020-04-20 04:22] LABS: Basophils % 0.2 %; Hematocrit 29.5 % (37.0-47.0); Hemoglobin 8.6 g/dL (11.5-15.3); Lymphocytes # 0.9 10^3/uL (0.8-4.8); Lymphocytes % 17.7 %; Mean Corpuscular HGB Conc 29.2 g/dL (30.0-36.0); Mean Corpuscular Hemoglobin 27.3 pg (28.0-34.0); Mean Corpuscular Volume 93.7 fL (81-99); Mean Platelet Volume 10.5 fL (7.4-10.4); Monocytes # 0.4 10^3/uL (0.2-0.9); Monocytes % 7.6 %; Neutrophils # 3.83 10^3/uL (1.8-7.7); Neutrophils % 72.8 %; Nucleated Red Blood Cells % 0 %; Platelet Count 283 10^3/cmm (130-400); Red Blood Count 3.15 10^6/uL (4.1-5.3); Red Cell Distribution Width 15.6 % (12.1-15.1); White Blood Count 5.3 10^3/uL (4.0-10.0)
[2020-04-20 05:01] LABS: Alanine Aminotransferase 7 U/L (0-33); Albumin Level 2.7 g/dL (3.5-5.2); Alkaline Phosphatase 78 IU/L (35-105); Anion Gap 12.3 (5-19); Aspartate Amino Transferase 7 U/L (0-32); Blood Urea Nitrogen 37 mg/dL (8-23); Calcium 8.7 mg/dL (8.5-10.5); Carbon Dioxide 36 mmol/L (22-29); Chloride 100 mmol/L (98-107); Globulin 4.1 g/dL (1.3-4.6); Glucose 161 mg/dL (65-115); Osmolality Calculated 308 mOsm/kg (285-295); Potassium 5.3 mmol/L (3.5-5.1); Sodium 143 mmol/L (136-145); Total Bilirubin 0.2 mg/dL (0.15-1.2); Total Protein 6.8 g/dL (6.6-8.7)
[2020-04-20 08:26] LABS: Glucose Point of Care 141 mg/dL (70-110)
[2020-04-20] MEDS: levothyroxine 100 mcg Tablet PO (10:41)
[2020-04-20] MEDS: gabapentin 300 mg Capsule PO ×3 (10:41→20:42)
[2020-04-20] MEDS: pantoprazole DR 40 mg Tablet PO (10:42)
[2020-04-20] MEDS: pregabalin 150 mg Capsule PO ×3 (10:42→20:42)
[2020-04-20] MEDS: carvedilol 6.25 mg Tablet 3.125 MG PO ×2 (10:42→17:35)
[2020-04-20] MEDS: FUROsemide 40 mg Tablet PO (10:42)
[2020-04-20] MEDS: atorvastatin 40 mg Tablet 20 MG PO (10:42)
[2020-04-20] MEDS: sitagliptin 100 mg Tablet PO (10:42)
[2020-04-20 11:56] LABS: Glucose Point of Care 227 mg/dL (70-110)
[2020-04-20 11:56] LABS: Glucose Point of Care 228 mg/dL (70-110)
--- NOTE | 2020-04-20 13:33 | P.PN_ITS ---
Subjective Subjective: Interval history: Rachid reports she is doing okay. She has BiPAP last night. No fever. Down to 3 L of oxygen today. Medications: Reviewed: Yes Vitals/I&O/Wt Last Vital Signs Temp 98.9 F 04/19/20 20:00 Pulse 61 04/20/20 11:59 Resp 18 04/20/20 11:59 BP 122/68 04/20/20 05:00 Pulse Ox 96 04/20/20 11:59 04/19/20 04/20/20 04/20/20 22:59 06:59 14:59 Intake Total 340 / 720 100 / 820 0 / 0 Output Total 800 / 1900 950 / 2850 Balance -460 / -1180 -850 / -2030 0 / 0 Physical Exam Narrative: EXAM NARRATIVE: General exam no distress noted on BiPAP Neck is supple, no lymphadenopathy or thyromegaly Cardiovascular regular rate and rhythm without murmur, no S3 or S4 Lungs diminished breath sounds at the bases. No wheezes today. Abdomen is soft obese nontender with positive bowel sounds. Extremity. Right lower extremity amputation, above the knee noted. Left with trace edema, cap refill less than 2 seconds. Urinary Catheter Management^: Lockhart: Cath Placed During This Visit: yes Reason for Continuing Indwelling Catheter: Accurate Measurement of Urinary Ou tput in Critically Ill Patients Urinary Catheter Date of Insertion: 04/18/20 Urinary Catheter Time of Insertion: 10:42 Data : 04/20/20 03:38 04/20/20 03:38 Micro: Microbiology 04/18/20 10:40 Gram Stain - Final Sputum - Expectorated Sputum Sputum Culture - Final 04/18/20 11:00 Blood Culture - Preliminary Blood NEGATIVE TO DATE 04/18/20 10:26 Blood Culture - Preliminary Blood NEGATIVE TO DATE 04/18/20 10:31 Urine Culture - Final Urine,Clean Catch A&P Assessment and plan (1) Pneumonia due to 2019-nCoV: Rapid Covid positive Symptoms started 4 days prior to admission Continue dexamethasone 6 mg every 24 hours Continue remdesivir Secondary to concern of consolidative pneumonia, superimposed bacterial infection Primaxin was initiated this is being done secondary to coexistent UTI with history of resistant organisms. MRSA PCR pending Sputum culture pending. CRP, dimer elevated as suspected. Repeat April 21 Procalcitonin level normal Status: Acute (2) COPD with acute lower respiratory infection: Nebs as needed Status: Acute (3) UTI (urinary tract infection): Currently on Primaxin. Blood culture negative to date. Urine culture demonstrated greater than 3 organisms so they did not perform identification and sensitivities Status: Acute Qualifiers: Urinary tract infection type: acute cystitis Hematuria presence: with hematuria Qualified Code(s): N30.01 - Acute cystitis with hematuria (4) Decubitus ulcer of sacral area: Keep pressure off the area, clean and dry. Lockhart. Status: Acute (5) Anemia: Monitor closely. Appears stable from previous labs. No evidence of ongo ing bleeding. Past history of vaginal bleeding. Status: Acute (6) Acute hypercapnic respiratory failure: Currently on 3 L of oxygen Note that she retained CO2 so the lowest amount of oxygen possible to maintain saturations 90 to 92% Status: Acute Additional A&P Information Left lower extremity edema. Venous duplex negative Diabetes mellitus. Sliding scale insulin Hypothyroidism. Continue home medication Hypertension, continue home medications Multiple other medical problems as outlined in past medical history. Full code Lovenox for DVT prophylaxis Currently plan is to discharge home with son Possible discharge in the next 1 to 2 days if remains stable. Attestations Medical Necessity Statement*: Needs continued hospitalization for IV antibiotics secondary to pneumonia and treatment of COVID-19 pneumonia with antiviral and steroid Coding Level of Care Code Acute Credit Risk Review Officer for [facility] Diagnoses Pneumonia due to 2019-nCoV U07.1; J12.89 COPD with acute lower respiratory infection J44.0 UTI (urinary tract infection) N30.01 Urinary tract infection type: acute cystitis Hematuria presence: with hematuria Decubitus ulcer of sacral area L89.159 Anemia D64.9 Acute hypercapnic respiratory failure J96.02
[2020-04-20] MEDS: enoxaparin 40 mg/0.4 mL Syringe SUBCUT (14:26)
[2020-04-20] MEDS: dexamethasone 4 mg/mL INJ 6 MG IVP (14:30)
[2020-04-20 17:16] LABS: Glucose Point of Care 206 mg/dL (70-110)
[2020-04-20 17:16] LABS: Glucose Point of Care 159 mg/dL (70-110)
[2020-04-20] MEDS: remdesivir 100 MG in sodium chloride 0.9% (100 ml) 100 ML IV (17:35)
[2020-04-20] MEDS: trazodone 150 mg Tablet PO (20:42)
[2020-04-20] MEDS: acetaminophen 325 mg Tablet 650 MG PO (20:42)
[2020-04-21] VITALS (32 sets, daily range): BP systolic 126–156; BP diastolic 67–82; PULSE 53–94; RESP 10–21; TEMP 36.4–37.2; O2SAT 85–100
[2020-04-21] MEDS: ipratropium-albuterol 3 mL Neb INHALATION ×6 (00:23→20:21)
[2020-04-21 05:23] LABS: Hematocrit 37.1 % (37.0-47.0); Hemoglobin 10.8 g/dL (11.5-15.3); Lymphocytes # 0.7 10^3/uL (0.8-4.8); Lymphocytes % 16.5 %; Mean Corpuscular HGB Conc 29.1 g/dL (30.0-36.0); Mean Corpuscular Hemoglobin 27.5 pg (28.0-34.0); Mean Corpuscular Volume 94.4 fL (81-99); Mean Platelet Volume 10.8 fL (7.4-10.4); Monocytes # 0.2 10^3/uL (0.2-0.9); Monocytes % 5.1 %; Neutrophils # 3.14 10^3/uL (1.8-7.7); Neutrophils % 76.5 %; Nucleated Red Blood Cells % 0 %; Platelet Count 264 10^3/cmm (130-400); Red Blood Count 3.93 10^6/uL (4.1-5.3); Red Cell Distribution Width 15.6 % (12.1-15.1); White Blood Count 4.1 10^3/uL (4.0-10.0)
[2020-04-21 05:33] LABS: D Dimer 1.43 ug/mIFEU (0-0.59)
[2020-04-21 05:46] LABS: Alanine Aminotransferase 6 U/L (0-33); Albumin Level 2.9 g/dL (3.5-5.2); Alkaline Phosphatase 76 IU/L (35-105); Anion Gap 11.9 (5-19); Aspartate Amino Transferase 9 U/L (0-32); Blood Urea Nitrogen 37 mg/dL (8-23); C Reactive Protein 50.7 mg/L (0.0-4.9); Calcium 8.7 mg/dL (8.5-10.5); Carbon Dioxide 36 mmol/L (22-29); Chloride 99 mmol/L (98-107); Globulin 3.8 g/dL (1.3-4.6); Glucose 202 mg/dL (65-115); Osmolality Calculated 308 mOsm/kg (285-295); Potassium 4.9 mmol/L (3.5-5.1); Sodium 142 mmol/L (136-145); Total Bilirubin 0.2 mg/dL (0.15-1.2); Total Protein 6.7 g/dL (6.6-8.7)
[2020-04-21 05:53] LABS: Ferritin 140 ng/mL (15-150)
[2020-04-21 07:02] LABS: Glucose Point of Care 178 mg/dL (70-110)
[2020-04-21] MEDS: pregabalin 150 mg Capsule PO ×3 (08:35→20:29)
[2020-04-21] MEDS: sitagliptin 100 mg Tablet PO (08:35)
[2020-04-21] MEDS: levothyroxine 100 mcg Tablet PO (08:36)
[2020-04-21] MEDS: gabapentin 300 mg Capsule PO ×3 (08:36→20:29)
[2020-04-21] MEDS: atorvastatin 40 mg Tablet 20 MG PO (08:36)
[2020-04-21] MEDS: carvedilol 6.25 mg Tablet 3.125 MG PO ×2 (08:36→17:16)
[2020-04-21] MEDS: FUROsemide 40 mg Tablet PO (08:36)
[2020-04-21] MEDS: pantoprazole DR 40 mg Tablet PO (08:36)
[2020-04-21] MEDS: dexamethasone 4 mg/mL INJ 6 MG IVP (08:37)
--- NOTE | 2020-04-21 13:15 | PM.PN ---
Subjective Subjective: Interval history: Rachid reported she was doing okay this morning. This afternoon she is required more oxygen, and had to go back on BiPAP for shortness of breath. Medications: Reviewed: Yes Vitals/I&O/Wt Last Vital Signs Temp 97.6 F 04/21/20 04:00 Pulse 61 04/21/20 11:31 Resp 21 H 04/21/20 11:31 BP 139/67 04/21/20 10:00 Pulse Ox 88 L 04/21/20 11:31 04/20/20 04/21/20 04/21/20 22:59 06:59 14:59 Intake Total 240 / 440 300 / 740 460 / 460 Output Total 1360 / 1360 700 / 2060 Balance -1120 / -920 -400 / -1320 460 / 460 Physical Exam Narrative: EXAM NARRATIVE: General exam no distress noted on BiPAP Neck is supple, no lymphadenopathy or thyromegaly Cardiovascular regular rate and rhythm without murmur, no S3 or S4 Lungs diminished breath sounds at the bases. No wheezes . Abdomen is soft obese nontender with positive bowel sounds. Extremity. Right lower extremity amputation, above the knee noted. Left with trace edema, cap refill less than 2 seconds. Urinary Catheter Management^: Lockhart: Cath Placed During This Visit: yes Reason for Continuing Indwelling Catheter: Accurate Measurement of Urinary Output in Critically Ill Patients Urinary Catheter Date of Insertion: 04/18/20 Urinary Catheter Time of Insertion: 10:42 Data : 04/21/20 03:49 04/21/20 03:49 Micro: Microbiology 04/18/20 10:40 Gram Stain - Final Sputum - Expectorated Sputum Sputum Culture - Final A&P Assessment and plan (1) Pneumonia due to 2019-nCoV: Rapid Covid positive Symptoms started 4 days prior to admission Continue dexamethasone 6 mg every 24 hours Continue remdesivir Secondary to concern of consolidative pneumonia, superimposed bacterial infection Primaxin was initiated this is being done secondary to coexistent UTI with history of resistant organisms. MRSA PCR was just called to me positive. Secondary to increasing oxygen need MRSA positive with pneumonia we will add vancomycin Sputum culture pending. CRP, dimer elevated as suspected. Repeat April 21 Procalcitonin level normal Status: Acute (2) COPD with acute lower respiratory infection: Nebs as needed Status: Acute (3) UTI (urinary tract infection): Currently on Primaxin. Blood culture negative to date. Urine culture demonstrated greater than 3 organisms so they did not perform identification and sensitivities Status: Acute Qualifiers: Urinary tract infection type: acute cystitis Hematuria presence: with hematuria Qualified Code(s): N30.01 - Acute cystitis with hematuria (4) Decubitus ulcer of sacral area: Keep pressure off the area, clean and dry. Lockhart. From my understanding she had a chronic indwelling Lockhart until this was accidentally removed several weeks ago. Status: Acute (5) Anemia: Monitor closely. Appears stable from previous labs. No evidence of ongoing bleeding. Past history of vaginal bleeding. Status: Acute (6) Acute hypercapnic respiratory failure: Needing increased oxygen, BiPAP Note that she retained CO2 so the lowest amount of oxygen possible to maintain saturations 90 to 92% Status: Acute Additional A&P Information Left lower extremity edema. Venous duplex negative Diabetes mellitus. Sliding scale insulin Hypothyroidism. Continue home medication Hypertension, continue home medications Multiple other medical problems as outlined in past medical history. Full code Lovenox for DVT prophylaxis Currently plan is to discharge home with son No discharge today is requiring more oxygen. Addition of vancomycin secondary to MRSA PCR positive. Attestations Medical Necessity Statement*: Needs continued hospitalization for IV antibiotics secondary to pneumonia, Covid Coding Level of Care Code Acute Compound Specialist for [facility] Diagnoses Pneumonia due to 2019-nCoV U07.1; J12.89 COPD with acute lower respiratory infection J44.0 UTI (urinary tract infection) N30.01 Urinary tract infection type: acute cystitis Hematuria presence: with hematuria Decubitus ulcer of sacral area L89.159 Anemia D64.9 Acute hypercapnic respiratory failure J96.02
--- NOTE | 2020-04-21 13:21 | XR_ITS ---
WS: [id number] Exam: XR chest 1V portable [id number] Date/Time of Exam: 04/21/2020 1:21 PM Reason For Exam: follow up pneumonia Comparison 04/18/2020. Improving left lower lobe infiltrate noted. Diffuse infiltrate in the right lung base shows little ch veronica. There are areas of plaque atelectasis in both bases. Left basal pleural effusion is noted. Hear t size remains within normal limits. The mediastinum and bony thorax are unremarkable. Monitoring sanjay ds superimpose the chest. XR/XR chest 1V portable [id number] IMPRESSION: 1. Improved left lower lobe infiltrate since previous study. Infiltrates in the right base show little change. 2. Small left pleural effusion.
[2020-04-21] MEDS: enoxaparin 40 mg/0.4 mL Syringe SUBCUT (15:48)
[2020-04-21] MEDS: FUROsemide 10 mg/mL SDV 2mL 20 MG IVP (15:48)
[2020-04-21] MEDS: vancomycin 1,500 MG/300 ML PIGGYBACK 200 MG IV (16:37)
--- NOTE | 2020-04-21 17:15 | PC.NURSE ---
Glucose 271
[2020-04-21] MEDS: remdesivir 100 MG in sodium chloride 0.9% (100 ml) 100 ML IV (17:17)
--- NOTE | 2020-04-21 18:07 | PC.SOCIAL ---
Important Medicare Message Spoke to son and hockey instructor, Mateo Nieves [phone]. Reviewed Important Medicare Message and appeal process. He verbalized understanding. Updated copy provided to patients chart.
[2020-04-21 19:41] LABS: Glucose Point of Care 307 mg/dL (70-110)
[2020-04-21] MEDS: trazodone 150 mg Tablet PO (20:29)
[2020-04-21 22:49] LABS: Glucose Point of Care 271 mg/dL (70-110)
[2020-04-21 22:49] LABS: Glucose Point of Care 196 mg/dL (70-110)
[2020-04-22] VITALS (24 sets, daily range): BP systolic 118–146; BP diastolic 67–84; PULSE 57–84; RESP 14–20; TEMP 36.2–36.8; O2SAT 89–98
[2020-04-22] MEDS: ipratropium-albuterol 3 mL Neb INHALATION ×6 (00:04→20:06)
[2020-04-22] MEDS: vancomycin 1,500 MG/300 ML PIGGYBACK 200 MG IV (02:22)
[2020-04-22 05:02] LABS: Basophils % 0.3 %; Eosinophils % 0.2 %; Hematocrit 32.8 % (37.0-47.0); Hemoglobin 9.4 g/dL (11.5-15.3); Lymphocytes # 1.3 10^3/uL (0.8-4.8); Lymphocytes % 22.5 %; Mean Corpuscular HGB Conc 28.7 g/dL (30.0-36.0); Mean Corpuscular Hemoglobin 26.9 pg (28.0-34.0); Mean Corpuscular Volume 93.7 fL (81-99); Mean Platelet Volume 10.3 fL (7.4-10.4); Monocytes # 0.5 10^3/uL (0.2-0.9); Monocytes % 9.4 %; Neutrophils # 3.78 10^3/uL (1.8-7.7); Neutrophils % 65.9 %; Nucleated Red Blood Cells % 0 %; Platelet Count 273 10^3/cmm (130-400); Red Cell Distribution Width 15.7 % (12.1-15.1); White Blood Count 5.7 10^3/uL (4.0-10.0)
[2020-04-22 05:22] LABS: Alanine Aminotransferase 7 U/L (0-33); Albumin Level 2.6 g/dL (3.5-5.2); Alkaline Phosphatase 63 IU/L (35-105); Anion Gap 13.3 (5-19); Aspartate Amino Transferase 7 U/L (0-32); Blood Urea Nitrogen 39 mg/dL (8-23); Calcium 8.7 mg/dL (8.5-10.5); Carbon Dioxide 35 mmol/L (22-29); Chloride 96 mmol/L (98-107); Globulin 3.5 g/dL (1.3-4.6); Glucose 182 mg/dL (65-115); Osmolality Calculated 304 mOsm/kg (285-295); Potassium 4.3 mmol/L (3.5-5.1); Sodium 140 mmol/L (136-145); Total Bilirubin 0.2 mg/dL (0.15-1.2); Total Protein 6.1 g/dL (6.6-8.7)
[2020-04-22] MEDS: dexamethasone 4 mg/mL INJ 6 MG IVP (09:26)
[2020-04-22] MEDS: sitagliptin 100 mg Tablet PO (09:27)
[2020-04-22] MEDS: carvedilol 6.25 mg Tablet 3.125 MG PO ×2 (09:27→18:21)
[2020-04-22] MEDS: FUROsemide 10 mg/mL SDV 4mL 40 MG IVP ×2 (09:27→18:21)
[2020-04-22] MEDS: atorvastatin 40 mg Tablet 20 MG PO (09:28)
[2020-04-22] MEDS: pregabalin 150 mg Capsule PO ×3 (09:28→20:40)
[2020-04-22] MEDS: pantoprazole DR 40 mg Tablet PO (09:28)
[2020-04-22] MEDS: levothyroxine 100 mcg Tablet PO (09:28)
[2020-04-22] MEDS: gabapentin 300 mg Capsule PO ×3 (09:29→20:40)
--- NOTE | 2020-04-22 09:34 | USCV_ITS ---
Rachid Hagen Age: 74 Gender: F : 1945 Exam Date: 04/22/2020 12:46 Ordering Phys: Wilton Khanna MD Technologist: Rosa Elena Smith [place] [facility] [place]: SOB BP: 129 / 67 HR: 65 Rhythm: Sinus Technical Quality: Suboptimal MEASUREMENTS (Male / Female) Normal Values 2D ECHO LV Diastolic Diameter PLAX 3.0 cm 4.2 - 5.9 / 3.9 - 5.3 cm LV Systolic Diameter PLAX 2.3 cm LV Chamber Size 5.4 cm IVS Diastolic Thickness 1.7 cm 0.6 - 1.0 / 0.6 - 0.9 cm IVS Systolic Thickness 2.2 cm LVPW Diastolic Thickness 1.1 cm 0.6 - 1.0 / 0.6 - 0.9 cm LVPW Systolic Thickness 1.7 cm RV Chamber Size 2.9 cm LVOT Diameter 2.0 cm LV Ejection Fraction 2D Teich 48.4 % LA Diameter 4.4 cm LA Width 3.6 cm LA Height 5.7 cm RA Width 2.7 cm RA Height 4.9 cm Aorta at Sinotubular Diameter 2.0 cm M-MODE LV Diastolic Diameter MM 4.9 cm 4.2 - 5.9 / 3.9 - 5.3 cm LV Systolic Diameter MM 3.4 cm LV Ejection Fraction MM Teich 57.5 % IVS Diastolic Thickness MM 1.4 cm 0.6 - 1.0 / 0.6 - 0.9 cm IVS Systolic Thickness MM 1.4 cm LVPW Diastolic Thickness MM 1.4 cm 0.6 - 1.0 / 0.6 - 0.9 cm LVPW Systolic Thickness MM 1.5 cm Aortic Annulus Diameter 3.1 cm LA Ao Ratio MM 1.6 MV E Point Septal Separation 0.4 cm DOPPLER AV Peak Velocity 107.0 cm/s LVOT Peak Velocity 69.0 cm/s AV Area Cont Eq vti 1.8 cm squared AV Area Cont Eq pk 1.9 cm squared MV Area PHT 2.8 cm squared Mitral E to A Ratio 1.2 MV E' Velocity 42.5 cm/s Mitral E to MV E' Ratio 10.4 Mitral E to LV E' Lateral Ratio 8.6 Mitral E to LV E' Septal Ratio 13.6 TR Peak Velocity 157.0 cm/s TR Peak Gradient 9.9 mmHg TV Peak E Velocity 45.0 cm/s Right Atrial Pressure 3.0 mmHg Pulmonary Artery Systolic Pressu 12.9 mmHg PV Peak Velocity 81.0 cm/s RV Acceleration Time 0.1 s RV Ejection Time 0.3 s RV AcT/ET 0.4 FINDINGS Left Ventricle Normal left ventricular size and systolic function with no regional wall motion abnormalities. LVEF is 55 to 60%. Grade 2 diastolic dysfunction is seen. Right Ventricle The right ventricle is normal in size and function. Right Atrium The right atrium is normal in size. Left Atrium The left atrium is mildly dilated Mitral Valve Mild mitral annular calcification is seen. No mitral stenosis is present. There is trace mitral regurgitation. Aortic Valve Aortic valve is thickened. No significant aortic stenosis is seen. There is no aortic regurgitation. Tricuspid Valve Structurally normal tricuspid valve without significant stenosis or regurgitation. Insufficient TR jet to calculate RVSP. Pulmonic Valve Structurally normal pulmonic valve without significant stenosis. There is no pulmonic regurgitation. Pericardium Normal pericardium without effusion. Aorta Normal ascending aorta dimension. CONCLUSIONS LV systolic function is normal with EF of 55 to 60% Grade 2 diastolic dysfunction is noted. Mildly dilated left atrium. Mild mitral annular calcification is seen. Trace mitral regurgitation. Aortic valve is thickened without significant stenosis. Compared to prior echocardiogram from 11/29/2019, no significant changes are seen. Qasim Farah MD (Electronically Signed) Final Date: 22 April 2020 17:29 S
[2020-04-22 11:54] LABS: Glucose Point of Care 166 mg/dL (70-110)
[2020-04-22 11:54] LABS: Glucose Point of Care 200 mg/dL (70-110)
--- NOTE | 2020-04-22 12:00 | PM.PN ---
Subjective Subjective: Interval history: This morning patient was examined, she required BiPAP during the night, currently on 12 L, high flow, she does feel short of breath, no fevers, no chills, no nausea, no vomiting, no lightheadedness, no dizziness, no chest pain, but she does feel weak Medications: Reviewed: Yes Vitals/I&O/Wt Last Vital Signs Temp 97.8 F 04/22/20 11:58 Pulse 59 L 04/22/20 11:57 Resp 16 04/22/20 11:57 BP 118/72 04/22/20 11:57 Pulse Ox 97 04/22/20 11:57 04/21/20 04/22/20 04/22/20 22:59 06:59 14:59 Intake Total 1120 / 1940 700 / 2640 Output Total 1700 / 1700 1400 / 3100 Balance -580 / 240 -700 / -460 Physical Exam Const: COMMON NORMALS: no acute distress and patient oriented x3 HENMT: COMMON NORMALS: normocephalic HEAD & SCALP: normocephalic Neck/C-Spine: COMMON NORMALS: no JVD Resp: COMMON NORMALS: normal respiratory effort, No retractions and No use of accessory muscles AUSCULTATION: crackles Cardio: COMMON NORMALS: no JVD, regular rate, regular rhythm, S1 normal heart sound present and S2 normal heart sound present RATE: regular rate RHYTHM: regular rhythm HEART SOUNDS: S1 normal heart sound present and S2 normal heart sound present GI: COMMON NORMALS: Normal to inspection, nondistended, normoactive bowel sounds present, Soft to palpation, non-tender, No hepatosplenomegaly present, no masses and no bruits PALPATION: Yes Soft to palpation and Yes No hepatosplenomegaly present Extremity: COMMON NORMALS: capillary refill normal, no clubbing, cyanosis or edema, no calf tenderness and no pedal edema Neuro: COMMON NORMALS: patient oriented x3 Psych: COMMON NORMALS: mental status grossly normal Urinary Catheter Management^: Lockhart: Cath Placed During This Visit: yes Reason for Continuing Indwelling Catheter: Accurate Measurement of Urinary Output in Critically Ill Patients Urinary Catheter Date of Insertion: 04/18/20 Urinary Catheter Time of Insertion: 10:42 Data : 04/22/20 04:15 04/22/20 04:15 A&P Assessment and plan (1) Acute respiratory failure with hypoxia: Acute hypoxic hypercapnic respiratory failure Secondary to COVID-19 pneumonia, secondary bacterial pneumonia, COPD Plan: Continue high flow, BiPAP as needed during the day, schedule during the night Continue Decadron 6 mg every 12 hours Continue remdesivir Start convalescent plasma Broad-spectrum antibiotic therapy vancomycin and Primaxin Follow blood cultures, sputum cultures, MRSA PCR positive Advair, Spiriva, albuterol Vitamin C, zinc Continue statin, Coreg Increase Lasix to 40 IV push twice daily, cardiac echocardiogram, potassium replacement Monitor respiratory status closely Patient is full code Switch to full dose Lovenox, for hypercoagulability prophylaxis with COVID-[address] angiogram of the chest Status: Acute (2) Acute hypercapnic respiratory failure: Needing increased oxygen, BiPAP Note that she retained CO2 so the lowest amount of oxygen possible to maintain saturations 90 to 92% Status: Acute (3) Pneumonia due to 2018-nCoV: Status: Acute (4) COPD with acute lower respiratory infection: Nebs as needed Status: Acute (5) UTI (urinary tract infection): Currently on Primaxin. Blood culture negative to date. Urine culture demonstrated greater than 3 organisms so they did not perform identification and sensitivities Status: Acute Qualifiers: Urinary tract infection type: acute cystitis Hematuria presence: with hematuria Qualified Code(s): N30.01 - Acute cystitis with hematuria (6) Decubitus ulcer of sacral area: Keep pressure off the area, clean and dry. Lockhart. From my understanding she had a chronic indwelling Lockhart until this was accidentally removed several weeks ago. Status: Acute (7) Anemia: Monitor closely. Appears stable from previous labs. No evidence of ongoing bleeding. Past history of vaginal bleeding. Status: Acute Additional A&P Information Left lower extremity edema. Venous duplex negative Diabetes mellitus. Sliding scale insulin Hypothyroidism. Continue home medication Hypertension, continue home medications Multiple other medical problems as outlined in past medical history. Full code Lovenox for DVT prophylaxis Currently plan is to discharge home with son Attestations Medical Necessity Statement*: Patient requires hospitalization, for acute respiratory failure with hypoxia and hypercapnia secondary to COVID-19, secondary bacterial pneumonia, COPD, critical care time spent over 45 minutes Coding Level of Care Code Acute Journalism Internship for [facility] Diagnoses Acute respiratory failure with hypoxia J96.01 Acute hypercapnic respiratory failure J96.02 Pneumonia due to 2019-nCoV U07.1; J12.89 COPD with acute lower respiratory infection J44.0 UTI (urinary tract infection) N30.01 Urinary tract infection type: acute cystitis Hematuria presence: with hematuria Decubitus ulcer of sacral area L89.159 Anemia D64.9
--- NOTE | 2020-04-22 12:08 | CTR_ITS ---
PROCEDURE INFORMATION: Exam: CT Angiography Chest With Contrast Exam date and time: 04/22/2020 2:54 PM Age: 74 years old Clinical indication: Shortness of breath; Patient HX: Covid+ SOB elev d-dimer TECHNIQUE: Imaging protocol: Computed tomographic angiography of the chest with contrast. 3D rendering (Not supervised by radiologist): MIP and/or 3D reconstructed images were created by the technologist. Radiation optimization: All CT scans at this facility use at least one of these dose optimization techniques: automated exposure control; mA and/or kV adjustment per patient size (includes targeted exams where dose is matched to clinical indication); or iterative reconstruction. Contrast material: OMNI 350; Contrast volume: 73 ml; Contrast route: INTRAVENOUS (IV); COMPARISON: CT angio chest w abd pel w con 11/28/2019 11:51 AM RADIATION DOSE METRICS: Total DLP (mGy-cm): 514.16 FINDINGS: Pulmonary arteries: There is no pulmonary embolus. Aorta: Unremarkable. No aortic aneurysm. No aortic dissection. Lungs: Nonspecific bibasilar consolidation is present, consistent with atelectasis, edema, or pneumonia. There is also mild interstitial and ground-glass opacities in the remaining lungs especially the lingula and inferior left upper lobe compatible with mild pneumonitis. Pleural spaces: Unremarkable. No pneumothorax. No pleural effusion. Heart: The heart is enlarged. There is a small pericardial fluid collection present. Mediastinal space: A small hiatal hernia is present. Lymph nodes: Unremarkable. No enlarged lymph nodes. Bones/joints: Unremarkable. No acute fracture. Soft tissues: Unremarkable. Other findings: There are calcified granulomas. CT/CT angio chest PE protcl [id number] IMPRESSION: 1. There is no pulmonary embolus. 2. Nonspecific bibasilar consolidation is present, consistent with atelectasis, edema, or pneumonia. Radiation Dose CTDIVOL = (mGy): DLP = 514.16 (mGy-cm)
[2020-04-22] MEDS: enoxaparin 30 mg/0.3 mL Syringe SUBCUT (13:19)
[2020-04-22] MEDS: enoxaparin 100 mg/mL Syringe SUBCUT (13:19)
[2020-04-22 15:10] LABS: Vancomycin Trough 24.4 ug/mL (10-15)
[2020-04-22] MEDS: iohexol 350 mg/mL 100 mL Btl IV (15:31)
[2020-04-22 16:45] LABS: Glucose Point of Care 304 mg/dL (70-110)
[2020-04-22] MEDS: remdesivir 100 MG in sodium chloride 0.9% (100 ml) 100 ML IV (18:20)
[2020-04-22] MEDS: ascorbic acid 500 mg Tablet 1000 MG PO (18:21)
[2020-04-22] MEDS: trazodone 150 mg Tablet PO (20:40)
[2020-04-23] VITALS (23 sets, daily range): BP systolic 110–161; BP diastolic 61–89; PULSE 58–75; RESP 15–20; TEMP 36.6–37.3; O2SAT 90–98
[2020-04-23] MEDS: ipratropium-albuterol 3 mL Neb INHALATION ×7 (00:06→23:55)
[2020-04-23] MEDS: enoxaparin 30 mg/0.3 mL Syringe SUBCUT ×2 (01:34→12:18)
[2020-04-23] MEDS: enoxaparin 100 mg/mL Syringe SUBCUT ×2 (01:35→12:18)
[2020-04-23 03:16] LABS: Basophils % 0.2 %; Eosinophils % 0.2 %; Hematocrit 32.5 % (37.0-47.0); Hemoglobin 9.6 g/dL (11.5-15.3); Mean Corpuscular HGB Conc 29.5 g/dL (30.0-36.0); Mean Corpuscular Hemoglobin 27.4 pg (28.0-34.0); Mean Corpuscular Volume 92.9 fL (81-99); Monocytes # 0.4 10^3/uL (0.2-0.9); Monocytes % 7.7 %; Neutrophils # 3.42 10^3/uL (1.8-7.7); Neutrophils % 69.1 %; Nucleated Red Blood Cells % 0 %; Platelet Count 265 10^3/cmm (130-400); Red Cell Distribution Width 15.9 % (12.1-15.1)
[2020-04-23 03:36] LABS: Lactate (Lactic Acid level) 1.3 mmol/L (0.5-2.2)
[2020-04-23 03:37] LABS: Alanine Aminotransferase 7 U/L (0-33); Albumin Level 2.9 g/dL (3.5-5.2); Alkaline Phosphatase 67 IU/L (35-105); Aspartate Amino Transferase 8 U/L (0-32); Blood Urea Nitrogen 40 mg/dL (8-23); C Reactive Protein 18.9 mg/L (0.0-4.9); Calcium 8.7 mg/dL (8.5-10.5); Carbon Dioxide 35 mmol/L (22-29); Globulin 3.4 g/dL (1.3-4.6); Glucose 206 mg/dL (65-115); Magnesium 1.6 mg/dL (1.7-2.3); Phosphorus 3.7 mg/dL (2.5-4.5); Total Bilirubin 0.2 mg/dL (0.15-1.2); Total Protein 6.3 g/dL (6.6-8.7)
[2020-04-23 03:46] LABS: Anion Gap 11.9 (5-19); Chloride 95 mmol/L (98-107); Osmolality Calculated 302 mOsm/kg (285-295); Potassium 3.9 mmol/L (3.5-5.1); Sodium 138 mmol/L (136-145)
[2020-04-23 03:49] LABS: NT Pro B Type Natriuretic Pept 243 pg/mL (0-125); Procalcitonin 0.16 ng/mL (0-0.5)
[2020-04-23 04:00] LABS: Creatine Phosphokinase 16 U/L (26-192)
[2020-04-23 04:29] LABS: INR 1.06 (0.8-1.2)
[2020-04-23 05:02] LABS: ABG PH Result 7.41 (7.35-7.45); Arterial Blood Gas Hematocrit 32.6 % (37-47); Base Excess ABG 12.6 mmol/L (-2.0-2.0); Blood Gas Sample Type Arterial; HCO3 ABG 39.3 mmol/L (22-26); PO2 ABG 79.7 mmHg (80.0-100.0)
[2020-04-23 05:03] LABS: Blood Gas Operator Identificat HARKR; Blood Gas Sample Site Brachial, right; Oxygen Device BIPAP
[2020-04-23 05:49] LABS: ABG PCO2 61.9 mmHg (35-45)
[2020-04-23] MEDS: vancomycin 1,500 MG/300 ML PIGGYBACK 200 MG IV (06:00)
[2020-04-23] MEDS: FUROsemide 10 mg/mL SDV 4mL 40 MG IVP ×2 (06:55→17:14)
--- NOTE | 2020-04-23 07:00 | XRR_ITS ---
PROCEDURE INFORMATION: Exam: XR Chest, 1 View Exam date and time: 04/22/2020 11:59 PM Age: 74 years old Clinical indication: Dyspnea; Additional info: SOB TECHNIQUE: Imaging protocol: XR of the chest Views: 1 view. COMPARISON: CR XR chest 1V portable [id number] 04/21/2020 1:39 PM FINDINGS: Lungs: Interval increased density in the medial left lung base possibly due to atelectasis and/or consolidation. Continued slight patchy haziness in the right lung base. Slightly calcified granuloma in the left mid lung still conceivable. No interval perihilar edema. Pleural spaces: Still no pneumothorax. Small pleural effusion still possible on the left. Conceivable interval appearance of a small right pleural effusion. Heart/Mediastinum: Interval right anterior obliquity accentuating the heart size. Mild cardiomegaly still suspected. Bones/joints: Old rib fractures still present. XR/XR chest 1V portable [id number] IMPRESSION: 1. Interval increased density in the medial left lung base possibly due to atelectasis and/or consolidation. Continued patchy density in the right lung base possibly due to atelectasis and/or airspace disease. 2. Possible interval small right pleural effusion. Mild cardiomegaly still likely.
--- NOTE | 2020-04-23 08:02 | PC.NURSE ---
blood sugar checked, 194. accu machine docked but has not transferred info yet.
[2020-04-23] MEDS: atorvastatin 40 mg Tablet 20 MG PO (08:44)
[2020-04-23] MEDS: ascorbic acid 500 mg Tablet 1000 MG PO ×2 (08:45→17:14)
[2020-04-23] MEDS: pregabalin 150 mg Capsule PO ×3 (08:45→20:53)
[2020-04-23] MEDS: dexamethasone 4 mg/mL INJ 6 MG IVP (08:45)
[2020-04-23] MEDS: sitagliptin 100 mg Tablet PO (08:45)
[2020-04-23] MEDS: gabapentin 300 mg Capsule PO ×3 (08:45→20:53)
[2020-04-23] MEDS: pantoprazole DR 40 mg Tablet PO (08:45)
[2020-04-23] MEDS: carvedilol 6.25 mg Tablet 3.125 MG PO ×2 (08:45→17:14)
[2020-04-23] MEDS: zinc gluconate 50 mg Tablet PO (08:45)
[2020-04-23] MEDS: levothyroxine 100 mcg Tablet PO (08:45)
--- NOTE | 2020-04-23 09:36 | PC.SOCIAL ---
IM Follow Up explained to Son yesterday one day early. He verbalized understanding.
[2020-04-23] MEDS: potassium chloride ER 20 mEq Tablet 60 MEQ PO (09:45)
[2020-04-23 09:51] LABS: Glucose Point of Care 326 mg/dL (70-110)
[2020-04-23 09:51] LABS: Glucose Point of Care 194 mg/dL (70-110)
--- NOTE | 2020-04-23 12:24 | PM.PN ---
Subjective Subjective: Interval history: Patient was examined this morning, she is currently doing better, she tolerated BiPAP well overnight, is down to 8 L nasal cannula, she tells me that she feels better, no fevers overnight, no chest pain Vitals/I&O/Wt Last Vital Signs Temp 99.1 F 04/23/20 04:15 Pulse 67 04/23/20 11:10 Resp 16 04/23/20 11:10 BP 161/89 04/23/20 11:07 Pulse Ox 96 04/23/20 11:10 04/22/20 04/23/20 04/23/20 22:59 06:59 14:59 Intake Total 1092.000 / 1627.000 250 / 1877.000 640 / 640 Output Total 1450 / 5900 150 / 6050 Balance -358.000 / -4273.000 100 / -4173.000 640 / 640 Physical Exam Const: COMMON NORMALS: no acute distress and patient oriented x3 HENMT: COMMON NORMALS: normocephalic HEAD & SCALP: normocephalic Neck/C-Spine: COMMON NORMALS: no JVD Resp: COMMON NORMALS: normal respiratory effort, No retractions and No use of accessory muscles AUSCULTATION: diminished lung sounds Cardio: COMMON NORMALS: no JVD, regular rate, regular rhythm, S1 normal heart sound present and S2 normal heart sound present RATE: regular rate RHYTHM: regular rhythm HEART SOUNDS: S1 normal heart sound present and S2 normal heart sound present GI: COMMON NORMALS: Normal to inspection, nondistended, normoactive bowel sounds present, Soft to palpation, non-tender, No hepatosplenomegaly present, no masses and no bruits PALPATION: Yes Soft to palpation and Yes No hepatosplenomegaly present Extremity: COMMON NORMALS: capillary refill normal, no clubbing, cyanosis or edema, no calf tenderness and no pedal edema Neuro: COMMON NORMALS: patient oriented x3 Psych: COMMON NORMALS: mental status grossly normal Urinary Catheter Management^: Lockhart: Cath Placed During This Visit: yes Reason for Continuing Indwelling Catheter: Chronic Indwelling Urinary Catheter on Admission Urinary Catheter Date of Insertion: 04/18/20 Urinary Catheter Time of Insertion: 10:42 Data : 04/23/20 03:00 04/23/20 03:00 Micro: Microbiology 04/18/20 11:00 Blood Culture - Final Blood NO GROWTH AFTER 5 DAYS 04/18/20 10:26 Blood Culture - Final Blood NO GROWTH AFTER 5 DAYS A&P Assessment and plan (1) Acute respiratory failure with hypoxia: Acute hypoxic hypercapnic respiratory failure Secondary to COVID-19 pneumonia, secondary bacterial pneumonia, COPD CT angiogram shows no pulmonary emboli, nonspecific bibasilar consolidation Plan: Continue high flow, BiPAP as needed during the day, schedule during the night Continue Decadron 6 mg every 12 hours Has finished remdesivir Day 2 of 2 convalescent plasma Broad-spectrum antibiotic therapy vancomycin and Primaxin Follow blood cultures, sputum cultures, MRSA PCR positive Advair, Spiriva, albuterol Vitamin C, zinc Continue statin, Coreg Currently Lasix 40 mg IV twice daily, potassium replacement, echo shows EF of 55 to 60%, grade 2 diastolic dysfunction, diuresed over 6 L yesterday Monitor respiratory status closely Patient is full code Switch to full dose Lovenox, for hypercoagulability prophylaxis with COVID-19 Status: Acute (2) Acute hypercapnic respiratory failure: Needing increased oxygen, BiPAP Note that she retained CO2 so the lowest amount of oxygen possible to maintain saturations 90 to 92% Status: Acute (3) Pneumonia due to 2019-nCoV: Status: Acute (4) COPD with acute lower respiratory infection: Nebs as needed Status: Acute (5) UTI (urinary tract infection): Currently on Primaxin. Blood culture negative to date. Urine culture demonstrated greater than 3 organisms so they did not perform identification and sensitivities Status: Acute Qualifiers: Urinary tract infection type: acute cystitis Hematuria presence: with hematuria Qualified Code(s): N30.01 - Acute cystitis with hematuria (6) Decubitus ulcer of sacral area: Keep pressure off the area, clean and dry. Lockhart. From my understanding she had a chronic indwelling Lockhart until this was accidentally removed several weeks ago. Status: Acute (7) Anemia: Monitor closely. Appears stable from previous labs. No evidence of ongoing bleeding. Past history of vaginal bleeding. Status: Acute Additional A&P Information Left lower extremity edema. Venous duplex negative Diabetes mellitus. Sliding scale insulin Hypothyroidism. Continue home medication Hypertension, continue home medications Multiple other medical problems as outlined in past medical history. 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
--- NOTE | 2020-04-23 13:14 | PC.NURSE ---
patient resting in bed eating lunch at this time. patient denies any needs, call light within reach.
--- NOTE | 2020-04-23 16:58 | PC.NURSE ---
patient blood sugar 379
[2020-04-23] MEDS: trazodone 150 mg Tablet PO (20:53)
[2020-04-24] VITALS (27 sets, daily range): BP systolic 94–128; BP diastolic 43–60; PULSE 60–83; RESP 15–23; TEMP 36.4–37.1; O2SAT 86–100
[2020-04-24] MEDS: enoxaparin 30 mg/0.3 mL Syringe SUBCUT (01:15)
[2020-04-24] MEDS: enoxaparin 100 mg/mL Syringe SUBCUT (01:15)
[2020-04-24] MEDS: ipratropium-albuterol 3 mL Neb INHALATION ×6 (03:33→23:14)
[2020-04-24 04:00] LABS: ABG PH Result 7.42 (7.35-7.45); Arterial Blood Gas Hematocrit 30.8 % (37-47); Base Excess ABG 13.7 mmol/L (-2.0-2.0); Blood Gas Allen Test Pos; Blood Gas Sample Site Radial, left; Blood Gas Sample Type Arterial; HCO3 ABG 40.4 mmol/L (22-26); Oxygen Device BIPAP; PO2 ABG 79.3 mmHg (80.0-100.0)
[2020-04-24 04:01] LABS: ABG PCO2 62.9 mmHg (35-45)
[2020-04-24 04:27] LABS: Basophils % 0.2 %; Eosinophils % 0.2 %; Hematocrit 22.9 % (37.0-47.0); Hemoglobin 6.7 g/dL (11.5-15.3); Lymphocytes # 1.4 10^3/uL (0.8-4.8); Lymphocytes % 22.5 %; Mean Corpuscular HGB Conc 29.3 g/dL (30.0-36.0); Mean Corpuscular Hemoglobin 27.5 pg (28.0-34.0); Mean Corpuscular Volume 93.9 fL (81-99); Mean Platelet Volume 10.6 fL (7.4-10.4); Monocytes # 0.5 10^3/uL (0.2-0.9); Monocytes % 8.3 %; Neutrophils # 4.22 10^3/uL (1.8-7.7); Neutrophils % 66.4 %; Nucleated Red Blood Cells % 0 %; Platelet Count 241 10^3/cmm (130-400); Red Blood Count 2.44 10^6/uL (4.1-5.3); Red Cell Distribution Width 15.7 % (12.1-15.1); White Blood Count 6.4 10^3/uL (4.0-10.0)
[2020-04-24 04:46] LABS: Lactate (Lactic Acid level) 1.3 mmol/L (0.5-2.2)
[2020-04-24 04:48] LABS: Vancomycin Trough 23.9 ug/mL (10-15)
[2020-04-24 04:55] LABS: INR 1.09 (0.8-1.2)
[2020-04-24 04:57] LABS: NT Pro B Type Natriuretic Pept 196 pg/mL (0-125); Procalcitonin 0.19 ng/mL (0-0.5)
[2020-04-24 05:10] LABS: Alanine Aminotransferase 7 U/L (0-33); Albumin Level 2.9 g/dL (3.5-5.2); Alkaline Phosphatase 61 IU/L (35-105); Aspartate Amino Transferase 9 U/L (0-32); Blood Urea Nitrogen 43 mg/dL (8-23); C Reactive Protein 12.8 mg/L (0.0-4.9); Calcium 8.5 mg/dL (8.5-10.5); Carbon Dioxide 34 mmol/L (22-29); Chloride 96 mmol/L (98-107); Creatine Phosphokinase 18 U/L (26-192); Globulin 3.2 g/dL (1.3-4.6); Glucose 185 mg/dL (65-115); Magnesium 1.5 mg/dL (1.7-2.3); Osmolality Calculated 308 mOsm/kg (285-295); Phosphorus 3.6 mg/dL (2.5-4.5); Sodium 141 mmol/L (136-145); Total Bilirubin 0.2 mg/dL (0.15-1.2); Total Protein 6.1 g/dL (6.6-8.7)
[2020-04-24 05:11] LABS: Anion Gap 15.1 (5-19); Potassium 4.1 mmol/L (3.5-5.1)
--- NOTE | 2020-04-24 07:00 | XR_ITS ---
WS: [id number] PORTABLE CHEST HISTORY: sob COMPARISON: 04/23/2020 Lungs are clear and well expanded. Bilateral small pleural effusions with compressive atelectasis. Pu lmonary vasculature appears normal. Cardiac size: Mildly enlarged cardiac silhouette. Mediastinum/Aorta: Mild atherosclerosis aorta. No osseous abnormality seen. XR/XR chest 1V portable [id number] IMPRESSION: Small bilateral pleural effusions with bibasilar compressive atelectasis. No pn eumonia. Better aeration at the medial RIGHT lung base as compared to 04/23/2020 .
[2020-04-24 07:24] LABS: Glucose Point of Care 252 mg/dL (70-110)
[2020-04-24 07:24] LABS: Glucose Point of Care 379 mg/dL (70-110)
[2020-04-24 07:24] LABS: Glucose Point of Care 335 mg/dL (70-110)
[2020-04-24] MEDS: vancomycin 1,500 MG/300 ML PIGGYBACK 200 MG IV (08:10)
[2020-04-24] MEDS: dexamethasone 4 mg/mL INJ 6 MG IVP (08:11)
[2020-04-24] MEDS: pregabalin 150 mg Capsule PO ×3 (08:18→21:20)
[2020-04-24] MEDS: levothyroxine 100 mcg Tablet PO (08:18)
[2020-04-24] MEDS: zinc gluconate 50 mg Tablet PO (08:21)
[2020-04-24] MEDS: ascorbic acid 500 mg Tablet 1000 MG PO ×2 (08:21→17:05)
[2020-04-24] MEDS: gabapentin 300 mg Capsule PO ×3 (08:21→21:20)
[2020-04-24] MEDS: atorvastatin 40 mg Tablet 20 MG PO (08:21)
[2020-04-24] MEDS: sitagliptin 100 mg Tablet PO (08:21)
[2020-04-24] MEDS: potassium chloride ER 20 mEq Tablet 60 MEQ PO (08:21)
[2020-04-24] MEDS: FUROsemide 10 mg/mL SDV 4mL 40 MG IVP (10:15)
[2020-04-24] MEDS: sodium chloride 0.9% (100 ml) 100 ML 125 ML ×2 (10:24→12:39)
[2020-04-24] MEDS: magnesium sulfate premix 2 GM/50 ML PIGGYBACK IV (10:27)
--- NOTE | 2020-04-24 11:27 | PM.PN ---
Subjective Subjective: Interval history: This morning patient was examined, she sitting up in bed, having breakfast, she is down to 6 L nasal cannula, did tolerate the BiPAP well overnight, she tells me that she is feeling much better, no nausea, no vomiting, no chest pain, Vitals/I&O/Wt Last Vital Signs Temp 98.4 F 04/24/20 11:05 Pulse 66 04/24/20 11:05 Resp 17 04/24/20 11:05 BP 113/56 04/24/20 11:05 Pulse Ox 90 04/24/20 11:05 04/23/20 04/24/20 04/24/20 22:59 06:59 14:59 Intake Total 890 / 1890 308 / 2198 480 / 480 Output Total 2400 / 2400 1000 / 3400 Balance -1510 / -510 -692 / -1202 480 / 480 Physical Exam Const: COMMON NORMALS: no acute distress and patient oriented x3 HENMT: COMMON NORMALS: normocephalic HEAD & SCALP: normocephalic Neck/C-Spine: COMMON NORMALS: no JVD Resp: COMMON NORMALS: normal respiratory effort, No retractions, No use of accessory muscles and clear to auscultation bilaterally AUSCULTATION: clear to auscultation bilaterally Cardio: COMMON NORMALS: no JVD, regular rate, regular rhythm, S1 normal heart sound present and S2 normal heart sound present RATE: regular rate RHYTHM: regular rhythm HEART SOUNDS: S1 normal heart sound present and S2 normal heart sound present GI: COMMON NORMALS: Normal to inspection, nondistended, normoactive bowel sounds present, Soft to palpation, non-tender, No hepatosplenomegaly present, no masses and no bruits PALPATION: Yes Soft to palpation and Yes No hepatosplenomegaly present Extremity: COMMON NORMALS: capillary refill normal, no clubbing, cyanosis or edema, no calf tenderness and no pedal edema Neuro: COMMON NORMALS: patient oriented x3 Psych: COMMON NORMALS: mental status grossly normal Urinary Catheter Management^: Lockhart: Cath Placed During This Visit: yes Reason for Continuing Indwelling Catheter: Chronic Indwelling Urinary Catheter on Admission Urinary Catheter Date of Insertion: 04/18/20 Urinary Catheter Time of Insertion: 10:42 Data : 04/24/20 04:15 04/24/20 04:15 Micro: Microbiology 04/18/20 11:00 Blood Culture - Final Blood NO GROWTH AFTER 5 DAYS 04/18/20 10:26 Blood Culture - Final Blood NO GROWTH AFTER 5 DAYS A&P Assessment and plan (1) Acute respiratory failure with hypoxia: Acute hypoxic hypercapnic respiratory failure Secondary to COVID-19 pneumonia, secondary bacterial pneumonia, COPD CT angiogram shows no pulmonary emboli, nonspecific bibasilar consolidation Plan: Continue nasal cannula, BiPAP as needed during the day, schedule during the night Continue Decadron 6 mg every 12 hours Has finished remdesivir Has finished convalescent plasma Broad-spectrum antibiotic therapy vancomycin and Primaxin Follow blood cultures, sputum cultures, MRSA PCR positive Advair, Spiriva, albuterol Vitamin C, zinc Continue statin, Coreg Currently Lasix 40 mg once daily, will daily dose based on creatinine, 0.7, potassium replacement, echo shows EF of 55 to 60%, grade 2 diastolic dysfunction, diuresed over 3400 mL yesterday, -8.5 L since admission Hypomagnesemia, replaced with IV magnesium Monitor respiratory status closely Patient is full code Lovenox for hypercoagulability prophylaxis for COVID-19 currently on hold due to anemia Plan for today, transfuse blood, monitor hemoglobin, continue Lasix, continue antibiotics, continue BiPAP, potentially could be discharged in the next 48 to 96 hours Status: Acute (2) Acute hypercapnic respiratory failure: Needing increased oxygen, BiPAP Note that she retained CO2 so the lowest amount of oxygen possible to maintain saturations 90 to 92% Status: Acute (3) Pneumonia due to 2019-nCoV: Status: Acute (4) COPD with acute lower respiratory infection: Nebs as needed Status: Acute (5) UTI (urinary tract infection): Currently on Primaxin. Blood culture negative to date. Urine culture demonstrated greater than 3 organisms so they did not perform identification and sensitivities Status: Acute Qualifiers: Urinary tract infection type: acute cystitis Hematuria presence: with hematuria Qualified Code(s): N30.01 - Acute cystitis with hematuria (6) Decubitus ulcer of sacral area: Keep pressure off the area, clean and dry. Lockhart. From my understanding she had a chronic indwelling Lockhart until this was accidentally removed several weeks ago. Status: Acute (7) Acute anemia: -Hemoglobin down to 6.7 -Likely secondary to therapeutic Lovenox, slow GI bleed, COVID-19 related, bone marrow suppression Plan: -Hold Lovenox -Monitor hemodynamics closely -Transfuse 2 units PRBC -Monitor hemoglobin after -B12, folate, iron, Hemoccult stool Status: Acute Additional A&P Information Left lower extremity edema. Venous duplex negative Diabetes mellitus. Sliding scale insulin Hypothyroidism. Continue home medication Hypertension, continue home medications Multiple other medical problems as outlined in past medical history. 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
[2020-04-24] MEDS: sucralfate 1 gm Tablet PO ×3 (11:45→21:20)
[2020-04-24] MEDS: pantoprazole DR 40 mg Tablet PO ×2 (11:45→17:06)
[2020-04-24 12:55] LABS: Folate Level 12.4 ng/mL (4.8-37.3)
[2020-04-24 12:58] LABS: Iron 41 ug/dL (37-145); Vitamin B12 601 pg/mL (232-1245)
--- NOTE | 2020-04-24 15:16 | PC.NURSE ---
2 units RBC transfused, pt tolerated well
[2020-04-24 17:21] LABS: Hematocrit 37.5 % (37.0-47.0)
[2020-04-24 17:25] LABS: Hemoglobin 11.3 g/dL (11.5-15.3)
[2020-04-24 20:14] LABS: Glucose Point of Care 362 mg/dL (70-110)
[2020-04-24] MEDS: trazodone 150 mg Tablet PO (21:20)
[2020-04-25] VITALS (21 sets, daily range): BP systolic 104–139; BP diastolic 46–69; PULSE 61–82; RESP 16–22; TEMP 36.6–36.9; O2SAT 82–96
[2020-04-25] MEDS: ipratropium-albuterol 3 mL Neb INHALATION ×6 (03:15→23:58)
[2020-04-25 04:49] LABS: Basophils % 0.2 %; Eosinophils % 0.3 %; Hematocrit 36.1 % (37.0-47.0); Lymphocytes # 1.4 10^3/uL (0.8-4.8); Lymphocytes % 22.5 %; Mean Corpuscular HGB Conc 30.5 g/dL (30.0-36.0); Mean Corpuscular Hemoglobin 27.3 pg (28.0-34.0); Mean Corpuscular Volume 89.6 fL (81-99); Mean Platelet Volume 10.4 fL (7.4-10.4); Monocytes # 0.5 10^3/uL (0.2-0.9); Monocytes % 8.6 %; Neutrophils # 4.05 10^3/uL (1.8-7.7); Neutrophils % 64.4 %; Nucleated Red Blood Cells % 0 %; Platelet Count 195 10^3/cmm (130-400); Red Blood Count 4.03 10^6/uL (4.1-5.3); Red Cell Distribution Width 16.2 % (12.1-15.1); White Blood Count 6.3 10^3/uL (4.0-10.0)
[2020-04-25 05:00] LABS: INR 1.04 (0.8-1.2)
[2020-04-25 05:06] LABS: Lactate (Lactic Acid level) 1.4 mmol/L (0.5-2.2)
[2020-04-25 05:07] LABS: Alanine Aminotransferase 7 U/L (0-33); Alkaline Phosphatase 59 IU/L (35-105); Anion Gap 11.1 (5-19); Aspartate Amino Transferase 10 U/L (0-32); Blood Urea Nitrogen 42 mg/dL (8-23); C Reactive Protein 8.6 mg/L (0.0-4.9); Calcium 8.6 mg/dL (8.5-10.5); Carbon Dioxide 35 mmol/L (22-29); Chloride 95 mmol/L (98-107); Glucose 196 mg/dL (65-115); Magnesium 1.8 mg/dL (1.7-2.3); Osmolality Calculated 300 mOsm/kg (285-295); Phosphorus 2.7 mg/dL (2.5-4.5); Potassium 4.1 mmol/L (3.5-5.1); Sodium 137 mmol/L (136-145); Total Bilirubin 0.3 mg/dL (0.15-1.2)
[2020-04-25 05:18] LABS: NT Pro B Type Natriuretic Pept 276 pg/mL (0-125); Procalcitonin 0.23 ng/mL (0-0.5)
[2020-04-25 05:28] LABS: Creatine Phosphokinase 15 U/L (26-192)
[2020-04-25 07:33] LABS: Glucose Point of Care 173 mg/dL (70-110)
[2020-04-25 07:33] LABS: Glucose Point of Care 296 mg/dL (70-110)
[2020-04-25 07:33] LABS: Glucose Point of Care 185 mg/dL (70-110)
[2020-04-25 07:33] LABS: Glucose Point of Care 309 mg/dL (70-110)
[2020-04-25] MEDS: pantoprazole DR 40 mg Tablet PO ×2 (08:03→17:07)
[2020-04-25] MEDS: potassium chloride ER 20 mEq Tablet 60 MEQ PO (08:03)
[2020-04-25] MEDS: gabapentin 300 mg Capsule PO ×3 (08:03→20:45)
[2020-04-25] MEDS: pregabalin 150 mg Capsule PO (08:03)
[2020-04-25] MEDS: ascorbic acid 500 mg Tablet 1000 MG PO (08:03)
[2020-04-25] MEDS: atorvastatin 40 mg Tablet 20 MG PO (08:03)
[2020-04-25] MEDS: sitagliptin 100 mg Tablet PO (08:03)
[2020-04-25] MEDS: levothyroxine 100 mcg Tablet PO (08:03)
[2020-04-25] MEDS: zinc gluconate 50 mg Tablet PO (08:03)
[2020-04-25] MEDS: dexamethasone 4 mg/mL INJ 6 MG IVP (08:04)
--- NOTE | 2020-04-25 08:19 | PM.PN ---
Subjective Subjective: Interval history: Patient reports feeling better this morning. Reports that she was able to get through the night without mask and she did not drop her saturations. She is currently on 6 L by nasal cannula. Reports that at home she uses 2 to 3 L mostly at night. She has decubitus sacral ulcer stage II as I was told without evidence of infection. I was unable to personally evaluate. Patient uses [employer] lift at home. 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 She lives with her son and has another son helping to her as needed. Hemoglobin stable Vitals/I&O/Wt Last Vital Signs Temp 97.8 F 04/25/20 04:16 Pulse 72 04/25/20 06:26 Resp 16 04/25/20 04:10 BP 104/46 04/25/20 04:10 Pulse Ox 96 04/25/20 04:10 04/24/20 04/25/20 04/25/20 22:59 06:59 14:59 Intake Total 1360 / 2290 100 / 2390 Output Total 1400 / 2150 700 / 2850 Balance -40 / 140 -600 / -460 Physical Exam Const: COMMON NORMALS: no acute distress and patient oriented x3 Resp: OTHER: Coarse breath sounds throughout, appears to be upper airway transmitted sounds. Cardio: COMMON NORMALS: regular rate, regular rhythm and S2 normal heart sound present RATE: regular rate RHYTHM: regular rhythm HEART SOUNDS: S2 normal heart sound present OTHER: Trace left lower extremity edema GI: COMMON NORMALS: Normal to inspection, nondistended, normoactive bowel sounds present, Soft to palpation and non-tender PALPATION: Yes Soft to palpation OTHER: Umbilical hernia. Neuro: COMMON NORMALS: patient oriented x3 and no focal motor deficits Urinary Catheter Management^: Lockhart: Cath Placed During This Visit: yes Reason for Continuing Indwelling Catheter: Chronic Indwelling Urinary Catheter on Admission Urinary Catheter Date of Insertion: 04/18/20 Urinary Catheter Time of Insertion: 10:42 Data : 04/25/20 04:15 04/25/20 04:15 A&P Assessment and plan (1) Acute respiratory failure with hypoxia: Acute hypoxic hypercapnic respiratory failure Secondary to COVID-19 pneumonia, secondary bacterial pneumonia, COPD CT angiogram shows no pulmonary emboli, nonspecific bibasilar consolidation Plan: Continue nasal cannula, BiPAP as needed during the day, schedule during the night Continue Decadron 6 mg every 12 hours Has finished remdesivir Has finished convalescent plasma Broad-spectrum antibiotic therapy vancomycin and Primaxin Follow blood cultures, sputum cultures, MRSA PCR positive Advair, Spiriva, albuterol Vitamin C, zinc Continue statin, Coreg Currently Lasix 40 mg once daily, will daily dose based on creatinine, 0.7, potassium replacement, echo shows EF of 55 to 60%, grade 2 diastolic dysfunction, diuresed over 3400 mL yesterday, -8.5 L since admission Hypomagnesemia, replaced with IV magnesium Monitor respiratory status closely Patient is full code Lovenox for hypercoagulability prophylaxis for COVID-19 currently on hold due to anemia Plan for today, transfuse blood, monitor hemoglobin, continue Lasix, continue antibiotics, continue BiPAP, potentially could be discharged in the next 48 to 96 hours Status: Acute (2) Acute hypercapnic respiratory failure: Needing increased oxygen, BiPAP Note that she retained CO2 so the lowest amount of oxygen possible to maintain saturations 90 to 92% Status: Acute (3) Pneumonia due to 2019-nCoV: Status: Acute (4) COPD with acute lower respiratory infection: Nebs as needed Status: Acute (5) UTI (urinary tract infection): Currently on Primaxin. Blood culture negative to date. Urine culture demonstrated greater than 3 organisms so they did not perform identification and sensitivities Status: Acute Qualifiers: Urinary tract infection type: acute cystitis Hematuria presence: with hematuria Qualified Code(s): N30.01 - Acute cystitis with hematuria (6) Decubitus ulcer of sacral area: Keep pressure off the area, clean and dry. Lockhart. From my understanding she had a chronic indwelling Lockhart until this was accidentally removed several weeks ago. Status: Acute (7) Acute anemia: -Hemoglobin down to 6.7 -Likely secondary to therapeutic Lovenox, slow GI bleed, COVID-19 related, bone marrow suppression Plan: -Hold Lovenox -Monitor hemodynamics closely -Transfuse 2 units PRBC -Monitor hemoglobin after -B12, folate, iron, Hemoccult stool Status: Acute Additional A&P Information Left lower extremity edema. Venous duplex negative Diabetes mellitus. Sliding scale insulin Hypothyroidism. Continue home medication Hypertension, continue home medications Multiple other medical problems as outlined in past medical history. Full code Lovenox for DVT prophylaxis Currently plan is to discharge home with son PLAN: Discontinue ascorbic acid and continue high-dose PPI. Continue vancomycin and Primaxin for now as pneumonia cannot be completely ruled out. Vancomycin was started 4 days ago. Cultures so far negative. Will request occupational therapy but I doubt that patient is rehabable. Continue with wound care. Overall patient appears to have poor long-term prognosis. Attestations Medical Necessity Statement*: Patient was respiratory requires close inpatient monitoring and treatment until deemed safe for discharge. 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
[2020-04-25] MEDS: sucralfate 1 gm Tablet PO ×4 (08:46→20:46)
[2020-04-25] MEDS: vancomycin 1,250 MG/250 ML PIGGYBACK 200 MG IV (09:00)
--- NOTE | 2020-04-25 10:55 | PC.SOCIAL ---
*IMM* Updated IMM. Nurse stated she will inform the patient of her medicare rights and the message.
[2020-04-25 11:59] LABS: Glucose Point of Care 267 mg/dL (70-110)
[2020-04-25 17:12] LABS: Glucose Point of Care 357 mg/dL (70-110)
[2020-04-25 19:36] LABS: Glucose Point of Care 354 mg/dL (70-110)
[2020-04-25] MEDS: trazodone 150 mg Tablet PO (20:46)
[2020-04-26] VITALS (34 sets, daily range): BP systolic 93–136; BP diastolic 48–87; PULSE 65–84; RESP 15–24; TEMP 36.3–36.9; O2SAT 84–94
--- NOTE | 2020-04-26 01:13 | PC.NURSE ---
Patient changed and repositioned, large liquid BM noted, Martita care provided, PT denies any complaints of pain or discomfort at this time.
[2020-04-26] MEDS: ipratropium-albuterol 3 mL Neb INHALATION ×6 (04:54→23:47)
[2020-04-26] MEDS: sucralfate 1 gm Tablet PO ×2 (06:08→11:52)
[2020-04-26 07:51] LABS: Glucose Point of Care 193 mg/dL (70-110)
[2020-04-26] MEDS: vancomycin 1,250 MG/250 ML PIGGYBACK 250 MG IV (08:04)
[2020-04-26] MEDS: levothyroxine 100 mcg Tablet PO (08:06)
[2020-04-26] MEDS: sitagliptin 100 mg Tablet PO (08:06)
[2020-04-26] MEDS: gabapentin 300 mg Capsule PO ×3 (08:07→22:31)
[2020-04-26] MEDS: zinc gluconate 50 mg Tablet PO (08:07)
[2020-04-26] MEDS: atorvastatin 40 mg Tablet 20 MG PO (08:07)
[2020-04-26] MEDS: pantoprazole DR 40 mg Tablet PO ×2 (08:07→17:32)
[2020-04-26] MEDS: potassium chloride ER 20 mEq Tablet 60 MEQ PO (08:07)
[2020-04-26] MEDS: dexamethasone 4 mg/mL INJ 6 MG IVP (08:08)
[2020-04-26 11:27] LABS: Glucose Point of Care 306 mg/dL (70-110)
--- NOTE | 2020-04-26 15:47 | PM.PN ---
Subjective Subjective: Interval history: Patient desaturated to 84 percent on 6 L by nasal cannula and she was placed on BiPAP which patient does not like. Reports that she continues to have brownish phlegm productive cough. Denies chest pain or abdominal pain. Medications: Reviewed: Yes Vitals/I&O/Wt Last Vital Signs Temp 97.4 F L 04/26/20 12:00 Pulse 71 04/26/20 12:00 Resp 18 04/26/20 12:00 BP 122/49 04/26/20 12:00 Pulse Ox 91 04/26/20 12:00 04/26/20 04/26/20 04/26/20 06:59 14:59 22:59 Intake Total 200 / 2190 1310 / 1310 Output Total 850 / 1750 Balance -650 / 440 1310 / 1310 Physical Exam Const: COMMON NORMALS: no acute distress and patient oriented x3 Resp: OTHER: Coarse breath sounds throughout, appears to be upper airway transmitted sounds. Cardio: COMMON NORMALS: regular rate, regular rhythm and S2 normal heart sound present RATE: regular rate RHYTHM: regular rhythm HEART SOUNDS: S2 normal heart sound present OTHER: Trace left lower extremity edema GI: COMMON NORMALS: Normal to inspection, nondistended, normoactive bowel sounds present, Soft to palpation and non-tender PALPATION: Yes Soft to palpation OTHER: Umbilical hernia. Neuro: COMMON NORMALS: patient oriented x3 and no focal motor deficits Urinary Catheter Management^: Lockhart: Cath Placed During This Visit: yes Reason for Continuing Indwelling Catheter: Assist Healing of Perineal & Sacral Wounds- Incontinent Patients Urinary Catheter Date of Insertion: 04/18/20 Urinary Catheter Time of Insertion: 10:42 Data : 04/25/20 04:15 04/25/20 04:15 Micro: Microbiology 04/25/20 09:53 Occult Blood (FIT) - Final Stool Routine Collection A&P Assessment and plan (1) Acute respiratory failure with hypoxia: Acute hypoxic hypercapnic respiratory failure Secondary to COVID-19 pneumonia, secondary bacterial pneumonia, COPD CT angiogram shows no pulmonary emboli, nonspecific bibasilar consolidation Plan: Continue nasal cannula, BiPAP as needed during the day, schedule during the night Continue Decadron 6 mg every 12 hours Has finished remdesivir Has finished convalescent plasma Broad-spectrum antibiotic therapy vancomycin and Primaxin Follow blood cultures, sputum cultures, MRSA PCR positive Advair, Spiriva, albuterol Vitamin C, zinc Continue statin, Coreg Currently Lasix 40 mg once daily, will daily dose based on creatinine, 0.7, potassium replacement, echo shows EF of 55 to 60%, grade 2 diastolic dysfunction, diuresed over 3400 mL yesterday, -8.5 L since admission Hypomagnesemia, replaced with IV magnesium Monitor respiratory status closely Patient is full code Lovenox for hypercoagulability prophylaxis for COVID-19 currently on hold due to anemia Plan for today, transfuse blood, monitor hemoglobin, continue Lasix, continue antibiotics, continue BiPAP, potentially could be discharged in the next 48 to 96 hours Status: Acute (2) Acute hypercapnic respiratory failure: Needing increased oxygen, BiPAP Note that she retained CO2 so the lowest amount of oxygen possible to maintain saturations 90 to 92% Status: Acute (3) Pneumonia due to 2019-nCoV: Status: Acute (4) COPD with acute lower respiratory infection: Nebs as needed Status: Acute (5) UTI (urinary tract infection): Currently on Primaxin. Blood culture negative to date. Urine culture demonstrated greater than 3 organisms so they did not perform identification and sensitivities Status: Acute Qualifiers: Urinary tract infection type: acute cystitis Hematuria presence: with hematuria Qualified Code(s): N30.01 - Acute cystitis with hematuria (6) Decubitus ulcer of sacral area: Keep pressure off the area, clean and dry. Lockhart. From my understanding she had a chronic indwelling Lockhart until this was accidentally removed several weeks ago. Status: Acute (7) Acute anemia: -Hemoglobin down to 6.7 -Likely secondary to therapeutic Lovenox, slow GI bleed, COVID-19 related, bone marrow suppression Plan: -Hold Lovenox -Monitor hemodynamics closely -Transfuse 2 units PRBC -Monitor hemoglobin after -B12, folate, iron, Hemoccult stool Status: Acute Additional A&P Information Left lower extremity edema. Venous duplex negative Diabetes mellitus. Sliding scale insulin Hypothyroidism. Continue home medication Hypertension, continue home medications Multiple other medical problems as outlined in past medical history. Full code Lovenox for DVT prophylaxis Currently plan is to discharge home with son PLAN: Patient continues to have productive cough despite antibiotic treatment. Will request repeat sputum culture and Gram stain. Will change Primaxin to azithromycin and continue vancomycin for now. Discontinue dexamethasone and sucralfate. Continue high-dose PPI for now. We will try diuresing with Lasix. Repeat labs in a.m. Continue therapy. Continue weaning of oxygen. Attestations Medical Necessity Statement*: Patient with hypoxic respiratory failure requires close inpatient monitoring and treatment till deemed safe for discharge. 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
[2020-04-26] MEDS: FUROsemide 10 mg/mL SDV 4mL 40 MG IVP (16:30)
[2020-04-26] MEDS: azithromycin 250 mg Tablet 500 MG PO (16:43)
[2020-04-26 16:58] LABS: Glucose Point of Care 372 mg/dL (70-110)
[2020-04-26 21:37] LABS: Glucose Point of Care 353 mg/dL (70-110)
[2020-04-26] MEDS: trazodone 150 mg Tablet PO (22:31)
[2020-04-27] VITALS (26 sets, daily range): BP systolic 77–131; BP diastolic 55–68; PULSE 58–77; RESP 14–24; TEMP 36.4–36.8; O2SAT 77–94
--- NOTE | 2020-04-27 02:42 | PC.NURSE ---
During bed check nurse noted the pt's leal was pulled out with balloon intact, the pt's bed was wet with urine, no blood or signs of injury noted, Pt denied any pain at this time, Dr. Mansfield notified and orders to place new leal received, New 16 Fr leal inserted without difficulty, 400ml of clear yellow urine returned, pt tolerated well, Pt had large BM, ngoc care provided, barrier cream applied, and pt repositioned with call light within reach.
[2020-04-27] MEDS: ipratropium-albuterol 3 mL Neb INHALATION ×4 (03:42→15:36)
[2020-04-27] MEDS: FUROsemide 10 mg/mL SDV 4mL 40 MG IVP (04:16)
[2020-04-27 05:00] LABS: Basophils % 0.1 %; Eosinophils % 0.3 %; Hematocrit 36.4 % (37.0-47.0); Hemoglobin 10.9 g/dL (11.5-15.3); Lymphocytes # 1.2 10^3/uL (0.8-4.8); Lymphocytes % 13.3 %; Mean Corpuscular HGB Conc 29.9 g/dL (30.0-36.0); Mean Corpuscular Hemoglobin 27.5 pg (28.0-34.0); Mean Corpuscular Volume 91.9 fL (81-99); Mean Platelet Volume 10.8 fL (7.4-10.4); Monocytes # 0.7 10^3/uL (0.2-0.9); Monocytes % 7.8 %; Neutrophils # 7.18 10^3/uL (1.8-7.7); Neutrophils % 76.9 %; Nucleated Red Blood Cells % 0 %; Platelet Count 148 10^3/cmm (130-400); Red Blood Count 3.96 10^6/uL (4.1-5.3); Red Cell Distribution Width 15.9 % (12.1-15.1); White Blood Count 9.3 10^3/uL (4.0-10.0)
[2020-04-27 05:32] LABS: Alanine Aminotransferase 6 U/L (0-33); Alkaline Phosphatase 61 IU/L (35-105); Anion Gap 10.4 (5-19); Aspartate Amino Transferase 7 U/L (0-32); Blood Urea Nitrogen 36 mg/dL (8-23); Calcium 9.1 mg/dL (8.5-10.5); Carbon Dioxide 33 mmol/L (22-29); Chloride 100 mmol/L (98-107); Globulin 3.3 g/dL (1.3-4.6); Glucose 212 mg/dL (65-115); Magnesium 1.7 mg/dL (1.7-2.3); Osmolality Calculated 303 mOsm/kg (285-295); Potassium 4.4 mmol/L (3.5-5.1); Sodium 139 mmol/L (136-145); Total Bilirubin 0.3 mg/dL (0.15-1.2); Total Protein 6.3 g/dL (6.6-8.7)
[2020-04-27 07:47] LABS: Glucose Point of Care 257 mg/dL (70-110)
[2020-04-27] MEDS: sitagliptin 100 mg Tablet PO (08:19)
[2020-04-27] MEDS: levothyroxine 100 mcg Tablet PO (08:19)
[2020-04-27] MEDS: potassium chloride ER 20 mEq Tablet 60 MEQ PO (08:19)
[2020-04-27] MEDS: pantoprazole DR 40 mg Tablet PO ×2 (08:20→17:36)
[2020-04-27] MEDS: atorvastatin 40 mg Tablet 20 MG PO (08:20)
[2020-04-27] MEDS: zinc gluconate 50 mg Tablet PO (08:20)
[2020-04-27] MEDS: gabapentin 300 mg Capsule PO ×2 (08:20→14:51)
[2020-04-27 10:26] LABS: Vancomycin Trough 18.8 ug/mL (10-15)
[2020-04-27 11:48] LABS: Glucose Point of Care 216 mg/dL (70-110)
--- NOTE | 2020-04-27 12:02 | PM.DCS ---
Discharge Providers Date of Admission: 04/18/20 11:40 Date of Discharge: April 27, 2020 Attending Provider at Admission: Mustapha Ames MD Attending Provider at Discharge: Brian Walker MD Diagnoses at Discharge Discharge Diagnosis (1) Acute respiratory failure with hypoxia: Status: Acute (2) Acute hypercapnic respiratory failure: Status: Acute (3) Pneumonia due to 2019-nCoV: Status: Acute Permanent problem details: And also highly suspected secondary bacterial pneumonia (4) COPD with acute lower respiratory infection: Status: Acute (5) UTI (urinary tract infection): Status: Acute Permanent problem details: History of recurrent UTIs. Found to have ESBL Klebsiella July 2019. Initiated Methenamine Hippurate plus vitamin C for UTI suppression October 2019. Qualifiers: Hematuria presence: with hematuria Urinary tract infection type: acute cystitis Qualified Code(s): N30.01 - Acute cystitis with hematuria (6) Decubitus ulcer of sacral area: Status: Acute Permanent problem details: Improving (7) Acute anemia: Status: Acute (8) Chemical dermatitis: Status: Acute Permanent problem details: Related to urinary incontinence. (9) Acute diastolic CHF (congestive heart failure): Status: Acute Permanent problem details: Does not appear to be present on admission (10) Constipation: Status: Acute Permanent problem details: Possibly present on admission Reason for Visit Reason for Visit: DIFF BREATHING X 4 DAYS Hospital Course Hospital Course Patient presented with dyspnea and acute hypoxic and hypercapnic respiratory failure. She was diagnosed with COVID-19 pneumonia and highly suspected secondary bacterial pneumonia. She was also diagnosed with acute diastolic CHF exacerbation which does not appear to be present on admission. She was treated with antibiotics and antivirals and gradually improved. She noted to have phlegm productive cough and yesterday was started on azithromycin. Today she feels much better and reports that her cough is gone and she denies shortness of breath or chest pain this morning. She requires 6 L of oxygen to saturate in the 90s and will be discharged on this for now. We will continue patient's home diuretic but I will increase dose to twice daily. Will request lab work next Friday to make sure electrolytes within normal limits. We will also continue azithromycin for several more days. She noted to have significant chemical dermatitis related to frequent urinary incontinence. Lockhart catheter was placed and patient will follow up with Dr. Corey. Oxybutynin at this point was discontinued as it felt to be the cause along with opioid medications of patient constipation. She had large bowel movement after she was given enema. Patient is being dismissed home with home health. I will request outpatient follow-up with cardiology. Physical Exam Narrative: EXAM NARRATIVE: Patient's lung exam much improved and she has improved overall air movement and clear lungs. Her heart is regular. Her left lower extremity is swollen 2+. Abdomen is soft and nontender with positive bowel sounds. Urinary Catheter Management^: Lockhart: Cath Placed During This Visit: yes, but has since been removed by the nurse Reason for Continuing Indwelling Catheter: Assist healing open wound Urinary Catheter Date of Insertion: 04/27/20 Urinary Catheter Time of Insertion: 01:16 Date Urinary Catheter Removed: 04/26/20 Time Urinary Catheter Discontinued: 23:42 Discharge Data Data Completed and Pending: Completed Studies During Hospitalization Category Date Time Status CT angio chest PE protcl [id number] Rout ine Cat Scan 04/22/20 12:08 Completed XR chest 1V alejandro ble [id number] Routine Exams 04/21/20 13:21 Completed XR chest 1V alejandro ble [id number] Routine Exams 04/23/20 07:00 Completed XR chest 1V alejandro ble [id number] Routine Exams 04/24/20 07:00 Completed XR chest 1V alejandro ble [id number] Stat Exams 04/18/20 10:31 Completed CV echo complete* [id number] Routine Ultrasound 04/22/20 09:34 [place] [id number] Routin e Ultrasound 04/18/20 15:47 Completed Pending at discharge Category Date Time Status Arterial Blood Ga s W/O Coox AM LABS Lab 04/25/20 04:00 Ordered Complete Blood Co unt w/Auto AM LABS Lab 04/28/20 04:00 Ordered Complete Blood Co unt w/Auto AM LABS Lab 04/29/20 04:00 Ordered Comprehensive Met abolic Panel AM LA BS Lab 04/28/20 04:00 Ordered Comprehensive Met abolic Panel AM LA BS Lab 04/29/20 04:00 Ordered Magnesium AM LABS Lab 04/28/20 04:00 Ordered Magnesium AM LABS Lab 04/29/20 04:00 Ordered Sputum Culture an d Gram Stain Abel ne Lab 04/26/20 18:43 Results Labs from last 24 hours 04/27/20 04/27/20 04/27/20 11:36 09:36 07:33 WBC RBC Hgb Hct MCV MCH MCHC RDW Plt Count MPV Neut % (Auto) Lymph % (Auto) [place] % (Auto) Eos % (Auto) Baso % (Auto) Neut # (Auto) Lymph # (Auto) [place] # (Auto) Eos # (Auto) Baso # (Auto) Nucleated RBC % (a uto) Nucleated RBCs # Sodium Potassium Chloride Carbon Dioxide Anion Gap BUN Creatinine GFR Calculation Glucose POC Glucose 216 H 257 H Calculated Osmolal ity Calcium Magnesium Total Bilirubin AST ALT Alkaline Phosphata se Total Protein Albumin Globulin Vancomycin Trough 18.8 H 04/27/20 04/27/20 04/26/20 04:00 04:00 20:59 WBC 9.3 RBC 3.96 L Hgb 10.9 L Hct 36.4 L MCV 91.9 MCH 27.5 L MCHC 29.9 L RDW 15.9 H Plt Count 148 MPV 10.8 H Neut % (Auto) 76.9 Lymph % (Auto) 13.3 [place] % (Auto) 7.8 Eos % (Auto) 0.3 Baso % (Auto) 0.1 Neut # (Auto) 7.18 Lymph # (Auto) 1.2 [place] # (Auto) 0.7 Eos # (Auto) 0.0 Baso # (Auto) 0.0 Nucleated RBC % (a uto) 0 Nucleated RBCs # 0.0 Sodium 139 Potassium 4.4 Chloride 100 Carbon Dioxide 33 H Anion Gap 10.4 BUN 36 H Creatinine 0.5 GFR Calculation Not Reportable Glucose 212 H POC Glucose 353 H Calculated Osmolal ity 303 H Calcium 9.1 Magnesium 1.7 Total Bilirubin 0.3 AST 7 ALT 6 Alkaline Phosphata se 61 Total Protein 6.3 L Albumin 3.0 L Globulin 3.3 Vancomycin Trough 04/26/20 16:33 WBC RBC Hgb Hct MCV MCH MCHC RDW Plt Count MPV Neut % (Auto) Lymph % (Auto) [place] % (Auto) Eos % (Auto) Baso % (Auto) Neut # (Auto) Lymph # (Auto) [place] # (Auto) Eos # (Auto) Baso # (Auto) Nucleated RBC % (a uto) Nucleated RBCs # Sodium Potassium Chloride Carbon Dioxide Anion Gap BUN Creatinine GFR Calculation Glucose POC Glucose 372 H Calculated Osmolal ity Calcium Magnesium Total Bilirubin AST ALT Alkaline Phosphata se Total Protein Albumin Globulin Vancomycin Trough Vitals: Last Vital Signs Temp 97.5 F L 04/27/20 08:00 Pulse 76 04/27/20 11:27 Resp 18 04/27/20 11:27 BP 127/59 04/27/20 09:00 Pulse Ox 91 04/27/20 11:27 Discharge Plan Discharge Patient Disposition: Home Health Service Condition: Stable Prescriptions: New sennosides-docusate sodium [Senna-S] 8.6-50 mg tablet 1 tab-cap PO BID Qty: 60 RF: 0 acetaminophen 325 mg Tablet 650 mg PO Q6H PRN (Reason: Mild/Mod Pain Or Temp >/= 101) Qty: 30 RF: 0 azithromycin 250 mg tablet 250 mg PO DAILY 3 Days Qty: 3 RF: 0 Continued trazodone 150 mg tablet 150 mg PO BEDTIME RF: 0 carvedilol 6.25 mg tablet 3.125 mg PO BID 30 Days Qty: 30 RF: 0 glipizide 10 mg tablet 10 mg PO BID 30 Days Qty: 60 RF: 0 oxycodone-acetaminophen 5-325 mg tablet 1 tab PO Q8H PRN (Reason: Pain) Qty: 30 RF: 0 potassium chloride 20 mEq tablet,ER particles/crystals 20 meq PO BID 30 Days Qty: 60 RF: 0 Januvia 100 mg Tablet 100 mg PO DAILY 30 Days Qty: 30 RF: 0 albuterol sulfate 2.5 mg /3 mL (0.083 %) solution for nebulization 2.5 mg INHALATION Q6H PRN (Reason: shortness of breath or wheezing) Qty: 90 RF: 0 atorvastatin 20 mg Tablet 20 mg PO DAILY RF: 0 fluticasone propion-salmeterol [Advair Diskus] 250-50 mcg/dose blister with device 1 inh INHALATION BID Qty: 60 RF: 0 levothyroxine 100 mcg Tablet 100 mcg PO DAILY RF: 0 gabapentin 300 mg Capsule 300 mg PO TID RF: 0 Humalog U-100 Insulin 100 unit/mL Solution See Rx Instructions .ROUTE .COMPLEX RF: 0 Changed furosemide 40 mg tablet 40 mg PO BID Qty: 60 RF: 0 Discontinued alendronate 70 mg tablet 70 mg PO Q7D Qty: 5 RF: 0 tramadol 50 mg tablet 50 mg PO TID PRN (Reason: Pain) Qty: 30 RF: 0 oxybutynin chloride 5 mg tablet 5 mg PO BID 30 Days Qty: 60 RF: 0 pregabalin 150 mg capsule 150 mg PO TID 30 Days Qty: 90 RF: 0 Discharge Orders: Discharge Order (Routine); Ordered 04/27/20 Ordered By: Brian Walker Other Ambulatory Orders: Comprehensive Metabolic Panel (Routine) Timeframe: 20200501 Facility: [facility] - Location: Lab - Main Lab Ordered By: Brian Walker Referrals: Ja Corey MD [Physician] - 2 weeks Manuela Hughes MD [Physician] - 1 week (Earliest possible) Discharge Diet: Advance as tolerated Discharge Activity: Increase activity as tolerated Activity Restrictions/Additional Instructions: Please call your doctor or present to emergency department if your condition worsens or you develop diarrhea, lightheadedness, fatigue or see blood in your stool or black stool. Please limit amount of fluids you are drinking if you notice worsening shortness of breath and lower extremity swelling. Patient to continue with wound care performed by home health and if not improving outpatient follow-up with wound care clinic should be considered. Please continue using 6 L of oxygen by nasal cannula titrated for saturation above 90%. Please follow-up with cardiology earliest possible. Please follow-up with your primary care physician within next 4 to 7 days. Please keep blood pressure, heart rate and blood sugar log 3 times daily to present to primary care physician next visit for medication adjustment. Discharge Attestations Time Spent in Discharge Care*: greater than 30 min Status at Discharge: Cognitive status at discharge: cognitively intact, Behavioral status at discharge: cooperative, Quality Metrics Clinical Quality Measures During this hospital stay, did patient experience: None Coding Level of Care Code Acute Clothing Supervisor for [facility] Fwd Diagnoses Acute respiratory failure with hypoxia J96.01 Acute hypercapnic respiratory failure J96.02 Pneumonia due to 2019-nCoV U07.1; J12.89 COPD with acute lower respiratory infection J44.0 UTI (urinary tract infection) N30.01 Hematuria presence: with hematuria Urinary tract infection type: acute cystitis Decubitus ulcer of sacral area L89.159 Acute anemia D64.9 Chemical dermatitis L25.3 Acute diastolic CHF (congestive heart failure) I50.31 Constipation K59.00
[2020-04-27] MEDS: vancomycin 1,000 MG in sodium chloride 0.9% 250 ML 250 MG IV (12:10)
--- NOTE | 2020-04-27 12:28 | DCPLANNER ---
Attempted to reach Son; Mateo regarding the IMM. No answer and no machine. Pt isn't being d/c'd today anyway but just wanted to review the message with him.
--- NOTE | 2020-04-27 16:02 | DCPLANNER ---
Pt is being d/c'd. Per Pt. Care Nurse; Taylor; Son is aware and expecting pt to be coming home.
[2020-04-27] MEDS: azithromycin 250 mg Tablet 500 MG PO (16:13)
[2020-04-29 12:36] LABS: Glucose Point of Care 228 mg/dL (70-110)
== END 2020-04-27 18:10 | disposition home health service (06) | DRG 177 ==
LOC: ER 12:25 → MS 2A 13:23
PROVIDERS: Family Medicine; Admitting Provider Internal Medicine; Emergency Provider Family Medicine; Visit Provider Internal Medicine
DX: U07.1 COVID-19 (principal); J12.82 Pneumonia due to coronavirus disease 2019; J15.9 Unspecified bacterial pneumonia; J96.02 Acute respiratory failure with hypercapnia; J96.01 Acute respiratory failure with hypoxia; I50.31 Acute diastolic (congestive) heart failure; J44.0 Chronic obstructive pulmonary disease with (acute) lower respiratory infection; Z68.41 Body mass index [BMI] 40.0-44.9, adult; N30.01 Acute cystitis with hematuria; Z99.81 Dependence on supplemental oxygen; E11.42 Type 2 diabetes mellitus with diabetic polyneuropathy; E11.51 Type 2 diabetes mellitus with diabetic peripheral angiopathy without gangrene; E78.5 Hyperlipidemia, unspecified; K21.9 Gastro-esophageal reflux disease without esophagitis; E66.01 Morbid (severe) obesity due to excess calories; M81.0 Age-related osteoporosis without current pathological fracture; N32.81 Overactive bladder; E89.0 Postprocedural hypothyroidism; Z89.411 Acquired absence of right great toe; Z89.421 Acquired absence of other right toe(s); Z87.891 Personal history of nicotine dependence; L89.152 Pressure ulcer of sacral region, stage 2; D64.9 Anemia, unspecified; B95.62 Methicillin resistant Staphylococcus aureus infection as the cause of diseases classified elsewhere; Z79.4 Long term (current) use of insulin; Z79.891 Long term (current) use of opiate analgesic; K59.00 Constipation, unspecified; I11.0 Hypertensive heart disease with heart failure; R32 Unspecified urinary incontinence; L30.8 Other specified dermatitis; Z87.440 Personal history of urinary (tract) infections; E83.42 Hypomagnesemia
CPT/HCPCS: 12345; 36415; 36416; 36430; 36600; 51702; 71045; 71275; 80051; 80053; 80202; 81001; 82274; 82330; 82550; 82607; 82728; 82746; 82803; 82805; 82962; 83540; 83605; 83735; 83880; 84100; 84145; 85014; 85018; 85025; 85378; 85610; 86140; 86850; 86900; 86920; 86927; 87040; 87070; 87086; 87205; 87426; 87641; 93306; 93971; 94640; 94660; 96372; 97162; 97165; 99283; J0743; J1100; J1650; J1815; J1940; J1956; J2405; J3370; J3475; J7050; P9016; P9017; Q0144; Q9967

== ENCOUNTER 2020-06-27 14:37 | Observation (INO) | payer MEDICARE, MEDICAID, SELFPAY ==
[2020-06-27] VITALS (9 sets, daily range): BP systolic 93–111; BP diastolic 53–65; PULSE 68–80; RESP 16–18; TEMP 36.5–36.8; O2SAT 97–100; BMI 41.9
--- NOTE | 2020-06-27 15:02 | ECG_ITS ---
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 Measurements Intervals [place] Rate: 70 P: 31 ID: [id number] QRS: -27 QRSD: 109 T: 64 QT: 391 QTc: 424 Interpretive Statements SINUS RHYTHM BORDERLINE LEFT AXIS DEVIATION [QRS AXIS < -20] NONSPECIFIC T-WAVE ABNORMALITY Compared to ECG 11/28/2019 15:16:07 T-wave abnormality now present Electronically Signed On 06-27-2020 16:57:55 CDT by Qasim Farah M.D. [email or web address]
--- NOTE | 2020-06-27 15:04 | CTR_ITS ---
PROCEDURE INFORMATION: Exam: CT Abdomen And Pelvis With Contrast Exam date and time: 06/27/2020 4:39 PM Age: 74 years old Clinical indication: Abdominal pain; Localized; Prior surgery; Surgery type: Hyst, tumor removed from abd; Patient HX: Lower abdomen pain x 3-4 days, nausea; Additional info: Abd pain TECHNIQUE: Imaging protocol: Computed tomography of the abdomen and pelvis with contrast. Radiation optimization: All CT scans at this facility use at least one of these dose optimization techniques: automated exposure control; mA and/or kV adjustment per patient size (includes targeted exams where dose is matched to clinical indication); or iterative reconstruction. Contrast material: VISI 320; Contrast volume: 95 ml; Contrast route: INTRAVENOUS (IV); COMPARISON: CT abdomen pelvis w con* [id number] 09/27/2019 12:04 PM RADIATION DOSE METRICS: Total DLP (mGy-cm): 2087.56 FINDINGS: Lungs: Mild volume loss and bandlike lower lobe airspace opacities. Liver: Normal. No mass. Gallbladder and bile ducts: Cholecystectomy. No dilation of biliary system. Pancreas: Fatty replacement of pancreas. No focal lesion. Spleen: Normal. No splenomegaly. Adrenal glands: Normal. No mass. Kidneys and ureters: Moderately atrophic renal parenchyma. No focal mass. No hydronephrosis. No renal stones. Stomach and bowel: Surgical anastomosis of proximal jejunum with unremarkable appearance. Negative for bowel obstruction. No features of bowel perforation. Appendix: No evidence of appendicitis. Intraperitoneal space: No loculated intraperitoneal fluid collection. Vasculature: Scattered atherosclerosis. No aneurysm. Lymph nodes: Unremarkable. No enlarged lymph nodes. Urinary bladder: Bladder is thick-walled, peers trabeculated. Mild fat stranding. Small foci of gas in the bladder lumen. Reproductive: Atrophic uterus. Calcified right lateral fundal fibroid. No adnexal mass. Bones/joints: Surgical hardware fixates proximal left femur. No acute fractures. No aggressive bone lesion. The lumbar spine demonstrates moderate discogenic and apophyseal joint degenerative changes at multiple levels. No acute compression fracture. Soft tissues: Large midline ventral abdominal wall hernia contains abdominal fat and segment of the transverse colon without evidence of obstruction or inflammatory change. Lumbar paraspinal muscles are symmetric. Other findings: No active bleeding. CT/CT abdomen pelvis w con* [id number] IMPRESSION: 1. Acute cystitis not excluded. 2. Although overall appearance of bladder relatively similar to prior imaging. 3. Recommend correlation with clinical symptoms and urinalysis. Recurrent cystitis a possibility. Radiation Dose CTDIVOL = (mGy): DLP = 2087.56 (mGy-cm)
--- NOTE | 2020-06-27 15:08 | ED_ITS ---
HPI - General Adult General: Chief complaint: General Medical Stated complaint: WEAKNESS Time Seen by Provider: 06/27/20 15:01 History of Present Illness: HPI narrative: 74-year-old female brought in by EMS. She was at home she complaining of generalized nausea and abdominal discomfort. She denies any chest pain denies any productive cough or shortness of breath she has some mild dysuria no fever denies vomiting or diarrhea he is very vague about her chest pains infraumbilical. Onset (ago): hour(s) Location: abdomen Quality: aching Pain Consistency: intermittent Relieving factors: none Exacerbating factors: none Associated symptoms: Deny chest pain, confusion, cough, diaphoresis, decreased appetite, dyspnea, fevers/chills, headache(s), malaise, nausea, rash, palpitations, seizures, short of breath, syncope, vomiting or weakness Treatments prior to arrival: none Review of Systems Const: Denies: malaise or diaphoresis ENMT: Denies: throat pain, ear or mastoid pain, nasal discharge or nasal congestion Card: Denies: chest pain, palpitations or syncope Resp: Denies: dyspnea GI: Denies: nausea or vomiting : Denies: flank pain, difficulty voiding, dysuria, urinary frequency or urinary urgency Skin/Breast: Denies: rash Neuro: Denies: headache(s) or confusion PFS ED 2 PFSH: Medical History (Updated 06/30/20 @ 17:36 by Brendan Palmer DO) COPD (chronic obstructive pulmonary disease) Diabetes Diabetic peripheral neuropathy Dyslipidemia GERD (gastroesophageal reflux disease) -on PPI History of ESBL E. coli infection History of infection with vancomycin resistant Enterococcus (VRE) History of osteomyelitis HTN (hypertension) Hypothyroidism Lymphedema Morbid obesity Osteomyelitis Osteoporosis Overactive bladder Peripheral vascular disease -has known hx of PVD Recurrent UTI (urinary tract infection) Status post hysteroscopy with D&C on 11/10/[address] 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 History of hip surgery History of hysterectomy History of right breast biopsy History of surgery on extremity Left femur S/P excisional debridement Bilateral lower extremity wounds Family History Son Hypertension Denies family history of Diabetes Clotting disorder Hyperlipidemia Anesthesia complication Bleeding disorder Stroke Social History Smoking and tobacco status: former smoker Alcohol intake: never Lives independently: Yes Current occupational status: retired Physical Exam Const: COMMON NORMALS: no acute distress GENERAL APPEARANCE: cooperative and comfortable ORIENTATION/CONSCIOUSNESS: Yes awake, Yes oriented to person, Yes oriented to place and Yes oriented to time HENMT: COMMON NORMALS: normocephalic, atraumatic and hearing grossly normal bilaterally HEAD & SCALP: normocephalic and atraumatic Neck/C-Spine: COMMON NORMALS: no JVD Resp: COMMON NORMALS: normal respiratory effort, No retractions, No use of accessory muscles and clear to auscultation bilaterally AUSCULTATION: clear to auscultation bilaterally Cardio: COMMON NORMALS: no JVD, regular rate, regular rhythm and No murmurs present (Cardio) RATE: regular rate RHYTHM: regular rhythm GI: COMMON NORMALS: Soft to palpation and No hepatosplenomegaly present AUSCULTATION: Yes normoactive bowel sounds PALPATION: Yes Soft to palpation, No Tenderness to palpation present (GI), No Guarding due to palpation present (GI) and Yes No hepatosplenomegaly present Extremity: COMMON NORMALS: normal to inspection, capillary refill normal, no clubbing, cyanosis or edema, no calf tenderness and no pedal edema Neuro: SENSORIUM/ORIENTATION: Yes oriented to person, Yes oriented to place and Yes oriented to time Skin: COMMON NORMALS: no rashes or lesions noted GENERAL SKIN EXAM: no rashes or lesions noted Course Vital Signs: Vital signs: Vital Signs Temperature 97.9 F 06/29/20 18:42 Pulse Rate 62 06/29/20 18:42 Respiratory Rate 17 06/29/20 18:42 Blood Pressure 111/62 06/29/20 18:42 Pulse Oximetry 96 06/29/20 18:42 [facility] - General Adult Lab Data: Labs: Lab Results 06/27/20 06/27/20 06/27/20 Range/Units 15:30 15:30 16:08 WBC 11.8 H (4.0-10.0) 10^3/ uL RBC 3.63 L (4.1-5.3) 10^6/u L Hgb 11.1 L (11.5-15.3) g/dL Hct 34.9 L (37.0-47.0) % MCV 96.1 (81-99) fL MCH 30.6 (28.0-34.0) pg MCHC 31.8 (30.0-36.0) g/dL RDW 15.5 H (12.1-15.1) % Plt Count 209 (130-400) 10^3/c mm MPV 12.5 H (7.4-10.4) fL Neut % (Auto) 83.8 % Lymph % (Auto) 8.4 % [place] % (Auto) 6.8 % Eos % (Auto) 0.1 % Baso % (Auto) 0.3 % Neut # (Auto) 9.84 H (1.8-7.7) 10^3/u L Lymph # (Auto) 1.0 (0.8-4.8) 10^3/u L [place] # (Auto) 0.8 (0.2-0.9) 10^3/u L Eos # (Auto) 0.0 (0.0-0.8) 10^3/u L Baso # (Auto) 0.0 (0.0-0.1) 10^3/u L Nucleated RBC % (a uto) 0 % Nucleated RBCs # 0.0 /100WBC Sodium Cancelled 134 L Potassium Cancelled 4.9 Chloride Cancelled 98 Carbon Dioxide Cancelled 26 Anion Gap Cancelled 14.9 BUN Cancelled 36 H Creatinine Cancelled 1.7 H GFR Calculation Cancelled Not Reportable Glucose Cancelled 163 H Calculated Osmolal ity Cancelled 290 Calcium Cancelled 8.2 L Magnesium Cancelled 1.7 Total Bilirubin Cancelled 0.7 AST Cancelled 28 ALT Cancelled 39 H Alkaline Phosphata se Cancelled 93 Total Protein Cancelled 6.0 L Albumin Cancelled 2.7 L Globulin Cancelled 3.3 Lipase Cancelled 12 L Urine Color (Yellow) Urine Appearance (CLEAR) Urine pH (5-7) Ur Specific Gravit y (1.005-1.030) Urine Protein (Negative) Urine Glucose (UA) (Normal) Urine Ketones (Negative) Urine Blood (Negative) Urine Nitrate (Negative) Urine Bilirubin (Negative) Urine Urobilinogen (Negative) mg/dL Ur Leukocyte Massiel ase (Negative) Urine RBC (0-2) /hpf Urine WBC (0-5) /hpf Ur Squamous Epith Cells (0-5) /hpf Amorphous Sediment Urine Bacteria (NONE) /hpf 06/27/20 Range/Units 16:26 WBC (4.0-10.0) 10^3/ uL RBC (4.1-5.3) 10^6/u L Hgb (11.5-15.3) g/dL Hct (37.0-47.0) % MCV (81-99) fL MCH (28.0-34.0) pg MCHC (30.0-36.0) g/dL RDW (12.1-15.1) % Plt Count (130-400) 10^3/c mm MPV (7.4-10.4) fL Neut % (Auto) % Lymph % (Auto) % [place] % (Auto) % Eos % (Auto) % Baso % (Auto) % Neut # (Auto) (1.8-7.7) 10^3/u L Lymph # (Auto) (0.8-4.8) 10^3/u L [place] # (Auto) (0.2-0.9) 10^3/u L Eos # (Auto) (0.0-0.8) 10^3/u L Baso # (Auto) (0.0-0.1) 10^3/u L Nucleated RBC % (a uto) % Nucleated RBCs # /100WBC Sodium Potassium Chloride Carbon Dioxide Anion Gap BUN Creatinine GFR Calculation Glucose Calculated Osmolal ity Calcium Magnesium Total Bilirubin AST ALT Alkaline Phosphata se Total Protein Albumin Globulin Lipase Urine Color Brown (Yellow) Urine Appearance Turbid (CLEAR) Urine pH 8 H (5-7) Ur Specific Gravit y 1.015 (1.005-1.030) Urine Protein 2+ H (Negative) Urine Glucose (UA) Norm (Normal) Urine Ketones 1+ H (Negative) Urine Blood 3+ H (Negative) Urine Nitrate Negative (Negative) Urine Bilirubin Neg (Negative) Urine Urobilinogen Norm (Negative) mg/dL Ur Leukocyte Massiel ase 2+ H (Negative) Urine RBC >100 H (0-2) /hpf Urine WBC Too numerous to c nt H (0-5) /hpf Ur Squamous Epith Cells None (0-5) /hpf Amorphous Sediment Not Reportable Urine Bacteria 4+ H (NONE) /hpf Discharge Plan Discharge Patient Disposition: Admitted As Inpatient Admit Provider: Wilton Khanna Clinical Impression: Encephalopathy, Diabetes, Acute diastolic CHF (congestive heart failure), Sepsis, Cystitis Condition: Stable Discharge Orders: Discharge Order (Routine); Ordered 06/29/20 Ordered By: Wilton Khanna Discharge Diet: Regular Discharge Activity: Resume usual activity Coding Level of Care Code ED Pumper Gager Apprentice for Chg Fwd Exam Comprehensive
[2020-06-27 15:44] LABS: Basophils % 0.3 %; Eosinophils % 0.1 %; Hematocrit 34.9 % (37.0-47.0); Hemoglobin 11.1 g/dL (11.5-15.3); Lymphocytes % 8.4 %; Mean Corpuscular HGB Conc 31.8 g/dL (30.0-36.0); Mean Corpuscular Hemoglobin 30.6 pg (28.0-34.0); Mean Corpuscular Volume 96.1 fL (81-99); Mean Platelet Volume 12.5 fL (7.4-10.4); Monocytes # 0.8 10^3/uL (0.2-0.9); Monocytes % 6.8 %; Neutrophils # 9.84 10^3/uL (1.8-7.7); Neutrophils % 83.8 %; Nucleated Red Blood Cells % 0 %; Platelet Count 209 10^3/cmm (130-400); Red Blood Count 3.63 10^6/uL (4.1-5.3); Red Cell Distribution Width 15.5 % (12.1-15.1); White Blood Count 11.8 10^3/uL (4.0-10.0)
[2020-06-27 16:34] LABS: Alanine Aminotransferase 39 U/L (0-33); Albumin Level 2.7 g/dL (3.5-5.2); Alkaline Phosphatase 93 IU/L (35-105); Anion Gap 14.9 (5-19); Aspartate Amino Transferase 28 U/L (0-32); Blood Urea Nitrogen 36 mg/dL (8-23); Calcium 8.2 mg/dL (8.5-10.5); Carbon Dioxide 26 mmol/L (22-29); Chloride 98 mmol/L (98-107); Globulin 3.3 g/dL (1.3-4.6); Glucose 163 mg/dL (65-115); Lipase 12 U/L (13-60); Magnesium 1.7 mg/dL (1.7-2.3); Osmolality Calculated 290 mOsm/kg (285-295); Potassium 4.9 mmol/L (3.5-5.1); Sodium 134 mmol/L (136-145); Total Bilirubin 0.7 mg/dL (0.15-1.2)
[2020-06-27] MEDS: iodixanol 320 mg/mL 100mL Btl IV (16:57)
--- NOTE | 2020-06-27 17:03 | PC.PHAR ---
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
[2020-06-27 17:12] LABS: Add Urine Microscopic? YES; Bilirubin Urine Neg (Negative); Blood Urine 3+ (Negative); Glucose Urine UA Norm (Normal); Ketones Urine 1+ (Negative); Leukocyte Esterase Urine 2+ (Negative); Nitrate Urine Negative (Negative); Protein Urine 2+ (Negative); Specific Gravity, Urine 1.015 (1.005-1.030); Urine Appearance Turbid (CLEAR); Urine Color Brown (Yellow); Urobilinogen Urine Norm (Negative); pH Urine 8 (5-7)
[2020-06-27 17:14] LABS: RBC Urine >100 /hpf (0-2)
[2020-06-27 17:15] LABS: Add Urine Culture? Yes; Bacteria Urine 4+ /hpf; WBC Urine TOO NUMEROUS TO CNT /hpf (0-5)
[2020-06-27] MEDS: cefTRIAXone 1,000 MG in sodium chloride 0.9% (plus) 50 ML 100 MG IV (17:15)
--- NOTE | 2020-06-27 18:04 | P.HP_ITS ---
Providers/Chief Complaint Primary Care Provider: Brian Walker MD Chief Complaint: WEAKNESS History of Present Illness Rachid Hagen is a 74 year old female with a history of diastolic heart failure, history of COVID-19 pneumonia, chronically on 6 L nasal cannula, COPD, insulin-dependent type 2 diabetes mellitus, diabetic peripheral neuropathy, dyslipidemia, GERD, history of ESBL E. coli UTIs, history of hypertension, hypothyroidism, lymphedema, morbid obesity, right below-knee amputation, peripheral vascular disease who presents to [facility] due to complaints of weakness and fatigue. Currently patient is alert to person, to place, not to time, she answers questions some questions appropriate, but dozes off, she does follow commands such as we can bring her toes, squeezing my fingers, but at other times she is confused. She tells me that she is here because she feels weak and fatigued, denies any fevers, does tell me that her lower abdomen hurts her, she points towards her lower pelvis, denies any back pain, no abdominal pain, no chest pain, she denies a cough, no shortness of breath, she tells me she uses oxygen at home, 6 L work-up in the emergency room showed. Beck pyuria, UA concerning for UTI, CT scan of the abdomen did not show any obstructive uropathy, no hydronephrosis, did show evidence of cystitis. In the emergency room she is afebrile, blood pressure 111/56, pulse 71, temperature 90.3, saturating 100% on 5 L, Lockhart catheter placed Review of Systems Const: Denies: fever(s) or chills ENMT: Denies: nasal congestion Card: Denies: chest pain, palpitations or edema Resp: Denies: dyspnea or non-productive cough GI: Denies: abdominal pain, nausea or vomiting : Reports: flank pain and dysuria; Denies: difficulty voiding or urinary frequency Musc: Denies: neck pain or back pain Skin/Breast: Denies: rash Neuro: Denies: headache(s) Endo: Denies: polyuria Medications/Allergies Home Medications Medication Instructions Recorded Confirmed Last Taken Type Januvia 100 mg PO DAILY 30 Days #30 tab 08/10/19 06/27/20 04/17/20 Rx glipizide 10 mg PO BID 30 Days #60 tab 05/06/27/20 04/17/20 Rx potassium chloride 20 meq PO BID 30 Days #60 tab 08/10/19 06/27/20 04/17/20 Rx atorvastatin 20 mg PO DAILY 11/28/19 06/27/20 04/17/20 History gabapentin 300 mg PO TID 04/18/20 06/27/20 04/17/20 History levothyroxine 100 mcg PO DAILY 04/18/20 06/27/20 04/17/20 History sennosides-docusate sodium 1 tab-cap PO BID #60 tab 04/27/20 06/27/20 Unknown Rx [Senna-S] alendronate 70 mg PO Q7D 06/27/20 06/27/20 Unknown History carvedilol 6.25 mg PO DAILY 06/27/20 06/27/20 Unknown History furosemide 40 mg PO DAILY 06/27/20 06/27/20 Unknown History insulin aspart U-100 [Novolog See Rx Instructions .ROUTE .COMPLEX 06/27/20 06/27/20 06/27/20 12:00 History Flexpen U-100 Insulin] 4 units insulin glargine [Lantus Solostar 10 unit SUBCUT BEDTIME 06/27/20 06/27/20 06/26/20 History U-100 Insulin] meclizine 25 mg PO Q8H PRN 06/27/20 06/27/20 Unknown History pantoprazole [Protonix] 40 mg PO DAILY 06/27/20 06/27/20 Unknown History pregabalin [Lyrica] 150 mg PO TID 06/27/20 06/27/20 Unknown History Allergies Allergy/AdvReac Type Severity Reaction Status Date / Time TAPE Allergy ADR-Itching Uncoded 05/22/20 13:07 PFSH Acute PFSH: Medical History COPD (chronic obstructive pulmonary disease) Diabetes Diabetic peripheral neuropathy Dyslipidemia GERD (gastroesophageal reflux disease) -on PPI History of ESBL E. coli infection History of infection with vancomycin resistant Enterococcus (VRE) History of osteomyelitis HTN (hypertension) Hypothyroidism Lymphedema Morbid obesity Osteomyelitis Osteoporosis Overactive bladder Peripheral vascular disease -has known hx of PVD Status post hysteroscopy with D&C on 11/10/[address] Panda at [facility] Surgical History H/O thyroidectomy History of abdominal surgery Had a benign stomach tumor removed History of ankle surgery Left for fracture repair History of eye surgery Left History of foot surgery Right foot status post amputation of great and second toe History of hip surgery History of hysterectomy History of right breast biopsy History of surgery on extremity Left femur S/P excisional debridement Bilateral lower extremity wounds Family History Son Hypertension Denies family history of Diabetes Clotting disorder Hyperlipidemia Anesthesia complication Bleeding disorder Stroke Social History Smoking and tobacco status: former smoker Alcohol intake: never Lives independently: Yes Current occupational status: retired Vitals/I&O/Wt Last Vital Signs Temp 98.3 F 06/27/20 14:49 Pulse 71 06/27/20 18:02 Resp 17 06/27/20 18:02 BP 111/56 06/27/20 17:17 Pulse Ox 100 06/27/20 18:02 Weight last 48 hrs Weight 125.191 kg Physical Exam Const: COMMON NORMALS: no acute distress EXAM LIMITATIONS: altered mental status GENERAL APPEARANCE: cooperative and comfortable ORIENTATION/CON SCIOUSNESS: Yes awake, Yes oriented to person, Yes oriented to place and Yes confused; not oriented to time HENMT: COMMON NORMALS: normocephalic HEAD & SCALP: normocephalic Eye: COMMON NORMALS: Equal, round and reactive pupils present and EOMs intact bilaterally PUPIL: Yes Equal, round and reactive pupils present Neck/C-Spine: COMMON NORMALS: full ROM, no lymphadenopathy, no JVD and Thyroid normal THYROID: Thyroid normal Lymph: LYMPHATIC: no lymphadenopathy noted Resp: COMMON NORMALS: normal respiratory effort, No retractions, No use of accessory muscles and clear to auscultation bilaterally AUSCULTATION: clear to auscultation bilaterally Cardio: COMMON NORMALS: no JVD, regular rate, regular rhythm, S1 normal heart sound present, S2 normal heart sound present, No gallops present (Cardio), No clicks present (Cardio) and No murmurs present (Cardio) RATE: regular rate RHYTHM: regular rhythm HEART SOUNDS: S1 normal heart sound present and S2 normal heart sound present GI: COMMON NORMALS: Normal to inspection, nondistended, normoactive bowel sounds present, Soft to palpation, non-tender and No hepatosplenomegaly present PALPATION: Yes Soft to palpation and Yes No hepatosplenomegaly present : OTHER: Bilateral CVA tenderness, lower flank pain Extremity: COMMON NORMALS: normal to inspection, full ROM and no pedal edema NARRATIVE EXTREMITY EXAM: Right below-knee amputation Neuro: COMMON NORMALS: patient oriented x3, moves all extremities and no focal motor deficits OTHER: Does follow neurologic testing, pupils equal round reactive to light, squeezes my fingers bilaterally, she wiggles her toes, she cannot lift the left lower extremity, she tells me she is wheelchair-bound Data : 06/27/20 15:30 06/27/20 16:08 A&P Assessment and plan (1) Altered mental status: -Secondary to UTI, has clinical signs of pyelonephritis -Septic encephalopathy -Acute kidney injury -Has a history of ESBL E. coli UTIs -CT scan of the abdomen pelvis negative for obstructive uropathy, no hydronephrosis Plan: -Admit to general medical floors -Neurochecks, aspiration precautions, seizure precautions -Gentle IV hydration at 75 cc an hour, monitor fluid overload -Primaxin for antibiotic coverage -Blood cultures, urine cultures, pro-Homer, CRP -Monitor mental status closely, monitor hemodynamics Status: Acute (2) Acute diastolic CHF (congestive heart failure): Hold Lasix for now, monitor for fluid overload Status: Acute (3) Diabetes: Low-dose lung scale, Lantus Status: Acute Qualifiers: Diabetes mellitus type: type 2 Diabetes mellitus intermission coordinator insulin use: with mcc use Diabetes mellitus complication status: with hyperglycemia Qualified Code(s): E11.65 - Type 2 diabetes mellitus with hyperglycemia; Z79.4 - extermination inspector (current) use of insulin (4) Hypothyroid: Continue levothyroxine Status: Chronic Qualifiers: Hypothyroidism type: unspecified Qualified Code(s): E03.9 - Hypothyroidism, unspecified (5) COPD (chronic obstructive pulmonary disease): Not in acute exacerbation Status: Acute (6) Anemia: We will continue to monitor Status: Acute (7) Diabetic peripheral neuropathy: Status: Chronic (8) Dyslipidemia: Status: Chronic (9) HTN (hypertension): Status: Acute Qualifiers: Hypertension type: essential hypertension Qualified Code(s): I10 - Essential (primary) hypertension (10) COPD (chronic obstructive pulmonary disease): Status: Acute Qualifiers: COPD type: unspecified COPD Qualified Code(s): J44.9 - Chronic obstructive pulmonary disease, unspecified (11) Recurrent UTI (urinary tract infection): Status: Acute (12) Acute kidney injury: Creatinine 1.7, monitor urine output, Lockhart catheter in place, on gentle IV hydration Status: Acute Attestations Medical Necessity Statement*: Patient requires hospitalization, outpatient with observation, for UTI, septic encephalopathy, acute kidney injury Coding Level of Care Code Acute Rubberizing Mechanic for [facility] Fwd Diagnoses Altered mental status R41.82 Acute diastolic CHF (congestive heart failure) I50.31 Diabetes E11.65; Z79.4 Diabetes mellitus type: type 2 Diabetes mellitus mcc insulin use: with mcc use Diabetes mellitus complication status: with hyperglycemia Hypothyroid E03.9 Hypothyroidism type: unspecified COPD (chronic obstructive pulmonary disease) J44.9 Anemia D64.9 Diabetic peripheral neuropathy E11.42 Dyslipidemia E78.5 HTN (hypertension) I10 Hypertension type: essential hypertension COPD (chronic obstructive pulmonary disease) J44.9 COPD type: unspecified COPD Recurrent UTI (urinary tract infection) N39.0 Acute kidney injury N17.9
[2020-06-27 21:44] LABS: Glucose Point of Care 118 mg/dL (70-110)
[2020-06-27 21:46] LABS: Glucose Point of Care 131 mg/dL (70-110)
[2020-06-27] MEDS: sodium chloride 0.9% 1,000 ML 75 ML IV (21:46)
[2020-06-27] MEDS: enoxaparin 40 mg/0.4 mL Syringe SUBCUT (21:47)
[2020-06-27 22:00] LABS: Lactic Sepsis W/Reflex 1.8 mmol/L (0.5-2.2)
[2020-06-27 22:41] LABS: Procalcitonin 5.77 ng/mL (0-0.5)
[2020-06-27 22:52] LABS: C Reactive Protein 280.2 mg/L (0.0-4.9)
[2020-06-27] MEDS: insulin glargine 100 units/1 mL 10 UNIT SUBCUT (22:59)
[2020-06-28] VITALS (13 sets, daily range): BP systolic 98–147; BP diastolic 60–87; PULSE 65–93; RESP 16–20; TEMP 36.7–38.7; O2SAT 75–98
[2020-06-28] MEDS: acetaminophen 325 mg Tablet 650 MG PO ×2 (05:07→08:25)
[2020-06-28 06:02] LABS: Basophils % 0.1 %; Hematocrit 33.1 % (37.0-47.0); Lymphocytes # 0.5 10^3/uL (0.8-4.8); Lymphocytes % 6.3 %; Mean Corpuscular HGB Conc 30.2 g/dL (30.0-36.0); Mean Corpuscular Hemoglobin 29.8 pg (28.0-34.0); Mean Corpuscular Volume 98.5 fL (81-99); Mean Platelet Volume 11.6 fL (7.4-10.4); Monocytes # 0.6 10^3/uL (0.2-0.9); Monocytes % 6.6 %; Neutrophils # 7.48 10^3/uL (1.8-7.7); Neutrophils % 86.5 %; Nucleated Red Blood Cells % 0 %; Platelet Count 132 10^3/cmm (130-400); Red Blood Count 3.36 10^6/uL (4.1-5.3); Red Cell Distribution Width 14.8 % (12.1-15.1); White Blood Count 8.6 10^3/uL (4.0-10.0)
[2020-06-28 06:17] LABS: Slide Review Slide Review Perform
[2020-06-28 06:24] LABS: Glucose Point of Care 165 mg/dL (70-110)
[2020-06-28 06:39] LABS: Alanine Aminotransferase 28 U/L (0-33); Albumin Level 2.5 g/dL (3.5-5.2); Alkaline Phosphatase 80 IU/L (35-105); Anion Gap 13.7 (5-19); Aspartate Amino Transferase 18 U/L (0-32); Blood Urea Nitrogen 41 mg/dL (8-23); Carbon Dioxide 26 mmol/L (22-29); Chloride 102 mmol/L (98-107); Globulin 2.9 g/dL (1.3-4.6); Glucose 157 mg/dL (65-115); Magnesium 1.7 mg/dL (1.7-2.3); Osmolality Calculated 297 mOsm/kg (285-295); Phosphorus 4.4 mg/dL (2.5-4.5); Potassium 4.7 mmol/L (3.5-5.1); Sodium 137 mmol/L (136-145); Thyroid Stimulating Hormone 27.52 uIU/mL (0.27-4.20); Total Bilirubin 0.4 mg/dL (0.15-1.2); Total Protein 5.4 g/dL (6.6-8.7)
[2020-06-28 06:51] LABS: NT Pro B Type Natriuretic Pept 1328 pg/mL (0-125)
--- NOTE | 2020-06-28 07:37 | PC.NURSE ---
AM ASSESSMENT NOTE HAND OFF REC'D PER DAYA RN - SKIN ASSESSED X2 NURSES - RECALLED MEASUREMENTS PER THIS NURSE - ALSO NOTED RIGHT MID ARM ABRASION C/D/I ET APPEARS HEALING - NOTED GROIN FOLDS TO HAVE SLIGHT REDNESS - SERAFIN POSTERIOR BUTTOCKS AND SERAFIN POSTERIOR LEGS NOTED TO HAVE AREAS OF MACERATION, DTI AND REDNESS - DETAILED IN WOUND ASSESSMENT - [place] PLACED - TURN Q2 COMPLETED - PT LEFT SIDE LYING - WILL INITIATE TURN AND MONITOR
[2020-06-28] MEDS: levothyroxine 100 mcg Tablet PO (08:25)
[2020-06-28] MEDS: carvedilol 6.25 mg Tablet PO (08:25)
[2020-06-28] MEDS: atorvastatin 40 mg Tablet 20 MG PO (08:25)
[2020-06-28] MEDS: pantoprazole DR 40 mg Tablet PO (08:26)
--- NOTE | 2020-06-28 08:26 | PC.OT ---
OT EVALUATION ATTEMPTED. PATIENT IS SLEEPING SOUNDLY AND UNABLE TO AWAKEN. NURSING REPORTS THAT GROUP CARE WORKER NURSING WAS WORKING WITH THE PATIENT UNTIL 0500. WILL ATTEMPT AGAIN AT A LATER TIME.
--- NOTE | 2020-06-28 09:26 | XR_ITS ---
WS: [id number] Portable AP upright chest, 06/28/2020 Clinical Data: sob Comparison: Portable chest, 04/24/2020 Findings: Patchy atelectasis in the left lower lobe along with small left effusion is seen. There is minimal atelectasis over the surface of the right diaphragm but this is cleared slightly. The upper l obes are clear. Heart is slightly enlarged. The aortic arch and descending aorta show calcification a nd tortuosity. There is a dextroscoliosis of the lower thoracic spine. XR/XR chest 1V portable [id number] Impression: 1. Patchy atelectasis over the left diaphragm with a probable small left effusi on. 2. Partial clearing of atelectasis in the right lung base. 3. Atherosclerosis.
--- NOTE | 2020-06-28 10:26 | PC.OT ---
OT EVALUATION ATTEMPTED AGAIN THIS A.M. PATIENT DOES NOT AWAKEN AT 2ND ATTEMPT. WILL ATTEMPT AGAIN AT A LATER TIME.
[2020-06-28 10:27] LABS: Glucose Point of Care 132 mg/dL (70-110)
--- NOTE | 2020-06-28 10:34 | PC.CHAP ---
Pastoral Care Encounter/Spiritual Assessment Type of Contact [] Declined operations inspector visit [] Patient/Family/Request visit [] Outpatient visit [] Follow-up visit [] Physician referral [] Code/Alert [x] Routine visit [] Staff referral [] Actively dying [x] Patient sleeping [] Family support [] [] Out of room [] Palliative care [] [] Receiving care in room [] Pre-surgical visit [] Trauma [] Long length of stay [] ICU visit [] Other: Relational/Emotional Strength [] Patient feels connected with others/family/visitors/staff [] Distress [] Loneliness/isolation [] Abandonment Spirituality of Patient [] Person of Shirlene [] Attends Advent of their Shirlene [] Believes in Prayer [] Reads Bible or Caodaism materials [] There are Spiritual issues to be addressed Auction Clerk Interventions [] Prayer [] Active listening [] Non-anxious presence [] Spiritual/emotional support [] Crisis/trauma care [] Spiritual counseling [] Bereavement support [] Provided bereavement packet [] Provided Bible/devotional materials [] Provided toy/stuffed animal, coloring book to patient or family member [] Provided Communion [] Anointing/[facility] [] Salvation [] Completed spiritual assessment [] Other: Impact on Illness or Injury [] Angry [] Fearful [] Anxious [] Often cries [] Exhaustion [] Unable to work [] Unable to attend mu-ism [] Unable to walk/stand [] Unable to read [] Unable to drive [] Unable to eat/drink [] Unable to sleep [] Unable to be with family [] Patient intubated [] Other: Summary Time spent with patient
[2020-06-28] MEDS: sodium chloride 0.9% 1,000 ML 75 ML IV (11:05)
--- NOTE | 2020-06-28 13:04 | PC.NURSE ---
LUNCH TRAY ASSISTED PT WITH SITTING UP LUNCH TRAY AND ENCOURAGED PT TO EAT - PT STATES SHE IS VERY SLEEPY - WILL MONITOR AND CONTINUE WITH TURN SCHEDULE
--- NOTE | 2020-06-28 14:35 | PC.OT ---
OT note: Attempted OT eval this afternoon, pt sleeping soundly. Will attempt later as able.
--- NOTE | 2020-06-28 16:45 | P.PN_ITS ---
Subjective Subjective: Interval history: Patient was examined this morning, she is alert to person, to place, not to time, she does follow commands, is quite drowsy, she tells me that she is doing fine, she has no complaints, still having episodes of confusion, overnight had febrile episodes of of up to 101.6, 3 L, normotensive Vitals/I&O/Wt Last Vital Signs Temp 98.6 F 06/28/20 15:59 Pulse 65 06/28/20 15:59 Resp 18 06/28/20 15:59 BP 147/87 06/28/20 15:59 Pulse Ox 98 06/28/20 15:59 06/28/20 06/28/20 06/28/20 06:59 14:59 22:59 Intake Total 560 / 711.25 906.25 / 906.25 Output Total 190 / 190 Balance 370 / 521.25 906.25 / 906.25 Weight last 48 hrs Weight 125.191 kg Physical Exam Const: COMMON NORMALS: no acute distress EXAM LIMITATIONS: altered mental status GENERAL APPEARANCE: cooperative ORIENTATION/CONSCIOUSNESS: Yes awake, Yes oriented to person and Yes oriented to place; not oriented to time Neck/C-Spine: COMMON NORMALS: no JVD Resp: COMMON NORMALS: normal respiratory effort, No retractions, No use of accessory muscles and clear to auscultation bilaterally AUSCULTATION: clear to auscultation bilaterally Cardio: COMMON NORMALS: no JVD, regular rate, regular rhythm, S1 normal heart sound present and S2 normal heart sound present RATE: regular rate RHYTHM: regular rhythm HEART SOUNDS: S1 normal heart sound present and S2 normal heart sound present GI: COMMON NORMALS: Normal to inspection, nondistended, normoactive bowel sounds present, Soft to palpation and non-tender PALPATION: Yes Soft to palpation Extremity: COMMON NORMALS: normal to inspection, full ROM and no pedal edema NARRATIVE EXTREMITY EXAM: Right below-knee amputation Neuro: SENSORIUM/ORIENTATION: Yes oriented to person, Yes oriented to place and No oriented to time OTHER: Nonpitting edema Urinary Catheter Management^: Lockhart: Cath Placed During This Visit: yes Reason for Continuing Indwelling Catheter: Assist healing open wound Urinary Catheter Date of Insertion: 06/28/20 Urinary Catheter Time of Insertion: 03:28 Data : 06/28/20 05:48 06/28/20 05:48 Micro: Microbiology 06/27/20 17:45 Blood Culture - Preliminary Blood SPECIMEN COLLECTED 06/27/20 17:45 Blood Culture - Preliminary Blood SPECIMEN COLLECTED A&P Assessment and plan (1) Altered mental status: -Secondary to UTI, has clinical signs of pyelonephritis -Septic encephalopathy, mentation has improved slightly -Acute kidney injury, creatinine improved to 1.6 -Has a history of ESBL E. coli UTIs -CT scan of the abdomen pelvis negative for obstructive uropathy, no hydron ephrosis Plan: -Admit to general medical floors -Neurochecks, aspiration precautions, seizure precautions -Gentle IV hydration at 75 cc an hour, monitor fluid overload, urine output charted as 190, she has a Lockhart catheter in place, will discuss with the nurse in terms of accuracy -Primaxin for antibiotic coverage -Blood cultures, urine cultures, pro-Homer 5.77, CRP 280.2, lactic acid 1 -TSH 27.52, increase levothyroxine dose to 125 mcg daily -Monitor mental status closely, monitor hemodynamics Status: Acute (2) Acute diastolic CHF (congestive heart failure): Hold Lasix for now, monitor for fluid overload Status: Acute (3) Diabetes: Low-dose lung scale, Lantus Status: Acute Qualifiers: Diabetes mellitus type: type 2 Diabetes mellitus staff readiness officer insulin use: with half-way use Diabetes mellitus complication status: with hyperglycemia Qualified Code(s): E11.65 - Type 2 diabetes mellitus with hyperglycemia; Z79.4 - longterm (current) use of insulin (4) Hypothyroid: Continue levothyroxine, dose increased to 125 Status: Chronic Qualifiers: Hypothyroidism type: unspecified Qualified Code(s): E03.9 - Hypo thyroidism, unspecified (5) COPD (chronic obstructive pulmonary disease): Not in acute exacerbation Status: Acute (6) Anemia: We will continue to monitor Status: Acute (7) Diabetic peripheral neuropathy: Status: Chronic (8) Dyslipidemia: Status: Chronic (9) HTN (hypertension): Status: Acute Qualifiers: Hypertension type: essential hypertension Qualified Code(s): I10 - Essential (primary) hypertension (10) Recurrent UTI (urinary tract infection): Status: Acute (11) Acute kidney injury: Creatinine 1.6, monitor urine output, Lockhart catheter in place, on gentle IV hydration Status: Acute Attestations Medical Necessity Statement*: Patient requires hospitalization for altered me ntal status secondary to UTI, septic encephalopathy, ANGELIC, dehydration Coding Level of Care Code Acute Small Piece Cutter for Chg Fwd Diagnoses Altered mental status R41.82 Acute diastolic CHF (congestive heart failure) I50.31 Diabetes E11.65; Z79.4 Diabetes mellitus type: type 2 Diabetes mellitus staff readiness officer insulin use: with half-way use Diabetes mellitus complication status: with hyperglycemia Hypothyroid E03.9 Hypothyroidism type: unspecified COPD (chronic obstructive pulmonary disease) J44.9 Anemia D64.9 Diabetic peripheral neuropathy E11.42 Dyslipidemia E78.5 HTN (hypertension) I10 Hypertension type: essential hypertension Recurrent UTI (urinary tract infection) N39.0 Acute kidney injury N17.9
--- NOTE | 2020-06-28 17:02 | PC.NURSE ---
Addendum entered by Jessica Balbuena RN 06/28/20 17:31: INTREDRY PLACED TO FOLDS PER THIS NURSE Original Note: AYALA PER [facility] [employer] - STUDENTS IN TO TURN PT - AYALA OUT - BULB INFLATED - REPLACED AYALA CATHETER WITH 30ML BALLOON - NOTED SMALL AMOUNT OF URINE AROUND TUBE - DR GUERRERO NOTIFIED OF ABOVE - BLADDER SCAN ORDERED
[2020-06-28 17:25] LABS: Glucose Point of Care 114 mg/dL (70-110)
[2020-06-28] MEDS: enoxaparin 40 mg/0.4 mL Syringe SUBCUT (20:29)
[2020-06-28] MEDS: insulin glargine 100 units/1 mL 10 UNIT SUBCUT (20:29)
[2020-06-28 20:45] LABS: Glucose Point of Care 155 mg/dL (70-110)
[2020-06-29] VITALS (9 sets, daily range): BP systolic 95–126; BP diastolic 51–65; PULSE 62–70; RESP 17–18; TEMP 36.3–36.8; O2SAT 94–97
[2020-06-29] MEDS: sodium chloride 0.9% 1,000 ML 75 ML IV (00:35)
[2020-06-29 05:05] LABS: Basophils % 0.5 %; Eosinophils # 0.1 10^3/uL (0.0-0.8); Eosinophils % 2.1 %; Hematocrit 30.2 % (37.0-47.0); Hemoglobin 9.2 g/dL (11.5-15.3); Lymphocytes # 0.6 10^3/uL (0.8-4.8); Lymphocytes % 9.8 %; Mean Corpuscular HGB Conc 30.5 g/dL (30.0-36.0); Mean Corpuscular Hemoglobin 30.7 pg (28.0-34.0); Mean Corpuscular Volume 100.7 fL (81-99); Mean Platelet Volume 11.8 fL (7.4-10.4); Monocytes # 0.5 10^3/uL (0.2-0.9); Monocytes % 9.3 %; Neutrophils # 4.53 10^3/uL (1.8-7.7); Neutrophils % 77.8 %; Nucleated Red Blood Cells % 0 %; Platelet Count 109 10^3/cmm (130-400); Red Cell Distribution Width 14.6 % (12.1-15.1); White Blood Count 5.8 10^3/uL (4.0-10.0)
[2020-06-29 05:17] LABS: Alanine Aminotransferase 20 U/L (0-33); Albumin Level 2.3 g/dL (3.5-5.2); Alkaline Phosphatase 74 IU/L (35-105); Anion Gap 12.8 (5-19); Aspartate Amino Transferase 11 U/L (0-32); Blood Urea Nitrogen 38 mg/dL (8-23); Calcium 7.7 mg/dL (8.5-10.5); Carbon Dioxide 26 mmol/L (22-29); Chloride 107 mmol/L (98-107); Globulin 2.8 g/dL (1.3-4.6); Glucose 103 mg/dL (65-115); Magnesium 1.7 mg/dL (1.7-2.3); Osmolality Calculated 303 mOsm/kg (285-295); Phosphorus 4.2 mg/dL (2.5-4.5); Potassium 3.8 mmol/L (3.5-5.1); Sodium 142 mmol/L (136-145); Total Bilirubin 0.3 mg/dL (0.15-1.2); Total Protein 5.1 g/dL (6.6-8.7)
[2020-06-29] MEDS: acetaminophen 325 mg Tablet 650 MG PO ×2 (05:25→10:53)
[2020-06-29 06:29] LABS: Glucose Point of Care 102 mg/dL (70-110)
--- NOTE | 2020-06-29 09:17 | PC.NUTR ---
NUTRITION WEIGHT ASSESSMENT: Ht. 68 inches. Wt. 276 pounds. BMI of 42 kg/m2 indicates Morbid Obesity.
--- NOTE | 2020-06-29 10:19 | P.DS_ITS ---
Discharge Providers Date of Admission: 06/27/20 20:47 Date of Discharge: June 29, 2020 Attending Provider at Admission: Wilton Khanna MD Attending Provider at Discharge: Wilton Khanna MD Primary Care Provider: Brian Walker MD Diagnoses at Discharge Discharge Diagnosis (1) Altered mental status: Status: Acute (2) Acute diastolic CHF (congestive heart failure): Status: Acute Permanent problem details: Does not appear to be present on admission (3) Diabetes: Status: Acute Qualifiers: Diabetes mellitus type: type 2 Diabetes mellitus manager terminal insulin use: with retirement use Diabetes mellitus complication status: with hyperglycemia Qualified Code(s): E11.65 - Type 2 diabetes mellitus with hyperglycemia; Z79.4 - group home (current) use of insulin (4) Hypothyroid: Status: Chronic Qualifiers: Hypothyroidism type: unspecified Qualified Code(s): E03.9 - Hypothyroidism, unspecified (5) COPD (chronic obstructive pulmonary disease): Status: Acute (6) Anemia: Status: Acute (7) Diabetic peripheral neuropathy: Status: Chronic (8) Dyslipidemia: Status: Chronic (9) HTN (hypertension): Status: Acute Qualifiers: Hypertension type: essential hypertension Qualified Code(s): I10 - Essential (primary) hypertension (10) Recurrent UTI (urinary tract infection): Status: Acute (11) Acute kidney injury: Status: Acute Reason for Visit Reason for Visit: WEAKNESS Hospital Course Hospital Course Rachid Hagen is a 74 year old female with a history of diastolic heart failure, history of COVID-19 pneumonia, chronically on 6 L nasal cannula, COPD, insulin-dependent type 2 diabetes mellitus, diabetic peripheral neuropathy, dyslipidemia, GERD, history of ESBL E. coli UTIs, history of hypertension, hypothyroidism, lymphedema, morbid obesity, right below-knee amputation, peripheral vascular disease who presents to [facility] due to complaints of weakness and fatigue Patient was admitted to [facility] for altered mental status secondary to UTI, with pyelonephritis and septic encephalopathy, acute kidney injury, history of ESBL E. coli UTIs. CT scan of the abdomen pelvis was negative for obstructive uropathy and hydronephrosis. Patient was admitted to general medical floors, received IV fluids, Primaxin for antibiotic coverage, all cultures so far have been unremarkable. Patient's mentation improved, remained afebrile, clinically improving. She has been discharged with 5 remaining days of Levaquin, with follow-up with primary care provider in 1 week for recheck CMP, monitor creatinine, and follow-up urine culture. Physical Exam Const: COMMON NORMALS: no acute distress and patient oriented x3 HENMT: COMMON NORMALS: normocephalic HEAD & SCALP: normocephalic Neck/C-Spine: COMMON NORMALS: no JVD Resp: COMMON NORMALS: normal respiratory effort, No retractions, No use of accessory muscles and clear to auscultation bilaterally AUSCULTATION: clear to auscultation bilaterally Cardio: COMMON NORMALS: no JVD, regular rate, regular rhythm, S1 normal heart sound present and S2 normal heart sound present RATE: regular rate RHYTHM: regular rhythm HEART SOUNDS: S1 normal heart sound present and S2 normal heart sound present GI: COMMON NORMALS: Normal to inspection, nondistended, normoactive bowel sounds present, Soft to palpation, non-tender, no masses and no bruits PALPATION: Yes Soft to palpation Extremity: COMMON NORMALS: no pedal edema Neuro: COMMON NORMALS: patient oriented x3 Psych: COMMON NORMALS: mental status grossly normal Urinary Catheter Management^: Lockhart: Cath Placed During This Visit: yes Reason for Continuing Indwelling Catheter: Assist Healing of Perineal & Sacral Wounds- Incontinent Patients Urinary Catheter Date of Insertion: 06/28/20 Urinary Catheter Time of Insertion: 16:00 Discharge Data Data Completed and Pending: Completed Studies During Hospitalization Category Date Time Status CT abdomen pelvis w con* [id number] Stat Cat Scan 06/27/20 15:04 Completed XR chest 1V alejandro ble [id number] Routine Exams 06/28/20 09:26 Completed Pending at discharge Category Date Time Status Blood Culture Sta t Lab 06/27/20 17:45 Results Complete Blood Co unt w/Auto AM LABS Lab 06/30/20 04:00 Ordered Complete Blood Co unt w/Auto AM LABS Lab 07/01/20 04:00 Ordered Comprehensive Met abolic Panel AM LA BS Lab 06/30/20 04:00 Ordered Magnesium AM LABS Lab 06/30/20 04:00 Ordered Phosphorus AM LAB S Lab 06/30/20 04:00 Ordered Urine Culture Sta t Lab 06/27/20 16:26 Received Labs from last 24 hours 04/08/21 04/08/21 04/08/21 06:25 04:35 04:35 WBC 5.8 RBC 3.00 L Hgb 9.2 L Hct 30.2 L MCV 100.7 H MCH 30.7 MCHC 30.5 RDW 14.6 Plt Count 109 L MPV 11.8 H Neut % (Auto) 77.8 Lymph % (Auto) 9.8 [place] % (Auto) 9.3 Eos % (Auto) 2.1 Baso % (Auto) 0.5 Neut # (Auto) 4.53 Lymph # (Auto) 0.6 L [place] # (Auto) 0.5 Eos # (Auto) 0.1 Baso # (Auto) 0.0 Nucleated RBC % (a uto) 0 Nucleated RBCs # 0.0 Sodium 142 Potassium 3.8 Chloride 107 Carbon Dioxide 26 Anion Gap 12.8 BUN 38 H Creatinine 1.1 H GFR Calculation Not Reportable Glucose 103 POC Glucose 102 Calculated Osmolal ity 303 H Calcium 7.7 L Phosphorus 4.2 Magnesium 1.7 Total Bilirubin 0.3 AST 11 ALT 20 Alkaline Phosphata se 74 Total Protein 5.1 L Albumin 2.3 L Globulin 2.8 06/28/20 06/28/20 06/28/20 20:35 16:56 10:24 WBC RBC Hgb Hct MCV MCH MCHC RDW Plt Count MPV Neut % (Auto) Lymph % (Auto) [place] % (Auto) Eos % (Auto) Baso % (Auto) Neut # (Auto) Lymph # (Auto) [place] # (Auto) Eos # (Auto) Baso # (Auto) Nucleated RBC % (a uto) Nucleated RBCs # Sodium Potassium Chloride Carbon Dioxide Anion Gap BUN Creatinine GFR Calculation Glucose POC Glucose 155 H 114 H 132 H Calculated Osmolal ity Calcium Phosphorus Magnesium Total Bilirubin AST ALT Alkaline Phosphata se Total Protein Albumin Globulin Vitals: Last Vital Signs Temp 98.0 F 06/29/20 08:00 Pulse 64 06/29/20 08:22 Resp 18 06/29/20 08:22 BP 96/55 06/29/20 08:00 Pulse Ox 95 06/29/20 08:22 Discharge Plan Discharge Patient Disposition: Home Condition: Stable Prescriptions: New pantoprazole 40 mg Tablet,Delayed Release (Dr/Ec) 40 mg PO DAILY 30 Days Qty: 30 RF: 0 levothyroxine 125 mcg Tablet 125 mcg PO DAILY 30 Days Qty: 30 RF: 0 levofloxacin 750 mg tablet 750 mg PO DAILY 5 Days Qty: 5 RF: 0 Continued meclizine 25 mg tablet 25 mg PO Q8H PRN (Reason: Nausea And Vomiting) RF: 0 insulin aspart U-100 [Novolog Flexpen U-100 Insulin] 100 unit/mL (3 mL) insulin pen See Rx Instructions .ROUTE .COMPLEX RF: 0 Lyrica 150 mg Capsule 150 mg PO TID RF: 0 Lantus Solostar U-100 Insulin 100 unit/mL (3 mL) insulin pen 10 unit SUBCUT BEDTIME RF: 0 furosemide 40 mg tablet 40 mg PO DAILY RF: 0 carvedilol 6.25 mg tablet 3.125 mg PO BID RF: 0 iron 150 mg PO DAILY RF: 0 Aspir-81 81 mg Tablet,Delayed Release (Dr/Ec) 81 mg PO DAILY RF: 0 glipizide 10 mg tablet 10 mg PO BID 30 Days Qty: 60 RF: 0 potassium chloride 20 mEq tablet,ER particles/crystals 20 meq PO BID 30 Days Qty: 60 RF: 0 Januvia 100 mg Tablet 100 mg PO DAILY 30 Days Qty: 30 RF: 0 atorvastatin 20 mg Tablet 20 mg PO DAILY RF: 0 gabapentin 300 mg Capsule 300 mg PO TID RF: 0 sennosides-docusate sodium [Senna-S] 8.6-50 mg tablet 1 tab-cap PO BID Qty: 60 RF: 0 Discontinued levothyroxine 100 mcg Tablet 100 mcg PO DAILY RF: 0 Discharge Orders: Discharge Order (Routine); Ordered 06/29/20 Ordered By: Wilton Khanna Discharge Diet: Regular Discharge Activity: Resume usual activity Activity Restrictions/Additional Instructions: -I have increased her levothyroxine dose to 125 mcg daily -Continue Levaquin for 5 remaining days -Please follow-up with primary care provider in 1 week for urine culture -If you have worsening fevers, chills, flank pain go to the emergency room Discharge Attestations Time Spent in Discharge Care*: greater than 30 min Status at Discharge: Cognitive status at discharge: cognitively intact , Behavioral status at discharge: cooperative , Quality Metrics Clinical Quality Measures During this hospital stay, did patient experience: None Coding Level of Care Code Acute Chg FW DC note Diagnoses Altered mental status R41.82 Acute diastolic CHF (congestive heart failure) I50.31 Diabetes E11.65; Z79.4 Diabetes mellitus type: type 2 Diabetes mellitus manager terminal insulin use: with manager terminal use Diabetes mellitus complication status: with hyperglycemia Hypothyroid E03.9 Hypothyroidism type: unspecified COPD (chronic obstructive pulmonary disease) J44.9 Anemia D64.9 Diabetic peripheral neuropathy E11.42 Dyslipidemia E78.5 HTN (hypertension) I10 Hypertension type: essential hypertension Recurrent UTI (urinary tract infection) N39.0 Acute kidney injury N17.9
[2020-06-29] MEDS: carvedilol 6.25 mg Tablet PO (10:39)
[2020-06-29] MEDS: atorvastatin 40 mg Tablet 20 MG PO (10:39)
[2020-06-29] MEDS: levothyroxine 125 mcg Tablet PO (10:39)
[2020-06-29] MEDS: pantoprazole DR 40 mg Tablet PO (10:39)
[2020-06-29 11:07] LABS: Glucose Point of Care 100 mg/dL (70-110)
--- NOTE | 2020-06-29 12:07 | PC.NURSE ---
Nurse notified of bp
[2020-06-29 13:03] LABS: Lactate (Lactic Acid level) 0.9 mmol/L (0.5-2.2)
[2020-06-29] MEDS: sodium chloride 0.9% 1,000 ML 999 ML IV (13:59)
--- NOTE | 2020-06-29 16:24 | PC.NURSE ---
PT HAS DONE FAIRLY WELL THIS MORNING. DOCTOR PUT IN DISCHARGE ORDERS FIRST THING THIS MORNING. PTS IV HAD BEEN PULLED OUT. PT HAD AN ORDER FOR IV ABX TO BE ADMINISTERED AT 08:30. THE DOCTOR WAS NOTIFIED OF THE PT'S IV AND HE SAID IT WAS OK TO LEAVE THE IV OUT AND NON-ADMINISTER THE IV ABX. THE AID WAS DOING HER ROUDING AND OBTAINED A SET OF VITALS ON THIS PT. PT'S BLOOD PRESSURE WAS 100/55. THE AID NOTIFIED ME. A MANUAL ANOTHER BLOOD PRESSURE WAS OBTAINED AND IT WAS 95/51 WITH ASYMPTOMATIC FINDINGS. THE DOCTOR WAS NOTIFIED OF THESE FINDINGS. HE ORDERED FOR AN IV TO BE PLACED AND TO GIVE ONE LITER BOLUS OF NORMAL SALINE. AN NEW IV WAS STARTED IN THE PTS RIGHT AC SPACE BY THIS NURSE. THE PT TOLERATED IT WELL. THE FLUID BOLUS WAS STARTED SHORTLY THEREAFTER. AFTER THE FLUID BOLUS ANOTHER BLOOD PRESSURE WAS OBTAINED BY THIS NURSE AND THE DOCTOR WAS NOTIFIED OF THE 118/64 FINDING. OK TO GO AHEAD AND DISCHARGE PT. AYALA AND IV WAS REMOVED BY AN RESTUARANT CREW WORKER. PT TOLERATED THAT WELL PER RESTUARANT CREW WORKER. DISCHARGE PAPERWORK WAS GONE OVER WITH THIS PT BY THIS NURSE AND PT IS NOW READY TO DISCHARGE PENDING TRANSPORTATION. WILL CONTINUE TO MONITOR.
[2020-06-29 17:58] LABS: Glucose Point of Care 142 mg/dL (70-110)
--- NOTE | 2020-06-30 17:06 | PC.RESP ---
Pulmonary Rehab information sent to patient.
== END 2020-06-29 18:43 | disposition home or self-care (01) ==
LOC: ER 15:39 → MEDSURG 06-28 07:25
PROVIDERS: Admitting Provider Family Medicine; Emergency Provider Family Medicine; PCP Internal Medicine; Visit Provider Family Medicine
DX: R41.82 Altered mental status, unspecified (principal); I11.0 Hypertensive heart disease with heart failure; I50.31 Acute diastolic (congestive) heart failure; E11.65 Type 2 diabetes mellitus with hyperglycemia; Z79.4 Long term (current) use of insulin; E03.9 Hypothyroidism, unspecified; J44.9 Chronic obstructive pulmonary disease, unspecified; D64.9 Anemia, unspecified; E11.42 Type 2 diabetes mellitus with diabetic polyneuropathy; E78.5 Hyperlipidemia, unspecified; N39.0 Urinary tract infection, site not specified; N17.9 Acute kidney failure, unspecified; Z86.16 Personal history of COVID-19; K21.9 Gastro-esophageal reflux disease without esophagitis
CPT/HCPCS: 36415; 36416; 51702; 51798; 71045; 74177; 80053; 81001; 82962; 83605; 83690; 83735; 83880; 84100; 84145; 84443; 85025; 86140; 87040; 87077; 87086; 87186; 93005; 94664; 96365; 96366; 96367; 96372; 97165; 99285; A9281; G0378; J0696; J0743; J1650; J1815 ×2; J7030; Q9967

== ENCOUNTER 2020-11-22 13:35 | Outpatient (CLI) | payer MEDICARE, MEDICAID, SELFPAY ==
--- NOTE | 2020-11-22 13:45 | XR_ITS ---
WS: [id number] AP and lateral chest, 11/22/2020 Clinical Data: CHEST CONGESTION Comparison: Portable chest, 06/28/2020 Findings: No nodules, masses or effusions are seen. There is patchy atelectasis and/or minimal pneumo paula over the surface of both diaphragms. The heart is at the upper limits of normal. The aortic arch and descending thoracic aorta show minimal calcification. There is a dextroscoliosis of the thoracic spine. XR/XR chest 2V* [id number] Impression: 1. Bilateral patchy lower lobe atelectasis and/or minimal pneumonia. 2. Atherosclerosis.
== END 2020-11-22 13:36 | disposition home or self-care (01) ==
PROVIDERS: PCP Internal Medicine; Visit Provider Nurse Practitioner Family
DX: R09.89 Other specified symptoms and signs involving the circulatory and respiratory systems (principal)
CPT/HCPCS: 71046

== ENCOUNTER 2021-01-03 20:58 | Inpatient (IN) | payer MEDICARE, MEDICAID, SELFPAY ==
[2021-01-03 21:07] VITALS: BP 192/87; PULSE 97; RESP 24; TEMP 37.2; O2SAT 82; BMI 53.1
[2021-01-03 21:20] VITALS: PULSE 87; RESP 16; O2SAT 96
--- NOTE | 2021-01-03 21:27 | W.ED.SOB ---
HPI - SOB/Dyspnea General: Chief Complaint: Shortness of Breath/Dyspnea Stated Complaint: SOB Time Seen by Provider: 01/03/21 21:27 History of Present Illness: HPI Narrative: Ms. Hagen is a 75 lady with significant past medical for hypertension, hyperlipidemia, diabetes, COPD, chronic hypoxic respiratory failure on 4 L at baseline who presents emergency department due to shortness of breath. Symptom onset was approximately 1 week ago. She was diagnosed with pneumonia due to worsening shortness of breath and started on antibiotics. Her symptoms have continued to worsen. She has cough, generalized malaise, shortness of breath which is worse on exertion. Intensity of symptoms is moderate to severe. The course has been worsening. She has tried home treatments without significant relief. No other specific changes in health, exacerbating, or alleviating factors. Review of Systems General: Reports: ROS unobtainable due to medical condition (acuity of condition, resp distress, bipap) [facility] ED PFSH: Medical History COPD (chronic obstructive pulmonary disease) Diabetes Diabetic peripheral neuropathy Dyslipidemia GERD (gastroesophageal reflux disease) -on PPI History of ESBL E. coli infection History of infection with vancomycin resistant Enterococcus (VRE) History of osteomyelitis HTN (hypertension) Hypothyroidism Lymphedema Morbid obesity Osteomyelitis Osteoporosis Overactive bladder Peripheral vascular disease -has known hx of PVD Recurrent UTI (urinary tract infection) Status post hysteroscopy with D&C on 11/10/[address] Panda at [facility] Urinary incontinence Surgical History H/O thyroidectomy History of abdominal surgery Had a benign stomach tumor removed History of ankle surgery Left for fracture repair History of eye surgery Left History of foot surgery Right foot status post amputation of great and second toe History of hip surgery History of hysterectomy History of right breast biopsy History of surgery on extremity Left femur S/P excisional debridement Bilateral lower extremity wounds Family History Son Hypertension Social History Smoking and tobacco status: former smoker Alcohol intake: never Lives independently: Yes Current occupational status: retired Physical Exam Narrative: EXAM NARRATIVE: GENERAL/CONSTITUTIONAL - ill-appearing. resp distress Eyes - PERRL, no conjunctival injection ENMT - Atraumatic external nose and ears. Moist mucous membranes NECK - supple. trachea midline CARDIOVASCULAR - regular rate and rhythm. normal cap refill RESPIRATORY - Course and deminished. BiPAP in place with improvement in retractions/distress. ABDOMEN/GI - Nontender/Nondistended. MSK - Extremities without obvious deformity or tenderness to palpation SKIN - Warm, Dry NEURO - alert and appropriately oriented. Moves all extremities equally. Course ED course: - Patient was seen and evaluated by me at bedside - Patient placed on cardiac monitors, IV access obtained - Initial evaluation notable for ill appearance, respiratory distress. RT called for BiPAP - Labs notable for no leukocytosis, metabolic panel with mild hyperkalemia. Relative hemoconcentration intravascularly. Delta troponin elevated, which may be secondary to type II NSTEMI. Mildly elevated BNP. - Imaging notable for pulmonary vascular congestion and likely pneumonia. Antibiotics given. - Upon serial reexamination after treatment the patient was improved with regards to respiratory effort - Based on patient history, evaluation, labs, and imaging as interpreted the most likely cause of the patient's condition is pneumonia with acute on chronic hypoxic and hypercapnic respiratory failure. - The results of ED evaluation were discussed with the patient including plan for admission due to requirement for level of care not available if discharged to prevent significant worsening/deterioration. -Hospitalist service contacted and agreed to admit the patient - Patient was admitted without further deterioration or significant events. Vital Signs: Vital signs: Vital Signs Temperature 99.0 F 01/05/21 18:54 Pulse Rate 77 01/05/21 22:00 Respiratory Rate 20 H 01/05/21 18:54 Blood Pressure 127/57 01/05/21 18:54 Pulse Oximetry 90 01/05/21 18:54 MDM - SOB/Dyspnea Medical Records: Attestation: I reviewed the patient's medical records. Lab Data: Attestation: I reviewed the patient's lab results. Labs: Lab Results 01/03/21 01/03/21 01/03/21 11:45 20:50 21:30 WBC 7.7 10^3/uL 10^3/ uL (4.0-10.0) RBC 3.80 10^6/uL L 10 ^6/uL (4.1-5.3) Hgb 11.2 g/dL L g/dL (11.5-15.3) Hct 39.1 % % (37.0-47.0) MCV 102.9 fl H fl (81-99) MCH 29.5 pg pg (28.0-34.0) MCHC 28.6 g/dL L g/dL (30.0-36.0) RDW 15.5 % H % (12.1-15.1) Plt Count 157 10^3/cmm 10^3 /cmm (130-400) MPV 11.6 fL H fL (7.4-10.4) Neut % (Auto) 75.8 % % Lymph % (Auto) 12.4 % % [place] % (Auto) 7.6 % % Eos % (Auto) 3.2 % % Baso % (Auto) 0.4 % % Neut # (Auto) 5.86 10^3/uL 10^3 /uL (1.8-7.7) Lymph # (Auto) 1.0 10^3/uL 10^3/ uL (0.8-4.8) [place] # (Auto) 0.6 10^3/uL 10^3/ uL (0.2-0.9) Eos # (Auto) 0.3 10^3/uL 10^3/ uL (0.0-0.8) Baso # (Auto) 0.0 10^3/uL 10^3/ uL (0.0-0.1) Nucleated RBC % (a uto) 0 % % Nucleated RBCs # 0.0 /100WBC /100W BC Specimen Type Arterial Arterial Sample Site Brachial, right Brachial, right ABG pH 7.33 L 7.27 L (7.35-7.45) (7.35-7.45) ABG pCO2 61.3 mmHg H* mmHg 70.6 mmHg H* mmHg (35-45) (35-45) ABG pO2 64.5 mmHg L mmHg 73.8 mmHg L mmHg (80.0-100.0) (80.0-100.0) ABG HCO3 32.2 mmol/L H mmo l/L 32.6 mmol/L H mmo l/L (22-26) (22-26) ABG Base Excess 5.2 mmol/L H mmol /L 3.9 mmol/L H mmol /L (-2.0-2.0) (-2.0-2.0) Rafa Test N/a N/a Hematocrit 26.5 % L % 36.4 % L % (37-47) (37-47) O2 Delivery Device Bipap Bipap FiO2 80.0 % % 80.0 % % PEEP 10.0 cmH20 cmH20 10.0 cmH20 cmH20 Systems Checkout Mechanic ID Rieri Rieri Sodium Potassium Chloride Carbon Dioxide Anion Gap BUN Creatinine GFR Calculation Glucose Calculated Osmolal ity Lactate Calcium Total Bilirubin AST ALT Alkaline Phosphata se Troponin T Baselin e Troponin T 120 Min [place] Troponin T NT-Pro-B Natriuret Pep Total Protein Albumin Globulin Procalcitonin TSH Free T4 Urine Color Urine Appearance Urine pH Ur Specific Gravit y Urine Protein Urine Glucose (UA) Urine Ketones Urine Blood Urine Nitrate Urine Bilirubin Urine Urobilinogen Ur Leukocyte Massiel ase Urine RBC Urine WBC Ur Squamous Epith Cells Amorphous Sediment Urine Bacteria 01/03/21 01/03/21 01/03/21 21:30 21:30 21:30 WBC RBC Hgb Hct MCV MCH MCHC RDW Plt Count MPV Neut % (Auto) Lymph % (Auto) [place] % (Auto) Eos % (Auto) Baso % (Auto) Neut # (Auto) Lymph # (Auto) [place] # (Auto) Eos # (Auto) Baso # (Auto) Nucleated RBC % (a uto) Nucleated RBCs # Specimen Type Sample Site ABG pH ABG pCO2 ABG pO2 ABG HCO3 ABG Base Excess Rafa Test Hematocrit O2 Delivery Device FiO2 PEEP Systems Checkout Mechanic ID Sodium 144 mmol/L mmol/L (136-145) Potassium 5.3 mmol/L H mmol /L (3.5-5.1) Chloride 106 mmol/L mmol/L (98-107) Carbon Dioxide 28 mmol/L mmol/L (22-29) Anion Gap 15.3 (5-19) BUN 38 mg/dL H mg/dL (8-23) Creatinine 1.1 mg/dL H mg/dL (0.5-0.9) GFR Calculation Not Reportable Glucose 174 mg/dL H mg/dL (65-115) Calculated Osmolal ity 311 mOsm/kg H mOs m/kg (285-295) Lactate 0.9 mmol/L mmol/L (0.5-2.2) Calcium 8.1 mg/dL L mg/dL (8.5-10.5) Total Bilirubin 0.3 mg/dL mg/dL (0.15-1.2) AST 20 U/L U/L (0-32) ALT 46 U/L H U/L (0-33) Alkaline Phosphata se 95 IU/L IU/L (35-105) Troponin T Baselin e 60 ng/L H ng/L (0-10) Troponin T 120 Min [place] Troponin T NT-Pro-B Natriuret Pep 700 pg/mL H pg/mL (0-125) Total Protein 6.4 g/dL L g/dL (6.6-8.7) Albumin 3.1 g/dL L g/dL (3.5-5.2) Globulin 3.3 g/dL g/dL (1.3-4.6) Procalcitonin 0.14 ng/mL ng/mL (0-0.5) TSH 18.00 uIU/mL H uI U/mL (0.27-4.20) Free T4 Urine Color Urine Appearance Urine pH Ur Specific Gravit y Urine Protein Urine Glucose (UA) Urine Ketones Urine Blood Urine Nitrate Urine Bilirubin Urine Urobilinogen Ur Leukocyte Massiel ase Urine RBC Urine WBC Ur Squamous Epith Cells Amorphous Sediment Urine Bacteria 01/03/21 01/03/21 01/03/21 21:30 21:50 23:28 WBC RBC Hgb Hct MCV MCH MCHC RDW Plt Count MPV Neut % (Auto) Lymph % (Auto) [place] % (Auto) Eos % (Auto) Baso % (Auto) Neut # (Auto) Lymph # (Auto) [place] # (Auto) Eos # (Auto) Baso # (Auto) Nucleated RBC % (a uto) Nucleated RBCs # Specimen Type Sample Site ABG pH ABG pCO2 ABG pO2 ABG HCO3 ABG Base Excess Rafa Test Hematocrit O2 Delivery Device FiO2 PEEP Systems Checkout Mechanic ID Sodium Potassium Chloride Carbon Dioxide Anion Gap BUN Creatinine GFR Calculation Glucose Calculated Osmolal ity Lactate Calcium Total Bilirubin AST ALT Alkaline Phosphata se Troponin T Baselin e Troponin T 120 Min [place] 109.4 ng/L H ng/L (0-10) Delta Troponin T 49.4 ABS# H* ABS# (0-10) NT-Pro-B Natriuret Pep Total Protein Albumin Globulin Procalcitonin TSH Free T4 0.90 ng/dL ng/dL (0.82-1.77) Urine Color Yellow (Yellow) Urine Appearance Hazy A (CLEAR) Urine pH 7 (5-7) Ur Specific Gravit y 1.005 (1.005-1.030) Urine Protein 1+ H (Negative) Urine Glucose (UA) Norm (Normal) Urine Ketones Negative (Negative) Urine Blood 3+ H (Negative) Urine Nitrate Negative (Negative) Urine Bilirubin Neg (Negative) Urine Urobilinogen Norm mg/dL mg/dL (Negative) Ur Leukocyte Massiel ase 1+ H (Negative) Urine RBC 0-4 /hpf H /hpf (0-2) Urine WBC 55-80 /hpf H /hpf (0-5) Ur Squamous Epith Cells 5-10 /hpf H /hpf (0-5) Amorphous Sediment Not Reportable Urine Bacteria 3+ /hpf H /hpf (NONE) EKG Data^: EKG 1: Attestation: I personally reviewed and interpreted this EKG as follows: EKG Interpretation Date: 01/03/21 EKG interpretation time: 23:47 Interpretation: Twelve-lead EKG shows a regular rhythm at a rate of 64. PA interval not measured. QRS duration 109, QTc 430. Normal axis. Interpretation: Supraventricular rhythm without defined P waves, regular Discharge Plan Discharge Admit Provider: Delbert George Coding Level of Care Code ED Guide Foreign Tour for g Josefa
--- NOTE | 2021-01-03 21:31 | XRR_ITS ---
PROCEDURE INFORMATION: Exam: XR Chest Exam date and time: 01/03/2021 9:31 PM Age: 75 years old Clinical indication: Cough and shortness of breath; Additional info: SOB TECHNIQUE: Imaging protocol: XR of the chest. Views: 1 view. COMPARISON: CR XR chest 2V* [id number] 11/22/2020 1:59 PM FINDINGS: This exam is limited due to patient positioning and the right costophrenic angle being cut off the bottom of the image Lungs: Interstitial prominence with peribronchial cuffing consistent with pulmonary edema. Infiltrates or consolidation at both lung bases. Pleural spaces: Probable left pleural effusion. No pneumothoraces. Heart/Mediastinum: The cardiac silhouette is enlarged. Vasculature: There is atherosclerotic calcification in the aortic arch. Bones/joints: Degenerative changes in the spine. XR/XR chest 1V portable [id number] IMPRESSION: Cardiomegaly with pulmonary edema consistent with congestive failure. Probable pneumonia infiltrates at both lung bases with left pleural effusion. Radiation Dose CTDIVOL = (mGy): DLP = (mGy-cm)
--- NOTE | 2021-01-03 21:33 | ECG_ITS ---
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 Measurements Intervals [place] Rate: 64 P: ME: QRS: 24 QRSD: 109 T: 30 QT: 415 QTc: 430 Interpretive Statements SUPRAVENTRICULAR RHYTHM LOW QRS VOLTAGE IN PRECORDIAL LEADS [QRS DEFLECTION < 1.0 mV IN CHEST LEADS] ABNORMAL RHYTHM ECG Compared to ECG 06/27/2020 16:14:47 Supraventricular rhythm now present Low QRS voltage now present Sinus rhythm no longer present T-wave abnormality no longer present Electronically Signed On 01-05-2021 5:46:41 CDT by Manuela Hughes M.D. [id number]
[2021-01-03] MEDS: FUROsemide 10 mg/mL SDV 10mL 60 MG IVP (21:34)
[2021-01-03 21:40] LABS: Basophils % 0.4 %; Eosinophils # 0.3 10^3/uL (0.0-0.8); Eosinophils % 3.2 %; Hematocrit 39.1 % (37.0-47.0); Hemoglobin 11.2 g/dL (11.5-15.3); Lymphocytes % 12.4 %; Mean Corpuscular HGB Conc 28.6 g/dL (30.0-36.0); Mean Corpuscular Hemoglobin 29.5 pg (28.0-34.0); Mean Corpuscular Volume 102.9 fl (81-99); Mean Platelet Volume 11.6 fL (7.4-10.4); Monocytes # 0.6 10^3/uL (0.2-0.9); Monocytes % 7.6 %; Neutrophils # 5.86 10^3/uL (1.8-7.7); Neutrophils % 75.8 %; Nucleated Red Blood Cells % 0 %; Platelet Count 157 10^3/cmm (130-400); Red Cell Distribution Width 15.5 % (12.1-15.1); White Blood Count 7.7 10^3/uL (4.0-10.0)
[2021-01-03 21:53] LABS: Troponin(5th) Baseline 60 ng/L (0-10)
[2021-01-03 21:55] LABS: Lactate (Lactic Acid level) 0.9 mmol/L (0.5-2.2)
[2021-01-03 22:01] LABS: ABG PH Result 7.27 (7.35-7.45); Arterial Blood Gas Hematocrit 36.4 % (37-47); Base Excess ABG 3.9 mmol/L (-2.0-2.0); Blood Gas Sample Site Brachial, right; Blood Gas Sample Type Arterial; HCO3 ABG 32.6 mmol/L (22-26); Oxygen Device BIPAP; PO2 ABG 73.8 mmHg (80.0-100.0)
[2021-01-03 22:05] LABS: Add Urine Microscopic? YES; Bilirubin Urine Neg (Negative); Blood Urine 3+ (Negative); Glucose Urine UA Norm (Normal); Ketones Urine Negative (Negative); Leukocyte Esterase Urine 1+ (Negative); Nitrate Urine Negative (Negative); Protein Urine 1+ (Negative); Specific Gravity, Urine 1.005 (1.005-1.030); Urine Appearance Hazy (CLEAR); Urine Color Yellow (Yellow); Urobilinogen Urine Norm (Negative); pH Urine 7 (5-7)
[2021-01-03 22:06] LABS: Add Urine Culture? Yes; Bacteria Urine 3+ /hpf; RBC Urine 0-4 /hpf (0-2); WBC Urine 55-80 /hpf (0-5)
[2021-01-03 22:08] LABS: Alanine Aminotransferase 46 U/L (0-33); Albumin Level 3.1 g/dL (3.5-5.2); Alkaline Phosphatase 95 IU/L (35-105); Anion Gap 15.3 (5-19); Aspartate Amino Transferase 20 U/L (0-32); Blood Urea Nitrogen 38 mg/dL (8-23); Calcium 8.1 mg/dL (8.5-10.5); Carbon Dioxide 28 mmol/L (22-29); Chloride 106 mmol/L (98-107); Globulin 3.3 g/dL (1.3-4.6); Glucose 174 mg/dL (65-115); NT Pro B Type Natriuretic Pept 700 pg/mL (0-125); Osmolality Calculated 311 mOsm/kg (285-295); Potassium 5.3 mmol/L (3.5-5.1); Procalcitonin 0.14 ng/mL (0-0.5); Sodium 144 mmol/L (136-145); Total Bilirubin 0.3 mg/dL (0.15-1.2); Total Protein 6.4 g/dL (6.6-8.7)
[2021-01-03 23:00] VITALS: BP 147/73; PULSE 64; RESP 20; O2SAT 94
[2021-01-03 23:53] LABS: ABG PCO2 70.6 mmHg (35-45)
[2021-01-04] VITALS (11 sets, daily range): BP systolic 119–135; BP diastolic 5–78; PULSE 57–69; RESP 15–28; TEMP 37; O2SAT 92–97
[2021-01-04 00:02] LABS: Troponin 5 2HR 109.4 ng/L (0-10); Troponin 5 2HR Delta 49.4 ABS# (0-10)
[2021-01-04 00:29] LABS: ABG PH Result 7.33 (7.35-7.45); Arterial Blood Gas Hematocrit 26.5 % (37-47); Base Excess ABG 5.2 mmol/L (-2.0-2.0); Blood Gas Sample Site Brachial, right; Blood Gas Sample Type Arterial; HCO3 ABG 32.2 mmol/L (22-26); PO2 ABG 64.5 mmHg (80.0-100.0)
[2021-01-04 00:31] LABS: Oxygen Device BIPAP
--- NOTE | 2021-01-04 01:30 | P.HP_ITS ---
Providers/Chief Complaint Admitting Physician: Delbert George Primary Care Provider: Brian Walker MD Chief Complaint: SOB History of Present Illness 74-year-old female with a history of diastolic heart failure, history of COVID- 19 pneumonia, chronically on 6 L nasal cannula, COPD, insulin-dependent type 2 diabetes mellitus, diabetic peripheral neuropathy, dyslipidemia, GERD, history of ESBL E. coli UTIs, history of hypertension, hypothyroidism, lymphedema, morbid obesity, right below-knee amputation, peripheral vascular disease presented to the hospital with respiratory distress. Patient is poor historian at the time of my evaluation. Laboratory workup on arrival showed a WBC of 7.7, hemoglobin 11.2, hematocrit 39.1 and platelet count of 157. Sodium 144, potassium 5.3, chloride 106, bicarb 28, BUN 38 and creatinine 1.1. Troponin T baseline of 60, increased to 109.5 and subsequently 165.8. Probnp of 700. Procalcitonin of 0.14. TSH of 18, free T4 0.90.. Urinalysis showing 1+ leukocyte esterase , negative nitrates , 55 to 80 WBCs with 3+ bacteria. Arterial blood gas showed a pH of 7.27, pCO2 of 70.6 , PO2 of 73.8 and a bicarb 32.6 Imaging studies included chest x-ray which showed cardiomegaly with pulmonary edema consistent with congestive heart failure with probable infiltrates in both lung bases in addition to a left pleural effusion. In ER patient was started on Lovenox 150mg sq x 1, Lasix 60 mg IV x1, Zosyn 4.5g IV x1, aspirin 324mg PO x1, and Toradol 15mg IV x1. Patient was also placed on Bipap and subsequently admitted. Review of Systems General: Reports: ROS unobtainable due to medical condition and ROS unobtainable due to mental status Medications/Allergies Home Medications Medication Instructions Recorded Confirmed Last Taken Type Januvia 100 mg PO DAILY 30 Days #30 tab 08/10/19 09/20/20 04/17/20 Rx glipizide 10 mg PO BID 30 Days #60 tab 08/10/19 09/20/20 04/17/20 Rx potassium chloride 20 meq PO BID 30 Days #60 tab 08/10/19 09/20/20 04/17/20 Rx atorvastatin 20 mg PO DAILY 11/28/19 09/20/20 04/17/20 History gabapentin 300 mg PO TID 04/18/20 09/20/20 04/17/20 History sennosides-docusate sodium 1 tab-cap PO BID #60 tab 04/27/20 09/20/20 Unknown Rx [Senna-S] Lantus Solostar U-100 Insulin 10 unit SUBCUT BEDTIME 06/27/20 09/20/20 06/26/20 History Lyrica 150 mg PO TID 06/27/20 09/20/20 Unknown History aspirin 81 mg PO DAILY 06/27/20 09/20/20 06/27/20 History carvedilol 3.125 mg PO BID 06/27/20 09/20/20 Unknown History furosemide 40 mg PO DAILY 06/27/20 09/20/20 Unknown History insulin aspart U-100 [Novolog See Rx Instructions .ROUTE .COMPLEX 06/27/20 09/20/20 06/27/20 12:00 History Flexpen U-100 Insulin] 4 units iron 150 mg PO DAILY 06/27/20 09/20/20 06/27/20 History meclizine 25 mg PO Q8H PRN 06/27/20 09/20/20 Unknown History Allergies Allergy/AdvReac Type Severity Reaction Status Date / Time TAPE Allergy ADR-Itching Uncoded 05/22/20 13:07 PFSH Acute PFSH: Medical History COPD (chronic obstructive pulmonary disease) Diabetes Diabetic peripheral neuropathy Dyslipidemia GERD (gastroesophageal reflux disease) -on PPI History of ESBL E. coli infection History of infection with vancomycin resistant Enterococcus (VRE) History of osteomyelitis HTN (hypertension) Hypothyroidism Lymphedema Morbid obesity Osteomyelitis Osteoporosis Overactive bladder Peripheral vascular disease -has known hx of PVD Recurrent UTI (urinary tract infection) Status post hysteroscopy with D&C on 11/10/[address] Panda at [facility] Urinary incontinence Surgical History H/O thyroidectomy History of abdominal surgery Had a benign stomach tumor removed History of ankle surgery Left for fracture repair History of eye surgery Left History of foot surgery Right foot status post amputation of great and second toe History of hip surgery History of hysterectomy History of right breast biopsy History of surgery on extremity Left femur S/P excisional debridement Bilateral lower extremity wounds Family History Son Hypertension Social History Smoking and tobacco status: former smoker Alcohol intake: never Lives independently: Yes Current occupational status: retired Vitals/I&O/Wt Last Vital Signs Temp 98.6 F 01/04/21 03:00 Pulse 66 01/04/21 03:00 Resp 18 01/04/21 03:00 BP 119/5 01/04/21 03:00 Pulse Ox 94 01/04/21 03:00 01/03/21 01/03/21 01/04/21 14:59 22:59 06:59 Intake Total 50 / 50 Output Total 1400 / 1400 Balance -1350 / -1350 Weight last 48 hrs Weight 158.757 kg Physical Exam Narrative: EXAM NARRATIVE: General: Chronically ill appearing, in respiratory distress HEENT: Grossly unremarkable CVS: NSR Chest: Mildly labored respiration Abd; non-distended. Ext. s/p RBKA + edema Urinary Catheter Management^: Lockhart: Cath Placed During This Visit: yes Reason for Continuing Indwelling Catheter: Acute Urinary Retention or Obst ruction Urinary Catheter Date of Insertion: 01/03/21 Urinary Catheter Time of Insertion: 21:48 Data : 01/03/21 21:30 01/03/21 21:30 A&P Assessment and plan (1) Acute on chronic respiratory failure with hypoxia and hypercapnia: Status: Acute (2) Diabetes: Status: Acute (3) COPD (chronic obstructive pulmonary disease): Status: Acute Qualifiers: COPD type: unspecified COPD Qualified Code(s): J44.9 - Chronic obstructive pulmonary disease, unspecified (4) Dyslipidemia: Status: Chronic (5) Pneumonia due to 2019-nCoV: Status: Acute Additional A&P Information Acute on chronic hypoxemic/hypercarbic respiratory failure Etiology multifactorial ? Diastolic HF exacerbation vs pneumonia vs COPD exacerbation Continue Bipap ? Wean as tolerated Baseline o2 at 6L via NC chronically Repeat ABG/Chest x-ray as needed Duoneb q6hr Lasix 40 mg IV q12hr Lockhart placed. ? monitor urine output Consider pulmonary consult NSTEMI Troponin Delta T 49.4 at 2hr and 105.8 at 6hr Possibly due to hypoxia /respiratory distress ECHO ordered Aspirin 324 mg po daily Lovenox 150 mg SQ BID Monitor on tele Consult cardiology in am Acute on chronic diastolic HF exacerbation Echo in 03/2020 ? pEF ? Grade 2 DD Lasix and management as noted above Altered mental status Due to infectious vs CO2 narcosis Baseline unclear Dysphagia bedside screen. Fall precautions Probable Pneumonia / UTI Zosyn as ordered Follow up on urine culture Follow up on sputum culture if able to obtain Tyelenol PRN for fever Diabetes Mellitus Sliding scale insulin QACHS checks Diabetic diet DVT ppx Lovenox as ordered. Attestations Medical Necessity Statement*: Anticipate > 2 midnight stay in hospital for eval and treatment. Time Spent in Patient Care: Greater than 35 minutes (>than 50% of time spent in counselling and/or direct pt care on unit) . Coding Level of Care Code Acute Bd Special Education Teacher for Shamar Rivero Diagnoses Acute on chronic respiratory failure with hypoxia and hypercapnia J96.21; J96.22 Diabetes E11.9 COPD (chronic obstructive pulmonary disease) J44.9 COPD type: unspecified COPD Dyslipidemia E78.5 Pneumonia due to 2019-nCoV U07.1; J12.89
[2021-01-04] MEDS: piperacillin-tazobactam 4.5 GM in sodium chloride 0.9% (plus) 50 ML IV (01:54)
[2021-01-04] MEDS: aspirin 81 mg Chew Tablet 324 MG PO (01:54)
[2021-01-04] MEDS: enoxaparin 120 mg/0.8 mL Syringe 150 MG SUBCUT (01:55)
[2021-01-04] MEDS: enoxaparin 30 mg/0.3 mL Syringe SUBCUT ×2 (01:55→12:57)
--- NOTE | 2021-01-04 03:33 | ECG_ITS ---
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 Measurements Intervals [place] Rate: 64 P: 70 SD: 164 QRS: -23 QRSD: 115 T: 29 QT: 432 QTc: 447 Interpretive Statements SINUS RHYTHM BORDERLINE LEFT AXIS DEVIATION [QRS AXIS < -20] MODERATE INTRAVENTRICULAR CONDUCTION DELAY [110+ ms QRS DURATION] MINIMAL VOLTAGE CRITERIA FOR LVH, CONSIDER NORMAL VARIANT [MEETS CRITERIA IN ONE OF: R(aVL), S(V1), R(V5), R(V5/V6)+S(V1)] Compared to ECG 01/03/2021 23:42:47 Intraventricular conduction delay now present Supraventricular rhythm no longer present Electronically Signed On 01-05-2021 5:48:57 CDT by Manuela Hughes M.D. [id number]
[2021-01-04 03:57] LABS: Troponin 5 6HR 165.8 ng/L (0-10); Troponin 5 6HR Delta 105.8 ng/L (0-12)
--- NOTE | 2021-01-04 05:39 | USCV_ITS ---
Rachid Hagen Age: 75 Gender: F : 1945 Exam Date: 01/04/2021 11:56 Ordering Phys: Delbert George MD Technologist: Exam Location[place] [facility] [place] Indication: CHF BP: 119 / 50 HR: 61 Rhythm: Sinus Technical Quality: Adequate MEASUREMENTS (Male / Female) Normal Values 2D ECHO LV Diastolic Diameter PLAX 4.7 cm 4.2 - 5.9 / 3.9 - 5.3 cm LV Systolic Diameter PLAX 3.1 cm IVS Diastolic Thickness 1.3 cm 0.6 - 1.0 / 0.6 - 0.9 cm IVS Systolic Thickness 1.8 cm LVPW Diastolic Thickness 1.2 cm 0.6 - 1.0 / 0.6 - 0.9 cm LVPW Systolic Thickness 1.7 cm LVOT Diameter 0.0 cm LV Ejection Fraction 2D Teich 63.9 % LV Ejection Fraction MOD 2C 70.8 % LV Ejection Fraction 2C AL 71.2 % LA Diameter 4.1 cm LA Width 5.1 cm LA Height 5.2 cm RA Width 4.1 cm RA Height 4.6 cm M-MODE Aortic Annulus Diameter 3.1 cm LA Ao Ratio MM 1.4 MV E Point Septal Separation 0.9 cm DOPPLER AV Peak Velocity 194.0 cm/s LVOT Peak Velocity 98.0 cm/s AV Area Cont Eq vti 0.0 cm squared AV Area Cont Eq pk 0.0 cm squared MV Area PHT 5.0 cm squared Mitral E to A Ratio 2.2 MV E' Velocity 49.5 cm/s Mitral E to MV E' Ratio 10.9 Mitral E to LV E' Lateral Ratio 10.0 Mitral E to LV E' Septal Ratio 11.9 TR Peak Velocity 218.8 cm/s TR Peak Gradient 19.1 mmHg TV Peak E Velocity 89.0 cm/s Right Atrial Pressure 3.0 mmHg Pulmonary Artery Systolic Pressu 22.1 mmHg FINDINGS Left Ventricle Normal left ventricular size. LV systolic function is normal with EF of 55-60%. No regional wall motion abnormalities. Diastolic function is abnormal Right Ventricle The right ventricle is normal in size and function. Right Atrium The right atrium is normal in size. Left Atrium The left atrium is dilated Mitral Valve Mitral annular calcification is seen without significant stenosis or prolapse. There is trace mitral regurgitation. Aortic Valve Structurally normal aortic valve without significant sclerosis or stenosis. There is no aortic regurgitation. Tricuspid Valve Structurally normal tricuspid valve without significant stenosis. Mild tricuspid regurgitation. RVSP is 35-40mmHg. This is consistent with mild pulmonary hypertension Pulmonic Valve Structurally normal pulmonic valve without significant stenosis. There is no pulmonic regurgitation. Pericardium Normal pericardium without effusion. Aorta Normal ascending aorta dimension. CONCLUSIONS LV systolic function is normal with EF of 55-60% Diastolic function is abnormal Left atrial enlargement Trace mitral regurgitation Mild pulmonary hypertension is noted Compared to prior echocardiogram from 03/2020, no significant disease is noted Qasim Farah MD (Electronically Signed) Final Date: 04 January 2021 17:42 S
[2021-01-04 06:23] LABS: Anion Gap 11.7 (5-19); Blood Urea Nitrogen 41 mg/dL (8-23); Calcium 7.9 mg/dL (8.5-10.5); Carbon Dioxide 29 mmol/L (22-29); Chloride 109 mmol/L (98-107); Glucose 277 mg/dL (65-115); Osmolality Calculated 318 mOsm/kg (285-295); Potassium 5.7 mmol/L (3.5-5.1); Sodium 144 mmol/L (136-145)
[2021-01-04 06:29] LABS: Glucose Point of Care 242 mg/dL (70-110)
[2021-01-04] MEDS: insulin lispro 100 unit/1 mL SUBCUT ×2 (07:44→11:59)
[2021-01-04] MEDS: piperacillin-tazobactam 3.375 GM in sodium chloride 0.9% (plus) 50 ML IV ×2 (09:15→18:08)
[2021-01-04] MEDS: pantoprazole DR 40 mg Tablet PO (09:16)
[2021-01-04] MEDS: FUROsemide 10 mg/mL SDV 4mL 40 MG IVP (09:16)
[2021-01-04] MEDS: aspirin 325 mg Tablet PO (09:16)
--- NOTE | 2021-01-04 10:44 | PC.CHAP ---
Pastoral Care Encounter/Spiritual Assessment Type of Contact [] Declined cone runner visit [] Patient/Family/Request visit [] Outpatient visit [] Follow-up visit [] Physician referral [] Code/Alert [] Routine visit [] Staff referral [] Actively dying [] Patient sleeping [] Family support [] [] Out of room [] Palliative care [] [] Receiving care in room [] Pre-surgical visit [] Trauma [] Long length of stay [] ICU visit [x] Other: on life support Relational/Emotional Strength [] Patient feels connected with others/family/visitors/staff [] Distress [] Loneliness/isolation [] Abandonment Spirituality of Patient [] Person of Shirlene [] Attends Pentecostal of their Shirlene [] Believes in Prayer [] Reads Bible or Mormonism materials [] There are Spiritual issues to be addressed Audio Visual Aids Director Interventions [] Prayer [] Active listening [] Non-anxious presence [] Spiritual/emotional support [] Crisis/trauma care [] Spiritual counseling [] Bereavement support [] Provided bereavement packet [] Provided Bible/devotional materials [] Provided toy/stuffed animal, coloring book to patient or family member [] Provided Communion [] Anointing/[place] [] Salvation [] Completed spiritual assessment [] Other: Impact on Illness or Injury [] Angry [] Fearful [] Anxious [] Often cries [] Exhaustion [] Unable to work [] Unable to attend mormonism [] Unable to walk/stand [] Unable to read [] Unable to drive [] Unable to eat/drink [] Unable to sleep [] Unable to be with family [] Patient intubated [] Other: Summary on life support Time spent with patient 5 ins
[2021-01-04 11:53] LABS: Glucose Point of Care 162 mg/dL (70-110)
--- NOTE | 2021-01-04 12:21 | P.PN_ITS ---
Subjective Subjective: Interval history: Seen and examined this morning. Patient was quite drowsy and wearing the BiPAP mask. I was unable to obtain much history from her on how she was feeling. But she did look at me and we made eye contact when I was speaking to her she was able to tell me she is doing okay. Other than that I was not able to ask any questions. ABG was repeated few hours later pH 7.31, CO2 68. Patient's son was here at the hospital. I spoke to him on the phone. He tells me that she has been having a lot of shortness of breath and having gurgling sounds recently. There was also a question of an antibiotic being prescribed by the primary care physician for possible pneumonia. But he says that she never got the antibiotic and is unsure if she has pneumonia. He states he has nasal cannula at home and she is on 6 L. Do not have a BiPAP machine at home. She has been experiencing some water retention as well. She requires assistance with movement and going to the bathroom but otherwise mentally is very with it on a normal basis. Vitals/I&O/Wt Last Vital Signs Temp 98.6 F 01/04/21 03:00 Pulse 58 L 01/04/21 09:14 Resp 18 01/04/21 03:00 BP 119/5 01/04/21 03:00 Pulse Ox 92 01/04/21 09:14 01/03/21 01/04/21 01/04/21 22:59 06:59 14:59 Intake Total 50 / 50 Output Total 1400 / 1400 Balance -1350 / -1350 Weight last 48 hrs Weight 158.757 kg Weight 158.757 kg Physical Exam Narrative: EXAM NARRATIVE: General: Unable to check for orientation. Is somewhat alert at this time on BiPAP. It is hard to understand her through the mask. Does not appear to be in acute distress at this time. HEENT: Normocephalic, atraumatic, EOMI, breathing comfortably on BiPAP. Cardio: Regular rate rhythm, normal S1-S2, no murmurs rubs gallops, heart sounds quite muffled possibly due to body habitus. Unable to assess for JVD due to body habitus. Respiratory: Unable to auscultate posterior chest but anterior chest has a lot of transmitted sounds from the BiPAP. There are some crackles appreciated at the bases bilaterally. Unable to auscultate the entire posterior chest. GI: Abdomen soft, obese rounded abdomen, nontender, nondistended, bowel sounds + Extremities: Status post right BKA, 2-3+ pitting edema on left side. Urinary Catheter Management^: Lockhart: Cath Placed During This Visit: yes Reason for Continuing Indwelling Catheter: Acute Urinary Retention or Obstruction Urinary Catheter Date of Insertion: 01/03/21 Urinary Catheter Time of Insertion: 21:48 Data : 01/03/21 21:30 01/04/21 03:22 A&P Assessment and plan (1) Acute on chronic respiratory failure with hypoxia and hypercapnia: Status: Acute (2) Diabetes: Status: Acute (3) COPD (chronic obstructive pulmonary disease): Status: Acute Qualifiers: COPD type: unspecified COPD Qualified Code(s): J44.9 - Chronic obstructive pulmonary disease, unspecified (4) Dyslipidemia: Status: Chronic (5) Pneumonia due to 2019-nCoV: Status: Acute Additional A&P Information #Acute on chronic hypoxemic/hypercarbic respiratory failure most likely secondary to CO2 narcosis with a component of acute on chronic congestive heart failure. #NSTEMI likely demand ischemia type II [place]. #Acute on chronic diastolic HF exacerbation #Altered mental status on admission, improving slowly. Most likely secondary to CO2 narcosis. Echo in 03/2020 ? pEF ? Grade 2 DD Etiology multifactorial ? Diastolic HF exacerbation vs pneumonia vs COPD exacerbation. Most likely secondary to heart failure exacerbation and CO2 narcosis. I do not suspect a pneumonia at this time, she has been afebrile and has no white count. Will check bacterial antigens and MRSA nares. Continue Bipap ? Wean as tolerated Baseline o2 at 6L via NC chronically. Does not have BiPAP at home. Duoneb q6hr Lasix 80 mg IV twice daily. Will complete 48 hours of full dose Lovenox. Lockhart placed. ? monitor urine output Patient seen by cardiology as well. Troponin elevation most likely secondary to demand ischemia at this point. Echocardiogram is pending. We will arrange for BiPAP at discharge Patient was also having some junctional rhythm on telemetry this morning. Potassium was 5.7. It has been treated with insulin dextrose Kayexalate and calcium gluconate. We will repeat BMP in a few hours. Telemetry was reviewed heart rate is now in the 60s. Probable Pneumonia / UTI Zosyn as ordered Follow up on urine culture Follow up on sputum culture if able to obtain Check bacterial antigens, MRSA nares. We will also check for procalcitonin. Tyelenol PRN for fever Diabetes Mellitus Sliding scale insulin QACHS checks Diabetic diet DVT ppx Lovenox as ordered. Attestations Medical Necessity Statement*: Anticipate 48 to 72-hour hospital stay for aggressive IV diuresis. Time Spent in Patient Care: Greater than 35 minutes (>than 50% of time spent in counselling and/or direct pt care on unit) . Coding Level of Care Code Acute Real Estate Investment Analyst for g Fwd Diagnoses Acute on chronic respiratory failure with hypoxia and hypercapnia J96.21; J96.22 Diabetes E11.9 COPD (chronic obstructive pulmonary disease) J44.9 COPD type: unspecified COPD Dyslipidemia E78.5 Pneumonia due to 2019-nCoV U07.1; J12.89
[2021-01-04] MEDS: dextrose 50% syringe 50 mL IVP (12:56)
[2021-01-04] MEDS: calcium gluconate 0.1 gm/mL 10% SDV 10mL 1 GM IVP (12:56)
[2021-01-04] MEDS: insulin regular-human 10 UNIT in SYRINGE 1 EACH IVP (12:56)
[2021-01-04] MEDS: sodium polystyrene sulfonate 15 gm/60 mL Btl PO (12:56)
[2021-01-04] MEDS: enoxaparin 120 mg/0.8 mL Syringe SUBCUT (12:57)
[2021-01-04 13:16] LABS: ABG PH Result 7.31 (7.35-7.45); Arterial Blood Gas Hematocrit 26.9 % (37-47); Base Excess ABG 6.8 mmol/L (-2.0-2.0); Blood Gas Operator Identificat glc; Blood Gas Sample Site Brachial, right; Blood Gas Sample Type Arterial; HCO3 ABG 34.3 mmol/L (22-26); Oxygen Device BIPAP
[2021-01-04 13:19] LABS: ABG PCO2 61.3 mmHg (35-45)
[2021-01-04] MEDS: FUROsemide 10 mg/mL SDV 10mL 80 MG IVP (14:36)
[2021-01-04 14:58] LABS: Procalcitonin 2.03 ng/mL (0-0.5)
--- NOTE | 2021-01-04 16:14 | P.CONIM_ITS ---
Providers/Reason For Consult Consulting Physician/Specialty*: Qasim Farah MD/ Cardiology Reason for Consult*: Troponin elevation/CHF exacerbation Requesting Physician: Dr Mccarty Attending Physician: Rosenda Mccarty MD Primary Care Provider: Brian Walker MD History of Present Illness History of Present Illness Rachid Hagen is a 75 year old female with a past medical history of diastolic congestive heart failure, on 6 L chronic nasal cannula, COPD, CO2 retention, insulin dependent diabetes, hypertension, morbid obesity and history of PAD with right below the knee amputation has presented with breathing difficulty. She h erself is a poor historian however son is on bedside. Per his son she has been having progressively shortness of breath for the last 1 week. In the hospital her baseline troponin was 60 which has trended up to 165. NT proBNP was 700. She is getting diuretics. Also started on NSTEMI protocol. EKG does not show acute ST changes. Review of Systems General: Reports: 10 or more systems reviewed and unremarkable except in HPI and below Narrative: CONSTITUTIONAL: Drowsy, no fever chills weight loss or gain or night sweats. [] HEENT: Normocephalic, atraumatic.[] RESPIRATORY: Has shortness of breath and wheezing CARDIOVASCULAR: Has shortness of breath, no chest pain GI: no nausea vomiting diarrhea. [] CONCRETE TESTER: No numbness, tingling, weakness or loss of function in any part of the body. [] MUSCULOSKELETAL: No knee or joint pain or rashes. [] Meds/Allergies Home Medications and Allergies Home Medications Medication Instructions Recorded Confirmed Last Taken Type glipizide 10 mg PO BID 30 Days #60 tab 08/10/19 01/04/21 04/17/20 Rx potassium chloride 20 meq PO BID 30 Days #60 tab 08/10/19 01/04/21 04/17/20 Rx atorvastatin 20 mg PO DAILY 11/28/19 01/04/21 04/17/20 History gabapentin 300 mg PO TID 04/18/20 01/04/21 04/17/20 History Lantus Solostar U-100 Insulin 10 unit SUBCUT BEDTIME 06/27/20 01/04/21 06/26/20 History aspirin 81 mg PO DAILY 06/27/20 01/04/21 06/27/20 History carvedilol 3.125 mg PO BID 06/27/20 01/04/21 Unknown History furosemide 40 mg PO DAILY 06/27/20 01/04/21 Unknown History insulin aspart U-100 [Novolog See Rx Instructions .ROUTE .COMPLEX 06/27/20 01/04/21 06/27/20 12:00 History Flexpen U-100 Insulin] 4 units meclizine 25 mg PO Q8H PRN 06/27/20 01/04/21 Unknown History pregabalin [Lyrica] 150 mg PO TID 06/27/20 01/04/21 Unknown History Januvia 100 mg PO QAM 01/04/21 01/04/21 Unknown History Senna-S 1 tab-cap PO BID PRN 01/04/21 01/04/21 Unknown History albuterol sulfate 2.5 mg CONTINUOUS NEBULIZATION BID 01/04/21 01/04/21 Unknown History PRN alendronate 70 mg PO Q7D 01/04/21 01/04/21 Unknown History cetirizine [Zyrtec] 10 mg PO DAILY 01/04/21 01/04/21 Unknown History guaifenesin [Mucinex] 600 mg PO BID 01/04/21 01/04/21 Unknown History levothyroxine 25 mcg PO DAILY@01/04/21 01/04/21 Unknown History levothyroxine 175 mcg PO DAILY@01/04/21 01/04/21 Unknown History mupirocin 1 applic TOPICAL PRN 01/04/21 01/04/21 Unknown History oxybutynin chloride 5 mg PO BID 01/04/21 01/04/21 Unknown History pantoprazole [Protonix] 40 mg PO DAILY 01/04/21 01/04/21 Unknown History polysaccharide iron complex 150 mg PO DAILY 01/04/21 01/04/21 Unknown History [Ferrex 150] Allergies Allergy/AdvReac Type Severity Reaction Status Date / Time TAPE Allergy ADR-Itching Uncoded 05/22/20 13:07 Current Medications Current Medications Generic Name Dose Route Start Last Admin Trade Name Freq PRN Reason Stop Dose Admin Aspirin 325 mg 01/04/21 09:00 01/04/21 09:16 Aspirin 325 Mg Tablet PO 325 mg DAILY JOHANA Administration Enoxaparin Sodium 120 mg 01/04/21 13:00 01/04/21 12:57 Enoxaparin 120 Mg/0.8 Ml Syringe SUBCUT 120 mg Q12H JOHANA Administration Enoxaparin Sodium 30 mg 01/04/21 13:00 01/04/21 12:57 Enoxaparin 30 Mg/0.3 Ml Syringe SUBCUT 30 mg Q12H JOHANA Administration Furosemide 80 mg 01/04/21 15:00 01/04/21 14:36 Furosemide 10 Mg/Ml Sdv 10ml IVP 80 mg Q12H JOHANA Administration Piperacillin Sod/Tazobactam 50 mls @ 12.5 mls/hr 01/04/21 10:00 01/04/21 09:15 Sod 3.375 gm/ Sodium Chloride IV 12.5 mls/hr Q8H JOHANA Administration Protocol As Directed Insulin Human Lispro 0 unit 01/04/21 08:00 01/04/21 11:59 Insulin Lispro 100 Unit/1 Ml SUBCUT 2 unit WM&BEDTIME JOHANA Administration Protocol Pantoprazole Sodium 40 mg 01/04/21 09:00 01/04/21 09:[address] 40 Mg Tablet PO 40 mg DAILY JOHANA Administration PFSH Acute PFSH: Medical History COPD (chronic obstructive pulmonary disease) Diabetes Diabetic peripheral neuropathy Dyslipidemia GERD (gastroesophageal reflux disease) -on PPI History of ESBL E. coli infection History of infection with vancomycin resistant Enterococcus (VRE) History of osteomyelitis HTN (hypertension) Hypothyroidism Lymphedema Morbid obesity Osteomyelitis Osteoporosis Overactive bladder Peripheral vascular disease -has known hx of PVD Recurrent UTI (urinary tract infection) Status post hysteroscopy with D&C on 11/10/[address] Panda at [facility] Urinary incontinence Surgical History H/O thyroidectomy History of abdominal surgery Had a benign stomach tumor removed History of ankle surgery Left for fracture repair History of eye surgery Left History of foot surgery Right foot status post amputation of great and second toe History of hip surgery History of hysterectomy History of right breast biopsy History of surgery on extremity Left femur S/P excisional debridement Bilateral lower extremity wounds Family History Son Hypertension Social History (Reviewed 01/05/21 @ 09:51 by Nina Yeung Smoking and tobacco status: former smoker Alcohol intake: never Lives independently: Yes Current occupational status: retired Vitals/I&O/Wt Last Vital Signs Temp 98.6 F 01/04/21 03:00 Pulse 58 L 01/04/21 09:14 Resp 18 01/04/21 03:00 BP 119/5 01/04/21 03:00 Pulse Ox 92 01/04/21 09:14 01/04/21 01/04/21 01/04/21 06:59 14:59 22:59 Intake Total 50 / 50 Output Total 1400 / 1400 Balance -1350 / -1350 Weight last 48 hrs Weight 350 lb Weight 350 lb Physical Exam Narrative: EXAM NARRATIVE: GENERAL: Drowsy NECK: No jugular vein distension. [] HEENT: No cyanosis. No icterus. No pallor. [] HEART: Regular S1 and S2. No murmur, rub or gallop. [] LUNGS: Clear to auscultate bilaterally. [] ABDOMEN: Soft, nontender and nondistended. Positive bowel sounds. No guarding, rebound or tenderness. [] CENTRAL NERVOUS SYSTEM: Grossly nonfocal. [] EXTREMITIES: Lower extremities with 1+ edema bilaterally. Pulses palpable in the lower extremities, both dorsalis pedis and posterior tibial. [] Urinary Catheter Management^: Lockhart: Cath Placed During This Visit: yes Reason for Continuing Indwelling Catheter: Acute Urinary Retention or Obst ruction Urinary Catheter Date of Insertion: 01/03/21 Urinary Catheter Time of Insertion: 21:48 A&P Assessment and plan (1) Acute on chronic respiratory failure with hypoxia and hypercapnia: Status: Acute (2) Diabetes: Status: Acute Qualifiers: Diabetes mellitus type: type 2 Diabetes mellitus assisted insulin use: with long line teamster use Diabetes mellitus complication status: with hyperglycemia Qualified Code(s): E11.65 - Type 2 diabetes mellitus with hyperglycemia; Z79.4 - USP (current) use of insulin (3) HTN (hypertension): Status: Acute Qualifiers: Hypertension type: essential hypertension Qualified Code(s): I10 - Essential (primary) hypertension (4) COPD (chronic obstructive pulmonary disease): Status: Acute Qualifiers: COPD type: unspecified COPD Qualified Code(s): J44.9 - Chronic obstructive pulmonary disease, unspecified (5) Acute diastolic CHF (congestive heart failure): Status: Acute (6) Elevated troponin: Status: Acute Patient has presented with respiratory distress. Likely secondary to CO2 retention. Continue BiPAP. Her volume status is difficult to assess however antibiotic BNP is elevated at 700. Increase her Lasix to 80 mg twice daily for today. Strict I&O's. Monitor renal function. Low-sodium diet Troponin elevation is likely secondary to demand ischemia. Can complete 48 hours of anticoagulation. Patient will benefit from BiPAP as outpatient given her CO2 retention. Thank you for involving us with care of this patient. We will continue to follow. Please call with questions. Coding Level of Care Code Acute Automotive Design Drafter for [facility] Diagnoses Acute on chronic respiratory failure with hypoxia and hypercapnia J96.21; J96.22 Diabetes E11.65; Z79.4 Diabetes mellitus type: type 2 Diabetes mellitus assisted insulin use: with long line teamster use Diabetes mellitus complication status: with hyperglycemia HTN (hypertension) I10 Hypertension type: essential hypertension COPD (chronic obstructive pulmonary disease) J44.9 COPD type: unspecified COPD Acute diastolic CHF (congestive heart failure) I50.31 Elevated troponin R77.8
--- NOTE | 2021-01-04 16:58 | PC.PT ---
Discussed with Dr. Mccarty that patient is Chapo lift patient at home, from bed to electric wheelchair and fully dependent for most activities except bathing, family takes care of her, but patient is at prior level of function at this time, and Dr. Mccarty agreed that patient does not need PT at this time. Discharge physical therapy evaluation orders at this time.
--- NOTE | 2021-01-04 17:30 | PC.PHAR ---
pts son ling state he gives the pt her insulin and verified the insulin-ling states the pts family dipak mccauley [phone] sets up the pts other medications-dipak verified pts other medications-notes are made in the pharmacy comments-dipak states the pt has oxybutyin but hasnt been taking-
[2021-01-04 17:52] LABS: Glucose Point of Care 100 mg/dL (70-110)
--- NOTE | 2021-01-04 20:05 | PC.NURSE ---
Shift Note Frequent safety and comfort rounds continue. Orders and/or nursing care completed as indicated. Patient monitored for response to intervention and treatment(s). Education provided includes[medication education and skin care/turning]. Patient and/or graphic art sales representative verb understanding of instructions Will continue to monitor.
[2021-01-04 20:19] LABS: Glucose Point of Care 93 mg/dL (70-110)
[2021-01-04] MEDS: atorvastatin 40 mg Tablet 20 MG PO (20:23)
[2021-01-04 21:33] LABS: Blood Urea Nitrogen 48 mg/dL (8-23); Carbon Dioxide 33 mmol/L (22-29); Chloride 109 mmol/L (98-107); Glucose 91 mg/dL (65-115); Osmolality Calculated 316 mOsm/kg (285-295); Sodium 147 mmol/L (136-145)
[2021-01-04 21:41] LABS: Anion Gap 9.9 (5-19); Potassium 4.9 mmol/L (3.5-5.1)
[2021-01-04 21:41] LABS: ABG PH Result 7.34 (7.35-7.45); Arterial Blood Gas Hematocrit 27.3 % (37-47); Base Excess ABG 7.6 mmol/L (-2.0-2.0); Blood Gas Sample Site Brachial, right; Blood Gas Sample Type Arterial; Carboxyhemoglobin 0.8 %THgb (0.4-20.1); HCO3 ABG 34.8 mmol/L (22-26); HGB O2 Sat 92.9 % (95-100); Ionized Calcium Level - ABG 1.2 mmol/L (1.1-1.4); Oxygen Device BIPAP; Oxygen Saturation ABG 94.6; Potassium Level - ABG 4.5 mmol/L (3.5-5.0); Total Hemoglobin 8.9 g/dL (12-16)
[2021-01-04 21:42] LABS: Alveolar-Arterial Oxygen Gradi 16.7 mmHg (5-10)
[2021-01-04 23:24] LABS: ABG PCO2 65.3 mmHg (35-45)
[2021-01-05] VITALS (10 sets, daily range): BP systolic 121–166; BP diastolic 54–94; PULSE 57–79; RESP 16–20; TEMP 36.8–37.2; O2SAT 90–97
[2021-01-05] MEDS: piperacillin-tazobactam 3.375 GM in sodium chloride 0.9% (plus) 50 ML IV ×3 (01:21→19:17)
[2021-01-05] MEDS: enoxaparin 120 mg/0.8 mL Syringe SUBCUT ×2 (01:22→13:55)
[2021-01-05] MEDS: enoxaparin 30 mg/0.3 mL Syringe SUBCUT ×2 (01:22→13:56)
[2021-01-05] MEDS: FUROsemide 10 mg/mL SDV 10mL 80 MG IVP (03:06)
[2021-01-05 05:00] LABS: Basophils % 0.5 %; Eosinophils # 0.2 10^3/uL (0.0-0.8); Eosinophils % 5.4 %; Hematocrit 33.4 % (37.0-47.0); Hemoglobin 9.2 g/dL (11.5-15.3); Lymphocytes % 22.4 %; Mean Corpuscular HGB Conc 27.5 g/dL (30.0-36.0); Mean Corpuscular Hemoglobin 28.9 pg (28.0-34.0); Mean Platelet Volume 12.1 fL (7.4-10.4); Monocytes # 0.5 10^3/uL (0.2-0.9); Monocytes % 10.4 %; Neutrophils # 2.68 10^3/uL (1.8-7.7); Neutrophils % 60.6 %; Nucleated Red Blood Cells % 0 %; Platelet Count 130 10^3/cmm (130-400); Red Blood Count 3.18 10^6/uL (4.1-5.3); Red Cell Distribution Width 15.7 % (12.1-15.1); White Blood Count 4.4 10^3/uL (4.0-10.0)
[2021-01-05 05:12] LABS: Chol HDL Ratio 2.78 mg/dL (0.0-4.40); Cholesterol 114 mg/dL (0-200); HDL Cholesterol 41 mg/dL (60-100); LDL Cholesterol Calculated 54 mg/dL (50-129); LDL HDL Ratio 1.32 RATIO (0.00-3.22); Triglycerides 93 mg/dL (0-150)
[2021-01-05 05:14] LABS: Alanine Aminotransferase 37 U/L (0-33); Albumin Level 2.7 g/dL (3.5-5.2); Alkaline Phosphatase 72 IU/L (35-105); Anion Gap 10.4 (5-19); Aspartate Amino Transferase 20 U/L (0-32); Blood Urea Nitrogen 49 mg/dL (8-23); Calcium 8.2 mg/dL (8.5-10.5); Carbon Dioxide 33 mmol/L (22-29); Chloride 110 mmol/L (98-107); Globulin 3.3 g/dL (1.3-4.6); Glucose 90 mg/dL (65-115); Magnesium 1.7 mg/dL (1.7-2.3); Osmolality Calculated 321 mOsm/kg (285-295); Potassium 4.4 mmol/L (3.5-5.1); Sodium 149 mmol/L (136-145); Total Bilirubin 0.3 mg/dL (0.15-1.2)
[2021-01-05 05:16] LABS: INR 1.16 (0.8-1.2)
[2021-01-05 05:18] LABS: Procalcitonin 5.03 ng/mL (0-0.5)
[2021-01-05 06:36] LABS: Glucose Point of Care 91 mg/dL (70-110)
--- NOTE | 2021-01-05 08:00 | XR_ITS ---
WS: [id number] XR chest 1V portable [id number] REASON FOR EXAM: folllow up FINDINGS: Consolidation in both lower lungs with air bronchograms. More prominent on the right. Left pleural ef fusion. These findings show no significant improvement compared to 01/03/2021. There also appears to be central interstitial infiltrative changes and prominence of the upper lobe v eins. No new findings. XR/XR chest 1V portable [id number] IMPRESSION: Abnormal chest without significant improvement. There are findings compatible w ith pneumonitis and congestive heart failure.
[2021-01-05] MEDS: aspirin 325 mg Tablet PO (09:26)
[2021-01-05] MEDS: pantoprazole DR 40 mg Tablet PO (09:26)
--- NOTE | 2021-01-05 09:58 | P.PN_ITS ---
Subjective Subjective: Interval history: Patient is feeling better. Says that shortness of breath symptoms have improved. Not using bipap today Vitals/I&O/Wt Last Vital Signs Temp 98.2 F 01/05/21 03:49 Pulse 75 01/05/21 08:05 Resp 18 01/05/21 08:05 BP 166/65 01/05/21 03:49 Pulse Ox 96 01/05/21 08:05 01/04/21 01/05/21 01/05/21 22:59 06:59 14:59 Intake Total 250 / 900 100 / 1000 Output Total 700 / 700 2350 / 3050 Balance -450 / 200 -2250 / -2050 Weight last 48 hrs Weight 363 lb 4.8 oz Weight 350 lb Weight 350 lb Physical Exam Narrative: EXAM NARRATIVE: GENERAL: Alert and oriented x 3 NECK: No jugular vein distension. [] HEENT: No cyanosis. No icterus. No pallor. [] HEART: Regular S1 and S2. No murmur, rub or gallop. [] LUNGS: Clear to auscultate bilaterally. [] ABDOMEN: Soft, nontender and nondistended. Positive bowel sounds. No guarding, rebound or tenderness. [] CENTRAL NERVOUS SYSTEM: Grossly nonfocal. [] EXTREMITIES: Lower extremities with 2+ edema on the left lower extremity. Has BKA of the right lower extremity. Urinary Catheter Management^: Lockhart: Cath Placed During This Visit: yes Reason for Continuing Indwelling Catheter: Accurate Measurement of Urinary Output in Critically Ill Patients Urinary Catheter Date of Insertion: 01/03/21 Urinary Catheter Time of Insertion: 21:48 Data : 01/05/21 04:30 01/05/21 04:30 Micro: Microbiology 01/04/21 18:00 Bacterial Antigens - Final Urine,Voided 01/04/21 18:00 Legionella Urinary Antigen - Final Urine Catheterized A&P Assessment and plan (1) Acute on chronic respiratory failure with hypoxia and hypercapnia: Status: Acute (2) Diabetes: Status: Acute Qualifiers: Diabetes mellitus type: type 2 Diabetes mellitus ocean transportation intermediary insulin use: with skilled nursing use Diabetes mellitus complication status: with hyperglycemia Qualified Code(s): E11.65 - Type 2 diabetes mellitus with hyperglycemia; Z79.4 - termite inspector (current) use of insulin (3) HTN (hypertension): Status: Acute Qualifiers: Hypertension type: essential hypertension Qualified Code(s): I10 - Essential (primary) hypertension (4) COPD (chronic obstructive pulmonary disease): Status: Acute Qualifiers: COPD type: unspecified COPD Qualified Code(s): J44.9 - Chronic obstructive pulmonary disease, unspecified (5) Acute diastolic CHF (congestive heart failure): Status: Acute (6) Elevated troponin: Status: Acute Patient has presented with respiratory distress. Likely secondary to CO2 retention. Continue BiPAP. She appears to be intravascularly dry. Can decrease dose of Lasix. Nephrology also following. Strict I&O's. Monitor renal function. Low-sodium diet Troponin elevation is likely secondary to demand ischemia. Anticoagulation can be stopped after 24 hours Patient will benefit from BiPAP as outpatient given her CO2 retention. Thank you for involving us with care of this patient. We will continue to follow. Please call with questions. Attestations Medical Necessity Statement*: Care expected to cross 2 midnights. Coding Level of Care Code Acute Supervisor Pleating for [facility] Diagnoses Acute on chronic respiratory failure with hypoxia and hypercapnia J96.21; J96.22 Diabetes E11.65; Z79.4 Diabetes mellitus type: type 2 Diabetes mellitus skilled nursing insulin use: with ocean transportation intermediary use Diabetes mellitus complication status: with hyperglycemia HTN (hypertension) I10 Hypertension type: essential hypertension COPD (chronic obstructive pulmonary disease) J44.9 COPD type: unspecified COPD Acute diastolic CHF (congestive heart failure) I50.31 Elevated troponin R77.8
--- NOTE | 2021-01-05 10:47 | PC.CHAP ---
Pastoral Care Encounter/Spiritual Assessment Type of Contact [] Declined weaver narrow fabrics visit [] Patient/Family/Request visit [] Outpatient visit [] Follow-up visit [] Physician referral [] Code/Alert [x] Routine visit [] Staff referral [] Actively dying [] Patient sleeping [] Family support [] [] Out of room [] Palliative care [] [] Receiving care in room [] Pre-surgical visit [] Trauma [] Long length of stay [] ICU visit [] Other: Relational/Emotional Strength [] Patient feels connected with others/family/visitors/staff [] Distress [] Loneliness/isolation [] Abandonment Spirituality of Patient [] Person of Shirlene [] Attends Caodaism of their Shirlene [] Believes in Prayer [] Reads Bible or Congregation materials [] There are Spiritual issues to be addressed Director [employer] Interventions [x] Prayer [x] Active listening x] Non-anxious presence [x Spiritual/emotional support [] Crisis/trauma care [] Spiritual counseling [] Bereavement support [] Provided bereavement packet [] Provided Bible/devotional materials [] Provided toy/stuffed animal, coloring book to patient or family member [] Provided Communion [] Anointing/[place] [] Salvation [x] Completed spiritual assessment [] Other: Impact on Illness or Injury [] Angry [] Fearful [] Anxious [] Often cries [] Exhaustion [] Unable to work [] Unable to attend voodoo [] Unable to walk/stand [] Unable to read [] Unable to drive [] Unable to eat/drink [] Unable to sleep [] Unable to be with family [] Patient intubated [] Other: Summary feeling better... breathing better Time spent with patient 5 min
[2021-01-05 11:31] LABS: Glucose Point of Care 139 mg/dL (70-110)
--- NOTE | 2021-01-05 14:33 | PM.PN ---
Subjective Subjective: Interval history: Seen and examined this morning. Patient is awake alert and oriented. He is able to have a conversation with me. He states she is feels a lot better already but is concerned about her left arm swelling. I told her we can do a Doppler to see if there is a blood clot. Other than that patient does understand that she needs IV diuresis at this time. She was wondering how many days she will be in the hospital. She is offering no complaints today. No acute events overnight. Vitals/I&O/Wt Last Vital Signs Temp 98.2 F 01/05/21 03:49 Pulse 68 01/05/21 12:00 Resp 17 01/05/21 12:00 BP 125/54 01/05/21 12:00 Pulse Ox 97 01/05/21 12:00 01/04/21 01/05/21 01/05/21 22:59 06:59 14:59 Intake Total 250 / 900 100 / 1000 360 / 360 Output Total 700 / 700 2350 / 3050 1999 / 1999 Balance -450 / 200 -2250 / -2050 -1640 / -1640 Weight last 48 hrs Weight 164.79 kg Weight 158.757 kg Weight 158.757 kg Physical Exam Narrative: EXAM NARRATIVE: General: Alert oriented x3. Laying in bed appearing comfortable. HEENT: Normocephalic, atraumatic, EOMI, on nasal cannula 6 L. Cardio: Regular rate rhythm, normal S1-S2, no murmurs rubs gallops, heart sounds quite muffled possibly due to body habitus. Unable to assess for JVD due to body habitus. Respiratory: Crackles bilaterally at bases, no wheezes no rhonchi GI: Abdomen soft, obese rounded abdomen, nontender, nondistended, bowel sounds + Extremities: Status post right BKA, 2-3+ pitting edema on left side. Left arm significantly edematous no erythema noted. Urinary Catheter Management^: Lockhart: Cath Placed During This Visit: yes Reason for Continuing Indwelling Catheter: Accurate Measurement of Urinary Output in Critically Ill Patients Urinary Catheter Date of Insertion: 01/03/21 Urinary Catheter Time of Insertion: 21:48 Data : 01/05/21 04:30 01/05/21 04:30 Micro: Microbiology 01/04/21 18:20 MRSA Culture - Final Nose 10/13/21 21:50 Urine Culture - Preliminary Urine,Clean Catch Gram Negative Rods 01/04/21 18:00 Bacterial Antigens - Final Urine,Voided 01/04/21 18:00 Legionella Urinary Antigen - Final Urine Catheterized A&P Assessment and plan (1) Acute on chronic respiratory failure with hypoxia and hypercapnia: Status: Acute (2) Diabetes: Status: Acute (3) COPD (chronic obstructive pulmonary disease): Status: Acute Qualifiers: COPD type: unspecified COPD Qualified Code(s): J44.9 - Chronic obstructive pulmonary disease, unspecified (4) Dyslipidemia: Status: Chronic (5) Pneumonia due to 2019-nCoV: Status: Acute Additional A&P Information #Acute on chronic hypoxemic/hypercarbic respiratory failure most likely secondary to CO2 narcosis with a component of acute on chronic congestive heart failure. #NSTEMI likely demand ischemia type II HI. #Acute on chronic diastolic HF exacerbation #Altered mental status on admission, resolved. Most likely secondary to CO2 narcosis. #Hyponatremia Echo in 03/2020 ? pEF ? Grade 2 DD Etiology multifactorial ? Diastolic HF exacerbation vs pneumonia vs COPD exacerbation. Most likely secondary to heart failure exacerbation and CO2 narcosis. Continue Bipap ? Wean as tolerated Baseline o2 at 6L via NC chronically. Does not have BiPAP at home. Duoneb q6hr Lasix 80 mg IV twice daily. Continue IV diuresis at this time. Will complete 48 hours of full dose Lovenox. Lockhart placed. ? monitor urine output Patient seen by cardiology as well. Troponin elevation most likely secondary to demand ischemia at this point. Echocardiogram shows left atrial enlargement, mild pulmonary hypertension, EF 55 to 60%, diastolic function abnormal. We will arrange for BiPAP at discharge Continue BiPAP at nighttime. Hyperkalemia has corrected by now. Consult nephrology for hypernatremia. Discussed briefly with on-call food assembler kitchen. Will await recommendations. Urinary tract infection Pneumonia Urine culture positive for gram-negative rods. Continue Zosyn IV Follow up on sputum culture if able to obtain Bacterial antigen negative, MRSA nares positive. Procalcitonin high at 5.03. X-ray does show questionable infiltrate in both lungs in the central area. Due to MRSA nares positive I will cover her with vancomycin for now. Will wait on sputum culture. We will check a rapid Covid screen as well today due to bilateral infiltrates. Tyelenol PRN for fever Diabetes Mellitus Sliding scale insulin QACHS checks Diabetic diet DVT ppx Full dose Lovenox to complete in 48 hours. At that point we will switch her to DVT prophylaxis dose. Attestations Medical Necessity Statement*: Requires aggressive IV diuresis. Anticipate 48 to 72 hours in the hospital stay. Time Spent in Patient Care: 16 - 35 minutes Coding Level of Care Code Acute Assembler Dry Cell And Battery for g Fwd Diagnoses Acute on chronic respiratory failure with hypoxia and hypercapnia J96.21; J96.22 Diabetes E11.9 COPD (chronic obstructive pulmonary disease) J44.9 COPD type: unspecified COPD Dyslipidemia E78.5 Pneumonia due to 2019-nCoV U07.1; J12.89
--- NOTE | 2021-01-05 15:04 | PC.RESP ---
PULMONARY REHAB INFORMATION SENT TO PATIENT.
--- NOTE | 2021-01-05 15:27 | P.CONIM_ITS ---
Providers/Reason For Consult Consulting Physician/Specialty*: Nephrology Reason for Consult*: Eval for anasarca and hypernatremia Attending Physician: Rosenda Mccarty MD Primary Care Provider: Brian Walker MD History of Present Illness History of Present Illness Thank you for consultation, today the pleasure reviewing this very pleasant 75-year-old female for evaluation of hyponatremia. She currently has a weight of 164 kg, sodium of 149, free water deficit of 4.8 L. She presented to our facility a few days ago with increasing shortness of breath, was subsequently diagnosed with both congestive heart failure as well as possible pneumonia, received broad-spectrum antibiotics and IV diuretics. 2D echocardiogram is demonstrated preserved ejection fraction but some diastolic dysfunction. She is received IV diuretics and has had a robust urine output of over 5 L over the last 24 hours. She feels back to her baseline, she still requires nasal cannula oxygen which she reports is normal for her. She still has significant swelling in the arms and legs. She is currently lying comfortably without orthopnea. She denies any other symptoms at this time, denies chest pain, palpitations. No history of acute or chronic kidney disease, serum creatinine 1.1 mg/dL. I do see from prior urinalysis that she has 1-2+ proteinuria depending upon urine concentration. There is no formal protein quantification in the urine yet. Review of Systems Narrative: ROS - 12 point review of systems completed per HPI and subjective assessment, this includes Constitutional: No weakness, fatigue Respiratory: No SOB on exertion, comfortable at rest CardioVasc: No chest pain, palpitations Gastrointestinal: No nausea, no vomiting Neurological: No seizures, no AMS Derm: No new rashes, lesions or wounds Immunological: No seasonal and no food allergies Meds/Allergies Home Medications and Allergies Home Medications Medication Instructions Recorded Confirmed Last Taken Type glipizide 10 mg PO BID 30 Days #60 tab 08/10/19 01/04/21 04/17/20 Rx potassium chloride 20 meq PO BID 30 Days #60 tab 08/10/19 01/04/21 04/17/20 Rx atorvastatin 20 mg PO DAILY 11/28/19 01/04/21 04/17/20 History gabapentin 300 mg PO TID 04/18/20 01/04/21 04/17/20 History Lantus Solostar U-100 Insulin 10 unit SUBCUT BEDTIME 06/27/20 01/04/21 06/26/20 History aspirin 81 mg PO DAILY 06/27/20 01/04/21 06/27/20 History carvedilol 3.125 mg PO BID 06/27/20 01/04/21 Unknown History furosemide 40 mg PO DAILY 06/27/20 01/04/21 Unknown History insulin aspart U-100 [Novolog See Rx Instructions .ROUTE .COMPLEX 06/27/20 01/04/21 06/27/20 12:00 History Flexpen U-100 Insulin] 4 units meclizine 25 mg PO Q8H PRN 06/27/20 01/04/21 Unknown History pregabalin [Lyrica] 150 mg PO TID 06/27/20 01/04/21 Unknown History Januvia 100 mg PO QAM 01/04/21 01/04/21 Unknown History Senna-S 1 tab-cap PO BID PRN 01/04/21 01/04/21 Unknown History albuterol sulfate 2.5 mg CONTINUOUS NEBULIZATION BID 01/04/21 01/04/21 Unknown History PRN alendronate 70 mg PO Q7D 01/04/21 01/04/21 Unknown History cetirizine [Zyrtec] 10 mg PO DAILY 01/04/21 01/04/21 Unknown History guaifenesin [Mucinex] 600 mg PO BID 01/04/21 01/04/21 Unknown History levothyroxine 25 mcg PO DAILY@06 01/04/21 01/04/21 Unknown History levothyroxine 175 mcg PO DAILY@06 01/04/21 01/04/21 Unknown History mupirocin 1 applic TOPICAL PRN 01/04/21 01/04/21 Unknown History oxybutynin chloride 5 mg PO BID 01/04/21 01/04/21 Unknown History pantoprazole [Protonix] 40 mg PO DAILY 01/04/21 01/04/21 Unknown History polysaccharide iron complex 150 mg PO DAILY 01/04/21 01/04/21 Unknown History [Ferrex 150] Allergies Allergy/AdvReac Type Severity Reaction Status Date / Time TAPE Allergy ADR-Itching Uncoded 05/22/20 13:07 Current Medications Current Medications Generic Name Dose Route Start Last Admin Trade Name Freq PRN Reason Stop Dose Admin Aspirin 325 mg 01/04/21 09:00 01/05/21 09:26 Aspirin 325 Mg Tablet PO 325 mg DAILY JOHANA Administration Atorvastatin Calcium 20 mg 01/04/21 21:00 01/04/21 20:23 Atorvastatin 40 Mg Tablet PO 20 mg BEDTIME JOHANA Administration Enoxaparin Sodium 120 mg 01/04/21 13:00 01/05/21 13:55 Enoxaparin 120 Mg/0.8 Ml Syringe SUBCUT 120 mg Q12H JOHANA Administration Enoxaparin Sodium 30 mg 01/04/21 13:00 01/05/21 13:56 Enoxaparin 30 Mg/0.3 Ml Syringe SUBCUT 30 mg Q12H JOHANA Administration Piperacillin Sod/Tazobactam 50 mls @ 12.5 mls/hr 01/04/21 10:00 01/05/21 09:26 Sod 3.375 gm/ Sodium Chloride IV 12.5 mls/hr Q8H JOHANA Administration Protocol As Directed Insulin Human Lispro 0 unit 01/04/21 08:00 01/05/21 13:52 Insulin Lispro 100 Unit/1 Ml SUBCUT Not Given WM&BEDTIME JOHANA Protocol Pantoprazole Sodium 40 mg 01/04/21 09:00 01/05/21 09:[address] 40 Mg Tablet PO 40 mg DAILY JOHANA Administration PFSH Acute PFSH: Medical History COPD (chronic obstructive pulmonary disease) Diabetes Diabetic peripheral neuropathy Dyslipidemia GERD (gastroesophageal reflux disease) -on PPI History of ESBL E. coli infection History of infection with vancomycin resistant Enterococcus (VRE) History of osteomyelitis HTN (hypertension) Hypothyroidism Lymphedema Morbid obesity Osteomyelitis Osteoporosis Overactive bladder Peripheral vascular disease -has known hx of PVD Recurrent UTI (urinary tract infection) Status post hysteroscopy with D&C on 11/10/[address] 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 History of hip surgery History of hysterectomy History of right breast biopsy History of surgery on extremity Left femur S/P excisional debridement Bilateral lower extremity wounds Family History Son Hypertension Social History Smoking and tobacco status: former smoker Alcohol intake: never Lives independently: Yes Current occupational status: retired Vitals/I&O/Wt Last Vital Signs Temp 98.2 F 01/05/21 03:49 Pulse 68 01/05/21 12:00 Resp 17 01/05/21 12:00 BP 125/54 01/05/21 12:00 Pulse Ox 97 01/05/21 12:00 01/05/21 01/05/21 01/05/21 06:59 14:59 22:59 Intake Total 100 / 1000 360 / 360 Output Total 2350 / 3050 1999 Balance -2250 / -2050 -1640 / -1640 Weight last 48 hrs Weight 164.79 kg Weight 158.757 kg Weight 158.757 kg Physical Exam Narrative: EXAM NARRATIVE: Constitutional: Awake, comfortable HEENT: Wet mucosa, no jvp, non icteric Lungs: Bilaterally clear without discernible wheeze, rales in all lung zones CVS: S1 S2, no murmurs Abdo: Soft, BS ok Ext 4: Anasarca, peripheral perfusion with no cyanosis Neurological: Grossly non-focal Urinary Catheter Management^: Lockhart: Cath Placed During This Visit: yes Reason for Continuing Indwelling Catheter: Accurate Measurement of Urinary Output in Critically Ill Patients Urinary Catheter Date of Insertion: 01/03/21 Urinary Catheter Time of Insertion: 21:48 Data Micro: Micro: Microbiology 01/04/21 18:20 MRSA Culture - Fin al Nose 01/03/21 21:50 Urine Culture - Pr eliminary Urine,Clean Catch Gram Negative R ods 01/04/21 18:00 Bacterial Antigens - Final Urine,Voided 01/04/21 18:00 Legionella Urinary Antigen - Final Urine Catheterize d A&P Additional A&P Information 1. Hyponatremia weight of 164 kg, sodium of 149, free water deficit of 4.8 L. She has received IV Lasix following hospitalization and has had a robust natriuretic diuretic response. The classic teaching is that IV Lasix produces a urine which is hypotonic, with a concentration roughly that of half-normal saline. She feels thirsty She obviously has significant anasarca and still has an ongoing requirement for diuretics. It is noted that Lasix tends to decrease renal medullary concentration gradient by washing out the medulla by blocking the sodium chloride iron channels in the ascending loop of Shari. In sifuentes contrast to this, the thiazide diuretics were kidney distal collecting tubule and do not cause a decrease in the concentrating gradient, hence, in the cortical collecting duct the kidney is capable of reabsorbing water and has a tendency to cause hyponatremia. With this in mind, this would be an ideal candidate to receive thiazides as opposed to loop diuretics to take advantage of this interesting physiological effect. Of note this may take a few days to manifest. I will DC Lasix, start metolazone 5 mg p.o. twice daily She can drink water freely at this time, however, if she overdoes it I will put her on a free water restriction. I will consider Diamox if bicarb continues to increase also I doubt she has nephrotic syndrome given the urinalysis with 1-2+ protein, however, I will formally quantify urinary protein. It is likely that she has elevated right-sided pressures secondary to pulmonary hypertension secondary to obesity, hypoventilation etc. Other differentials to include nephrotic syndrome i.e. from obesity related FSGS, capillary leak syndrome. She currently receives her meals from [facility] as an outpatient. This needs to be clarified as being a low-salt diet. 2. CAP On broad spec Antibiotics Thank you for consultation, as always it is a pleasure to follow these patients with you Mateo Álvarez MD Nephrology [phone] Patient seen and examined via telemedicine, with the assistance of the bedside RN > 25 min spent in evaluation and mgmt of patient Consult Attestations Medical Necessity Statement: Eval for ANGELIC Coding Level of Care Code Acute Pediatric Licensed Practical Nurse for Shamar Rivero
[2021-01-05] MEDS: vancomycin 1,500 MG/300 ML PIGGYBACK 200 MG IV (16:29)
[2021-01-05] MEDS: metOLazone 5 MG Tablet PO (16:29)
[2021-01-05 16:59] LABS: Glucose Point of Care 145 mg/dL (70-110)
--- NOTE | 2021-01-05 20:06 | PC.NURSE ---
pt had renal consult today.medication changes made....lasix dc'd and zaroxylyn started.dr stated she could have as much free water as she desired.pt states she is feeling much better today,compared to yesterday.she was off bipap..with goood o2 sats.dr wants her on bipap at night..and ordered continuous pulse ox tonight.
[2021-01-05] MEDS: atorvastatin 40 mg Tablet 20 MG PO (20:16)
[2021-01-05 20:17] LABS: Glucose Point of Care 153 mg/dL (70-110)
[2021-01-05] MEDS: insulin lispro 100 unit/1 mL SUBCUT (20:40)
[2021-01-06] VITALS (19 sets, daily range): BP systolic 131–165; BP diastolic 55–70; PULSE 60–85; RESP 14–25; TEMP 37.7; O2SAT 91–100
[2021-01-06] MEDS: piperacillin-tazobactam 3.375 GM in sodium chloride 0.9% (plus) 50 ML IV ×3 (01:42→18:10)
[2021-01-06] MEDS: enoxaparin 120 mg/0.8 mL Syringe SUBCUT (01:44)
[2021-01-06] MEDS: enoxaparin 30 mg/0.3 mL Syringe SUBCUT (01:44)
--- NOTE | 2021-01-06 06:00 | USR_ITS ---
PROCEDURE INFORMATION: Exam: US Duplex Left Upper Extremity Veins, Limited Exam date and time: 01/06/2021 6:00 AM Age: 75 years old Clinical indication: Swelling (edema) of limb; Upper extremity, left; Additional info: Rule out dvt TECHNIQUE: Imaging protocol: Real-time Duplex ultrasound of the Left Upper Extremity with 2-D woods scale, color Doppler flow and spectral waveform analysis with image documentation. Limited exam focused on the left upper extremity veins. COMPARISON: US SoftTissue/Extrem Lmt [id number] 07/23/2017 11:36 AM FINDINGS: Evaluation is limited due to patient body habitus. Left deep veins: No deep venous thrombosis in the visualized left internal jugular, subclavian, axillary, or brachial veins. Soft tissues: Subcutaneous [place] [id number] IMPRESSION: No deep venous thrombosis in the visualized left upper extremity. Radiation Dose CTDIVOL = (mGy): DLP = (mGy-cm)
[2021-01-06 06:36] LABS: Glucose Point of Care 151 mg/dL (70-110)
[2021-01-06 06:37] LABS: Basophils % 0.7 %; Eosinophils # 0.3 10^3/uL (0.0-0.8); Hematocrit 28.6 % (37.0-47.0); Hemoglobin 8.1 g/dL (11.5-15.3); Lymphocytes # 0.8 10^3/uL (0.8-4.8); Lymphocytes % 16.5 %; Mean Corpuscular HGB Conc 28.3 g/dL (30.0-36.0); Mean Corpuscular Hemoglobin 29.2 pg (28.0-34.0); Mean Corpuscular Volume 103.2 fl (81-99); Mean Platelet Volume 12.1 fL (7.4-10.4); Monocytes # 0.4 10^3/uL (0.2-0.9); Monocytes % 7.9 %; Neutrophils # 3.03 10^3/uL (1.8-7.7); Neutrophils % 66.8 %; Nucleated Red Blood Cells % 0 %; Platelet Count 133 10^3/cmm (130-400); Red Blood Count 2.77 10^6/uL (4.1-5.3); Red Cell Distribution Width 15.4 % (12.1-15.1); White Blood Count 4.5 10^3/uL (4.0-10.0)
[2021-01-06 06:52] LABS: INR 1.15 (0.8-1.2)
[2021-01-06 07:34] LABS: Alanine Aminotransferase 29 U/L (0-33); Albumin Level 2.5 g/dL (3.5-5.2); Alkaline Phosphatase 71 IU/L (35-105); Anion Gap 11.9 (5-19); Aspartate Amino Transferase 14 U/L (0-32); Blood Urea Nitrogen 38 mg/dL (8-23); Calcium 8.2 mg/dL (8.5-10.5); Carbon Dioxide 33 mmol/L (22-29); Chloride 104 mmol/L (98-107); Globulin 3.2 g/dL (1.3-4.6); Glucose 137 mg/dL (65-115); Magnesium 1.5 mg/dL (1.7-2.3); Osmolality Calculated 311 mOsm/kg (285-295); Potassium 3.9 mmol/L (3.5-5.1); Sodium 145 mmol/L (136-145); Total Bilirubin 0.4 mg/dL (0.15-1.2); Total Protein 5.7 g/dL (6.6-8.7)
--- NOTE | 2021-01-06 07:36 | PM.PN ---
Subjective Subjective: Interval history: No new issues. She still has significant anasarca. BIPAP went well overnight. Passed 4.6L yesterday. Transitioned to Metolazone yesterday Vitals/I&O/Wt Last Vital Signs Temp 99.9 F H 01/06/21 03:13 Pulse 81 01/06/21 04:51 Resp 19 H 01/06/21 03:13 BP 131/63 01/06/21 03:13 Pulse Ox 95 01/06/21 03:20 01/05/21 01/06/21 01/06/21 22:59 06:59 14:59 Intake Total 660 / 1070 100 / 1170 Output Total 1000 / 3000 1600 / 4600 Balance -340 / -1930 -1500 / -3430 Weight last 48 hrs Weight 167.013 kg Weight 164.79 kg Physical Exam Narrative: EXAM NARRATIVE: Constitutional: Awake, comfortable HEENT: Wet mucosa, no jvp, non icteric Lungs: Bilaterally clear without discernible wheeze, rales in all lung zones CVS: S1 S2, no murmurs Abdo: Soft, BS ok Ext 4: Anasarca, peripheral perfusion with no cyanosis Neurological: Grossly non-focal Urinary Catheter Management^: Lockhart: Cath Placed During This Visit: yes Reason for Continuing Indwelling Catheter: Accurate Measurement of Urinary Output in Critically Ill Patients Urinary Catheter Date of Insertion: 01/03/21 Urinary Catheter Time of Insertion: 21:48 Data : 01/06/21 05:45 01/06/21 05:45 Micro: Microbiology 01/04/21 18:20 MRSA Culture - Final Nose 01/03/21 21:50 Urine Culture - Preliminary Urine,Clean Catch Gram Negative Rods 01/04/21 18:00 Bacterial Antigens - Final Urine,Voided 01/04/21 18:00 Legionella Urinary Antigen - Final Urine Catheterized A&P Additional A&P Information 1. Hyponatremia weight of 164 kg, sodium of 145, free water deficit of 4.8 down to 2.7L Levels improving nicely She has received IV Lasix following hospitalization and has had a robust natriuretic diuretic response. The classic teaching is that IV Lasix produces a urine which is hypotonic, with a concentration roughly that of half-normal saline. She feels thirsty She obviously has significant anasarca and still has an ongoing requirement for diuretics. It is noted that Lasix tends to decrease renal medullary concentration gradient by washing out the medulla by blocking the sodium chloride iron channels in the ascending loop of Shari. In sifuentes contrast to this, the thiazide diuretics were kidney distal collecting tubule and do not cause a decrease in the concentrating gradient, hence, in the cortical collecting duct the kidney is capable of reabsorbing water and has a tendency to cause hyponatremia. With this in mind, this would be an ideal candidate to receive thiazides as opposed to loop diuretics to take advantage of this interesting physiological effect. Of note this may take a few days to manifest. Cont metolazone 5 mg p.o. twice daily She can drink water freely at this time, however, if she overdoes it I will put her on a free water restriction. I will consider Diamox if bicarb continues to increase also I doubt she has nephrotic syndrome given the urinalysis with 1-2+ protein, I requested UPCR, this is pending. It is likely that she has elevated right-sided pressures secondary to pulmonary hypertension secondary to obesity, hypoventilation etc. Other differentials to include nephrotic syndrome i.e. from obesity related FSGS, capillary leak syndrome. She currently receives her meals from [facility] as an outpatient. This needs to be clarified as being a low-salt diet. 2. CAP On broad spec Antibiotics Thank you for consultation, as always it is a pleasure to follow these patients with you Mateo Álvarez MD Nephrology [phone] Patient seen and examined via telemedicine, with the assistance of the bedside RN > 25 min spent in evaluation and mgmt of patient Attestations Medical Necessity Statement*: eval for hyper Na Coding Level of Care Code Acute Prop And Effects Designer for Shamar Rivero
[2021-01-06] MEDS: pantoprazole DR 40 mg Tablet PO (08:21)
[2021-01-06] MEDS: insulin lispro 100 unit/1 mL SUBCUT ×4 (08:21→22:34)
[2021-01-06] MEDS: metOLazone 5 MG Tablet PO ×2 (08:21→18:09)
[2021-01-06] MEDS: aspirin 325 mg Tablet PO (08:21)
--- NOTE | 2021-01-06 08:22 | PM.PN ---
Subjective Subjective: Interval history: Patient is doing well. No complaints of chest hero. Breathing difficulty is improving Vitals/I&O/Wt Last Vital Signs Temp 99.9 F H 01/06/21 03:13 Pulse 81 01/06/21 04:51 Resp 19 H 01/06/21 03:13 BP 131/63 01/06/21 03:13 Pulse Ox 95 01/06/21 03:20 01/05/21 01/06/21 01/06/21 22:59 06:59 14:59 Intake Total 660 / 1070 100 / 1170 Output Total 1000 / 3000 1600 / 4600 Balance -340 / -1930 -1500 / -3430 Weight last 48 hrs Weight 368 lb 3.2 oz Weight 363 lb 4.8 oz Physical Exam Narrative: EXAM NARRATIVE: GENERAL: Alert and oriented x 3 NECK: No jugular vein distension. [] HEENT: No cyanosis. No icterus. No pallor. [] HEART: Regular S1 and S2. No murmur, rub or gallop. [] LUNGS: Clear to auscultate bilaterally. [] ABDOMEN: Soft, nontender and nondistended. Positive bowel sounds. No guarding, rebound or tenderness. [] CENTRAL NERVOUS SYSTEM: Grossly nonfocal. [] EXTREMITIES: Lower extremities with 2+ edema on the left lower extremity. Has BKA of the right lower extremity. Urinary Catheter Management^: Lockhart: Cath Placed During This Visit: yes Reason for Continuing Indwelling Catheter: Accurate Measurement of Urinary Output in Critically Ill Patients Urinary Catheter Date of Insertion: 01/03/21 Urinary Catheter Time of Insertion: 21:48 Data : 01/08/21 03:00 01/08/21 03:00 Micro: Microbiology 01/04/21 18:20 MRSA Culture - Final Nose 01/03/21 21:50 Urine Culture - Preliminary Urine,Clean Catch Gram Negative Rods 01/04/21 18:00 Bacterial Antigens - Final Urine,Voided 01/04/21 18:00 Legionella Urinary Antigen - Final Urine Catheterized A&P Assessment and plan (1) Acute on chronic respiratory failure with hypoxia and hypercapnia: Status: Acute (2) Diabetes: Status: Acute Qualifiers: Diabetes mellitus type: type 2 Diabetes mellitus remote computer terminal operator insulin use: with longterm use Diabetes mellitus complication status: with hyperglycemia Qualified Code(s): E11.65 - Type 2 diabetes mellitus with hyperglycemia; Z79.4 - senior care (current) use of insulin (3) HTN (hypertension): Status: Acute Qualifiers: Hypertension type: essential hypertension Qualified Code(s): I10 - Essential (primary) hypertension (4) COPD (chronic obstructive pulmonary disease): Status: Acute Qualifiers: COPD type: unspecified COPD Qualified Code(s): J44.9 - Chronic obstructive pulmonary disease, unspecified (5) Acute diastolic CHF (congestive heart failure): Status: Acute (6) Elevated troponin: Status: Acute Patient has presented with respiratory distress. Likely secondary to CO2 retention. Treated for CAP. Continue BiPAP. Responding well to thiazide diuretics. Continue. Strict I&O's. Monitor renal function. Low-sodium diet Troponin elevation is likely secondary to demand ischemia. Anticoagulation to be stopped. Patient will benefit from BiPAP as outpatient given her CO2 retention. Thank you for involving us with care of this patient. We will continue to follow. Please call with questions. Attestations Medical Necessity Statement*: Care expected to cross 2 midnights. Coding Level of Care Code Acute Clinical Application Specialist for [facility] Fwd Diagnoses Acute on chronic respiratory failure with hypoxia and hypercapnia J96.21; J96.22 Diabetes E11.65; Z79.4 Diabetes mellitus type: type 2 Diabetes mellitus remote computer terminal operator insulin use: with remote computer terminal operator use Diabetes mellitus complication status: with hyperglycemia HTN (hypertension) I10 Hypertension type: essential hypertension COPD (chronic obstructive pulmonary disease) J44.9 COPD type: unspecified COPD Acute diastolic CHF (congestive heart failure) I50.31 Elevated troponin R77.8
[2021-01-06] MEDS: vancomycin 1,500 MG/300 ML PIGGYBACK 200 MG IV (10:35)
[2021-01-06] MEDS: ipratropium-albuterol 3 mL Neb INHALATION (10:38)
--- NOTE | 2021-01-06 11:30 | P.PN_ITS ---
Subjective Subjective: Interval history: Patient seen and examined this morning. She is a lot better compared to prior day. She states she feels better as well. She does states she had a breathing spell this morning where the had to put her back on the BiPAP mask. She was on BiPAP overnight. I confirmed this from the respiratory therapist. Patient is comfortable sitting up. She was seen twice because when I first met in the room she was on BiPAP so was unable to speak to her so I went back and later and talk to her while her son was there. Vitals/I&O/Wt Last Vital Signs Temp 99.9 F H 01/06/21 03:13 Pulse 79 01/06/21 10:40 Resp 18 01/06/21 10:38 BP 165/70 01/06/21 08:00 Pulse Ox 96 01/06/21 10:40 01/05/21 01/06/21 01/06/21 22:59 06:59 14:59 Intake Total 660 / 1070 100 / 1170 480 / 480 Output Total 1000 / 3000 1600 / 4600 Balance -340 / -1930 -1500 / -3430 480 / 480 Weight last 48 hrs Weight 167.013 kg Weight 164.79 kg Physical Exam Narrative: EXAM NARRATIVE: General: Alert oriented x3. Laying in bed appearing comfortable. Son present at bedside. HEENT: Normocephalic, atraumatic, EOMI, on nasal cannula 6 L. Cardio: Regular rate rhythm, normal S1-S2, no murmurs rubs gallops, heart sounds quite muffled possibly due to body habitus. Unable to assess for JVD due to body habitus. Respiratory: Crackles bilaterally at bases still but significantly improved compared to prior day. There is very minimal now., no wheezes no rhonchi unable to auscultate entire posterior chest. GI: Abdomen soft, obese rounded abdomen, nontender, nondistended, bowel sounds + Extremities: Status post right BKA, 2-3+ pitting edema on left side. Left arm significantly edematous no erythema noted. Left leg also has a few blisters which do not seem to be infected at this time. We will rewrap the leg. Urinary Catheter Management^: Lockhart: Cath Placed During This Visit: yes Reason for Continuing Indwelling Catheter: Accurate Measurement of Urinary Output in Critically Ill Patients Urinary Catheter Date of Insertion: 01/03/21 Urinary Catheter Time of Insertion: 21:48 Data : 01/06/21 05:45 01/06/21 05:45 Micro: Microbiology 01/03/21 21:50 Urine Culture - Final Urine,Clean Catch Proteus mirabilis 01/04/21 18:20 MRSA Culture - Final Nose 01/04/21 18:00 Bacterial Antigens - Final Urine,Voided 01/04/21 18:00 Legionella Urinary Antigen - Final Urine Catheterized A&P Assessment and plan (1) Acute on chronic respiratory failure with hypoxia and hypercapnia: Status: Acute (2) Diabetes: Status: Acute (3) COPD (chronic obstructive pulmonary disease): Status: Acute Qualifiers: COPD type: unspecified COPD Qualified Code(s): J44.9 - Chronic obstructive pulmonary disease, unspecified (4) Dyslipidemia: Status: Chronic (5) Pneumonia due to 2019-nCoV: Status: Acute Additional A&P Information #Acute on chronic hypoxemic/hypercarbic respiratory failure most likely secondary to CO2 narcosis with a component of acute on chronic congestive heart failure. #NSTEMI likely demand ischemia type II IL. #Acute on chronic diastolic HF exacerbation #Acute kidney injury #Altered mental status on admission, resolved. Most likely secondary to CO2 narcosis. #Hyponatremia Echo in 03/2020 ? pEF ? Grade 2 DD Etiology multifactorial ? Diastolic HF exacerbation vs pneumonia vs COPD exacerbation. Most likely secondary to heart failure exacerbation and CO2 narcosis. Continue Bipap ? Wean as tolerated Baseline o2 at 6L via NC chronically. Does not have BiPAP at home. Duoneb q6hr Lasix 80 mg IV twice daily. Continue IV diuresis at this time. Patient has completed 48 hours of full dose Lovenox. At this point I will switch her to DVT prophylaxis dose. Lockhart placed. ? monitor urine output Patient seen by cardiology as well. Troponin elevation most likely secondary to demand ischemia at this point. Echocardiogram shows left atrial enlargement, mild pulmonary hypertension, EF 55 to 60%, diastolic function abnormal. We will arrange for BiPAP at discharge Continue BiPAP at nighttime. Hyperkalemia has corrected by now. Consult nephrology for hypernatremia. Patient has been switched to thiazide diuretics at this point. She is diuresing well. Sodium is also improved. We will continue to follow along with nephrology. Awaiting Doppler results. ANGELIC resolved. Creatinine 0.8 today. Urinary tract infection Pneumonia Urine culture positive for gram-negative rods. Bacteria identified as Proteus mirabilis. Final sensitivities are pending. Continue Zosyn IV Follow up on sputum culture if able to obtain Bacterial antigen negative, MRSA nares positive. Procalcitonin high at 5.03. X-ray does show questionable infiltrate in both lungs in the central area. Due to MRSA nares positive I will cover her with vancomycin for now. Will wait on sputum culture. Rapid Covid screen result is pending as well. Tyelenol PRN for fever Diabetes Mellitus Sliding scale insulin QACHS checks Diabetic diet DVT ppx Lovenox 40 daily. Attestations Medical Necessity Statement*: Anticipate greater than 48 hours of inpatient stay for IV diuresis. Time Spent in Patient Care: 16 - 35 minutes (>than 50% of time spent in counselling and/or direct pt care on unit) . Coding Level of Care Code Acute Hemming And Tacking Machine Operator for vipin Rivero Diagnoses Acute on chronic respiratory failure with hypoxia and hypercapnia J96.21; J96.22 Diabetes E11.9 COPD (chronic obstructive pulmonary disease) J44.9 COPD type: unspecified COPD Dyslipidemia E78.5 Pneumonia due to 2019-nCoV U07.1; J12.89
[2021-01-06 11:44] LABS: Glucose Point of Care 161 mg/dL (70-110)
[2021-01-06 13:41] LABS: SARS Covid-2 Antigen Negative (Negative)
--- NOTE | 2021-01-06 13:41 | PC.NURSE ---
patient requesting her Medication for Phantom pain in right leg reported concerns to Dr. Bibiana dennison to restart home does of gabapentin 300mg TID
[2021-01-06 13:43] LABS: Urine Creatinine 26 mg/dL (28-217)
[2021-01-06 13:45] LABS: UPRO/UCREAT Ratio 1.88 mg/mg CR; Urine Protein Random 49 mg/dL
[2021-01-06] MEDS: gabapentin 300 mg Capsule PO ×2 (14:59→21:58)
[2021-01-06] MEDS: enoxaparin 40 mg/0.4 mL Syringe SUBCUT (18:09)
--- NOTE | 2021-01-06 19:09 | PC.NURSE ---
Shift Note Frequent safety and comfort rounds continue. Orders and/or nursing care completed as indicated. Patient monitored for response to intervention and treatment(s). Education provided includes bi pap. Patient and/or sales representative advertising verbalized understanding. Will continue to monitor.
[2021-01-06] MEDS: acetaminophen 325 mg Tablet 650 MG PO (21:56)
[2021-01-06] MEDS: atorvastatin 40 mg Tablet 20 MG PO (21:57)
[2021-01-06 22:19] LABS: Glucose Point of Care 198 mg/dL (70-110)
[2021-01-07] VITALS (21 sets, daily range): BP systolic 133–177; BP diastolic 65–93; PULSE 63–86; RESP 16–28; TEMP 36.6–37.4; O2SAT 91–100
[2021-01-07] MEDS: piperacillin-tazobactam 3.375 GM in sodium chloride 0.9% (plus) 50 ML IV ×3 (01:17→19:00)
[2021-01-07 05:12] LABS: Basophils % 0.6 %; Eosinophils # 0.3 10^3/uL (0.0-0.8); Eosinophils % 8.5 %; Hematocrit 29.7 % (37.0-47.0); Hemoglobin 8.5 g/dL (11.5-15.3); Lymphocytes # 0.8 10^3/uL (0.8-4.8); Lymphocytes % 25.3 %; Mean Corpuscular HGB Conc 28.6 g/dL (30.0-36.0); Mean Corpuscular Hemoglobin 29.3 pg (28.0-34.0); Mean Corpuscular Volume 102.4 fl (81-99); Mean Platelet Volume 11.6 fL (7.4-10.4); Monocytes # 0.3 10^3/uL (0.2-0.9); Monocytes % 10.1 %; Neutrophils # 1.72 10^3/uL (1.8-7.7); Neutrophils % 54.6 %; Nucleated Red Blood Cells % 0 %; Platelet Count 124 10^3/cmm (130-400); Red Cell Distribution Width 15.2 % (12.1-15.1); White Blood Count 3.2 10^3/uL (4.0-10.0)
[2021-01-07 05:31] LABS: Vancomycin Trough 15.2 ug/mL (10-15)
[2021-01-07 05:32] LABS: Alanine Aminotransferase 26 U/L (0-33); Albumin Level 2.6 g/dL (3.5-5.2); Alkaline Phosphatase 69 IU/L (35-105); Anion Gap 9.5 (5-19); Aspartate Amino Transferase 15 U/L (0-32); Blood Urea Nitrogen 31 mg/dL (8-23); Calcium 8.4 mg/dL (8.5-10.5); Carbon Dioxide 35 mmol/L (22-29); Chloride 102 mmol/L (98-107); Globulin 3.5 g/dL (1.3-4.6); Glucose 115 mg/dL (65-115); Magnesium 1.6 mg/dL (1.7-2.3); Osmolality Calculated 303 mOsm/kg (285-295); Potassium 3.5 mmol/L (3.5-5.1); Sodium 143 mmol/L (136-145); Total Bilirubin 0.4 mg/dL (0.15-1.2); Total Protein 6.1 g/dL (6.6-8.7)
[2021-01-07] MEDS: vancomycin 1,500 MG/300 ML PIGGYBACK 150 MG IV ×2 (05:34→23:59)
[2021-01-07 05:46] LABS: INR 1.11 (0.8-1.2)
[2021-01-07 06:10] LABS: Glucose Point of Care 176 mg/dL (70-110)
[2021-01-07 06:56] LABS: Glucose Point of Care 137 mg/dL (70-110)
[2021-01-07] MEDS: pantoprazole DR 40 mg Tablet PO (08:25)
[2021-01-07] MEDS: metOLazone 5 MG Tablet PO ×2 (08:25→17:56)
[2021-01-07] MEDS: gabapentin 300 mg Capsule PO ×3 (08:25→21:44)
[2021-01-07] MEDS: aspirin 325 mg Tablet PO (08:25)
--- NOTE | 2021-01-07 08:51 | XRR_ITS ---
PROCEDURE INFORMATION: Exam: XR Chest Exam date and time: 01/07/2021 8:51 AM Age: 75 years old Clinical indication: Shortness of breath; Additional info: Follow up TECHNIQUE: Imaging protocol: XR of the chest. Views: 1 view. COMPARISON: CR XR chest 1V portable [id number] 01/05/2021 7:59 AM FINDINGS: Lungs: There is redistribution and indistinctness of the pulmonary vasculature, in association with haziness of the lungs and small bilateral pleural effusions, which in the setting of cardiomegaly is consistent with pulmonary edema. Pneumonia should be excluded clinically. No pneumothorax. Pleural spaces: See Lungs finding. Heart/Mediastinum: Stable cardiomediastinal silhouette. Vasculature: Aortic arch atherosclerotic calcifications seen. Bones/joints: Degenerative changes of the spine seen. XR/XR chest 1V portable [id number] IMPRESSION: Imaging findings of pulmonary edema. Pneumonia should be excluded clinically. Radiation Dose CTDIVOL = (mGy): DLP = (mGy-cm)
--- NOTE | 2021-01-07 09:02 | P.PN_ITS ---
Subjective Subjective: Interval history: Patient is significantly improved and feels a lot better. She states she is looking forward to going home. Ultrasound left arm is reported. No DVT present. Patient offers no complaints at this time. Vitals/I&O/Wt Last Vital Signs Temp 99.4 F 01/07/21 08:00 Pulse 72 01/07/21 08:00 Resp 16 01/07/21 08:00 BP 133/68 01/07/21 08:00 Pulse Ox 91 01/07/21 08:00 01/06/21 01/07/21 01/07/21 22:59 06:59 14:59 Intake Total 460 / 1720 50 / 1770 300 / 300 Output Total 2100 / 3700 850 / 4550 Balance -1640 / -1980 -800 / -2780 300 / 300 Weight last 48 hrs Weight 163.656 kg Weight 167.013 kg Physical Exam Narrative: EXAM NARRATIVE: General: Alert oriented x3. Laying in bed appearing comfortable. Son present at bedside. HEENT: Normocephalic, atraumatic, EOMI, on nasal cannula 4 L. Cardio: Regular rate rhythm, normal S1-S2, no murmurs rubs gallops, heart sounds quite muffled possibly due to body habitus. Unable to assess for JVD due to body habitus. Respiratory: Lungs posteriorly clear to auscultation but only able to listen to the bases. no wheezes no rhonchi unable to auscultate entire posterior chest. GI: Abdomen soft, obese rounded abdomen, nontender, nondistended, bowel sounds + Extremities: Status post right BKA, 2-3+ pitting edema on left side. Left arm significantly edematous no erythema noted. Left leg also has a few blisters which do not seem to be infected at this time. Left leg edema slightly improved. Urinary Catheter Management^: Lockhart: Cath Placed During This Visit: yes Reason for Continuing Indwelling Catheter: Accurate Measurement of Urinary Output in Critically Ill Patients Urinary Catheter Date of Insertion: 01/03/21 Urinary Catheter Time of Insertion: 21:48 Data : 01/07/21 04:13 01/07/21 04:13 Micro: Microbiology 01/03/21 21:50 Urine Culture - Final Urine,Clean Catch Proteus mirabilis A&P Assessment and plan (1) Acute on chronic respiratory failure with hypoxia and hypercapnia: Status: Acute (2) Diabetes: Status: Acute (3) COPD (chronic obstructive pulmonary disease): Status: Acute Qualifiers: COPD type: unspecified COPD Qualified Code(s): J44.9 - Chronic obstructive pulmonary disease, unspecified (4) Dyslipidemia: Status: Chronic (5) Pneumonia due to 2019-nCoV: Status: Acute Additional A&P Information #Acute on chronic hypoxemic/hypercarbic respiratory failure most likely secondary to CO2 narcosis with a component of acute on chronic congestive heart failure. #NSTEMI likely demand ischemia type II MA. #Acute on chronic diastolic HF exacerbation #Acute kidney injury #Altered mental status on admission, resolved. Most likely secondary to CO2 narcosis. #Hypernatremia - Resolved Echo in 03/2020 ? pEF ? Grade 2 DD Etiology multifactorial ? Diastolic HF exacerbation vs pneumonia vs COPD exacerbation. Most likely secondary to heart failure exacerbation and CO2 narco sis. Continue Bipap ? Wean as tolerated Baseline o2 at 6L via NC chronically. Does not have BiPAP at home. Duoneb q6hr Patient has completed 48 hours of full dose Lovenox. At this point I will s witch her to DVT prophylaxis dose. Lockhart placed. ? monitor urine output Patient seen by cardiology as well. Troponin elevation most likely secondary to demand ischemia at this point. Echocardiogram shows left atrial enlargement, mild pulmonary hypertension, EF 55 to 60%, diastolic function abnormal. We will arrange for BiPAP at discharge Continue BiPAP at nighttime. Hyperkalemia has corrected by now. Consult nephrology for hypernatremia. Patient has been switched to thiazide diuretics at this point. She is diuresing well. Sodium is also improved Doppler negative for DVT. ANGELIC resolved. Creatinine 0.8 today. Urinary tract infection Pneumonia Urine culture positive for gram-negative rods. Bacteria identified as Proteus mirabilis. Final sensitivities are pending. Continue Zosyn IV Follow up on sputum culture if able to obtain Bacterial antigen negative, MRSA nares positive. Procalcitonin high at 5.03. X-ray does show questionable infiltrate in both lungs in the central area. Due to MRSA nares positive I will cover her with vancomycin for now. Will wait on sputum culture. Rapid Covid screen result is pending as well. Tyelenol PRN for fever Diabetes Mellitus Sliding scale insulin QACHS checks Diabetic diet DVT ppx Lovenox 40 daily. Attestations Medical Necessity Statement*: need to diurese more. possible dc in AM depending on fluid status. Coding Level of Care Code Acute Felt Checker for Chg Fwd Diagnoses Acute on chronic respiratory failure with hypoxia and hypercapnia J96.21; J96.22 Diabetes E11.9 COPD (chronic obstructive pulmonary disease) J44.9 COPD type: unspecified COPD Dyslipidemia E78.5 Pneumonia due to 2019-nCoV U07.1; J12.89
[2021-01-07] MEDS: ipratropium-albuterol 3 mL Neb INHALATION ×2 (09:25→15:53)
--- NOTE | 2021-01-07 09:53 | PM.PN ---
Subjective Subjective: Interval history: Ms. Hagen feels well today with no new acute complaints. She is breathing more comfortably, off BiPAP overnight. Very robust urine output overnight. Sodium noted to be down at 143 today. Vitals/I&O/Wt Last Vital Signs Temp 99.4 F 01/07/21 08:00 Pulse 73 01/07/21 09:42 Resp 18 01/07/21 09:31 BP 133/68 01/07/21 08:00 Pulse Ox 95 01/07/21 09:31 01/06/21 01/07/21 01/07/21 22:59 06:59 14:59 Intake Total 460 / 1720 50 / 1770 300 / 300 Output Total 2100 / 3700 850 / 4550 Balance -1640 / -1980 -800 / -2780 300 / 300 Weight last 48 hrs Weight 163.656 kg Weight 167.013 kg Physical Exam Narrative: EXAM NARRATIVE: Constitutional: Awake, comfortable HEENT: Wet mucosa, no jvp, non icteric Lungs: Bilaterally clear without discernible wheeze, rales in all lung zones CVS: S1 S2, no murmurs Abdo: Soft, BS ok Ext 4: Anasarca, peripheral perfusion with no cyanosis Neurological: Grossly non-focal Urinary Catheter Management^: Lockhart: Cath Placed During This Visit: yes Reason for Continuing Indwelling Catheter: Accurate Measurement of Urinary Output in Critically Ill Patients Urinary Catheter Date of Insertion: 01/03/21 Urinary Catheter Time of Insertion: 21:48 Data : 01/07/21 04:13 01/07/21 04:13 Micro: Microbiology 01/03/21 21:50 Urine Culture - Final Urine,Clean Catch Proteus mirabilis A&P Additional A&P Information 1. Hypernatremia Levels improving nicely Diuretics transitioned to thiazides. Cont for now, note to be at risk for hypoNa now 2. CAP On broad spec Antibiotics Renal issues resolved, will sign off at this time Mateo Álvarez MD Nephrology [phone] Patient seen and examined via telemedicine, with the assistance of the bedside RN > 25 min spent in evaluation and mgmt of patient Attestations Medical Necessity Statement*: Eval for hyperNa Coding Level of Care Code Acute Manufacturing Teacher for Chg Josefa
--- NOTE | 2021-01-07 10:05 | PC.SOCIAL ---
Pg 2 IMM Explained to pt Pg 2 IMM. No questions voiced. Provided pt a copy. Initialed, dated, & timed a copy & placed in chart.
[2021-01-07 11:55] LABS: Glucose Point of Care 193 mg/dL (70-110)
[2021-01-07] MEDS: magnesium sulfate premix 2 GM/50 ML PIGGYBACK IV (17:17)
--- NOTE | 2021-01-07 17:44 | PC.NURSE ---
patient report gi upset at this time contacted Dr osei with patient concerns instructions to give GI cocktail x1
[2021-01-07] MEDS: lidocaine 2% viscous 15 ML, aluminum-mag hydrox-simethicon 30 ML, sucralfate oral liq 1 GM PO (17:54)
[2021-01-07] MEDS: insulin lispro 100 unit/1 mL SUBCUT ×2 (17:56→21:45)
[2021-01-07] MEDS: enoxaparin 40 mg/0.4 mL Syringe SUBCUT (17:56)
--- NOTE | 2021-01-07 19:29 | PC.NURSE ---
Shift Note Frequent safety and comfort rounds continue. Orders and/or nursing care completed as indicated. Patient monitored for response to intervention and treatment(s). Education provided includes continued skin care and respiratory status . Patient and/or telephone claims representative verbalized understanding . Will continue to monitor.
[2021-01-07 20:23] LABS: Glucose Point of Care 336 mg/dL (70-110)
--- NOTE | 2021-01-07 20:31 | P.PN_ITS ---
Subjective Subjective: Interval history: Patint is overall doing well. No DVT on arm US. Vitals/I&O/Wt Last Vital Signs Temp 98 F 01/07/21 19:16 Pulse 77 01/07/21 20:09 Resp 18 01/07/21 20:09 BP 177/70 01/07/21 19:16 Pulse Ox 94 01/07/21 20:09 01/07/21 01/07/21 01/07/21 06:59 14:59 22:59 Intake Total 50 / 1770 1620 / 1620 340 / 1960 Output Total 850 / 4550 450 / 450 500 / 950 Balance -800 / -2780 1170 / 1170 -160 / 1010 Weight last 48 hrs Weight 360 lb 12.8 oz Weight 368 lb 3.2 oz Physical Exam Narrative: EXAM NARRATIVE: GENERAL: Alert and oriented x 3 NECK: No jugular vein distension. [] HEENT: No cyanosis. No icterus. No pallor. [] HEART: Regular S1 and S2. No murmur, rub or gallop. [] LUNGS: Clear to auscultate bilaterally. [] ABDOMEN: Soft, nontender and nondistended. Positive bowel sounds. No guarding, rebound or tenderness. [] CENTRAL NERVOUS SYSTEM: Grossly nonfocal. [] EXTREMITIES: Lower extremities with 2+ edema on the left lower extremity. Has BKA of the right lower extremity. Urinary Catheter Management^: Lockhart: Cath Placed During This Visit: yes Reason for Continuing Indwelling Catheter: Accurate Measurement of Urinary Output in Critically Ill Patients Urinary Catheter Date of Insertion: 01/03/21 Urinary Catheter Time of Insertion: 21:48 Data : 01/08/21 03:00 01/08/21 03:00 A&P Assessment and plan (1) Acute on chronic respiratory failure with hypoxia and hypercapnia: Status: Acute (2) Diabetes: Status: Acute Qualifiers: Diabetes mellitus type: type 2 Diabetes mellitus termite treater helper insulin use: with termite treater helper use Diabetes mellitus complication status: with hyperglycemia Qualified Code(s): E11.65 - Type 2 diabetes mellitus with hyperglycemia; Z79.4 - ferry terminal agent (current) use of insulin (3) HTN (hypertension): Status: Acute Qualifiers: Hypertension type: essential hypertension Qualified Code(s): I10 - Essential (primary) hypertension (4) COPD (chronic obstructive pulmonary disease): Status: Acute Qualifiers: COPD type: unspecified COPD Qualified Code(s): J44.9 - Chronic obstructive pulmonary disease, unspecified (5) Acute diastolic CHF (congestive heart failure): Status: Acute (6) Elevated troponin: Status: Acute Patient has presented with respiratory distress. Likely secondary to CO2 retention. Continue BiPAP. Responding well to thiazide diuretics. Continue. Strict I&O's. Monitor renal function. Low-sodium diet Troponin elevation is secondary to demand ischemia. ECHO showed normal LV systolic function.Therpeutic anticoagulation stopped. Patient will benefit from BiPAP as outpatient given her CO2 retention. Thank you for involving us with care of this patient. We will continue to follow. Please call with questions. Attestations Medical Necessity Statement*: Care expected to cross 2 midnights. Coding Level of Care Code Acute Casino Attendant for Shamar Rivero Diagnoses Acute on chronic respiratory failure with hypoxia and hypercapnia J96.21; J96.22 Diabetes E11.65; Z79.4 Diabetes mellitus type: type 2 Diabetes mellitus termite treater helper insulin use: with termite treater helper use Diabetes mellitus complication status: with hyperglycemia HTN (hypertension) I10 Hypertension type: essential hypertension COPD (chronic obstructive pulmonary disease) J44.9 COPD type: unspecified COPD Acute diastolic CHF (congestive heart failure) I50.31 Elevated troponin R77.8
[2021-01-07] MEDS: atorvastatin 40 mg Tablet 20 MG PO (21:44)
[2021-01-08] VITALS (23 sets, daily range): BP systolic 142–176; BP diastolic 54–91; PULSE 60–80; RESP 18–27; TEMP 36.6–37.1; O2SAT 83–99
[2021-01-08] MEDS: acetaminophen 325 mg Tablet 650 MG PO (00:22)
[2021-01-08] MEDS: piperacillin-tazobactam 3.375 GM in sodium chloride 0.9% (plus) 50 ML IV ×2 (02:11→09:26)
[2021-01-08 03:50] LABS: Basophils % 0.9 %; Eosinophils # 0.3 10^3/uL (0.0-0.8); Eosinophils % 6.4 %; Hematocrit 28.8 % (37.0-47.0); Hemoglobin 8.5 g/dL (11.5-15.3); Lymphocytes # 0.8 10^3/uL (0.8-4.8); Lymphocytes % 17.3 %; Mean Corpuscular HGB Conc 29.5 g/dL (30.0-36.0); Mean Corpuscular Volume 101.8 fl (81-99); Mean Platelet Volume 11.4 fL (7.4-10.4); Monocytes # 0.5 10^3/uL (0.2-0.9); Monocytes % 11.5 %; Neutrophils # 2.82 10^3/uL (1.8-7.7); Neutrophils % 62.6 %; Nucleated Red Blood Cells % 0 %; Platelet Count 128 10^3/cmm (130-400); Red Blood Count 2.83 10^6/uL (4.1-5.3); Red Cell Distribution Width 14.6 % (12.1-15.1); White Blood Count 4.5 10^3/uL (4.0-10.0)
[2021-01-08] MEDS: alum-mag-hydroxide-sime 30 mL UDC PO (04:15)
[2021-01-08 04:24] LABS: Anion Gap 8.8 (5-19); Blood Urea Nitrogen 23 mg/dL (8-23); Calcium 8.3 mg/dL (8.5-10.5); Carbon Dioxide 35 mmol/L (22-29); Chloride 103 mmol/L (98-107); Glucose 92 mg/dL (65-115); Osmolality Calculated 299 mOsm/kg (285-295); Potassium 3.8 mmol/L (3.5-5.1); Sodium 143 mmol/L (136-145)
[2021-01-08 07:00] LABS: Glucose Point of Care 116 mg/dL (70-110)
[2021-01-08 07:38] LABS: Glucose Point of Care 243 mg/dL (70-110)
--- NOTE | 2021-01-08 08:08 | P.PN_ITS ---
Subjective Subjective: Interval history: Patient is feeling better. Diuresing well Vitals/I&O/Wt Last Vital Signs Temp 98.2 F 01/08/21 07:09 Pulse 74 01/08/21 07:09 Resp 20 H 01/08/21 07:09 BP 151/58 01/08/21 07:09 Pulse Ox 95 01/08/21 07:09 01/07/21 01/08/21 01/08/21 22:59 06:59 14:59 Intake Total 460 / 2080 470 / 2550 50 / 50 Output Total 500 / 950 1600 / 2550 Balance -40 / 1130 -1130 / 0 50 / 50 Weight last 48 hrs Weight 364 lb 4.8 oz Weight 360 lb 12.8 oz Physical Exam Narrative: EXAM NARRATIVE: GENERAL: Alert and oriented x 3 NECK: No jugular vein distension. [] HEENT: No cyanosis. No icterus. No pallor. [] HEART: Regular S1 and S2. No murmur, rub or gallop. [] LUNGS: Clear to auscultate bilaterally. [] ABDOMEN: Soft, nontender and nondistended. Positive bowel sounds. No guarding, rebound or tenderness. [] CENTRAL NERVOUS SYSTEM: Grossly nonfocal. [] EXTREMITIES: Lower extremities with 2+ edema on the left lower extremity. Has BKA of the right lower extremity. Urinary Catheter Management^: Lockhart: Cath Placed During This Visit: yes Reason for Continuing Indwelling Catheter: Accurate Measurement of Urinary Output in Critically Ill Patients Urinary Catheter Date of Insertion: 01/03/21 Urinary Catheter Time of Insertion: 21:48 Data : 01/08/21 03:00 01/09/21 03:40 A&P Assessment and plan (1) Acute on chronic respiratory failure with hypoxia and hypercapnia: Status: Acute (2) Diabetes: Status: Acute Qualifiers: Diabetes mellitus type: type 2 Diabetes mellitus buttermilk drier operator insulin use: with buttermilk drier operator use Diabetes mellitus complication status: with hyperglycemia Qualified Code(s): E11.65 - Type 2 diabetes mellitus with hyperglycemia; Z79.4 - alf (current) use of insulin (3) HTN (hypertension): Status: Acute Qualifiers: Hypertension type: essential hypertension Qualified Code(s): I10 - Es sential (primary) hypertension (4) COPD (chronic obstructive pulmonary disease): Status: Acute Qualifiers: COPD type: unspecified COPD Qualified Code(s): J44.9 - Chronic obstructive pulmonary disease, unspecified (5) Acute diastolic CHF (congestive heart failure): Status: Acute (6) Elevated troponin: Status: Acute Patient presented with respiratory distress. Likely secondary to CO2 retention. Continue BiPAP. She has been responding well to diuretics. Continue for now. Strict I&O's. Monitor renal function. Low-sodium diet Troponin elevation is secondary to demand ischemia. ECHO showed normal LV systolic function.Therpeutic anticoagulation stopped. Patient will benefit from outpatient BiPAP therapy secondary to her elevated CO2 levels and hypoxia. Thank you for involving us with care of this patient. We will continue to follow. Please call with questions. Attestations Medical Necessity Statement*: Care expected to cross 2 midnights. Coding Level of Care Code Acute Trademark Attorney for Shamar Rivero Diagnoses Acute on chronic respiratory failure with hypoxia and hypercapnia J96.21; J96.22 COPD with acute lower respiratory infection J44.0 Diabetes E11.65; Z79.4 Diabetes mellitus type: type 2 Diabetes mellitus senior care insulin use: with senior care use Diabetes mellitus complication status: with hyperglycemia HTN (hypertension) I10 Hypertension type: essential hypertension COPD (chronic obstructive pulmonary disease) J44.9 COPD type: unspecified COPD Acute diastolic CHF (congestive heart failure) I50.31 Elevated troponin R77.8
[2021-01-08] MEDS: pantoprazole DR 40 mg Tablet PO (08:17)
[2021-01-08] MEDS: gabapentin 300 mg Capsule PO ×3 (08:17→20:48)
[2021-01-08] MEDS: aspirin 325 mg Tablet PO (08:17)
[2021-01-08] MEDS: metOLazone 5 MG Tablet PO ×2 (08:17→17:14)
--- NOTE | 2021-01-08 10:40 | P.PN_ITS ---
Subjective Subjective: Interval history: Patient was admitted for management of NSTEMI, CHF exacerbation, CO2 narcosis, developed hypernatremia, cardiology and nephrology were consulted Sodium improved with use of thiazide diuretics Patient is chest pain-free Not endorsing new complaints Tolerating BiPAP Pulse oximetry study was inadequate, will repeat overnight pulse oximetry study, PCO2 above 55 she might qualify for BiPAP, she needs BiPAP at home to prevent readmission to the hospital, she does seem to have chronic hypoxia with hypercapnia, BMI 55 Son takes care of her at home, uses Chapo lift O2 saturation 90 to 94% on 2 to 4 L nasal cannula, this morning I weaned her oxygen down to 2 L -500 net fluid balance Vitals/I&O/Wt Last Vital Signs Temp 98.2 F 01/08/21 07:09 Pulse 74 01/08/21 07:09 Resp 20 H 01/08/21 07:09 BP 151/58 01/08/21 07:09 Pulse Ox 95 01/08/21 07:09 01/07/21 01/08/21 01/08/21 22:59 06:59 14:59 Intake Total 460 / 2080 470 / 2550 290 / 290 Output Total 500 / 950 1600 / 2550 Balance -40 / 1130 -1130 / 0 290 / 290 Weight last 48 hrs Weight 165.244 kg Weight 163.656 kg Physical Exam Narrative: EXAM NARRATIVE: Morbid obese female laying comfortably in her bed Saturating well on 2 L nasal cannula S1, S2 with signs of congestive heart failure hard to assess her volume status secondary to high BMI Venous stasis dermatitis noted no active sign of cellulitis EOMI, PERRLA No neurological deficits Nonfocal neuro exam Right BKA Bilateral breath sounds with mild rhonchi Urinary Catheter Management^: Lockhart: Cath Placed During This Visit: yes Reason for Continuing Indwelling Catheter: Accurate Measurement of Urinary Output in Critically Ill Patients Urinary Catheter Date of Insertion: 01/03/21 Urinary Catheter Time of Insertion: 21:48 Data : 01/08/21 03:00 01/08/21 03:00 A&P Assessment and plan (1) Acute on chronic respiratory failure with hypoxia and hypercapnia: Status: Acute (2) Elevated troponin: Status: Acute (3) NSTEMI (non-ST elevated myocardial infarction): Status: Acute (4) Acute diastolic CHF (congestive heart failure): Status: Acute (5) Hypernatremia: Status: Acute (6) GERD (gastroesophageal reflux disease): Status: Acute Qualifiers: Esophagitis presence: esophagitis presence not specified Qualified Code(s): K21.9 - Gastro-esophageal reflux disease without esophagitis (7) HTN (hypertension): Status: Acute Qualifiers: Hypertension type: essential hypertension Qualified Code(s): I10 - Essential (primary) hypertension (8) Diabetes: Status: Acute Additional A&P Information Acute on chronic hypoxic hypercarbic respiratory failure Currently saturating well on 2-week nasal cannula Will need BiPAP at home to prevent COPD exacerbations and readmissions Will request another overnight pulse oximetry study PCO2 above 66 NSTEMI: Finished 48 hours of anticoagulation, cardiology on board, patient is chest pain-free, type II NC has been considered as the etiology for leakage of troponin Mild pulmonary hypertension EF 55 to 60% Hyper natremia Resolved after usage of thiazide diuretics, nephro has signed off Diastolic congestive heart failure exacerbation Is very difficult to assess her volume status, Oxygen requirement has not worsened Will remove Lockhart catheter before discharge Today saturating well on 2 L nasal cannula Cut back on dosage of thiazide diuretic ANGELIC secondary to cardiorenal: Resolved Type 2 diabetes, previous hemoglobin A1c 9.2 Magnesium 1.6, will replete UTI:Proteus, pansensitive, will switch to Levaquin Full code Cardiac consistent carb diet DVT prophylaxis: Lovenox Plan to discharge her tomorrow after another overnight pulse oximetry study Attestations Medical Necessity Statement*: Anticipating discharge tomorrow Time Spent in Patient Care: 16 - 35 minutes Coding Level of Care Code Acute Machine Filler for [facility] Fwd Diagnoses Acute on chronic respiratory failure with hypoxia and hypercapnia J96.21; J 96.22 Elevated troponin R77.8 NSTEMI (non-ST elevated myocardial infarction) I21.4 Acute diastolic CHF (congestive heart failure) I50.31 Hypernatremia E87.0 GERD (gastroesophageal reflux disease) K21.9 Esophagitis presence: esophagitis presence not specified HTN (hypertension) I10 Hypertension type: essential hypertension Diabetes E11.9
[2021-01-08 11:41] LABS: Glucose Point of Care 166 mg/dL (70-110)
[2021-01-08] MEDS: insulin lispro 100 unit/1 mL SUBCUT ×3 (11:56→21:44)
[2021-01-08] MEDS: ipratropium-albuterol 3 mL Neb INHALATION (13:29)
[2021-01-08 16:30] LABS: Glucose Point of Care 182 mg/dL (70-110)
[2021-01-08] MEDS: magnesium oxide 400 mg tablet PO (17:14)
[2021-01-08] MEDS: enoxaparin 40 mg/0.4 mL Syringe SUBCUT (17:15)
[2021-01-08 20:37] LABS: Glucose Point of Care 191 mg/dL (70-110)
[2021-01-08] MEDS: atorvastatin 40 mg Tablet 20 MG PO (20:47)
[2021-01-09] VITALS (22 sets, daily range): BP systolic 131–167; BP diastolic 73–91; PULSE 63–81; RESP 17–24; TEMP 36.6–36.7; O2SAT 87–100
[2021-01-09 04:44] LABS: Anion Gap 11.9 (5-19); Blood Urea Nitrogen 19 mg/dL (8-23); Calcium 8.7 mg/dL (8.5-10.5); Carbon Dioxide 34 mmol/L (22-29); Chloride 102 mmol/L (98-107); Glucose 132 mg/dL (65-115); Magnesium 1.7 mg/dL (1.7-2.3); Osmolality Calculated 302 mOsm/kg (285-295); Potassium 3.9 mmol/L (3.5-5.1); Sodium 144 mmol/L (136-145)
[2021-01-09 04:46] LABS: Procalcitonin 0.66 ng/mL (0-0.5)
[2021-01-09] MEDS: levoFLOXacin 750 mg Tablet PO (05:07)
--- NOTE | 2021-01-09 08:08 | PC.NURSE ---
Pt presents lying in bed eating breakfast. Hob 45 degree. Resp even and non-labored O2 at 4 Lpm via nc. Pt had no c/o pain or discomfort at the present time. No needs voiced. Call light in reach. Will cont to monitor.
[2021-01-09 09:57] LABS: Glucose Point of Care 147 mg/dL (70-110)
[2021-01-09] MEDS: pantoprazole DR 40 mg Tablet PO (10:10)
[2021-01-09] MEDS: magnesium oxide 400 mg tablet PO ×2 (10:10→18:13)
[2021-01-09] MEDS: aspirin 81 mg EC Tablet PO (10:10)
[2021-01-09] MEDS: metOLazone 5 MG Tablet PO ×2 (10:11→18:13)
[2021-01-09] MEDS: gabapentin 300 mg Capsule PO ×3 (10:11→21:41)
[2021-01-09] MEDS: ipratropium-albuterol 3 mL Neb INHALATION ×2 (10:35→18:12)
[2021-01-09] MEDS: acetaminophen 325 mg Tablet 650 MG PO (11:33)
--- NOTE | 2021-01-09 12:19 | P.DS_ITS ---
Discharge Providers Date of Admission: 01/04/21 00:41 Date of Discharge: January 09, 2021 Attending Provider at Admission: Delbert George Attending Provider at Discharge: Celina Arriaga MD Primary Care Provider: Brian Walker MD Diagnoses at Discharge Discharge Diagnosis (1) Acute on chronic respiratory failure with hypoxia and hypercapnia: Status: Acute (2) Elevated troponin: Status: Acute (3) NSTEMI (non-ST elevated myocardial infarction): Status: Acute (4) Acute diastolic CHF (congestive heart failure): Status: Acute (5) Hypernatremia: Status: Acute (6) GERD (gastroesophageal reflux disease): Status: Acute Permanent problem details: -on PPI Qualifiers: Esophagitis presence: esophagitis presence not specified Qualified Code(s): K21.9 - Gastro-esophageal reflux disease without esophagitis (7) HTN (hypertension): Status: Acute Qualifiers: Hypertension type: essential hypertension Qualified Code(s): I10 - Essential (primary) hypertension (8) Diabetes: Status: Acute Reason for Visit Reason for Visit: SOB Hospital Course Hospital Course History of Present Illness of Dr George 74-year-old female with a history of diastolic heart failure, history of COVID- 19 pneumonia, chronically on 6 L nasal cannula, COPD, insulin-dependent type 2 diabetes mellitus, diabetic peripheral neuropathy, dyslipidemia, GERD, history of ESBL E. coli UTIs, history of hypertension, hypothyroidism, lymphedema, morbid obesity, right below-knee amputation, peripheral vascular disease prese nted to the hospital with respiratory distress. Patient is poor historian at the time of my evaluation. Laboratory workup on arrival showed a WBC of 7.7, hemoglobin 11.2, hematocrit 39.1 and platelet count of 157. Sodium 144, potassium 5.3, chloride 106, bicarb 28, BUN 38 and creatinine 1.1. Troponin T baseline of 60, increased to 109.5 and subsequently 165.8. Probnp of 700. Procalcitonin of 0.14. TSH of 18, free T4 0.90.. Urinalysis showing 1+ leukocyte esterase , negative nitrates , 55 to 80 WBCs with 3+ bacteria. Arterial blood gas showed a pH of 7.27, pCO2 of 70.6 , PO2 of 73.8 and a bicarb 32.6 Imaging studies included chest x-ray which showed cardiomegaly with pulmonary edema consistent with congestive heart failure with probable infiltrates in both lung bases in addition to a left pleural effusion. In ER patient was started on Lovenox 150mg sq x 1, Lasix 60 mg IV x1, Zosyn 4.5g IV x1, aspirin 324mg PO x1, and Toradol 15mg IV x1. Patient was also placed on Bipap and subsequently admitted. Hosp course Patient was admitted to the hospital for management of acute on chronic hypoxic hypercarbic respiratory failure, her mentation and respiratory distress improved with use of BiPAP, her encephalopathy was secondary to CO2 narcosis, she was treated for diastolic congestive heart failure exacerbation as well with diuretics which made her hypernatremic. For hypernatremia thiazides were added by inspector returned materials which improved her sodium level(kindly review the consult note for further details), her troponin leak was deemed secondary to type II GA she did finish 48 hours of NSTEMI/ACS protocol. Patient did not experience any chest pain or worsening of respiratory distress during hospitalization. She has grade 2 diastolic dysfunction echo 04/13. No new changes on recent echo. For UTI with Proteus mirabilis she was put on Levaquin, her procalcitonin is 0.6 blood cultures remained sterile. MRSA nares negative, bacterial urine antigen negative. she qualified for home BiPAP secondary to hypoxia and hypercarbia. She will be discharged home with BiPAP settings 16/10 FiO2 50% respiratory 16, Lasix 40 mg daily along potassium supplementation. Her hemoglobin has remained stable at 8.5. Bicarb at the time of discharge 34 which is in compensation to hypercarbia. No signs of DVT on venous Doppler 01/06 Chest x-ray findings were consistent with pulmonary edema CONCLUSIONS LV systolic function is normal with EF of 55-60% Diastolic function is abnormal Left atrial enlargement Trace mitral regurgitation Mild pulmonary hypertension is noted Compared to prior echocardiogram from 03/2020, no significant disease is noted Physical Exam Narrative: EXAM NARRATIVE: Morbid obese female laying comfortably in her bed Saturating well on 2 L nasal cannula S1, S2 with signs of congestive heart failure hard to assess her volume status secondary to high BMI Venous stasis dermatitis noted no active sign of cellulitis EOMI, PERRLA No neurological deficits Nonfocal neuro exam Right BKA Bilateral breath sounds with mild rhonchi Urinary Catheter Management^: Lockhart: Cath Placed During This Visit: yes Reason for Continuing Indwelling Catheter: Accurate Measurement of Urinary Output in Critically Ill Patients Urinary Catheter Date of Insertion: 01/03/21 Urinary Catheter Time of Insertion: 21:48 Discharge Data Data Completed and Pending: Completed Studies During Hospitalization Category Date Time Status XR chest 1V alejandro ble [id number] Routine Exams 01/05/21 08:00 Completed XR chest 1V alejandro ble [id number] Routine Exams 01/07/21 08:51 Completed XR chest 1V alejandro ble [id number] Urgent Exams 01/03/21 21:31 [place] [id number] Routin e Ultrasound 01/06/21 06:00 Completed CV. echo complete * [id number] Routine Ultrasound 01/04/21 05:39 Completed Pending at discharge Category Date Time Status Arterial Blood Ga s Full Stat Lab 01/05/21 07:54 Ordered Labs from last 24 hours 01/09/21 01/09/21 01/08/21 06:32 03:40 19:59 Sodium 144 Potassium 3.9 Chloride 102 Carbon Dioxide 34 H Anion Gap 11.9 BUN 19 Creatinine 0.5 GFR Calculation Not Reportable Glucose 132 H POC Glucose 147 H 191 H Calculated Osmolal ity 302 H Calcium 8.7 Magnesium 1.7 Procalcitonin 0.66 H 01/08/21 16:21 Sodium Potassium Chloride Carbon Dioxide Anion Gap BUN Creatinine GFR Calculation Glucose POC Glucose 182 H Calculated Osmolal ity Calcium Magnesium Procalcitonin Vitals: Last Vital Signs Temp 98 F 01/09/21 03:46 Pulse 71 01/09/21 11:38 Resp 23 H 01/09/21 11:38 BP 152/81 01/09/21 11:38 Pulse Ox 95 01/09/21 11:38 Discharge Plan Discharge Patient Disposition: Home Condition: Stable Prescriptions: New levofloxacin 750 mg Tablet 750 mg PO DAILY@0600 5 Days Qty: 5 RF: 0 Continued meclizine 25 mg tablet 25 mg PO Q8H PRN (Reason: Nausea And Vomiting) RF: 0 insulin aspart U-100 [Novolog Flexpen U-100 Insulin] 100 unit/mL (3 mL) insulin pen See Rx Instructions .ROUTE .COMPLEX RF: 0 pregabalin [Lyrica] 150 mg Capsule 150 mg PO TID RF: 0 Lantus Solostar U-100 Insulin 100 unit/mL (3 mL) insulin pen 10 unit SUBCUT BEDTIME RF: 0 carvedilol 6.25 mg tablet 3.125 mg PO BID RF: 0 aspirin 81 mg Tablet,Delayed Release (Dr/Ec) 81 mg PO DAILY RF: 0 glipizide 10 mg tablet 10 mg PO BID 30 Days Qty: 60 RF: 0 potassium chloride 20 mEq tablet,ER particles/crystals 20 meq PO BID 30 Days Qty: 60 RF: 0 atorvastatin 20 mg Tablet 20 mg PO DAILY RF: 0 gabapentin 300 mg Capsule 300 mg PO TID RF: 0 albuterol sulfate 2.5 mg /3 mL (0.083 %) solution for nebulization 2.5 mg continuous nebulization BID PRN (Reason: Shortness Of Breath) RF: 0 Zyrtec 10 mg Tablet 10 mg PO DAILY RF: 0 Ferrex 150 150 mg iron capsule 150 mg PO DAILY RF: 0 alendronate 70 mg tablet 70 mg PO Q7D RF: 0 levothyroxine 25 mcg tablet 25 mcg PO DAILY@06 RF: 0 pantoprazole [Protonix] 40 mg Tablet,Delayed Release (Dr/Ec) 40 mg PO DAILY RF: 0 mupirocin 2 % ointment 1 applic TOPICAL PRN RF: 0 oxybutynin chloride 5 mg tablet 5 mg PO BID RF: 0 Mucinex 600 mg tablet extended release 12hr 600 mg PO BID RF: 0 levothyroxine 175 mcg tablet 175 mcg PO DAILY@06 RF: 0 Senna-S 8.6-50 mg tablet 1 tab-cap PO BID PRN (Reason: Constipation) RF: 0 Januvia 100 mg tablet 100 mg PO QAM RF: 0 furosemide 40 mg tablet 40 mg PO DAILY 30 Days Qty: 30 RF: 0 Discharge Orders: Discharge Order (Routine); Ordered 01/09/21 Ordered By: Celina Arriaga Other Ambulatory Orders: DME: BIPAP (Order) Location: None Selected Ordered By: Celina Arriaga DME: Nebulizer with Neb Kit (Order) Location: None Selected Ordered By: Rosenda Mccarty Referrals: [facility] [Outside] [facility] [Outside] [facility] [Outside] Discharge Diet: Cardiac Discharge Activity: As per PT/OT instructions Patient Instructions: Opioid Safety Discharge Attestations Time Spent in Discharge Care*: less than 30 min Status at Discharge: Cognitive status at discharge: cognitively intact , Behavioral status at discharge: cooperative , Quality Metrics Clinical Quality Measures During this hospital stay, did patient experience: None Coding Level of Care Code Acute Chg FW DC note Diagnoses Acute on chronic respiratory failure with hypoxia and hypercapnia J96.21; J96.22 Elevated troponin R77.8 NSTEMI (non-ST elevated myocardial infarction) I21.4 Acute diastolic CHF (congestive heart failure) I50.31 Hypernatremia E87.0 GERD (gastroesophageal reflux disease) K21.9 Esophagitis presence: esophagitis presence not specified HTN (hypertension) I10 Hypertension type: essential hypertension Diabetes E11.9
[2021-01-09 12:30] LABS: Glucose Point of Care 186 mg/dL (70-110)
[2021-01-09] MEDS: insulin lispro 100 unit/1 mL SUBCUT ×2 (12:44→21:41)
--- NOTE | 2021-01-09 14:29 | PM.PN ---
Subjective Subjective: Interval history: Patient is doing well. No complaints of shortness of breath today Vitals/I&O/Wt Last Vital Signs Temp 98 F 01/09/21 03:46 Pulse 71 01/09/21 14:00 Resp 23 H 01/09/21 14:00 BP 152/81 01/09/21 14:00 Pulse Ox 95 01/09/21 14:00 01/08/21 01/09/21 01/09/21 22:59 06:59 14:59 Intake Total 480 / 1060 240 / 1300 Output Total 650 / 650 1100 / 1750 Balance -170 / 410 -860 / -450 Weight last 48 hrs Weight 353 lb 6.4 oz Weight 364 lb 4.8 oz Physical Exam Narrative: EXAM NARRATIVE: GENERAL: Alert and oriented x 3 NECK: No jugular vein distension. [] HEENT: No cyanosis. No icterus. No pallor. [] HEART: Regular S1 and S2. No murmur, rub or gallop. [] LUNGS: Clear to auscultate bilaterally. [] ABDOMEN: Soft, nontender and nondistended. Positive bowel sounds. No guarding, rebound or tenderness. [] CENTRAL NERVOUS SYSTEM: Grossly nonfocal. [] EXTREMITIES: Lower extremities with 2+ edema on the left lower extremity. Has BKA of the right lower extremity. Urinary Catheter Management^: Lockhart: Cath Placed During This Visit: yes Reason for Continuing Indwelling Catheter: Accurate Measurement of Urinary Output in Critically Ill Patients Urinary Catheter Date of Insertion: 01/03/21 Urinary Catheter Time of Insertion: 21:48 Data : 01/08/21 03:00 01/09/21 03:40 A&P Assessment and plan (1) Acute on chronic respiratory failure with hypoxia and hypercapnia: Status: Resolved (2) Diabetes: Qualifiers: Diabetes mellitus type: type 2 Diabetes mellitus medical assembly insulin use: with shelter use Diabetes mellitus complication status: with hyperglycemia Qualified Code(s): E11.65 - Type 2 diabetes mellitus with hyperglycemia; Z79.4 - crossing flagman (current) use of insulin (3) HTN (hypertension): Qualifiers: Hypertension type: essential hypertension Qualified Code(s): I10 - Essential (primary) hypertension (4) COPD (chronic obstructive pulmonary disease): Qualifiers: COPD type: unspecified COPD Qualified Code(s): J44.9 - Chronic obstructive pulmonary disease, unspecified (5) Acute diastolic CHF (congestive heart failure): (6) Elevated troponin: Status: Resolved Patient presented with respiratory distress. Likely secondary to CO2 retention. Benefit from outpatient BiPAP use Lasix switched to p.o. Lasix. Has diuresed well Low-sodium diet and daily weights have been advised Troponin elevation is secondary to demand ischemia. ECHO showed normal LV systolic function.Therpeutic anticoagulation stopped. Thank you for involving us with care of this patient. Patient is stable to be discharged from cardiology standpoint. Please call with questions. Attestations Medical Necessity Statement*: Care expected to cross 2 midnights Coding Level of Care Code Acute [employer] Fwd Diagnoses Acute on chronic respiratory failure with hypoxia and hypercapnia J96.21; J96.22 Diabetes E11.65; Z79.4 Diabetes mellitus type: type 2 Diabetes mellitus shelter insulin use: with medical assembly use Diabetes mellitus complication status: with hyperglycemia HTN (hypertension) I10 Hypertension type: essential hypertension COPD (chronic obstructive pulmonary disease) J44.9 COPD type: unspecified COPD Acute diastolic CHF (congestive heart failure) I50.31 Elevated troponin R77.8
[2021-01-09] MEDS: enoxaparin 40 mg/0.4 mL Syringe SUBCUT (18:13)
[2021-01-09 18:16] LABS: Glucose Point of Care 190 mg/dL (70-110)
[2021-01-09 21:02] LABS: Glucose Point of Care 209 mg/dL (70-110)
[2021-01-09] MEDS: atorvastatin 40 mg Tablet 20 MG PO (21:41)
[2021-01-10 03:59] VITALS: BP 122/70; PULSE 71; RESP 20; TEMP 36.6; O2SAT 94
[2021-01-10 05:17] VITALS: PULSE 63
[2021-01-10] MEDS: levoFLOXacin 750 mg Tablet PO (06:00)
[2021-01-10 06:46] LABS: Glucose Point of Care 152 mg/dL (70-110)
--- NOTE | 2021-01-10 07:35 | PC.NURSE ---
Pt presents lying in bed with eyes open talking to staff. Pt had no c/o pain or discomfort at the present time. No needs voiced. Call light in reach.
[2021-01-10 08:00] VITALS: BP 164/70; PULSE 69; RESP 21; TEMP 36.6; O2SAT 95
[2021-01-10] MEDS: pantoprazole DR 40 mg Tablet PO (08:08)
[2021-01-10] MEDS: metOLazone 5 MG Tablet PO (08:08)
[2021-01-10] MEDS: gabapentin 300 mg Capsule PO (08:08)
[2021-01-10] MEDS: aspirin 81 mg EC Tablet PO (08:08)
[2021-01-10] MEDS: insulin lispro 100 unit/1 mL SUBCUT ×2 (08:08→12:07)
[2021-01-10] MEDS: magnesium oxide 400 mg tablet PO (08:08)
[2021-01-10 10:49] VITALS: PULSE 74; RESP 18; O2SAT 94
[2021-01-10] MEDS: ipratropium-albuterol 3 mL Neb INHALATION (10:49)
[2021-01-10 11:00] LABS: Glucose Point of Care 169 mg/dL (70-110)
[2021-01-10] MEDS: acetaminophen 325 mg Tablet 650 MG PO (11:00)
[2021-01-10 12:00] VITALS: BP 146/75; PULSE 79; RESP 22; TEMP 36.9; O2SAT 95
--- NOTE | 2021-01-10 12:15 | PM.MISC ---
Miscellaneous Note Purpose of Documentation: Patient stayed overnight because son was reluctant to take her home yesterday and wanted to optimize home conditions before her return back home Overnight no events Patient was eating breakfast when entered the room She is saturating well on 2 L nasal cannula Morbid obesity Soft abdomen visceral obesity Right BKA left lower extremity venous stasis dermatitis Awake alert oriented x3 GCS 15 no focal neuro exam Plan is to discharge her today with BiPAP, her BiPAP has been approved by her insurance company she did qualify for hypoxia and hypercarbia Venous Doppler without DVT, chest x-ray consistent pulmonary edema oxygen requirement stayed at 2 L
[2021-01-10 12:24] VITALS: BP 146/75; PULSE 79; RESP 22; TEMP 36.9; O2SAT 95
--- NOTE | 2021-01-10 13:26 | PC.NURSE ---
Pt discharged home. IV removed no redness or swelling noted. Pt discharge instructions given along with prescriptions and follow up appointments. Pt transferred home via EMS. Pt had no c/o pain or discomfort at the time of discharge.
== END 2021-01-10 13:10 | disposition home health service (06) | DRG 280 ==
LOC: ER 23:34 → CSU 01-04 01:22
PROVIDERS: Internal Medicine; Internal Medicine Nephrology; Admitting Provider Hospitalist; Emergency Provider Emergency Medicine; PCP Internal Medicine; Visit Provider Internal Medicine
DX: I11.0 Hypertensive heart disease with heart failure (principal); J96.22 Acute and chronic respiratory failure with hypercapnia; I21.A1 Myocardial infarction type 2; I50.33 Acute on chronic diastolic (congestive) heart failure; J18.9 Pneumonia, unspecified organism; J96.21 Acute and chronic respiratory failure with hypoxia; J44.0 Chronic obstructive pulmonary disease with (acute) lower respiratory infection; Z68.43 Body mass index [BMI] 50.0-59.9, adult; G93.40 Encephalopathy, unspecified; N17.9 Acute kidney failure, unspecified; E87.1 Hypo-osmolality and hyponatremia; N39.0 Urinary tract infection, site not specified; Z99.81 Dependence on supplemental oxygen; E78.5 Hyperlipidemia, unspecified; E11.40 Type 2 diabetes mellitus with diabetic neuropathy, unspecified; E11.51 Type 2 diabetes mellitus with diabetic peripheral angiopathy without gangrene; E89.0 Postprocedural hypothyroidism; E66.01 Morbid (severe) obesity due to excess calories; M81.0 Age-related osteoporosis without current pathological fracture; Z87.440 Personal history of urinary (tract) infections; E87.5 Hyperkalemia; Z86.16 Personal history of COVID-19; Z87.01 Personal history of pneumonia (recurrent); Z87.891 Personal history of nicotine dependence; Z79.51 Long term (current) use of inhaled steroids; Z79.4 Long term (current) use of insulin; B96.4 Proteus (mirabilis) (morganii) as the cause of diseases classified elsewhere; Z89.511 Acquired absence of right leg below knee
CPT/HCPCS: 36415; 36416; 36600; 51702; 71045; 80048; 80051; 80053; 80061; 80202; 81001; 82330; 82570; 82803; 82805; 82962; 83605; 83735; 83880; 84145; 84156; 84439; 84443; 84484; 85025; 85610; 86403; 87077; 87086; 87186; 87426; 87449; 87641; 93005; 93306; 93971; 94640; 94660; 94664; 94762; 96365; 96372; 96375; 99285; J0610; J1650; J1815; J1940; J2543; J3370; J3475; Q3014

== ENCOUNTER 2021-02-27 15:15 | Observation (INO) | payer MEDICARE, MEDICAID, SELFPAY ==
[2021-02-27 15:36] VITALS: BP 144/70; PULSE 56; RESP 16; TEMP 36.6; O2SAT 94
--- NOTE | 2021-02-27 15:45 | ECG_ITS ---
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: : [id number] Requested By: Brendan Mcgovern Order Number: [id number] Reading MD: ADRIANA WILCOX Measurements Intervals [place] Rate: 55 P: CT: QRS: -12 QRSD: 111 T: 40 QT: 408 QTc: 392 Interpretive Statements JUNCTIONAL BRADYCARDIA POSSIBLE ANTERIOR MYOCARDIAL INFARCTION , OF INDETERMINATE AGE [30 ms Q WAVE IN V3/V4, OR R < 0.2 mV IN V4] Compared to ECG 01/04/2021 14:27:57 Myocardial infarct finding now present Sinus rhythm no longer present Intraventricular conduction delay no longer present Electronically Signed On 02-27-2021 19:57:04 YACHT CAPTAIN by ADRIANA WILCOX [email or web address]
--- NOTE | 2021-02-27 15:45 | XR_ITS ---
WS: [id number] Exam: XR chest 1V portable [id number] Date/Time of Exam: 02/27/2021 4:00 PM Reason For Exam: dyspnea/cough Small bibasal pulmonary infiltrates are noted suggesting pneumonia. The lungs are fully expanded. Hea rt size is top limits normal. Remaining lung zones are clear. The mediastinum is not widened. Regiona l bony structures are intact. XR/XR chest 1V portable [id number] IMPRESSION: 1. Small bibasal infiltrates suggesting pneumonia.
--- NOTE | 2021-02-27 15:47 | W.ED.SOB ---
HPI - SOB/Dyspnea General: Chief Complaint: ER Hold Stated Complaint: SOB Time Seen by Provider: 02/27/21 15:27 History of Present Illness: HPI Narrative: 75-year-old female presents emergency room with increased swelling and shortness of breath. Patient has been living at home. She has urinary incontinence that she has had orthopnea and also reporting rapid heart rate and increased swelling. She has a known history of diabetes and has a previous [id number] amputation on the right. She was given DuoNeb by EMS with no improvement of symptoms. She is cared for at home by home health care nurses and one family member. They do use a Chapo lift. She reports soreness over the sacrum and low back. She is not able to eat transfer herself not able to ambulate independently with assistive appliance or orthotic. MD elicited complaint: cough and chest pain Pertinent past history: COPD, congestive heart failure, diabetes and other (Morbid obesity) Onset (ago): day(s) Severity: moderate Exacerbating factors: lying flat, exertion, movement and coughing Relieving factors: oxygen, rest and upright position Known history of: COPD and congestive heart failure Associated symptoms: Reports chest congestion, cough, fever(s), myalgias, nausea and orthopnea; Deny abdominal pain, chest pain, diaphoresis, dizziness, extremity pain, hemoptysis, lightheadedness, palpitations, paresthesias, polydipsia, polyuria, rash, sense of impending doom, syncope or vomiting Treatment prior to arrival: oxygen and bronchodilator Review of Systems Const: Reports: fever(s); Denies: diaphoresis ENMT: Denies: throat pain, ear or mastoid pain, nasal discharge or nasal congestion Card: Reports: orthopnea; Denies: chest pain, palpitations, lightheadedness or syncope Resp: Reports: chest congestion; Denies: hemoptysis GI: Reports: nausea; Denies: abdominal pain or vomiting : Denies: flank pain, difficulty voiding, dysuria, urinary frequency or urinary urgency Musc: Denies: extremity pain Skin/Breast: Denies: rash or pruritus Neuro: Denies: dizziness Endo: Denies: polyuria or polydipsia PFS ED PFSH: Medical History Acute diastolic CHF (congestive heart failure) COPD (chronic obstructive pulmonary disease) Diabetes Diabetic peripheral neuropathy Dyslipidemia GERD (gastroesophageal reflux disease) -on PPI History of ESBL E. coli infection History of infection with vancomycin resistant Enterococcus (VRE) History of osteomyelitis HTN (hypertension) Hypothyroidism Lymphedema Morbid obesity Osteomyelitis Osteoporosis Overactive bladder Peripheral vascular disease -has known hx of PVD Pneumonia due to 2019-nCoV And also highly suspected secondary bacterial pneumonia Recurrent UTI (urinary tract infection) Status post hysteroscopy with D&C on 11/10/[address] Panda at [facility] Urinary incontinence Surgical History H/O thyroidectomy History of abdominal surgery Had a benign stomach tumor removed History of ankle surgery Left for fracture repair History of eye surgery Left History of foot surgery Right foot status post amputation of great and second toe History of hip surgery History of hysterectomy History of right breast biopsy History of surgery on extremity Left femur S/P excisional debridement Bilateral lower extremity wounds Family History Son Hypertension Social History Smoking and tobacco status: former smoker Alcohol intake: never Lives independently: Yes Current occupational status: retired Physical Exam Const: GENERAL APPEARANCE: cooperative ORIENTATION/CONSCIOUSNESS: Yes awake, Yes oriented to person, Yes oriented to place and Yes oriented to time HENMT: COMMON NORMALS: normocephalic, atraumatic and hearing grossly normal bilaterally HEAD & SCALP: normocephalic and atraumatic Neck/C-Spine: COMMON NORMALS: no JVD Resp: COMMON NORMALS: normal respiratory effort, No retractions, No use of accessory muscles and clear to auscultation bilaterally AUSCULTATION: clear to auscultation bilaterally Cardio: COMMON NORMALS: no JVD, regular rate, regular rhythm and No murmurs present (Cardio) RATE: regular rate RHYTHM: regular rhythm GI: COMMON NORMALS: Soft to palpation and No hepatosplenomegaly present AUSCULTATION: Yes normoactive bowel sounds PALPATION: Yes Soft to palpation, No Tenderness to palpation present (GI), No Guarding due to palpation present (GI) and Yes No hepatosplenomegaly present Extremity: COMMON NORMALS: normal to inspection, capillary refill normal and no calf tenderness OTHER: 2+ edema left lower extremity right lower extremity surgically absent above the knee Neuro: SENSORIUM/ORIENTATION: Yes oriented to person, Yes oriented to place and Yes oriented to time Skin: OTHER: Large area on the buttocks sacrum and perineum mixed skin ulcerations stage I and II does not appear to be acutely infected no sign of abscess. No active drainage or some cross overlying. Under the pannus there is significant accumulation of skin debris and evidence of Shauna. Course Vital Signs: Vital signs: Vital Signs Temperature 97.8 F 02/28/21 04:00 Pulse Rate 69 02/28/21 06:00 Respiratory Rate 17 02/28/21 04:00 Blood Pressure 139/71 02/28/21 04:00 Pulse Oximetry 93 02/28/21 04:00 MDM - SOB/Dyspnea MDM Narrative: Medical decision making narrative: Patient unable to care for self chest x-ray looks like she does have a moderate pneumonia additionally she has a cystitis. Finally she is hyper natremia can hyperkalemic and anemic. Given her overall status I think she needs admission and shelter placement. However prior to being stable enough to go to the shelter she will need these issues addressed including adequate skin care and evaluation of the course of her anemia as well as treatment of her cystitis and pneumonia.She also appears to have some mild underlying congestive heart failure exacerbation for which she was given Lasix. Finally she has mildly elevated troponin which I think is due to her congestive heart failure. This been reviewed with hospitalist orders written for admission. Lab Data: Labs: Lab Results 02/27/21 02/27/21 02/27/21 15:37 16:20 16:20 WBC 7.6 10^3/uL 10^3/ uL (4.0-10.0) RBC 3.14 10^6/uL L 10 ^6/uL (4.1-5.3) Hgb 9.1 g/dL L g/dL (11.5-15.3) Hct 32.7 % L % (37.0-47.0) MCV 104.1 fl H fl (81-99) MCH 29.0 pg pg (28.0-34.0) MCHC 27.8 g/dL L g/dL (30.0-36.0) RDW 14.4 % % (12.1-15.1) Plt Count 153 10^3/cmm 10^3 /cmm (130-400) MPV 11.8 fL H fL (7.4-10.4) Neut % (Auto) 70.4 % % Lymph % (Auto) 14.9 % % Charles % (Auto) 10.3 % % Eos % (Auto) 2.9 % % Baso % (Auto) 0.4 % % Neut # (Auto) 5.35 10^3/uL 10^3 /uL (1.8-7.7) Lymph # (Auto) 1.1 10^3/uL 10^3/ uL (0.8-4.8) Charles # (Auto) 0.8 10^3/uL 10^3/ uL (0.2-0.9) Eos # (Auto) 0.2 10^3/uL 10^3/ uL (0.0-0.8) Baso # (Auto) 0.0 10^3/uL 10^3/ uL (0.0-0.1) Nucleated RBC % (a uto) 0 % % Nucleated RBCs # 0.0 /100WBC /100W BC Sodium 141 mmol/L mmol/L (136-145) Potassium 6.6 mmol/L H* mmo l/L (3.5-5.1) Chloride 106 mmol/L mmol/L (98-107) Carbon Dioxide 26 mmol/L mmol/L (22-29) Anion Gap 15.6 (5-19) BUN 39 mg/dL H mg/dL (8-23) Creatinine 0.8 mg/dL mg/dL (0.5-0.9) GFR Calculation Not Reportable Glucose 187 mg/dL H mg/dL (65-115) POC Glucose Calculated Osmolal ity 306 mOsm/kg H mOs m/kg (285-295) Calcium 7.3 mg/dL L mg/dL (8.5-10.5) Total Bilirubin 0.2 mg/dL mg/dL (0.15-1.2) AST 48 U/L H U/L (0-32) ALT 44 U/L H U/L (0-33) Alkaline Phosphata se 110 IU/L H IU/L (35-105) Troponin T Baselin e Troponin T 120 Min [place] Delta Troponin T Troponin T Hi Sens 6Hr Troponin T Hi Sens 6Hr Delta Total Protein 5.6 g/dL L g/dL (6.6-8.7) Albumin 2.8 g/dL L g/dL (3.5-5.2) Globulin 2.8 g/dL g/dL (1.3-4.6) Urine Color Yellow (Yellow) Urine Appearance Cloudy (CLEAR) Urine pH 9 H (5-7) Ur Specific Gravit y 1.015 (1.005-1.030) Urine Protein 3+ H (Negative) Urine Glucose (UA) Norm (Normal) Urine Ketones 1+ H (Negative) Urine Blood 3+ H (Negative) Urine Nitrate Negative (Negative) Urine Bilirubin Neg (Negative) Prot Sulfosalicyli c Acd Positive (Negative) Urine Urobilinogen Norm mg/dL mg/dL (Negative) Ur Leukocyte Massiel ase 2+ H (Negative) Urine RBC 5-10 /hpf H /hpf (0-2) Urine WBC 15-25 /hpf H /hpf (0-5) Ur Squamous Epith Cells 5-10 /hpf H /hpf (0-5) Ur Transition Epit h Cell 0-4 /hpf /hpf Amorphous Sediment 1+ /hpf /hpf Urine Bacteria 2+ /hpf H /hpf (NONE) 02/27/21 02/27/21 02/27/21 16:20 17:20 17:31 WBC RBC Hgb Hct MCV MCH MCHC RDW Plt Count MPV Neut % (Auto) Lymph % (Auto) Charles % (Auto) Eos % (Auto) Baso % (Auto) Neut # (Auto) Lymph # (Auto) Charles # (Auto) Eos # (Auto) Baso # (Auto) Nucleated RBC % (a uto) Nucleated RBCs # Sodium Potassium 6.0 mmol/L H mmol /L (3.5-5.1) Chloride Carbon Dioxide Anion Gap BUN Creatinine GFR Calculation Glucose POC Glucose 226 mg/dL H mg/dL (70-110) Calculated Osmolal ity Calcium Total Bilirubin AST ALT Alkaline Phosphata se Troponin T Baselin e 188 ng/L H* ng/L (0-10) Troponin T 120 Min [place] Delta Troponin T Troponin T Hi Sens 6Hr Troponin T Hi Sens 6Hr Delta Total Protein Albumin Globulin Urine Color Urine Appearance Urine pH Ur Specific Gravit y Urine Protein Urine Glucose (UA) Urine Ketones Urine Blood Urine Nitrate Urine Bilirubin Prot Sulfosalicyli c Acd Urine Urobilinogen Ur Leukocyte Massiel ase Urine RBC Urine WBC Ur Squamous Epith Cells Ur Transition Epit h Cell Amorphous Sediment Urine Bacteria 02/27/21 02/27/21 02/27/21 18:41 18:42 22:00 WBC RBC Hgb Hct MCV MCH MCHC RDW Plt Count MPV Neut % (Auto) Lymph % (Auto) Charles % (Auto) Eos % (Auto) Baso % (Auto) Neut # (Auto) Lymph # (Auto) Charles # (Auto) Eos # (Auto) Baso # (Auto) Nucleated RBC % (a uto) Nucleated RBCs # Sodium Potassium Chloride Carbon Dioxide Anion Gap BUN Creatinine GFR Calculation Glucose POC Glucose 118 mg/dL H mg/dL (70-110) Calculated Osmolal ity Calcium Total Bilirubin AST ALT Alkaline Phosphata se Troponin T Baselin e Troponin T 120 Min [place] 181.8 ng/L H ng/L (0-10) Delta Troponin T -6.2 ABS# L ABS# (0-10) Troponin T Hi Sens 6Hr 169.1 ng/L H ng/L (0-10) Troponin T Hi Sens 6Hr Delta -18.9 ng/L L ng/L (0-12) Total Protein Albumin Globulin Urine Color Urine Appearance Urine pH Ur Specific Gravit y Urine Protein Urine Glucose (UA) Urine Ketones Urine Blood Urine Nitrate Urine Bilirubin Prot Sulfosalicyli c Acd Urine Urobilinogen Ur Leukocyte Massiel ase Urine RBC Urine WBC Ur Squamous Epith Cells Ur Transition Epit h Cell Amorphous Sediment Urine Bacteria 02/27/21 22:00 WBC RBC Hgb Hct MCV MCH MCHC RDW Plt Count MPV Neut % (Auto) Lymph % (Auto) Charles % (Auto) Eos % (Auto) Baso % (Auto) Neut # (Auto) Lymph # (Auto) Charles # (Auto) Eos # (Auto) Baso # (Auto) Nucleated RBC % (a uto) Nucleated RBCs # Sodium Potassium 6.6 mmol/L H* mmo l/L (3.5-5.1) Chloride Carbon Dioxide Anion Gap BUN Creatinine GFR Calculation Glucose POC Glucose Calculated Osmolal ity Calcium Total Bilirubin AST ALT Alkaline Phosphata se Troponin T Baselin e Troponin T 120 Min [place] Troponin T Troponin T Hi Sens 6Hr Troponin T Hi Sens 6Hr Delta Total Protein Albumin Globulin Urine Color Urine Appearance Urine pH Ur Specific Gravit y Urine Protein Urine Glucose (UA) Urine Ketones Urine Blood Urine Nitrate Urine Bilirubin Prot Sulfosalicyli c Acd Urine Urobilinogen Ur Leukocyte Massiel ase Urine RBC Urine WBC Ur Squamous Epith Cells Ur Transition Epit h Cell Amorphous Sediment Urine Bacteria Discharge Plan Discharge Patient Disposition: Admitted As Inpatient Admit Provider: Vinayak Melendrez Clinical Impression: CHF exacerbation, Chronic respiratory failure with hypoxia, Pneumonia, Cystitis, Hyperkalemia, Troponin level elevated, COPD (chronic obstructive pulmonary disease), Morbid obesity, COPD with acute lower respiratory infection, Decubitus ulcer of sacral area, Urinary incontinence, Physical deconditioning Condition: Stable Coding Level of Care Code ED Hi Teacher for Shamar Rivero
[2021-02-27 16:27] LABS: Basophils % 0.4 %; Eosinophils # 0.2 10^3/uL (0.0-0.8); Eosinophils % 2.9 %; Hematocrit 32.7 % (37.0-47.0); Hemoglobin 9.1 g/dL (11.5-15.3); Lymphocytes # 1.1 10^3/uL (0.8-4.8); Lymphocytes % 14.9 %; Mean Corpuscular HGB Conc 27.8 g/dL (30.0-36.0); Mean Corpuscular Volume 104.1 fl (81-99); Mean Platelet Volume 11.8 fL (7.4-10.4); Monocytes # 0.8 10^3/uL (0.2-0.9); Monocytes % 10.3 %; Neutrophils # 5.35 10^3/uL (1.8-7.7); Neutrophils % 70.4 %; Nucleated Red Blood Cells % 0 %; Platelet Count 153 10^3/cmm (130-400); Red Blood Count 3.14 10^6/uL (4.1-5.3); Red Cell Distribution Width 14.4 % (12.1-15.1); White Blood Count 7.6 10^3/uL (4.0-10.0)
[2021-02-27 16:28] LABS: Protein Urine 3+ (Negative); Specific Gravity, Urine 1.015 (1.005-1.030); Urine Appearance Cloudy (CLEAR); Urine Color Yellow (Yellow); pH Urine 9 (5-7)
[2021-02-27 16:29] LABS: Bilirubin Urine Neg (Negative); Blood Urine 3+ (Negative); Glucose Urine UA Norm (Normal); Ketones Urine 1+ (Negative); Nitrate Urine Negative (Negative); Sulfosalicylic Acid Urine Positive (Negative); Urobilinogen Urine Norm (Negative)
[2021-02-27 16:30] LABS: Add Urine Microscopic? YES; Leukocyte Esterase Urine 2+ (Negative)
[2021-02-27 16:35] LABS: Transitional Epi Cells Urine 0-4 /hpf; WBC Urine 15-25 /hpf (0-5)
[2021-02-27 16:36] LABS: Add Urine Culture? Yes; Amorphous Sediment Urine 1+ /hpf; Bacteria Urine 2+ /hpf
[2021-02-27 16:56] LABS: Alanine Aminotransferase 44 U/L (0-33); Albumin Level 2.8 g/dL (3.5-5.2); Alkaline Phosphatase 110 IU/L (35-105); Anion Gap 15.6 (5-19); Aspartate Amino Transferase 48 U/L (0-32); Blood Urea Nitrogen 39 mg/dL (8-23); Calcium 7.3 mg/dL (8.5-10.5); Carbon Dioxide 26 mmol/L (22-29); Chloride 106 mmol/L (98-107); Globulin 2.8 g/dL (1.3-4.6); Glucose 187 mg/dL (65-115); Osmolality Calculated 306 mOsm/kg (285-295); Sodium 141 mmol/L (136-145); Total Bilirubin 0.2 mg/dL (0.15-1.2); Total Protein 5.6 g/dL (6.6-8.7)
[2021-02-27 16:59] LABS: Potassium 6.6 mmol/L (3.5-5.1)
[2021-02-27 17:07] LABS: Troponin(5th) Baseline 188 ng/L (0-10)
[2021-02-27] MEDS: calcium gluconate 0.1 gm/mL 10% SDV 10mL 1 GM IVP (17:31)
[2021-02-27] MEDS: insulin regular-human 100 units/1 mL 10 UNIT IVP (17:32)
[2021-02-27] MEDS: cefTRIAXone 1,000 MG in sodium chloride 0.9% (plus) 50 ML 100 MG IV (17:39)
[2021-02-27] MEDS: FUROsemide 10 mg/mL SDV 10mL 60 MG IVP (17:39)
[2021-02-27 17:40] LABS: Glucose Point of Care 226 mg/dL (70-110)
--- NOTE | 2021-02-27 18:15 | PC.PHAR ---
pts daughter in law dipak and pts son ling verified the pts medications-notes are made in the pharmacy comments
[2021-02-27 18:45] LABS: Glucose Point of Care 118 mg/dL (70-110)
[2021-02-27 19:21] LABS: Troponin 5 2HR Delta -6.2 ABS# (0-10)
[2021-02-27 19:30] LABS: Troponin 5 2HR 181.8 ng/L (0-10)
--- NOTE | 2021-02-27 19:57 | PM.HP ---
Providers/Chief Complaint Primary Care Provider: Brian Walker MD Chief Complaint: SOB History of Present Illness Pleasant 75-year-old lady with morbid obesity, CHF, COPD, chronically on 4 L of oxygen, DM2 with peripheral neuropathy, status post right AKA, PVD, HTN, recurrent UTI, urinary incontinence, and a number of other comorbidities, was brought into hospital for collection due to worsening dyspnea, cough, severe orthopnea, edema. She has also been having pressure ulcer and moisture damage on her buttocks and sacrum as she states she has an overactive bladder as well as urinary incontinence. She normally gets around in an electric scooter. Lives at home with her son. Names her son as surrogate decision-maker in case she could not make decisions for herself. In case of cardiopulmonary arrest would want attempted resuscitation. Review of Systems Const: Denies: fever(s), chills, body aches or malaise Eyes: Denies: change in vision or eye redness ENMT: Denies: throat pain, oral sores or ear or mastoid pain Card: Reports: edema, dyspnea on exertion and orthopnea; Denies: chest pain or pre-syncope Resp: Reports: dyspnea and productive cough; Denies: change in phlegm color or hemoptysis GI: Denies: abdominal pain, nausea, vomiting, diarrhea, constipation, hematochezia or melena : Reports: urinary frequency (chornic) and urinary incontinence; Denies: flank pain or hematuria Musc: Denies: back pain, joint swelling or joint redness Skin/Breast: Reports: rash (buttocks, sacrum, upper thighs); Denies: sores or new lesions Neuro: Denies: headache(s), numbness in extremities, weakness in extremities, dizziness, confusion or seizure-like activity Endo: Denies: polyuria or polydipsia Timothy/Lymph: Denies: easy bleeding or purpura All/Imm: Denies: urticaria, throat swelling or tongue swelling Medications/Allergies Home Medications Medication Instructions Recorded Confirmed Last Taken Type glipizide 10 mg PO BID 30 Days #60 tab 08/10/19 02/27/21 04/17/20 Rx potassium chloride 20 meq PO BID 30 Days #60 tab 08/10/19 02/27/21 04/17/20 Rx atorvastatin 20 mg PO QPM 11/28/19 02/27/2104/17/21 History gabapentin 300 mg PO TID 04/18/20 02/27/21 04/17/20 History Lantus Solostar U-100 Insulin 10 unit SUBCUT BEDTIME 06/27/20 02/27/21 06/26/20 History aspirin 81 mg PO DAILY 06/27/20 02/27/21 06/27/20 History carvedilol 3.125 mg PO BID 06/27/20 02/27/21 Unknown History insulin aspart U-100 [Novolog See Rx Instructions .ROUTE .COMPLEX 06/27/20 02/27/21 06/27/20 12:00 History Flexpen U-100 Insulin] 4 units meclizine 25 mg PO Q8H PRN 06/27/20 02/27/21 Unknown History pregabalin [Lyrica] 150 mg PO TID 06/27/20 02/27/21 Unknown History Januvia 100 mg PO QAM 01/04/21 02/27/21 Unknown History albuterol sulfate 2.5 mg CONTINUOUS NEBULIZATION BID 01/04/21 02/27/21 Unknown History PRN alendronate 70 mg PO Q7D 01/04/21 02/27/21 Unknown History cetirizine [Zyrtec] 10 mg PO DAILY 01/04/21 02/27/21 Unknown History guaifenesin [Mucinex] 600 mg PO BID 01/04/21 02/27/21 Unknown History levothyroxine 25 mcg PO DAILY@06 01/04/21 02/27/21 Unknown History levothyroxine 175 mcg PO DAILY@01/04/21 02/27/21 Unknown History mupirocin 1 applic TOPICAL PRN 01/04/21 02/27/21 Unknown History oxybutynin chloride 5 mg PO BID 01/04/21 02/27/21 Unknown History pantoprazole [Protonix] 40 mg PO DAILY 01/04/21 02/27/21 Unknown History polysaccharide iron complex 150 mg PO DAILY 01/04/21 02/27/21 Unknown History [Ferrex 150] sennosides-docusate sodium 1 tab-cap PO BID PRN 01/04/21 02/27/21 Unknown History [Senna-S] furosemide 40 mg PO DAILY 30 Days #30 tab 01/09/21 02/27/21 Unknown Rx levothyroxine 100 mcg PO DAILY 02/27/21 02/27/21 Unknown History nitrofurantoin monohyd/m-cryst 100 mg PO DAILY 02/27/21 02/27/21 Unknown History Allergies Allergy/AdvReac Type Severity Reaction Status Date / Time TAPE Allergy ADR-Itching Uncoded 05/22/20 13:07 PFSH Acute PFSH: Medical History (Updated 02/27/21 @ 21:25 by Vinayak Melendrez MD) Acute diastolic CHF (congestive heart failure) COPD (chronic obstructive pulmonary disease) Diabetes Diabetic peripheral neuropathy Dyslipidemia GERD (gastroesophageal reflux disease) -on PPI History of ESBL E. coli infection History of infection with vancomycin resistant Enterococcus (VRE) History of osteomyelitis HTN (hypertension) Hypothyroidism Lymphedema Morbid obesity Osteomyelitis Osteoporosis Overactive bladder Peripheral vascular disease -has known hx of PVD Pneumonia due to 2019-nCoV And also highly suspected secondary bacterial pneumonia Recurrent UTI (urinary tract infection) Status post hysteroscopy with D&C on 11/10/[address] Panda at [facility] Urinary incontinence Surgical History H/O thyroidectomy History of abdominal surgery Had a benign stomach tumor removed History of ankle surgery Left for fracture repair History of eye surgery Left History of foot surgery Right foot status post amputation of great and second toe History of hip surgery History of hysterectomy History of right breast biopsy History of surgery on extremity Left femur S/P excisional debridement Bilateral lower extremity wounds Family History Son Hypertension Social History Smoking and tobacco status: former smoker Alcohol intake: never Lives independently: Yes Current occupational status: retired Vitals/I&O/Wt Last Vital Signs Temp 97.8 F 02/27/21 15:36 Pulse 56 L 02/27/21 15:36 Resp 16 02/27/21 15:36 BP 144/70 02/27/21 15:36 Pulse Ox 94 02/27/21 15:36 Physical Exam Const: COMMON NORMALS: no acute distress, patient oriented x3 and alert GENERAL APPEARANCE: cooperative NUTRITIONAL APPEARANCE: obese morbidly obese ORIENTATION/CONSCIOUSNESS: Yes awake HENMT: COMMON NORMALS: oropharynx normal Neck/C-Spine: COMMON NORMALS: no JVD Resp: COMMON NORMALS: normal respiratory effort AUSCULTATION: crackles Laterality: bilateral (bases) and diminished lung sounds Cardio: COMMON NORMALS: no JVD, regular rhythm, S1 normal heart sound present, S2 normal heart sound present and No murmurs present (Cardio) RHYTHM: regular rhythm HEART SOUNDS: S1 normal heart sound present and S2 normal heart sound present GI: COMMON NORMALS: Normal to inspection, nondistended, normoactive bowel sounds present, Soft to palpation and non-tender PALPATION: Yes Soft to palpation OTHER: Very large pannus Extremity: COMMON NORMALS: no joint enlargement GENERAL: Yes edema (LLE, thighs, sacrum) OTHER: R AKA Neuro: COMMON NORMALS: patient oriented x3 and moves all extremities Skin: OTHER: Sacrum with large area of maceration, swelling, erythema, few areas of epidermis loss over bony promnences down to superficial subcutaneous tissue. Area of maceration and moisture damage extends to and above the sacrum and down to upper thighs, as well groin and labia majora. Data : 02/27/21 16:20 02/27/21 17:20 A&P Assessment and plan (1) CHF exacerbation: Worsening orthopnea, dependent edema, dyspnea with exertion, crackles on exam. Lasix 60 mg every 12 hours. Monitor I&O. Renal function. Limited TTE. Status: Acute (2) Hyperkalemia: Received Lasix, calcium gluconate, 10 units of regular insulin. Recheck with decrease. Will follow up level again tonight. Hold potassium supplementation. Status: Acute (3) Pneumonia: Chronic hypoxia, usually on 4 L nasal cannula oxygen, but more dyspneic recently, coughing. Bibasilar infiltrate suggestive of pneumonia. Not septic. Collect sputum culture, urine bacterial antigens. Collect COVID-19 PCR. Ceftriaxone and azithromycin. Status: Acute (4) Cystitis: Most recently Proteus mirabilis, Enterobacter susceptible to cephalosporins. Ceftriaxone as above. Follow-up urine culture. Status: Acute (5) Decubitus ulcer of sacral area: Rash of large area of buttocks, sacrum, upper thighs, labia, mostly maceration secondary to moisture damage with chronic incontinence, her, also over bony prominence, with stage II ulceration. Keep dry. Moisture barrier. Return. Protein supplementation. Status: Acute (6) Overactive bladder: Status: Chronic (7) Urinary incontinence: Status: Acute (8) Chronic respiratory failure with hypoxia: Currently on 4 L oxygen with history of CHF, COPD. Status: Acute (9) Physical deconditioning: Treat CHF, pneumonia, UTI. Check TSH. PT, OT. Status: Acute (10) Morbid obesity: Status: Acute (11) Troponin level elevated: She has not been having any chest pain or pressure. Recently dyspnea, cough, but also orthopnea, worsening edema. Will complete troponin EKG series. Some chronic location of troponin noted previously, although currently higher than usual, however, with multiple conditions and lack of possible delta AMI appears less likely. Continue aspirin, carvedilol, atorvastatin. Assess limited TTE. Monitor on telemetry. Monitor for change in symptoms. Would benefit from additional risk stratification once in better overall condition by stress testing. Status: Acute Additional A&P Information Dark stool: hemoccult Anemia: iron studies DM2: Insulin lantus, SSI, CC diet COPD HLD GERD HTN Hypothyroidism PVD Other chronic comorbidities noted Attestations Medical Necessity Statement*: Admission of over 2 midnights is continued for assessment management of acute CHF, pneumonia, UTI and additional comorbidities as above. Coding Level of Care Code Acute Certified Court/Medical Interpreter for Chg Fwd Diagnoses CHF exacerbation I50.9 Hyperkalemia E87.5 Pneumonia J18.9 Cystitis N30.90 Decubitus ulcer of sacral area L89.159 Overactive bladder N32.81 Urinary incontinence R32 Chronic respiratory failure with hypoxia J96.11 Physical deconditioning R53.81 Morbid obesity E66.01 Troponin level elevated R77.8
[2021-02-27] MEDS: azithromycin 500 MG in sodium chloride 0.9% 250 ML 250 MG IV (21:28)
[2021-02-27 21:29] VITALS: BP 137/90; PULSE 82; RESP 16; O2SAT 93
--- NOTE | 2021-02-27 21:45 | ECG_ITS ---
[facility] Test Date: 2021-02-27 Pat Name: Rachid Hagen Department: Room: 275 Gender: Female Field Agronomist: : 1945 Requested By: Brendan Mcgovern Order Number: [id number] Jeremie MD: Manuela Hughes M.D. Measurements Intervals [place] Rate: 76 P: 79 AL: 173 QRS: 6 QRSD: 108 T: 61 QT: 374 QTc: 422 Interpretive Statements SINUS RHYTHM LOW QRS VOLTAGE IN PRECORDIAL LEADS [QRS DEFLECTION < 1.0 mV IN CHEST LEADS] Compared to ECG 02/27/2021 17:17:34 Low QRS voltage now present Myocardial infarct finding no longer present Electronically Signed On 02-28-2021 16:44:02 FRAME BUILDER by Manuela Hughes M.D. [email or web address]
[2021-02-27 22:21] VITALS: O2SAT 95
[2021-02-27 22:26] VITALS: BP 157/69; PULSE 77; RESP 16; O2SAT 93
[2021-02-27] MEDS: enoxaparin 40 mg/0.4 mL Syringe SUBCUT (22:31)
[2021-02-27 22:32] LABS: Troponin 5 6HR Delta -18.9 ng/L (0-12)
[2021-02-27 22:33] LABS: Potassium 6.6 mmol/L (3.5-5.1); Troponin 5 6HR 169.1 ng/L (0-10)
[2021-02-27] MEDS: FUROsemide 10 mg/mL SDV 2mL 20 MG IVP (23:11)
[2021-02-27 23:17] VITALS: BMI 57.9
[2021-02-27] MEDS: sodium polystyrene sulfonate 15 gm/60 mL Btl PO (23:25)
[2021-02-27 23:55] VITALS: BP 151/76; PULSE 78; RESP 18; TEMP 37.2; O2SAT 90
[2021-02-28] VITALS (11 sets, daily range): BP systolic 119–149; BP diastolic 58–79; PULSE 69–86; RESP 16–18; TEMP 36.5–36.9; O2SAT 90–95
[2021-02-28] MEDS: FUROsemide 10 mg/mL SDV 10mL 60 MG IVP ×2 (03:32→16:09)
[2021-02-28 06:16] LABS: Basophils % 0.9 %; Eosinophils # 0.3 10^3/uL (0.0-0.8); Eosinophils % 5.4 %; Hematocrit 32.2 % (37.0-47.0); Hemoglobin 8.8 g/dL (11.5-15.3); Lymphocytes # 0.8 10^3/uL (0.8-4.8); Lymphocytes % 16.8 %; Mean Corpuscular HGB Conc 27.3 g/dL (30.0-36.0); Mean Corpuscular Hemoglobin 28.9 pg (28.0-34.0); Mean Corpuscular Volume 105.9 fl (81-99); Mean Platelet Volume 11.7 fL (7.4-10.4); Monocytes # 0.4 10^3/uL (0.2-0.9); Monocytes % 9.5 %; Neutrophils # 3.07 10^3/uL (1.8-7.7); Neutrophils % 66.1 %; Nucleated Red Blood Cells % 0 %; Platelet Count 151 10^3/cmm (130-400); Red Blood Count 3.04 10^6/uL (4.1-5.3); Red Cell Distribution Width 14.3 % (12.1-15.1); White Blood Count 4.6 10^3/uL (4.0-10.0)
[2021-02-28 06:32] LABS: Alanine Aminotransferase 38 U/L (0-33); Albumin Level 2.5 g/dL (3.5-5.2); Alkaline Phosphatase 98 IU/L (35-105); Anion Gap 15.2 (5-19); Aspartate Amino Transferase 30 U/L (0-32); Blood Urea Nitrogen 39 mg/dL (8-23); Carbon Dioxide 29 mmol/L (22-29); Chloride 108 mmol/L (98-107); Globulin 3.4 g/dL (1.3-4.6); Glucose 92 mg/dL (65-115); Osmolality Calculated 313 mOsm/kg (285-295); Potassium 5.2 mmol/L (3.5-5.1); Sodium 147 mmol/L (136-145); Total Bilirubin 0.2 mg/dL (0.15-1.2); Total Protein 5.9 g/dL (6.6-8.7)
[2021-02-28 06:36] LABS: Thyroid Stimulating Hormone 11.62 uIU/mL (0.27-4.20)
[2021-02-28 07:18] LABS: Glucose Point of Care 95 mg/dL (70-110)
[2021-02-28] MEDS: guaiFENesin 600 mg Tablet PO ×2 (09:25→17:25)
[2021-02-28] MEDS: levothyroxine 100 mcg Tablet PO (09:25)
[2021-02-28] MEDS: pregabalin 150 mg Capsule PO ×3 (09:26→20:30)
[2021-02-28] MEDS: carvedilol 6.25 mg Tablet 3.125 MG PO ×2 (09:26→17:26)
[2021-02-28] MEDS: aspirin 81 mg EC Tablet PO (09:26)
[2021-02-28] MEDS: gabapentin 300 mg Capsule PO ×3 (09:26→20:30)
[2021-02-28] MEDS: pantoprazole DR 40 mg Tablet PO (09:26)
[2021-02-28] MEDS: oxybutynin 5 mg Tablet PO ×2 (09:26→17:25)
[2021-02-28 11:34] LABS: Glucose Point of Care 175 mg/dL (70-110)
[2021-02-28] MEDS: insulin lispro 100 unit/1 mL SUBCUT ×3 (11:59→22:17)
--- NOTE | 2021-02-28 13:31 | P.PN_ITS ---
Subjective Subjective: Interval history: She states she is feeling better today. She is able to stay more awake. Reports her breathing is not bothering her currently. Denies chest pain or pressure. Vitals/I&O/Wt Last Vital Signs Temp 97.7 F 02/28/21 11:18 Pulse 73 02/28/21 11:18 Resp 18 02/28/21 11:18 BP 149/75 02/28/21 11:18 Pulse Ox 95 02/28/21 11:18 02/27/21 02/28/21 02/28/21 22:59 06:59 14:59 Intake Total 360 / 360 Output Total 1500 / 1500 Balance 360 / 360 -1500 / -1500 Weight last 48 hrs Weight 176.72 kg Weight 172.819 kg Physical Exam Const: COMMON NORMALS: no acute distress, patient oriented x3 and alert GENERAL APPEARANCE: cooperative NUTRITIONAL APPEARANCE: obese morbidly obese ORIENTATION/CONSCIOUSNESS: Yes awake HENMT: COMMON NORMALS: oropharynx normal Neck/C-Spine: COMMON NORMALS: no JVD Resp: COMMON NORMALS: normal respiratory effort AUSCULTATION: crackles (Leaning to the right) Laterality: left (Base); Negative for right and diminished lung sounds Cardio: COMMON NORMALS: no JVD, regular rhythm, S1 normal heart sound present, S2 normal heart sound present and No murmurs present (Cardio) RHYTHM: regular rhythm HEART SOUNDS: S1 normal heart sound present and S2 normal heart sound present GI: COMMON NORMALS: Normal to inspection, nondistended, normoactive bowel sounds present, Soft to palpation and non-tender PALPATION: Yes Soft to palpation OTHER: Very large pannus Extremity: COMMON NORMALS: no joint enlargement GENERAL: Yes edema (LLE, thighs, sacrum) OTHER: R AKA Neuro: COMMON NORMALS: patient oriented x3 and moves all extremities SENSORIUM/ORIENTATION: Yes alert Skin: OTHER: Bottom wounds not seen today Urinary Catheter Management^: Lockhart: Cath Placed During This Visit: yes Reason for Continuing Indwelling Catheter: Assist healing open wound Urinary Catheter Date of Insertion: 02/28/21 Data : 02/28/21 05:20 02/28/21 05:20 Micro: Microbiology 02/27/21 15:37 Legionella Urinary Antigen - Final Urine Catheterized 02/27/21 15:37 Bacterial Antigens - Final Urine,Clean Catch 02/27/21 15:37 Urine Culture - Preliminary Urine,Clean Catch Gram Negative Rods A&P Assessment and plan (1) CHF exacerbation: Improving. Subjectively she is feeling somewhat better today. Crackles resolved today on the right side, but still present on the left. She appears to be leaning to the left side. Still significant dependent edema of sacrum, thighs, lower extremities. Continue diuresis with Lasix. Monitor I&O. Monitor renal function. Follow-up limited echo. On presentation worsening orthopnea, dependent edema, dyspnea with exertion, crackles on exam. Lasix 60 mg every 12 hours. Monitor I&O. Renal function. Status: Acute (2) Hyperkalemia: Worsened again last night, was given additional calcium gluconate, Lasix, and received Kayexalate. Change to low potassium diet. Continue Lasix. Hold potassium supplementation. Status: Acute (3) Pneumonia: Subjectively improving. Oxygenation back to baseline. Urine bacterial antigens including Legionella are negative. Pending COVID-19 PCR. Chronic hypoxia, usually on 4 L nasal cannula oxygen, but more dyspneic recently, coughing. Bibasilar infiltrate suggestive of pneumonia. Not septic. Collect sputum culture, urine bacterial antigens. Ceftriaxone and azithromycin. Status: Acute (4) Cystitis: Gram-negative rods growing in urine. Follow-up ID and sensitivity. Most recently Proteus mirabilis, Enterobacter susceptible to cephalosporins. Ceftriaxone as above. Follow-up urine culture. Status: Acute (5) Decubitus ulcer of sacral area: Rash of large area of buttocks, sacrum, upper thighs, labia, mostly maceration secondary to moisture damage with chronic incontinence, her, also over bony prominence, with stage II ulceration. Keep dry. Moisture barrier. Turn. Protein supplementation. Son states they are planning to follow-up with Dr. Corey as they have been considering suprapubic catheter. Status: Acute (6) Overactive bladder: Status: Chronic (7) Urinary incontinence: Son states they are planning to follow-up with Dr. Corey as they have been considering suprapubic catheter. Discussed risk of catheter infection. He will be discussing further regarding risks and benefits with urology. Status: Acute (8) Chronic respiratory failure with hypoxia: Currently on 4 L oxygen with history of CHF, COPD. Status: Acute (9) Physical deconditioning: Treat CHF, pneumonia, UTI. Elevated TSH. Need to confirm her most recent levothyroxine dose. PT, OT. Status: Acute (10) Morbid obesity: Status: Acute (11) Troponin level elevated: She has not been having any chest pain or pressure. Recently dyspnea, cough, but also orthopnea, worsening edema. Will complete troponin EKG series. Some chronic location of troponin noted previously, although currently higher than usual, however, with multiple conditions and lack of possible delta AMI appears less likely. Continue aspirin, carvedilol, atorvastatin. Assess limited TTE. Monitor on telemetry. Monitor for change in symptoms. Would benefit from additional risk stratification once in better overall condition by stress testing. Status: Acute (12) Patient dependent upon caregiver: Quite significant debility at baseline, requiring Chapo lift, total assist for transfers to scooter, toileting, very difficult to care for her moisture wounds due to morbid obesity, very limited mobility, as well as urinary incontinence and overactive bladder. Is a Chapo lift at home, electrocautery. Son states they have been considering follow-up with urology to discuss suprapubic catheter. Case management on the case, further considerations regarding discharge, consideration of detention facility versus care home placement versus return home again. PT, OT evaluation ongoing. Status: Acute Additional A&P Information Dark stool: hemoccult Anemia: iron studies DM2: Insulin lantus, SSI, CC diet COPD HLD GERD HTN Hypothyroidism: TSH elevated at 11.62. Appears to have several different levothyroxine doses listed. Discussed with nursing staff, will confirm which dose is most recent as appears it has been adjusted several times. - actually takes 175+25 mcg per pharmacy. Dose changed. PVD Other chronic comorbidities noted Attestations Medical Necessity Statement*: Continue admission for assessment management of CHF, pneumonia, UTI, in a lady with morbid obesity, right-sided AKA, very limited mobility. Disposition planning. Coding Level of Care Code Acute Geographic Area Intelligence Officer for Chg Fwd Exam Comprehensive Diagnoses CHF exacerbation I50.9 Hyperkalemia E87.5 Pneumonia J18.9 Cystitis N30.90 Decubitus ulcer of sacral area L89.159 Overactive bladder N32.81 Urinary incontinence R32 Chronic respiratory failure with hypoxia J96.11 Physical deconditioning R53.81 Morbid obesity E66.01 Troponin level elevated R77.8 Patient dependent upon caregiver
[2021-02-28 15:01] LABS: Coronavirus Test Green County Not Detected
[2021-02-28] MEDS: azithromycin 500 MG in sodium chloride 0.9% 250 ML 250 MG IV (16:17)
[2021-02-28 16:56] LABS: Glucose Point of Care 147 mg/dL (70-110)
[2021-02-28] MEDS: cefTRIAXone 1,000 MG in sodium chloride 0.9% (plus) 50 ML 100 MG IV (17:25)
[2021-02-28] MEDS: atorvastatin 40 mg Tablet 20 MG PO (17:26)
[2021-02-28] MEDS: insulin glargine 100 units/1 mL 10 UNIT SUBCUT (20:30)
[2021-02-28 21:13] LABS: Glucose Point of Care 187 mg/dL (70-110)
--- NOTE | 2021-02-28 21:28 | USCV_ITS ---
Rachid Hagen Age: 75 Gender: F : 1945 Exam Date: 02/28/2021 07:43 Ordering Phys: Vinayak Melendrez MD Technologist: Exam Location: [facility] [place] Indication: CHF BP: 139 / 69 HR: 69 Rhythm: Sinus Technical Quality: Adequate MEASUREMENTS (Male / Female) Normal Values 2D ECHO LV Diastolic Diameter PLAX 4.2 cm 4.2 - 5.9 / 3.9 - 5.3 cm LV Systolic Diameter PLAX 3.1 cm IVS Diastolic Thickness 1.4 cm 0.6 - 1.0 / 0.6 - 0.9 cm IVS Systolic Thickness 1.6 cm LVPW Diastolic Thickness 1.1 cm 0.6 - 1.0 / 0.6 - 0.9 cm LVPW Systolic Thickness 1.7 cm LVOT Diameter 2.0 cm LV Ejection Fraction 2D Teich 51.7 % LV Ejection Fraction MOD 2C 75.1 % LV Ejection Fraction 2C AL 74.9 % LA Diameter 4.7 cm LA Width 4.5 cm LA Height 6.1 cm RA Width 4.4 cm RA Height 5.5 cm M-MODE LV Diastolic Diameter MM 5.6 cm 4.2 - 5.9 / 3.9 - 5.3 cm LV Systolic Diameter MM 3.3 cm LV Ejection Fraction MM Teich 70.1 % IVS Diastolic Thickness MM 1.2 cm 0.6 - 1.0 / 0.6 - 0.9 cm IVS Systolic Thickness MM 2.1 cm LVPW Diastolic Thickness MM 1.3 cm 0.6 - 1.0 / 0.6 - 0.9 cm LVPW Systolic Thickness MM 1.7 cm RV Diastolic Diameter MM 1.8 cm Aortic Annulus Diameter 3.2 cm LA Ao Ratio MM 1.4 MV E Point Septal Separation 0.7 cm FINDINGS Left Ventricle Normal left ventricular cavity size. Normal left ventricular systolic function. No regional wall motion abnormalities. Left ventricular ejection fraction is estimated at 55 %. Right Ventricle The right ventricle is normal in size and function. RVSP could not be calculated due to incomplete tricuspid regurgitation velocity profile. Right Atrium The right atrium is normal in size. Left Atrium The left atrium is normal in size. Mitral Valve Moderately thickened mitral valve. Severe mitral annular calcification. No mitral valve stenosis. No mitral valve regurgitation. Aortic Valve Structurally normal aortic valve without significant sclerosis or stenosis. There is no aortic regurgitation. Tricuspid Valve Structurally normal tricuspid valve without significant stenosis or regurgitation. Pulmonic Valve Structurally normal pulmonic valve without significant stenosis. There is no pulmonic regurgitation. Pericardium Normal pericardium without effusion. Aorta Normal ascending aorta dimension. CONCLUSIONS 1-Normal left ventricular cavity size. Normal left ventricular systolic function. No regional wall motion abnormalities. Left ventricular ejection fraction is estimated at 55 %. 2-Moderately thickened mitral valve. Severe mitral annular calcification. No mitral valve stenosis. No mitral valve regurgitation. 3-There is no pericardial effusion. 4-The right ventricle is normal in size and function. RVSP could not be calculated due to incomplete tricuspid regurgitation velocity profile. 5-Structurally normal mitral valve without significant stenosis or prolapse. There is no mitral regurgitation. 6-No significant change since the prior echocardiogram study of 01/04/2021 Celina Villegas MD (Electronically Signed) Final Date: 28 February 2021 22:59 S
[2021-02-28] MEDS: enoxaparin 40 mg/0.4 mL Syringe SUBCUT (22:17)
[2021-03-01] VITALS (8 sets, daily range): BP systolic 117–149; BP diastolic 65–72; PULSE 70–77; RESP 16–22; TEMP 36.8–37.4; O2SAT 90–97; BMI 59.2
[2021-03-01] MEDS: FUROsemide 10 mg/mL SDV 10mL 60 MG IVP (03:56)
[2021-03-01 05:45] LABS: Basophils % 0.7 %; Eosinophils # 0.4 10^3/uL (0.0-0.8); Eosinophils % 8.5 %; Hemoglobin 8.8 g/dL (11.5-15.3); Lymphocytes # 0.8 10^3/uL (0.8-4.8); Lymphocytes % 17.5 %; Mean Corpuscular HGB Conc 28.4 g/dL (30.0-36.0); Mean Corpuscular Hemoglobin 28.9 pg (28.0-34.0); Monocytes # 0.4 10^3/uL (0.2-0.9); Monocytes % 8.8 %; Neutrophils % 62.9 %; Nucleated Red Blood Cells % 0 %; Platelet Count 147 10^3/cmm (130-400); Red Blood Count 3.04 10^6/uL (4.1-5.3); Red Cell Distribution Width 14.4 % (12.1-15.1); White Blood Count 4.5 10^3/uL (4.0-10.0)
[2021-03-01 06:10] LABS: Alanine Aminotransferase 28 U/L (0-33); Albumin Level 2.5 g/dL (3.5-5.2); Alkaline Phosphatase 89 IU/L (35-105); Anion Gap 8.6 (5-19); Aspartate Amino Transferase 16 U/L (0-32); Blood Urea Nitrogen 37 mg/dL (8-23); Calcium 8.1 mg/dL (8.5-10.5); Carbon Dioxide 37 mmol/L (22-29); Chloride 105 mmol/L (98-107); Globulin 3.5 g/dL (1.3-4.6); Glucose 150 mg/dL (65-115); Osmolality Calculated 314 mOsm/kg (285-295); Potassium 4.6 mmol/L (3.5-5.1); Sodium 146 mmol/L (136-145); Total Bilirubin 0.2 mg/dL (0.15-1.2)
[2021-03-01 06:33] LABS: Glucose Point of Care 177 mg/dL (70-110)
[2021-03-01] MEDS: pregabalin 150 mg Capsule PO ×2 (08:55→20:44)
[2021-03-01] MEDS: carvedilol 6.25 mg Tablet 3.125 MG PO (08:55)
[2021-03-01] MEDS: levothyroxine 200 mcg Tablet PO (08:56)
[2021-03-01] MEDS: aspirin 81 mg EC Tablet PO (08:56)
[2021-03-01] MEDS: gabapentin 300 mg Capsule PO ×2 (08:56→20:44)
[2021-03-01] MEDS: pantoprazole DR 40 mg Tablet PO (08:56)
[2021-03-01] MEDS: guaiFENesin 600 mg Tablet PO (08:56)
[2021-03-01] MEDS: oxybutynin 5 mg Tablet PO (08:56)
[2021-03-01] MEDS: insulin lispro 100 unit/1 mL SUBCUT ×3 (08:56→21:08)
[2021-03-01 12:13] LABS: Glucose Point of Care 213 mg/dL (70-110)
[2021-03-01] MEDS: ertapenem 1,000 mg SDV 1000 MG IM (13:16)
[2021-03-01 17:20] LABS: Glucose Point of Care 176 mg/dL (70-110)
--- NOTE | 2021-03-01 17:23 | PM.DCS ---
Discharge Providers Date of Admission: 02/27/21 22:30 Date of Discharge: March 01, 2021 Attending Provider at Admission: Vinayak Melendrez Attending Provider at Discharge: Vinayak Melendrez Primary Care Provider: Brian Walker MD Diagnoses at Discharge Discharge Diagnosis (1) CHF exacerbation: Status: Acute (2) Hyperkalemia: Status: Acute (3) Pneumonia: Status: Acute (4) Cystitis: Status: Acute (5) Decubitus ulcer of sacral area: Status: Acute Permanent problem details: Improving (6) Overactive bladder: Status: Chronic (7) Urinary incontinence: Status: Acute (8) Chronic respiratory failure with hypoxia: Status: Acute (9) Physical deconditioning: Status: Acute (10) Morbid obesity: Status: Acute (11) Troponin level elevated: Status: Acute (12) Patient dependent upon caregiver: Status: Acute Reason for Visit Reason for Visit: SOB Hospital Course Hospital Course Pleasant 75-year-old lady with history of CHF, COPD, currently on 4 L of oxygen, morbid obesity, DM 2, peripheral neuropathy, status post right AKA, PVD, HTN, recurrent UTI, urinary incontinence, chronic wounds of left lower extremity, recently also with wounds of the sacrum, buttocks, upper thighs, was hospitalized for assessment management due to worsening dyspnea, cough, severe orthopnea, edema. Was treated with ceftriaxone and azithromycin for pneumonia, diuresed with Lasix IV 60 mg twice daily for CHF exacerbation, urinary tract infection, initially treated with ceftriaxone given susceptibility of organism in December, Proteus mirabilis resistant to nitrofurantoin, tetracycline, Bactrim, however, urine cultures from this admission returning ESBL Proteus sensitive to ertapenem. Due to this she received first dose of ertapenem IM in the hospital, with her son taught IM injections to continue at home and complete 5 days of therapy. Troponin elevation noted on presentation, without chest pain pressure through hospitalization. With CHF exacerbation, however. Troponin higher than prior values. Continues on aspirin, beta-bonnie, statin. Monitored on telemetry. Echocardiogram obtained showed no regional wall motion abnormalities, ejection fraction 55%, severe mitral annular calcification, moderately thickened mitral valve, no mitral valve stenosis, no MVR. Pericardial effusion. Right ventricle normal size and function. Structurally normal aortic valve without significant stenosis or prolapse. No aortic regurgitation. She is referred for assessment by stress testing for additional risk stratification. Her condition overall improved significantly. She felt more alert, subjectively feeling much better, remains in negative balance. Edema improving. Oxygenation improved, and she remains on 4 L by nasal cannula. As she is improving and feels ready to return home, for pneumonia she will complete a short course of ertapenem and azithromycin. Urine bacterial antigens including Legionella were negative. COVID-19 PCR was negative. Hyperkalemia noted on presentation as high as 6.6, treated initially with insulin, calcium gluconate, Lasix, but with recurrence, requiring also Kayexalate. Subsequent potassium staying in normal range. Potassium supplementation discontinued. Moisture damage of sacrum, buttocks, upper thighs, posterior labia majora, groins, with stage 2 pressure sore managed by keeping dry, with zinc oxide. Left calf wound at home is treated with Medihoney, here cleansed with normal saline, Maxorb applied, OPTi foam. She is referred for follow up with wound care. Lockhart catheter in place for accurate I&O. She initially wanted to keep Lockhart at discharge, however, on discussion with her of ESBL resistant organism in urine, concern for recurrence of UTI with indwelling catheter, difficulties with hygiene, and risk of sepsis, severe disability and/or , and given that even with sacral wounds, skin would still give her a better barrier rather than direct route for infection with indwelling catheter, she preferred to remove the catheter prior to discharge. She states that has been considering going with hospice care, although final decision had not been made. Discussed with her in case of transition to hospice care, palliation with Lockhart catheter could be considered given otherwise difference of goals of care. She also is alternatively also considering follow-up with Dr. Corey for discussion of suprapubic catheter. She was assessed by PT, OT, found to be at baseline functioning, unable to schedule further. Arrangements for transition for long-term stay to jail discussed and offered, her, she has been clear about her wishes of not wanting to pursue this option, with preference to instead continue at home. Please note on presentation dark discoloration of stool noted. Hemoccult requested, but cannot be collected. Hemoglobin remained steady. No outward signs of bleeding. Please follow-up blood counts, and continue work-up of anemia. Physical Exam Const: COMMON NORMALS: no acute distress, patient oriented x3 and alert GENERAL APPEARANCE: cooperative and comfortable NUTRITIONAL APPEARANCE: obese morbidly obese ORIENTATION/CONSCIOUSNESS: Yes awake OTHER: Pleasant, conversant. HENMT: COMMON NORMALS: oropharynx normal Neck/C-Spine: COMMON NORMALS: no JVD Resp: COMMON NORMALS: normal respiratory effort and clear to auscultation bilaterally AUSCULTATION: clear to auscultation bilaterally Cardio: COMMON NORMALS: no JVD, regular rhythm, S1 normal heart sound present, S2 normal heart sound present and No murmurs present (Cardio) RHYTHM: regular rhythm HEART SOUNDS: S1 normal heart sound present and S2 normal heart sound present GI: COMMON NORMALS: Normal to inspection, nondistended, normoactive bowel sounds present, Soft to palpation and non-tender PALPATION: Yes Soft to palpation OTHER: Very large pannus Extremity: COMMON NORMALS: no joint enlargement GENERAL: Yes edema (LLE, thighs, sacrum) OTHER: R AKA Neuro: COMMON NORMALS: patient oriented x3 and moves all extremities SENSORIUM/ORIENTATION: Yes alert Skin: OTHER: Bottom wounds not seen today Urinary Catheter Management^: Lockhart: Cath Placed During This Visit: yes, but has since been removed by the nurse Reason for Continuing Indwelling Catheter: Decision to DC Catheter Urinary Catheter Date of Insertion: 02/28/21 Date Urinary Catheter Removed: 03/01/21 Time Urinary Catheter Discontinued: 16:56 Discharge Data Data Completed and Pending: Completed Studies During Hospitalization Category Date Time Status XR chest 1V alejandro ble [id number] Stat Exams 02/27/21 15:45 Completed CV. echo limited [id number] Routine Ultrasound 02/28/21 21:28 Completed Pending at discharge Category Date Time Status Complete Blood Co unt w/Auto AM LABS Lab 03/02/21 04:00 Ordered Complete Blood Co unt w/Auto AM LABS Lab 03/03/21 04:00 Ordered Comprehensive Met abolic Panel AM LA BS Lab 03/02/21 04:00 Ordered Comprehensive Met abolic Panel AM LA BS Lab 03/03/21 04:00 Ordered Immunochemical Fe nauj OCB Routine Lab 02/27/21 21:13 Ordered Sputum Culture an d Gram Stain Routi ne Lab 02/27/21 21:37 Uncollected Labs from last 24 hours 03/01/21 03/01/21 03/01/21 16:51 11:49 06:25 WBC RBC Hgb Hct MCV MCH MCHC RDW Plt Count MPV Neut % (Auto) Lymph % (Auto) White % (Auto) Eos % (Auto) Baso % (Auto) Neut # (Auto) Lymph # (Auto) White # (Auto) Eos # (Auto) Baso # (Auto) Nucleated RBC % (a uto) Nucleated RBCs # Sodium Potassium Chloride Carbon Dioxide Anion Gap BUN Creatinine GFR Calculation Glucose POC Glucose 176 H 213 H 177 H Calculated Osmolal ity Calcium Total Bilirubin AST ALT Alkaline Phosphata se Total Protein Albumin Globulin 03/01/21 03/01/21 02/28/21 05:11 05:11 20:50 WBC 4.5 RBC 3.04 L Hgb 8.8 L Hct 31.0 L MCV 102.0 H MCH 28.9 MCHC 28.4 L RDW 14.4 Plt Count 147 MPV 12.0 H Neut % (Auto) 62.9 Lymph % (Auto) 17.5 White % (Auto) 8.8 Eos % (Auto) 8.5 Baso % (Auto) 0.7 Neut # (Auto) 2.80 Lymph # (Auto) 0.8 White # (Auto) 0.4 Eos # (Auto) 0.4 Baso # (Auto) 0.0 Nucleated RBC % (a uto) 0 Nucleated RBCs # 0.0 Sodium 146 H Potassium 4.6 Chloride 105 Carbon Dioxide 37 H Anion Gap 8.6 BUN 37 H Creatinine 0.7 GFR Calculation Not Reportable Glucose 150 H POC Glucose 187 H Calculated Osmolal ity 314 H Calcium 8.1 L Total Bilirubin 0.2 AST 16 ALT 28 Alkaline Phosphata se 89 Total Protein 6.0 L Albumin 2.5 L Globulin 3.5 Vitals: Last Vital Signs Temp 98.2 F 03/01/21 15:50 Pulse 70 03/01/21 15:50 Resp 16 03/01/21 15:50 BP 134/72 03/01/21 15:50 Pulse Ox 91 03/01/21 15:50 Discharge Plan Discharge Patient Disposition: Home Health Service Condition: Stable Prescriptions: New nystatin 100,000 unit/gram cream 1 applic topical BID 28 Days Qty: 30 RF: 2 ertapenem 1 gram recon soln 1 g IM DAILY 5 Days Qty: 9 RF: 0 azithromycin 250 mg tablet 250 mg PO DAILY 5 Days Qty: 5 RF: 0 Continued meclizine 25 mg tablet 25 mg PO Q8H PRN (Reason: Nausea And Vomiting) RF: 0 insulin aspart U-100 [Novolog Flexpen U-100 Insulin] 100 unit/mL (3 mL) insulin pen See Rx Instructions .ROUTE .COMPLEX RF: 0 pregabalin [Lyrica] 150 mg Capsule 150 mg PO TID RF: 0 Lantus Solostar U-100 Insulin 100 unit/mL (3 mL) insulin pen 10 unit SUBCUT BEDTIME RF: 0 carvedilol 6.25 mg tablet 3.125 mg PO BID RF: 0 aspirin 81 mg Tablet,Delayed Release (Dr/Ec) 81 mg PO DAILY RF: 0 nitrofurantoin monohyd/m-cryst 100 mg capsule 100 mg PO DAILY RF: 0 glipizide 10 mg tablet 10 mg PO BID 30 Days Qty: 60 RF: 0 atorvastatin 20 mg Tablet 20 mg PO QPM RF: 0 gabapentin 300 mg Capsule 300 mg PO TID RF: 0 albuterol sulfate 2.5 mg /3 mL (0.083 %) solution for nebulization 2.5 mg continuous nebulization BID PRN (Reason: Shortness Of Breath) RF: 0 cetirizine [Zyrtec] 10 mg Tablet 10 mg PO DAILY RF: 0 polysaccharide iron complex [Ferrex 150] 150 mg iron capsule 150 mg PO DAILY RF: 0 alendronate 70 mg tablet 70 mg PO Q7D RF: 0 levothyroxine 25 mcg tablet 25 mcg PO DAILY@06 RF: 0 pantoprazole [Protonix] 40 mg Tablet,Delayed Release (Dr/Ec) 40 mg PO DAILY RF: 0 mupirocin 2 % ointment 1 applic TOPICAL PRN RF: 0 oxybutynin chloride 5 mg tablet 5 mg PO BID RF: 0 guaifenesin [Mucinex] 600 mg tablet extended release 12hr 600 mg PO BID RF: 0 levothyroxine 175 mcg tablet 175 mcg PO DAILY@06 RF: 0 sennosides-docusate sodium [Senna-S] 8.6-50 mg tablet 1 tab-cap PO BID PRN (Reason: Constipation) RF: 0 Januvia 100 mg tablet 100 mg PO QAM RF: 0 furosemide 40 mg tablet 40 mg PO DAILY 30 Days Qty: 30 RF: 0 Discontinued levothyroxine 100 mcg tablet 100 mcg PO DAILY RF: 0 potassium chloride 20 mEq tablet,ER particles/crystals 20 meq PO BID 30 Days Qty: 60 RF: 0 Discharge Orders: Discharge Order (Routine); Ordered 03/01/21 Ordered By: Vinayak Melendrez Other Ambulatory Orders: Sestamibi Stress Test Request (Routine) Timeframe: 1 Week Facility: [facility] - Location: [facility] Laboratory Ordered By: Vinayak Melendrez Referrals: [facility] [Outside] Fanta Caicedo NP [Referring] - 03/08/21 2:00 pm Discharge Diet: Cardiac and Diabetic Discharge Activity: Resume usual activity and Increase activity as tolerated Patient Instructions: Nystatin (On the skin), Azithromycin (By mouth), Ertapenem (By injection), Heart Failure (DC), Hyperkalemia (DC), Chronic Respiratory Failure (DC), Opioid Safety Activity Restrictions/Additional Instructions: Please complete 5 days of intramuscular ertapenem injections. Please follow-up with your primary provider. Follow-up with urology. Please discuss that highly resistant organism with urology as this will be important for any consideration of long-term urinary catheter. Continue ertapenem as above and also azithromycin for treatment of pneumonia. Continue home dose Lasix. Continue oxygen as previously, 4 L/min nasal cannula, maintain saturation at 90-92%. Continue wound care on maceration pressure sores on the sacrum, buttocks, upper thighs. Keep dry. Apply zinc oxide twice a day. Please discuss with primary provider follow-up with Hemoccult test of the stool to further assess anemia. Please do not continue potassium supplementation due to elevated potassium level on presentation. This is currently better. Please have your primary doctor follow-up electrolyte levels due to also mild elevation of sodium. Please follow-up with additional assessment by stress testing due to congestive heart failure, abnormal troponin level noted on presentation to further assess for underlying coronary disease. Please continue your recently adjusted dose of levothyroxine, 200 mcg, please have your primary doctor reassess your thyroid function in 3 weeks given noted still some elevation of TSH at 11.62, to see if any further dose adjustment is needed. [facility] WILL CALL WITH APPOINTMENT FOR STRESS TEST WITH CLEARANCE FROM YOUR INSURANCE. Discharge Attestations Time Spent in Discharge Care*: greater than 30 min Status at Discharge: Cognitive status at discharge: cognitively intact, Behavioral status at discharge: cooperative, Quality Metrics Clinical Quality Measures During this hospital stay, did patient experience: None Coding Level of Care Code Acute Chg FW DC note Diagnoses CHF exacerbation I50.9 Hyperkalemia E87.5 Pneumonia J18.9 Cystitis N30.90 Decubitus ulcer of sacral area L89.159 Overactive bladder N32.81 Urinary incontinence R32 Chronic respiratory failure with hypoxia J96.11 Physical deconditioning R53.81 Morbid obesity E66.01 Troponin level elevated R77.8 Patient dependent upon caregiver
--- NOTE | 2021-03-01 19:33 | PC.NURSE ---
Report to Carrie BAILEY at this time.
[2021-03-01 20:40] LABS: Glucose Point of Care 174 mg/dL (70-110)
[2021-03-01] MEDS: enoxaparin 40 mg/0.4 mL Syringe SUBCUT (20:44)
[2021-03-01] MEDS: insulin glargine 100 units/1 mL 10 UNIT SUBCUT (20:44)
[2021-03-02] VITALS: BP 146/64; PULSE 66; RESP 18; TEMP 37.1; O2SAT 95
[2021-03-02] MEDS: acetaminophen 325 mg Tablet 650 MG PO (03:23)
[2021-03-02 03:48] LABS: Basophils % 0.8 %; Eosinophils # 0.2 10^3/uL (0.0-0.8); Eosinophils % 6.4 %; Hematocrit 30.6 % (37.0-47.0); Hemoglobin 8.8 g/dL (11.5-15.3); Lymphocytes # 0.9 10^3/uL (0.8-4.8); Lymphocytes % 23.3 %; Mean Corpuscular HGB Conc 28.8 g/dL (30.0-36.0); Mean Corpuscular Hemoglobin 29.1 pg (28.0-34.0); Mean Corpuscular Volume 101.3 fl (81-99); Monocytes # 0.4 10^3/uL (0.2-0.9); Monocytes % 11.5 %; Neutrophils # 2.11 10^3/uL (1.8-7.7); Neutrophils % 56.4 %; Nucleated Red Blood Cells % 0 %; Platelet Count 161 10^3/cmm (130-400); Red Blood Count 3.02 10^6/uL (4.1-5.3); Red Cell Distribution Width 14.2 % (12.1-15.1); White Blood Count 3.7 10^3/uL (4.0-10.0)
[2021-03-02 04:00] VITALS: BP 168/68; PULSE 75; RESP 18; TEMP 37.1; O2SAT 94
[2021-03-02] MEDS: FUROsemide 40 mg Tablet 60 MG PO (04:15)
[2021-03-02 04:19] LABS: Alanine Aminotransferase 21 U/L (0-33); Albumin Level 2.7 g/dL (3.5-5.2); Alkaline Phosphatase 84 IU/L (35-105); Anion Gap 8.3 (5-19); Aspartate Amino Transferase 10 U/L (0-32); Blood Urea Nitrogen 32 mg/dL (8-23); Carbon Dioxide 36 mmol/L (22-29); Chloride 102 mmol/L (98-107); Globulin 3.2 g/dL (1.3-4.6); Glucose 130 mg/dL (65-115); Osmolality Calculated 303 mOsm/kg (285-295); Potassium 4.3 mmol/L (3.5-5.1); Sodium 142 mmol/L (136-145); Total Bilirubin 0.2 mg/dL (0.15-1.2); Total Protein 5.9 g/dL (6.6-8.7)
[2021-03-02 07:27] VITALS: BP 134/77; PULSE 68; RESP 18; TEMP 36.7; O2SAT 94
[2021-03-02] MEDS: gabapentin 300 mg Capsule PO (07:50)
[2021-03-02] MEDS: pantoprazole DR 40 mg Tablet PO (07:50)
[2021-03-02] MEDS: carvedilol 6.25 mg Tablet 3.125 MG PO (07:50)
[2021-03-02] MEDS: aspirin 81 mg EC Tablet PO (07:50)
[2021-03-02] MEDS: pregabalin 150 mg Capsule PO (07:50)
[2021-03-02] MEDS: guaiFENesin 600 mg Tablet PO (07:50)
[2021-03-02] MEDS: oxybutynin 5 mg Tablet PO (07:50)
[2021-03-02] MEDS: levothyroxine 200 mcg Tablet PO (07:50)
[2021-03-02 08:30] VITALS: BP 134/77; PULSE 68; RESP 18; TEMP 36.7; O2SAT 94
[2021-03-02 21:31] LABS: Glucose Point of Care 132 mg/dL (70-110)
== END 2021-03-02 08:33 | disposition home health service (06) ==
LOC: ER 18:16 → MEDSURG 22:55
PROVIDERS: Admitting Provider Internal Medicine; Emergency Provider Family Medicine; PCP Internal Medicine; Visit Provider Internal Medicine
DX: I11.0 Hypertensive heart disease with heart failure (principal); I50.9 Heart failure, unspecified; E78.5 Hyperlipidemia, unspecified; J18.9 Pneumonia, unspecified organism; N30.90 Cystitis, unspecified without hematuria; L89.159 Pressure ulcer of sacral region, unspecified stage; N32.81 Overactive bladder; J96.11 Chronic respiratory failure with hypoxia; R53.81 Other malaise; E66.01 Morbid (severe) obesity due to excess calories; Z68.43 Body mass index [BMI] 50.0-59.9, adult; R77.8 Other specified abnormalities of plasma proteins; J44.9 Chronic obstructive pulmonary disease, unspecified; E03.9 Hypothyroidism, unspecified; I73.9 Peripheral vascular disease, unspecified; K21.9 Gastro-esophageal reflux disease without esophagitis; E11.9 Type 2 diabetes mellitus without complications; Z79.4 Long term (current) use of insulin; Z87.891 Personal history of nicotine dependence; Z79.82 Long term (current) use of aspirin; Z79.84 Long term (current) use of oral hypoglycemic drugs
CPT/HCPCS: 36415; 36416; 71045; 80053; 81001; 82962; 84132; 84443; 84484; 85025; 86403; 87077; 87086; 87186; 87449; 87635; 93005; 93308; 94640; 94664; 96365; 96367; 96372; 96375; 97161; 97165; 99285; G0378; J0456; J0610; J0696; J1335; J1650; J1815 ×2; J1940; J7050; J7611